=== PATIENT | female | born 1955 | race Caucasian/White ===

== ENCOUNTER → 2018-01-28 16:19 | Outpatient (CLI) | payer BC, SELFPAY | PROVIDERS: Family Provider Family Medicine; PCP Family Medicine; Visit Provider Nurse Practitioner Women's Health | DX: R30.0 Dysuria (principal) | CPT/HCPCS: 87086; 87088; 87186 ==

== ENCOUNTER → 2018-07-03 08:07 | Outpatient (CLI) | payer MEDICARE, OTHER, SELFPAY ==
[2018-07-03 09:49] LABS: ALB/GLOB Ratio 0.9 RATIO (0.9-2.4); AST(SGOT) 22 U/L (15-37); Alanine Aminotransfer ALT/SGPT 41 U/L (13-56); Albumin, Serum 3.5 g/dL (3.2-5.0); Alkaline Phosphatase 93 U/L (45-117); Anion Gap 11 (5-15); BUN 13 mg/dL (7-18); BUN/Creat Ratio 14.5 RATIO (10-20); Calcium,Total 8.4 mg/dL (8.5-10.1); Chloride 106 mmol/L (98-107); Creatinine, Serum 0.89 mg/dL (0.55-1.02); EST Glomerular Filtration Rate 67 mL/min (>60); Est Glom Filt Rate - Afr Amer 81 mL/min (>60); Globulin 3.7 g/dL (2.2-4.2); Glucose 98 mg/dL (74-106); Potassium 4.1 mmol/L (3.5-5.1); Protein, Total 7.2 g/dL (6.4-8.2); Sodium Level 142 mmol/L (136-145)
[2018-07-04 11:57] LABS: PTHIN 83.9 pg/mL (18.4-80.1)
[2018-07-04 12:09] LABS: Vitamin D,25 Hydroxy 54.1 ng/mL (29.95-100.01)
== END ==
PROVIDERS: Family Provider Family Medicine; PCP Family Medicine; Visit Provider Nurse Practitioner
DX: E55.9 Vitamin D deficiency, unspecified (principal); M81.0 Age-related osteoporosis without current pathological fracture
CPT/HCPCS: 36415; 80053; 82306; 83970

== ENCOUNTER → 2018-07-15 10:29 | Outpatient (CLI) | payer MEDICARE, OTHER, SELFPAY ==
--- NOTE | 2018-07-15 10:30 | US_ITS ---
STUDY: THYROID ULTRASOUND REASON FOR EXAM: Female, 63 years old. Goiter TECHNIQUE: Ultrasound evaluation of the thyroid was performed with real-time and static hansen-scale imaging. COMPARISON: None. FINDINGS: RIGHT LOBE: The right lobe of the thyroid gland measures 5.1 x 2.2 x 2.3 cm. There is a homogeneous echotexture. Multiple small solid nodules are noted. Largest is in the mid pole measuring 8 x 5 x 6 mm with a small calcification. LEFT LOBE: The left lobe of the thyroid gland measures 4.7 x 1.8 x 1.6 cm. There is a homogeneous echotexture. At least 3 solid nodules are noted, largest is in the midpole region measuring 6 x 6 x 4 mm. ISTHMUS: The isthmus measures 4 mm. The regional lymph nodes are normal. US/Thyroid IMPRESSION: Multiple small subcentimeter nodules noted bilaterally. Otherwise, homogeneous echotexture throughout Electronically Signed: Luis Avila DO at 8:33 EDT Tel , Service support ,
== END ==
PROVIDERS: Family Provider Family Medicine; PCP Family Medicine; Visit Provider Nurse Practitioner
DX: E04.9 Nontoxic goiter, unspecified (principal)
CPT/HCPCS: 76536

== ENCOUNTER → 2018-09-09 10:17 | Outpatient (CLI) | payer MEDICARE, OTHER, SELFPAY ==
--- NOTE | 2018-09-09 10:20 | BI_ITS ---
MAMMOGRAPHY - BILATERAL SCREENING REASON FOR EXAM: Female, 63 years old. Routine annual screening examination. PERTINENT HISTORY: Non-contributory. TECHNIQUE: Digital bilateral breast micky (3D mammographic acquisition) in the CC and MLO projections. 2-D mediolateral oblique (MLO) and craniocaudad (CC) views of both breasts were obtained. CAD: Full Field Digital Mammography with Computer Added Detection was performed. COMPARISON: Comparison is made with prior study dated September 03, 2017 and June 20, 2010. FINDINGS: Breast Composition: The breasts are heterogeneously dense, which may obscure small masses. There are no dominant masses or suspicious calcifications. 2 tissue markers are seen in the right breast and compared with the history of prior right stereotactic biopsies. Stable small benign-appearing bilateral axillary lymph nodes. No other significant abnormalities are identified. BI/SCREENING MAMM (CAD), BILAT IMPRESSION: Stable bilateral screening mammogram. Yearly follow-up mammogram recommended. (A) ASSESSMENT CATEGORY: Approximately 10% of breast cancers are not detected by mammography. A normal mammogram should not delay biopsy of a clinically suspicious abnormality. [id number] Electronically Signed: Adarsh Mao MD at 12:41 EST Tel [phone], Service support ,
== END ==
PROVIDERS: Family Provider Family Medicine; PCP Family Medicine; Referring Provider Nurse Practitioner Women's Health; Visit Provider Nurse Practitioner Women's Health
DX: Z12.31 Encounter for screening mammogram for malignant neoplasm of breast (principal)
CPT/HCPCS: 77063; 77067

== ENCOUNTER → 2018-10-08 09:01 | Outpatient (CLI) | payer MEDICARE, OTHER, SELFPAY ==
[2018-09-22 14:07] VITALS: BMI 31.9
[2018-10-08 10:05] LABS: ALB/GLOB Ratio 0.9 RATIO (0.9-2.4); AST(SGOT) 17 U/L (15-37); Alanine Aminotransfer ALT/SGPT 33 U/L (13-56); Albumin, Serum 3.6 g/dL (3.2-5.0); Alkaline Phosphatase 100 U/L (45-117); Anion Gap 11 (5-15); BUN 15 mg/dL (7-18); BUN/Creat Ratio 15.8 RATIO (10-20); Calcium,Total 8.8 mg/dL (8.5-10.1); Chloride 105 mmol/L (98-107); Creatinine, Serum 0.95 mg/dL (0.55-1.02); EST Glomerular Filtration Rate 63 mL/min (>60); Est Glom Filt Rate - Afr Amer 76 mL/min (>60); Globulin 3.9 g/dL (2.2-4.2); Glucose 100 mg/dL (74-106); Protein, Total 7.5 g/dL (6.4-8.2); Sodium Level 142 mmol/L (136-145)
[2018-10-08 10:08] LABS: PTHIN 50.8 pg/mL (18.4-80.1)
[2018-10-10 14:55] LABS: Vitamin D 1,25-Dihydroxy 28.6 pg/mL (19.9-79.3)
--- OUTSIDE RECORDS SUMMARY | 2018-11-24 04:56 | XMS RPT_ITS ---
:1955 Author Organization OHIP Care Team Providers Name Role Phone ARELI BANUELOS Attending Unavailable ARELI BANUELOS Referring Unavailable TRAVON COWAN Attending Unavailable TRAVON COWAN Referring Unavailable STEPHANIE OVIEDO Attending Unavailable Mark SINCLAIR Referring Unavailable TRAVON COWAN Referring Unavailable Caitlyn Sinclair ELECTRIC MOTORS SALESPERSON-Sheldon Attending Unavailable Caitlyn Sinclair ELECTRIC MOTORS SALESPERSON-Sheldon Referring Unavailable Stephanie Oviedo Primary Care Unavailable Ely Hudson Attending Unavailable Elderbrock, Stephanie Referring Unavailable Elderbrock, Stephanie Primary Care Unavailable ShookCaitlyn ELECTRIC MOTORS SALESPERSON-C Attending Unavailable Elderbrock, Stephanie Referring Unavailable Elderbrock, Stephanie Primary Care Unavailable Tristan, Ely Attending Unavailable Elderbrock, Stephanie Primary Care Unavailable Mannford, Ely Referring Unavailable Shook, Caitlyn Bustamante ELECTRIC MOTORS SALESPERSON-C Attending Unavailable Shook, Caitlyn Bustamante ELECTRIC MOTORS SALESPERSON-C Referring Unavailable Elderbrock, Stephanie Primary Care Unavailable Shook, Caitlyn Bustamante ELECTRIC MOTORS SALESPERSON-C Attending Unavailable Elderbrock, Stephanie Referring Unavailable Elderbrock, Stephanie Primary Care Unavailable Shook, Caitlyn Bustamante ELECTRIC MOTORS SALESPERSON-C Attending Unavailable Shook, Caitlyn Bustamante ELECTRIC MOTORS SALESPERSON-C Referring Unavailable Elderbrock, Stephanie Primary Care Unavailable Mannford, Ely Attending Unavailable Tristan, Ely Referring Unavailable Elderbrock, Stephanie Primary Care Unavailable Tristan, Ely Attending Unavailable Elderbrock, Stephanie Referring Unavailable PROBLEMS PROBLEMS DATE TYPE CONDITION / CODE ATTENDING STATUS SOURCE 07/15/2018 Unknown 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, ELECTRIC MOTORS SALESPERSON-C Community unspecified / Hospital E04.9(ICD-10) Repository 04/25/2018 Active Other specified NA Active [facility] disorders of bone [facility] density and Repository structure, unspecified site / M85.80(ICD-10) 02/28/2018 Active Unknown / CHAPO, Active [facility] UNK(Unknown) TRAVON Dillard [facility] Repository 02/13/2018 Unknown M81.0 - Caitlyn Sinclair Active [facility] Age-related ELECTRIC MOTORS SALESPERSON-C Community osteoporosis Hospital without current Repository pathological fracture / M81.0(ICD-10) 01/29/2018 Unknown R30.0 - Dysuria / Tristan, Ely Active [facility] R30.0(ICD-10) Community Hospital Repository 01/28/2018 Unknown N30.01 - Acute Mannford, Ely Active [facility] cystitis with Community hematuria / Hospital N30.01(ICD-10) Repository PROCEDURES PROCEDURES No Procedure Records FoundRESULTS RESULTS CNOV Observed: 10/27/2018 Status: COMPLETED Source: ARP 10:30 AM [facility] REPOSITORY Office Visit (ENDMED) THERESA PALMER ([id number]) 1955 F NFR Date Time Provider Department 10/27/18 10:30 AM NURSE YOLANDA BUNDY CHANCE During your visit today, we recorded the following information about you: Temi Little RN 10/27/2018 10:38 AM Signed The patient is here for an injection of Prolia Dose: 60 mg Route: Subcutaneous Lot# [id number] Expiration date 10/2020 [facility]: 50380-838-92 Given without incident. Site: left arm Dr. Cowan present in clinic at time of injection. The date due for the next injection is 6 months. On or after 04/27/19. Patient education was given by nurse. Patient tolerated well in NAD and no reactions noted. Medication supplied by [facility] stock pharmacy. Temi Little RN Referring Provider: TRAVON COWAN [[id number]] Allergies As of Date: 10/27/2018 Noted Allergy Reaction ISRRAEL INHIBITORS 02/08/2016 3 - Cough ACTONEL (RISEDRONATE SODIUM) 11/30/2005 14 - Other: See Comments Comments: esophageal erosion AUGMENTIN (AMOXICILLIN-POT CLAVUL*06/21/2005 8 - GI Upset BONIVA (IBANDRONATE) 04/04/2007 14 - Other: See Comments Comments: Pain in esophagus ENALAPRIL 07/18/2006 14 - Other: See Comments Comments: cough LEVAQUIN (LEVOFLOXACIN) 06/21/2005 8 - GI Upset SULFA (SULFONAMIDE ANTIBIOTICS) 06/21/2005 7 - Swelling 14 - Other: See Comments Comments: angioedema VIOXX (ROFECOXIB) 06/21/2005 2 - Rash Date Reviewed: 10/27/2018 Reviewed by: Temi Little RN - Fully Assessed Reason for Visit: Prolia Injection [Other] Primary Visit Diagnosis:Age related osteoporosis, unspecified pathological fracture presence [M81.0] Prescriptions as of 10/27/2018 Sig: ASPIRIN 81 MG TABLET,DELAYED * Take 1 tablet by mouth once d* CALCITRIOL 0.25 MCG CAPSULE Take 0.25 mcg by mouth once d* CALCIUM PHOSPHATE 600 MG-VIT * Take 1 tablet by mouth once d* * CHOLECALCIFEROL (VITAMIN D3) * Take 1 Each by mouth once spencer* EZETIMIBE 10 MG TABLET Take 1 tablet by mouth once d* FLUOCINONIDE 0.05 % TOPICAL G* apply to area affected 3 time* FLUTICASONE 110 MCG/ACTUATION* Inhale 2 Puffs as instructed * LOSARTAN 50 MG TABLET Take 1 tablet by mouth once d* MONTELUKAST 10 MG TABLET Take 1 tablet by mouth daily * MONTELUKAST 10 MG TABLET Take 1 tablet by mouth daily * NYSTATIN 100,000 UNIT/GRAM TO* Apply 1 application to affect* * OTC PRODUCT Citracal 400mg +D ii daily PANTOPRAZOLE 40 MG TABLET,DEL* Take 1 tablet by mouth once d* POLYETHYLENE GLYCOL 3350 17 G* Take 17 g by mouth once daily* ROSUVASTATIN 10 MG TABLET Take one tablet by mouth ever* VENLAFAXINE ER 150 MG CAPSULE* Take 1 capsule by mouth once * Problem List As Of Date 10/27/2018 Noted Resolved ESOPHAGEAL REFLUX [K21.9] SICCA SYNDROME [M35.00] Osteoporosis [M81.0] More... 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 Hyperparathyroidism, secondary (HCC) [N25.81] INVALID FOR* More... Hypertension [I10] INVALID FOR* Sjogren's disease (HCC) [M35.00] INVALID FOR* Special screening for malignant neoplasm of col*INVALID FOR*09/07/2015 Painful swallowing [R13.10] INVALID FOR*09/07/2015 Cough [R05] INVALID FOR*02/20/2016 Multiple thyroid nodules [E04.2] INVALID FOR* More... Esophageal spasm [K22.4] INVALID FOR* Obesity [E66.9] INVALID FOR* Hyperlipidemia [E78.00] INVALID FOR* Visit Notes: >> Temi Little RN SatOct 27, 2018 10:35 AM Status: Signed The patient is here for an injection of Prolia Dose: 60 mg Route: Subcutaneous Lot# [id number] Expiration date 10/2020 [facility]: 45626-160-37 Given without incident. Site: left arm Dr. Cowan present in clinic at time of injection. The date due for the next injection is 6 months. On or after 04/27/19. Patient education was given by nurse. Patient tolerated well in NAD and no reactions noted. Medication supplied by [facility] stock pharmacy. Temi Little RN Encounter Status:Closed by TEMI LITTLE RN on 10/27/18 COMPREHENSIVE METABOLIC Collected: 10/08/2018 Status: F Source: KELVIN GILMORE 9:04 AM [facility] REPOSITORY TYPE CODE TESTS RESULT OUT OF RANGE REFERENCE UNITS LAB L501.0100 74-106 mg/dL Normal GLU 100 Result Comment: Fasting Glucose result from 100 to 125 mg/dL suggests IMPAIRED HOMEOSTASIS per A.D.A. criteria. Please note revised GLUCOSE reference range effective 2017. LAB L501.1000 7-18 mg/dL Normal BUN 15 LAB L501.1100 0.55-1.02 mg/dL Normal CREAT,SERUM 0.95 Result Comment: The validity of the calculated GFR AND GFRAA in patients over 70 years has not been determined. Clinical correlation is essential. LAB L501.1110 >60 mL/min Normal EST GFR 63 Result Comment: Non- GFR Calc LAB L501.1115 >60 mL/min Normal EST GFR - AA 76 Result Comment: GFR Calc LAB L501.1300 10-20 RATIO Normal BUN/CRE 15.8 LAB L501.1500 6.4-8.2 g/dL T Normal PROT 7.5 LAB L501.1800 3.2-5.0 g/dL Normal ALB 3.6 LAB L501.1950 2.2-4.2 g/dL Normal GLOB 3.9 LAB L501.2000 0.9-2.4 RATIO Normal A/G 0.9 LAB L501.2200 8.5-10.1 mg/dL CA Normal 8.8 LAB L501.4100 15-37 U/L Normal AST 17 LAB L501.4305 45-117 U/L Normal ALK P 100 LAB L501.4405 13-56 U/L Normal ALT 33 LAB L501.4600 0.20-1.00 mg/dL T Normal BILI 0.30 LAB L501.5300 136-145 mmol/L NA Normal 142 LAB L501.5600 3.5-5.1 mmol/L K Normal 4.0 LAB L501.5900 98-107 mmol/L CL Normal 105 LAB L501.6100 21.0-32.0 mmol/L Normal CO2 26.0 LAB L501.6200 5-15 Normal GAP 11 Performed By: #### L500.4050 #### [facility] [address] [place], [address] PTHIN Collected: 10/08/2018 Status: F Source: MEEKER 9:04 AM [facility] REPOSITORY TYPE CODE TESTS RESULT OUT OF RANGE REFERENCE UNITS LAB L509.1000 18.4-80.1 pg/mL Normal PTHIN 50.8 Performed By: #### L509.1000 #### [facility] [address] [place], [address] CALCIUM IONIZED Collected: 10/08/2018 Status: F Source: MEEKER 9:04 AM [facility] REPOSITORY TYPE CODE TESTS RESULT OUT OF RANGE REFERENCE UNITS LAB L3100.9600 4.5-5.6 mg/dL Normal IONIZED CA 5.5 Result Comment: Performed at: [facility] [id number] Honey Extractor: Grady Liriano PhD, Phone: [phone] Performed By: #### L3100.9600 #### [facility] (refer to report for specific site) refer to report for address and phone number VITAMIN D 1,25-DIHYDROXY Collected: 10/08/2018 Status: F Source: MEEKER 9:04 AM [facility] REPOSITORY TYPE CODE TESTS RESULT OUT OF RANGE REFERENCE UNITS LAB L3300.0960 19.9-79.3 pg/mL Normal VITD 1,25 28.6 [id number] Result Comment: Performed at: - [facility] [id number] Honey Extractor: Rl Kennedy MD, Phone: [phone] Performed By: #### L3300.0960 #### [facility] (refer to report for specific site) refer to report for address and phone number BD DXA - AXIAL Observed: 09/29/2018 Status: C Source: GALDAMEZ SKELETON 10:50 AM [facility] REPOSITORY * * *Final Report* * * * * * SEE BOTTOM OF REPORT FOR ADDENDED TEXT * * * DATE OF EXAM: Sep 29 2018 10:50AM [facility] [id number] - BD DXA - AXIAL SKELETON B / PROCEDURE REASON: Osteoporosis * * * * Physician Interpretation * * * * * * * * * * * * ORIGINAL REPORT * * * * * * * * BONE DENSITY SCREENING - 09/29/2018 10:50 AM HISTORY: INDICATIONS / RISK FACTORS / DEMOGRAPHICS: Osteoporosis TECHNIQUE: Lumbar spine and both hips evaluated COMPARISON: 11/26/2016 STUDY LIMITATIONS: None RESULTS: LUMBAR SPINE: BMD = 0.989 g/cm2, which is -0.5 SDs (T-Score) for mean peak bone mass of young normals 1.2 SDs (Z-Score) for mean peak bone mass matched for age, sex, weight, ethnicity Comment: There is been a 6.3% increase in bone density in the lumbar spine. This is clinically significant LEFT TOTAL HIP: BMD = 0.872 g/cm2, which is -0.6 SDs (T-Score) for mean peak bone mass of young normals 0.7 SDs (Z-Score) for mean peak bone mass matched for age, sex, weight, ethnicity LEFT FEMORAL NECK: BMD = 0.634 g/cm2, which is -1.9 SDs (T-Score) for mean peak bone mass of young normals -0.4 SDs (Z-Score) for mean peak bone mass matched for age, sex, weight, ethnicity Comment: There has been a 2.0% decrease in bone density in the left total femur. RIGHT TOTAL HIP: BMD = 0.923 g/cm2, which is -0.2 SDs (T-Score) for mean peak bone mass of young normals 1.1 SDs (Z-Score) for mean peak bone mass matched for age, sex, weight, ethnicity RIGHT FEMORAL NECK: BMD = 0.756 g/cm2, which is -0.8 SDs (T-Score) for mean peak bone mass of young normals 0.7 SDs (Z-Score) for mean peak bone mass matched for age, sex, weight, ethnicity .. 10-year Fracture Risk (FRAX): Major osteoporotic fracture risk 19% Hip fracture risk 1.5% IMPRESSION: The patient's T- scores meet the World Health Organization classification for osteopenia in the LEFT femoral neck. This patient may have an increased risk of insufficiency fracture. Recommendation: Follow up study in 2 to 4 years WORLD [facility]ALTH ORG. CLASSIFICATION OF BONE MASS CLASSIFICATION T-SCORE Normal Greater than or equal to -1 Low Bone Mass Between -1 and -2.5 (Osteopenia) Osteoporosis Less than or equal to -2.5 * * * * * * * * ADDENDUM #1 * * * * * * * * LEFT forearm should also be included in the exam. The LEFT forearm: BMD = 0.650 g/cm2, which is -0.7 SDs (T-Score) for mean peak bone mass of young normals 0.9 SDs (Z-Score) for mean peak bone mass matched for age, sex, weight, ethnicity Comment: This is compatible with 1.8% increase. Impression remains the same for the entire study. Lining Ironer: DIEGO Transcribe Date/Time: Sep 30 2018 5:09P Dictated by : KARLEE COYLE DO This examination was interpreted and the report reviewed and electronically signed by: KARLEE COYLE DO on Sep 30 2018 4:57PM EST This document has been addended by: KARLEE COYLE DO on Sep 30 2018 5:13PM EST [id number] BD DXA - FOREARM Observed: 09/29/2018 Status: F Source: GALDAMEZ SKELETON 10:50 AM [facility] REPOSITORY * * *Final Report* * * DATE OF EXAM: Sep 29 2018 10:50AM [facility] [id number] - BD DXA - FOREARM SKELETON / PROCEDURE REASON: Osteoporosis * * * * Physician Interpretation * * * * LEFT forearm should also be included in the bone density exam The LEFT forearm: BMD = 0.650 g/cm2, which is -0.7 SDs (T-Score) for mean peak bone mass of young normals 0.9 SDs (Z-Score) for mean peak bone mass matched for age, sex, weight, ethnicity Comment: This is compatible with 1.8% increase. Impression remains the same for the entire study as given for lumbar spine and both hips. Lining Ironer: DIEGO Transcribe Date/Time: Sep 30 2018 5:13P Dictated by : KARLEE COYLE DO This examination was interpreted and the report reviewed and electronically signed by: KARLEE COYLE DO on Sep 30 2018 5:14PM EST [id number] PROGRESS Observed: 09/29/2018 Status: COMPLETED Source: ARP 10:23 AM [facility] REPOSITORY HNO ID: [id number] Author: Juan CarrilloRtCaro Francois Service: (none) Author Type: Senior Medical Technologist Type: Progress Notes Filed: 09/29/2018 10:51 AM Note Text: Radiology Service Progress Note PATIENT NAME: Theresa Palmer DATE OF SERVICE: September 29, 2018 TIME: 10:23 AM PATIENT IDENTITY VERIFICATION COMPLETED USING TWO (2) METHODS: Patient confirmed name verbally and Date of . PATIENT GENDER DATA: Female. status: : No status: NO. PATIENT RELEVANT IMPLANT DATA REVIEWED: Not Applicable RADIOLOGY DEPARTMENT: [facility] bone density PERIPHERAL IV DATA: Not applicable SIGNED BY: RT Tremayne September 29, 2018 10:23 AM PROGRESS Observed: 09/23/2018 Status: COMPLETED Source: ARP 9:28 AM [facility] REPOSITORY HNO ID: [id number] Author: Stephanie Oviedo Service: (none) Author Type: Physician Type: Progress Notes Filed: 09/23/2018 10:12 AM Note Text: Welcome to Medicare Physical/Screening Theresa Palmer is a 63 year old female who present today for an initial Medicare Screening evaluation. PAST MEDICAL HISTORY Diagnosis Date - Abnormal mammogram, unspecified 06/15/2010 - Allergic rhinitis, cause unspecified - Asthma - Breast cyst 06/14/2011 - Breast microcalcifications 06/20/2010 RIGHT X2 - Esophageal reflux - Fibromyalgia - Impaired glucose tolerance - Irritable bowel syndrome - Myalgia and myositis, unspecified - Osteoporosis, unspecified - Other and unspecified hyperlipidemia - Salzmann's nodular dystrophy of both eyes - Sjogren syndrome - Surgical menopause 04/17/2007 Hot flashes and insomnia. PAST SURGICAL HISTORY Procedure Laterality Date - BX BREAST PERC VACUUM/ROTN 06/20/2010 RIGHT X2 - CATARACT SURGERY, COMPLEX right eye - COLONOSCOP W/ OR W/O BRSH SPEC 2002 Colonoscopy - COLONOSCOP W/ OR W/O BRSH SPEC 09/07/15 Colonoscopy - EYE SURGERY PROCEDURE 2014 X 4 - FNA WITH IMAGING 06/14/11 U/S FNA UOQ right breast cyst - ORAL SURGERY PROCEDURE WISDOM TEETH EXTRACTION - REMOVAL OF TONSILS,<12 Y/O - TOTAL ABDOM HYSTERECTOMY 04/17/2007 Hysterectomy, MAIK/BSO - Adenomyosis FAMILY HISTORY Problem Relation Age of Onset - Osteoporosis Mother - Heart Mother - Heart Father DC Current Outpatient Prescriptions: calcitriol (ROCALTROL) 0.25 mcg capsule Take 0.25 mcg by mouth once daily. montelukast (SINGULAIR) 10 mg tablet Take 1 tablet by mouth daily at bedtime. fluticasone (FLOVENT HFA) 110 mcg/actuation inhaler Inhale 2 Puffs as instructed twice daily. pantoprazole DR (PROTONIX) 40 mg tablet Take 1 tablet by mouth once daily. venlafaxine XR (EFFEXOR XR) 150 mg 24 hr capsule Take 1 capsule by mouth once daily. polyethylene glycol 3350 (MIRALAX, GLYCOLAX) 17 gram/dose powder Take 17 g by mouth once daily. Take one (1) capful in 8oz of liquid each day. nystatin (MYCOSTATIN) cream Apply 1 application to affected area as needed. losartan (COZAAR) 50 mg tablet Take 1 tablet by mouth once daily. rosuvastatin (CRESTOR) 10 mg tablet Take one tablet by mouth every 3 days. ezetimibe (ZETIA) 10 mg tablet Take 1 tablet by mouth once daily. fluocinonide (LIDEX) 0.05 % gel apply to area affected 3 times daily as needed aspirin, enteric coated (ECOTRIN LOW STRENGTH) 81 mg EC tablet Take 1 tablet by mouth once daily. Cholecalciferol, Vitamin D3, 5,000 unit ORAL Tab Take 1 Each by mouth once daily. OTC PRODUCT Citracal 400mg +D ii daily No current facility-administered medications for this visit. Allergy: Isrrael Inhibitors; Actonel [Risedronate Sodium]; Augmentin [Amoxicillin-Pot Clavulanate]; Boniva [Ibandronate]; Enalapril; Levaquin [Levofloxacin]; Sulfa (Sulfonamide Antibiotics); Vioxx [Rofecoxib] SOCIAL HISTORY: Patient is . She has never smoked. Theresa reports her alcohol use as never. Theresa likes to exercise by walking. She watches her diet for sodium, low fat and low cholesterol most of the time. Depression screen She in the past two weeks denies having felt down, depressed, hopeless or with little interest or pleasure in doing things. Functional Ability/Safety Screen 1. Was the patient's timed Up and Go test unsteady or longer than 30 seconds? No 2. Does the patient need help with the phone, transportation, shopping,preparing meals, housework, laundry, medications or managing money? No 3. Does your home have rungs in the hallway, lack of grab bars in the bathroom, lack of handrails on the stairs or have poor lighting? Yes Hearing Evaluation: normal PHYSICAL EXAM BP 132/82 Pulse 68 Resp 16 Ht 162.6 cm (5' 4) Wt 83.5 kg (184 lb) LMP 03/23/2007 BMI 31.58 kg/m? BMI 31.58 kg/(m2) Visual acuity: OD: 20/20 OS: 20/ 15 OU: 20/15 General Appearance: Well appearing, alert, in no acute distress, well-hydrated, well nourished. and Obese. Lungs: lungs clear to auscultation. No wheezing, rhonchi, rales. Heart: RRR without murmur, gallop, or rubs. No ectopy. ASSESMENT/PLAN: 63 year old female - Weight Loss - Fall avoidance - Vaccines recommended Pneumococcal - Glaucoma screening - Lipid panel ASSESSMENT/PLAN: 1. Encounter for Medicare annual wellness exam - ICD9: V70.0, ICD10: Z00.00 (primary diagnosis) - Encouraged monthly Breast Self Exam - Recommended calcium intake with supplements or by diet (goal of 3874-2576 mg/day - Recommended regular aerobic exercise. - Discussed need and benefit for weight loss. BMI 31.58 kg/(m2) - Vaccination(s) recommended today of Prevnar - Follow up for annual exam in one year. 2. Need for vaccination - ICD9: V05.9, ICD10: Z23 - PNEUMOCOCCAL-13 VACCINE PCV-13 Follow up in 1 year or sooner if needed. I agree with the Chief Complaint, ROS, and Past Histories independently gathered by the clinical director of academic support and the remaining scribed note accurately describes my personal service to the patient. Stephanie Oviedo MD The documentation for this note was completed by Gloria Cantu Ma acting as scribe for Stephanie Oviedo MD. September 23, 2018 9:30 AM. CNOV Observed: 09/23/2018 Status: COMPLETED Source: ARP 9:20 AM [facility] REPOSITORY Office Visit (FAMPWS) THERESA PALMER ([id number]) 1955 F NFR Date Time Provider Department 09/23/18 9:20 AM [facility] your visit today, we recorded the following information about you: Pulse Respiration Blood pressure Weight 68/minute 16/minute 132/82 83.5 kg Height 1.626 m Stephanie Oviedo MD 09/23/2018 10:12 AM Signed Welcome to Medicare Physical/Screening Theresa Palmer is a 63 year old female who present today for an initial Medicare Screening evaluation. PAST MEDICAL HISTORY Diagnosis Date - Abnormal mammogram, unspecified 06/15/2010 - Allergic rhinitis, cause unspecified - Asthma - Breast cyst 06/14/2011 - Breast microcalcifications 06/20/2010 RIGHT X2 - Esophageal reflux - Fibromyalgia - Impaired glucose tolerance - Irritable bowel syndrome - Myalgia and myositis, unspecified - Osteoporosis, unspecified - Other and unspecified hyperlipidemia - Salzmann's nodular dystrophy of both eyes - Sjogren syndrome - Surgical menopause 04/17/2007 Hot flashes and insomnia. PAST SURGICAL HISTORY Procedure Laterality Date - BX BREAST PERC VACUUM/ROTN 06/20/2010 RIGHT X2 - CATARACT SURGERY, COMPLEX right eye - COLONOSCOP W/ OR W/O BRSH SPEC 2002 Colonoscopy - COLONOSCOP W/ OR W/O BRSH SPEC 09/07/15 Colonoscopy - EYE SURGERY PROCEDURE 2014 X 4 - FNA WITH IMAGING 06/14/11 U/S FNA UOQ right breast cyst - ORAL SURGERY PROCEDURE WISDOM TEETH EXTRACTION - REMOVAL OF TONSILS,<12 Y/O - TOTAL ABDOM HYSTERECTOMY 04/17/2007 Hysterectomy, MAIK/BSO - Adenomyosis FAMILY HISTORY Problem Relation Age of Onset - Osteoporosis Mother - Heart Mother - Heart Father DC Current Outpatient Prescriptions: calcitriol (ROCALTROL) 0.25 mcg capsule Take 0.25 mcg by mouth once daily. montelukast (SINGULAIR) 10 mg tablet Take 1 tablet by mouth daily at bedtime. fluticasone (FLOVENT HFA) 110 mcg/actuation inhaler Inhale 2 Puffs as instructed twice daily. pantoprazole DR (PROTONIX) 40 mg tablet Take 1 tablet by mouth once daily. venlafaxine XR (EFFEXOR XR) 150 mg 24 hr capsule Take 1 capsule by mouth once daily. polyethylene glycol 3350 (MIRALAX, GLYCOLAX) 17 gram/dose powder Take 17 g by mouth once daily. Take one (1) capful in 8oz of liquid each day. nystatin (MYCOSTATIN) cream Apply 1 application to affected area as needed. losartan (COZAAR) 50 mg tablet Take 1 tablet by mouth once daily. rosuvastatin (CRESTOR) 10 mg tablet Take one tablet by mouth every 3 days. ezetimibe (ZETIA) 10 mg tablet Take 1 tablet by mouth once daily. fluocinonide (LIDEX) 0.05 % gel apply to area affected 3 times daily as needed aspirin, enteric coated (ECOTRIN LOW STRENGTH) 81 mg EC tablet Take 1 tablet by mouth once daily. Cholecalciferol, Vitamin D3, 5,000 unit ORAL Tab Take 1 Each by mouth once daily. OTC PRODUCT Citracal 400mg +D ii daily No current facility-administered medications for this visit. Allergy: Isrrael Inhibitors; Actonel [Risedronate Sodium]; Augmentin [Amoxicillin-Pot Clavulanate]; Boniva [Ibandronate]; Enalapril; Levaquin [Levofloxacin]; Sulfa (Sulfonamide Antibiotics); Vioxx [Rofecoxib] SOCIAL HISTORY: Patient is . She has never smoked. Theresa reports her alcohol use as never. Theresa likes to exercise by walking. She watches her diet for sodium, low fat and low cholesterol most of the time. Depression screen She in the past two weeks denies having felt down, depressed, hopeless or with little interest or pleasure in doing things. Functional Ability/Safety Screen 1. Was the patient's timed Up and Go test unsteady or longer than 30 seconds? No 2. Does the patient need help with the phone, transportation, shopping,preparing meals, housework, laundry, medications or managing money? No 3. Does your home have rungs in the hallway, lack of grab bars in the bathroom, lack of handrails on the stairs or have poor lighting? Yes Hearing Evaluation: normal PHYSICAL EXAM BP 132/82 Pulse 68 Resp 16 Ht 162.6 cm (5' 4) Wt 83.5 kg (184 lb) LMP 03/23/2007 BMI 31.58 kg/m? BMI 31.58 kg/(m2) Visual acuity: OD: 20/20 OS: 20/ 15 OU: 20/15 General Appearance: Well appearing, alert, in no acute distress, well-hydrated, well nourished. and Obese. Lungs: lungs clear to auscultation. No wheezing, rhonchi, rales. Heart: RRR without murmur, gallop, or rubs. No ectopy. ASSESMENT/PLAN: 63 year old female - Weight Loss - Fall avoidance - Vaccines recommended Pneumococcal - Glaucoma screening - Lipid panel ASSESSMENT/PLAN: 1. Encounter for Medicare annual wellness exam - ICD9: V70.0, ICD10: Z00.00 (primary diagnosis) - Encouraged monthly Breast Self Exam - Recommended calcium intake with supplements or by diet (goal of 7657-5723 mg/day - Recommended regular aerobic exercise. - Discussed need and benefit for weight loss. BMI 31.58 kg/(m2) - Vaccination(s) recommended today of Prevnar - Follow up for annual exam in one year. 2. Need for vaccination - ICD9: V05.9, ICD10: Z23 - PNEUMOCOCCAL-13 VACCINE PCV-13 Follow up in 1 year or sooner if needed. I agree with the Chief Complaint, ROS, and Past Histories independently gathered by the clinical director of academic support and the remaining scribed note accurately describes my personal service to the patient. Stephanie Oviedo MD The documentation for this note was completed by Gloria Cantu Ma acting as scribe for Stephanie Oviedo MD. September 23, 2018 9:30 AM. Referring Provider: SELF [[id number]] Allergies As of Date: 09/23/2018 Noted Allergy Reaction ISRRAEL INHIBITORS 02/08/2016 3 - Cough ACTONEL (RISEDRONATE SODIUM) 11/30/2005 14 - Other: See Comments Comments: esophageal erosion AUGMENTIN (AMOXICILLIN-POT CLAVUL*06/21/2005 8 - GI Upset BONIVA (IBANDRONATE) 04/04/2007 14 - Other: See Comments Comments: Pain in esophagus ENALAPRIL 07/18/2006 14 - Other: See Comments Comments: cough LEVAQUIN (LEVOFLOXACIN) 06/21/2005 8 - GI Upset SULFA (SULFONAMIDE ANTIBIOTICS) 06/21/2005 7 - Swelling 14 - Other: See Comments Comments: angioedema VIOXX (ROFECOXIB) 06/21/2005 2 - Rash Date Reviewed: 09/23/2018 Reviewed by: Gloria Cantu Ma - Fully Assessed Reason for Visit: Medicare Wellness Exam [4060] Primary Visit Diagnosis:Encounter for Medicare annual wellness exam [Z00.00] Other Visit Diagnoses:Need for vaccination [Z23] Gastroesophageal reflux disease without esophagitis [K21.9] Order(s):PNEUMOCOCCAL-13 VACCINE PCV-13 [[id number]] Order #: [id number] calcium phos-vit D3-mag oxide 600 mg calcium- 500 unit-50 mg tabTake 1 tablet by mouth once daily.Disp: Rfl: denosumab (PROLIA) 60 mg/mL syrgInject 1 mL subcutaneously one time only for 1 dose.Disp: 1 mLRfl: [address] (PROTONIX) 40 mg tabletTake 1 tablet by mouth once daily.Disp: 90 tabletRfl: 3 Prescriptions as of 09/23/2018 Sig: PANTOPRAZOLE 40 MG TABLET,DEL* Take 1 tablet by mouth once d* CALCITRIOL 0.25 MCG CAPSULE Take 0.25 mcg by mouth once d* MONTELUKAST 10 MG TABLET Take 1 tablet by mouth daily * FLUTICASONE 110 MCG/ACTUATION* Inhale 2 Puffs as instructed * VENLAFAXINE ER 150 MG CAPSULE* Take 1 capsule by mouth once * POLYETHYLENE GLYCOL 3350 17 G* Take 17 g by mouth once daily* NYSTATIN 100,000 UNIT/GRAM TO* Apply 1 application to affect* LOSARTAN 50 MG TABLET Take 1 tablet by mouth once d* ROSUVASTATIN 10 MG TABLET Take one tablet by mouth ever* EZETIMIBE 10 MG TABLET Take 1 tablet by mouth once d* FLUOCINONIDE 0.05 % TOPICAL G* apply to area affected 3 time* ASPIRIN 81 MG TABLET,DELAYED * Take 1 tablet by mouth once d* * CHOLECALCIFEROL (VITAMIN D3) * Take 1 Each by mouth once spencer* * OTC PRODUCT Citracal 400mg +D ii daily CALCIUM PHOSPHATE 600 MG-VIT * Take 1 tablet by mouth once d* DENOSUMAB 60 MG/ML SUBCUTANEO* Inject 1 mL subcutaneously on* Problem List As Of Date 09/23/2018 Noted Resolved ESOPHAGEAL REFLUX [K21.9] SICCA SYNDROME [M35.00] Osteoporosis [M81.0] More... 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 Hyperparathyroidism, secondary (HCC) [N25.81] INVALID FOR* More... Hypertension [I10] INVALID FOR* Sjogren's disease (HCC) [M35.00] INVALID FOR* Special screening for malignant neoplasm of col*INVALID FOR*09/07/2015 Painful swallowing [R13.10] INVALID FOR*09/07/2015 Cough [R05] INVALID FOR*02/20/2016 Multiple thyroid nodules [E04.2] INVALID FOR* More... Esophageal spasm [K22.4] INVALID FOR* Obesity [E66.9] INVALID FOR* Hyperlipidemia [E78.00] INVALID FOR* Prescriptions ordered this encounter Disp Refills Start End CALCIUM PHOSPHATE 600 MG-VIT D3 500 * 09/23/2018 Class: OTC Route: ORAL Sig: Take 1 tablet by mouth once daily. DENOSUMAB 60 MG/ML SUBCUTANEOUS SYRI* 1 mL 0 09/23/2018 09/23/2018 Class: Med Update Route: SUBCUTANEOUS Sig: Inject 1 mL subcutaneously one time only for 1 dose. PANTOPRAZOLE 40 MG TABLET,DELAYED RE* 90 t* 3 09/23/2018 Route: ORAL Sig: Take 1 tablet by mouth once daily. Medications Discontinued During This Encounter pantoprazole DR (PROTONIX) 40 mg tab* 90 t* 3 09/17/2017 09/23/2018 Route: ORAL Sig: Take 1 tablet by mouth once daily. Disc: Reason for discontinue is not on file. Disposition: Return in about 1 year (around 09/23/2019). 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 [place] [address] OFFICE VISIT Date of Service: 09/22/18 MR#: [id number] Acct: [id number] Name: THERESA PALMER Rep #: [id number] : 1955 Provider: GRISEL Hudson Age/Sex: 63/F Location: [facility] [place] Status: Signed Intake Vital Signs09/22/18 Height 5 ft 4 in 09/22/18 Weight: 186 lb 09/22/18 Body Mass Index (BMI) 31.9 09/22/18 Blood Pressure 120/78 Intake Visit Reasons: ANNUAL Lacemaker Required: No Is patient in pain?: No Allergies ISRRAEL Inhibitors Allergy (Severe, Verified 09/22/18 14:08) Unknown benzocaine [From TriOxin] Allergy (Severe, Verified 09/22/18 14:08) Unknown chloroxylenol [From TriOxin] Allergy (Severe, Verified 09/22/18 14:08) Unknown enalapril Allergy (Severe, Verified 09/22/18 14:08) Unknown hydrocortisone [From TriOxin] Allergy (Severe, Verified 09/22/18 14:08) Unknown ibandronate sodium Allergy (Severe, Verified 09/22/18 14:08) Unknown risedronate sodium Allergy (Severe, Verified 09/22/18 14:08) Unknown amoxicillin [From Augmentin] Allergy (Mild, Verified 09/22/18 14:08) nauseated clavulanic acid [From Augmentin] Allergy (Mild, Verified 09/22/18 14:08) nauseated levofloxacin [From Levaquin] Allergy (Mild, Verified 09/22/18 14:08) nauseated rofecoxib [From Vioxx] Allergy (Mild, Verified 09/22/18 14:08) rash Sulfa (Sulfonamide Antibiotics) Allergy (Mild, Verified 09/22/18 14:08) throat swelling Medications rosuvastatin 10 mg tablet 10 mg PO QDAY #90 tab 11/20/17 [Rx Confirmed 09/22/18] aspirin 81 mg chewable tablet PO 01/28/18 [History Confirmed 09/22/18] cholecalciferol (vitamin D3) 5,000 unit capsule 5,000 unit PO ONCE 01/28/18 [History Confirmed 09/22/18] denosumab 60 mg/mL subcutaneous syringe 60 mg SC [id number] 01/28/18 [History Confirmed 09/22/18] fluticasone 110 mcg/actuation HFA aerosol inhaler 2 puff INHALATION BID 01/28/18 [History Confirmed 09/22/18] montelukast 10 mg tablet 10 mg PO QHS 01/28/18 [History Confirmed 09/22/18] pantoprazole 40 mg tablet,delayed release 40 mg PO QDAY 01/28/18 [History Confirmed 09/22/18] fluocinonide 0.05 % topical gel 1 applic TOPICAL TID PRN g 02/13/18 [History Confirmed 09/22/18] nystatin 100,000 unit/gram topical cream 1 applic TOPICAL BID 02/13/18 [History Confirmed 09/22/18] polyethylene glycol 3350 17 gram/dose oral powder PO 02/13/18 [History Confirmed 09/22/18] ezetimibe 10 mg tablet 10 mg PO QDAY #90 tab 04/28/18 [Rx Confirmed 09/22/18] calcitriol 0.25 mcg capsule 0.25 mcg PO DAILY #90 cap 06/29/18 [Rx Confirmed 09/22/18] losartan 50 mg tablet 50 mg PO QDAY #90 tab 07/15/18 [Rx Confirmed 09/22/18] calcium phosphate-vitamin D3 250 mg calcium-500 unit chewable tablet tab PO TID tab 09/22/18 [History Confirmed 09/22/18] venlafaxine ER 75 mg capsule,extended release 24 hr 150 mg PO QDAY #180 cap 09/22/18 [Rx Confirmed 09/22/18] Is last menstrual period known: No Post menopausal: No Patient : No : No PFSH Medical History GERD (gastroesophageal reflux disease) (Chronic) Osteoporosis (Chronic) Sjogrens syndrome (Chronic) Gastroparesis (Chronic) Fibromyalgia (Chronic) Asthma (Chronic) Hot flashes (Chronic) Vitamin D deficiency (Chronic) Hyperlipidemia (Chronic) Hypertension (Chronic) Esophageal spasm (Acute) Hyperparathyroidism , secondary, non-renal (Acute) Multiple thyroid nodules (Acute) Obesity (Acute) Salzmann's nodular dystrophy (Acute) Sicca syndrome (Acute) H/O endoscopy (Resolved) Surgical History H/O colonoscopy (Resolved) History of LAVH (Resolved) S/P left knee surgery (Resolved) S/P tonsillectomy (Resolved) Family History Mother Heart disease Hypertension Father Heart disease Myocardial infarction Hypertension Social History Smoking Status: Never smoker alcohol intake: never substance use type: does not use caffeine: Yes what type of physical activity do you participate in: walking frequency: 5-6 times per week seatbelt use: always do you feel safe at home: Yes additional social history: - Ronni Patient and both retired. Pregancy History 3 Elective abortions Hx Para 3 Spontaneous abortions Past Pregnancies Del. DateName GA/Weeks Outcome Route Bth WeighInfant GeLabor LgtAnesthesiDel LocatProvider FOB t n h a n HPI ANNUAL: Details: THERESA PALMER is a 63 year old who presents for annual exam. Denies concerns History of abnormal PAP: no Last mammogram: 09/09/18 History of abnormal mammogram: benign biopsy Colon cancer screenin BMD with hospice chaplain Female Reproductive History Questions: Metorrhagia: No, Sexually active: No, Dyspareunia: No, PCB: No ROS Const Constitutional: Denies fatigue, weight gain or weight loss Cardio Card: Denies chest pain Resp Resp: Denies cough or shortness of breath with activity GI GI: Denies abdominal pain, constipation, change in stools, vomiting or bloating : Reports as per HPI; denies urinary frequency, pelvic pain, urinary urgency, vaginal discharge, vaginal itching, urinary incontinence or difficulty urinating Exam Const General: cooperative, healthy appearing, no acute distress, well developed Orientation: alert, oriented to person, oriented to place [facility] Head: normal to inspection Neck Neck: normal visual inspection Thyroid: thyroid normal Lymphatic: no lymphadenopathy noted Chest Breast inspection: normal inspection of the breasts, normal inspection of the axillae Breast palpation: normal palpation of the breasts, normal palpation of the axillae, no axillary lymphadenopathy Resp Effort AND Inspection: normal respiratory effort GI Palpation: soft, nontender, no masses Rectal Exam: deferred External Female Exam: normal external appearance, normal appearance of the urethra Urethra: normal appearance of the urethra, normal palpation Speculum Exam - Vagina: normal appearance of the vagina, normal vaginal discharge Speculum Exam - Cervix: cervix absent Bimanual Exam- Vagina AND Uterus: normal bimanual exam, uterus absent Bimanual Exam- Adnexa, other: normal adnexae, no adnexal masses, adnexae non-tender, pelvic support normal Pelvic Support: normal Neuro General: alert, oriented x3 Psych Affect: normal affect Assessment AND Plan Problems 1. Encounter for gynecological examination without abnormal finding Z01.419 2. Osteoporosis without current pathological fracture, unspecified osteoporosis type M81.0 Feels good and is exercising daily. Continues with Dr. Cowan for prolia. 3. Hot flashes R23.2 Plan Completed breast and pelvic exam Reviewed diet and exercise Pap na Mammogram recent Colonoscopy 2014 Bone density -recent and follows with endocrinology, on prolia RTO 1 year, prn with problems Ely Hudson SR. PAYROLL PROCESSOR Medications New: Changed: From: calcium phosphate-vitamin D3 250 mg calcium- 500 unit (Citracal + D3 PO BID 0RF (calcium phosphate)) Refilled: Coding Level of Care Code Pelvic/Breast Diagnoses Encounter for gynecological examination without abnormal finding Z01.419 Gynecological examination findings: abnormal findings ABSENT Osteoporosis without current pathological fracture, unspecified osteoporosis type M81.0 Osteoporosis type: unspecified Presence of current pathological fracture: without current pathological fracture Hot flashes R23.2 09/22/18 1442 <Electronically signed by Ely JUSTICE> Date Ely BURROUGHSC Cosigner Signature: Date (if applicable) CC: SCREENING MAMM (CAD), Observed: 09/09/2018 Status: F Source: KELVIN PÉREZ 10:20 AM [facility] REPOSITORY [facility] Services [address] [place] [address] SCREENING MAMM (CAD), BILAT MR#: [id number] Acct: [id number] Name: THERESA PALMER Rep #: [id number] : 1955 F 63 From: Adarsh Mao MD PCP: Stephanie Oviedo MD Status: REG CLI Study: SCREENING MAMM (CAD), BILAT Date of Exam: 09/09/18 Exam# [id number] Ordering Dr: Ely Hudson [employer] SALESPERSON-C ADDENDUM by Adarsh Mao MD on 09/10/18 at 0844 ADDENDUM This is an addendum for BIRADS category. BIRADS Category 2. Electronically Signed: Adarsh Mao MD at 8:44 EST Tel [phone], Service support , 09/10/18 0844 Date cc: GRISEL Hudson; Stephanie Oviedo MD * Signed ADDENDUM by Adarsh Mao MD on 09/10/18 at 0844 BI/SCREENING MAMM (CAD), BILAT 09/10/18 0851 Date cc: GRISEL Hudson; Stephanie Oviedo MD * Signed MAMMOGRAPHY - BILATERAL SCREENING REASON FOR EXAM: Female, 63 years old. Routine annual screening examination. PERTINENT HISTORY: Non-contributory. TECHNIQUE: Digital bilateral breast micky (3D mammographic acquisition) in the CC and MLO projections. 2-D mediolateral oblique (MLO) and craniocaudad (CC) views of both breasts were obtained. CAD: Full Field Digital Mammography with Computer Added Detection was performed. COMPARISON: Comparison is made with prior study dated September 03, 2017 and June 20, 2010. FINDINGS: Breast Composition: The breasts are heterogeneously dense, which may obscure small masses. There are no dominant masses or suspicious calcifications. 2 tissue markers are seen in the right breast and compared with the history of prior right stereotactic biopsies. Stable small benign-appearing bilateral axillary lymph nodes. No other significant abnormalities are identified. BI/SCREENING MAMM (CAD), BILAT IMPRESSION: Stable bilateral screening mammogram. Yearly follow-up mammogram recommended. (A) ASSESSMENT CATEGORY: Approximately 10% of breast cancers are not detected by mammography. A normal mammogram should not delay biopsy of a clinically suspicious abnormality. [id number] Electronically Signed: Adarsh Mao MD at 12:41 EST Tel [phone], Service support , CC: GRISEL Hudson; Stephanie Oviedo MD Lining Ironer: Signed [id number] Observed: 09/09/2018 Status: COMPLETED Source: ARP 12:00 AM [facility] REPOSITORY Patient Outreach (FAMPST) THERESA PALMER ([id number]) 1955 F NFR Date Time Provider Department 09/09/18 STEPHANIE OVIEDO FAMPST During your visit today, we recorded the following information about you: Allergies As of Date: 09/09/2018 Noted Allergy Reaction ISRRAEL INHIBITORS 02/08/2016 3 - Cough ACTONEL (RISEDRONATE SODIUM) 11/30/2005 14 - Other: See Comments Comments: esophageal erosion AUGMENTIN (AMOXICILLIN-POT CLAVUL*06/21/2005 8 - GI Upset BONIVA (IBANDRONATE) 04/04/2007 14 - Other: See Comments Comments: Pain in esophagus ENALAPRIL 07/18/2006 14 - Other: See Comments Comments: cough LEVAQUIN (LEVOFLOXACIN) 06/21/2005 8 - GI Upset SULFA (SULFONAMIDE ANTIBIOTICS) 06/21/2005 7 - Swelling 14 - Other: See Comments Comments: angioedema VIOXX (ROFECOXIB) 06/21/2005 2 - Rash Date Reviewed: 04/25/2018 Reviewed by: Temi Little RN - Fully Assessed Visit Diagnosis:Medication management [Z79.899] Order(s):BASIC METABOLIC PNL [SQBMP] Order #: [id number] FUTURE HGB A1C [PFZTH5F] Order #: [id number] FUTURE LIPID PANEL BASIC [SQLIPB] Order #: [id number] FUTURE Prescriptions as of 09/09/2018 Sig: ASPIRIN 81 MG TABLET,DELAYED * Take 1 tablet by mouth once d* CALCITRIOL 0.25 MCG CAPSULE Take 0.25 mcg by mouth once d* * CHOLECALCIFEROL (VITAMIN D3) * Take 1 Each by mouth once spencer* EZETIMIBE 10 MG TABLET Take 1 tablet by mouth once d* FLUOCINONIDE 0.05 % TOPICAL G* apply to area affected 3 time* FLUTICASONE 110 MCG/ACTUATION* Inhale 2 Puffs as instructed * LOSARTAN 50 MG TABLET Take 1 tablet by mouth once d* MONTELUKAST 10 MG TABLET Take 1 tablet by mouth daily * NYSTATIN 100,000 UNIT/GRAM TO* Apply 1 application to affect* * OTC PRODUCT Citracal 400mg +D ii daily POLYETHYLENE GLYCOL 3350 17 G* Take 17 g by mouth once daily* ROSUVASTATIN 10 MG TABLET Take one tablet by mouth ever* VENLAFAXINE ER 150 MG CAPSULE* Take 1 capsule by mouth once * X PANTOPRAZOLE 40 MG TABLET,DEL* Take 1 tablet by mouth once d* Problem List As Of Date 09/09/2018 Noted Resolved ESOPHAGEAL REFLUX [K21.9] SICCA SYNDROME [M35.00] Osteoporosis [M81.0] More... 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 Hyperparathyroidism, secondary (HCC) [N25.81] INVALID FOR* More... Hypertension [I10] INVALID FOR* Sjogren's disease (HCC) [M35.00] INVALID FOR* Special screening for malignant neoplasm of col*INVALID FOR*09/07/2015 Painful swallowing [R13.10] INVALID FOR*09/07/2015 Cough [R05] INVALID FOR*02/20/2016 Multiple thyroid nodules [E04.2] INVALID FOR* More... Esophageal spasm [K22.4] INVALID FOR* Obesity [E66.9] INVALID FOR* Hyperlipidemia [E78.00] INVALID FOR* Encounter Status:Closed by BRIGITTE AVILAUSER on 10/10/18 THYROID Observed: 07/15/2018 Status: F Source: KELVIN 10:30 AM [facility] REPOSITORY [facility] Imaging Services [address] [place] [id number] Thyroid MR#: [id number] Acct: [id number] Name: THERESA PALMER Rep #: [id number] : 1955 F 63 From: Luis Avila DO PCP: Akash MAY,Stephanie Status: REG CLI Study: Thyroid Date of Exam: 07/15/18 Exam# [id number] Ordering Dr: Caitlyn Sinclair [employer] SALESPERSON-C STUDY: THYROID ULTRASOUND REASON FOR EXAM: Female, 63 years old. Goiter TECHNIQUE: Ultrasound evaluation of the thyroid was performed with real-time and static hansen-scale imaging. COMPARISON: None. FINDINGS: RIGHT LOBE: The right lobe of the thyroid gland measures 5.1 x 2.2 x 2.3 cm. There is a homogeneous echotexture. Multiple small solid nodules are noted. Largest is in the mid pole measuring 8 x 5 x 6 mm with a small calcification. LEFT LOBE: The left lobe of the thyroid gland measures 4.7 x 1.8 x 1.6 cm. There is a homogeneous echotexture. At least 3 solid nodules are noted, largest is in the midpole region measuring 6 x 6 x 4 mm. ISTHMUS: The isthmus measures 4 mm. The regional lymph nodes are normal. US/Thyroid IMPRESSION: Multiple small subcentimeter nodules noted bilaterally. Otherwise, homogeneous echotexture throughout Electronically Signed: Luis Avila DO at 8:33 EDT Tel , Service support , CC: Caitlyn Sinclair NP; Stephanie Oviedo MD Lining Ironer: Signed OFFICE VISIT REPORT Observed: 07/14/2018 Status: F Source: KELVIN 6:36 PM [address] [place] [address] OFFICE VISIT Date of Service: 07/10/18 MR#: [id number] Acct: [id number] Patient: THERESA PALMER Rep #: [id number] : 1955 Provider: Caitlyn Sinclair NP Age/Sex: 63/F Location: [facility] [place] Status: Signed Intake Vital Signs07/10/18 Height 5 ft 4 in 07/10/18 Weight: 182 lb 07/10/18 Body Mass Index (BMI) 31.2 07/10/18 Blood Pressure 153/88 07/10/18 Blood Pressure Location Lt popliteal Intake Visit Reasons: Osteoporosis Allergies ISRRAEL Inhibitors Allergy (Severe, Verified 02/13/18 09:06) Unknown benzocaine [From TriOxin] Allergy (Severe, Verified 02/13/18 09:06) Unknown chloroxylenol [From TriOxin] Allergy (Severe, Verified 02/13/18 09:06) Unknown enalapril Allergy (Severe, Verified 02/13/18 09:06) Unknown hydrocortisone [From TriOxin] Allergy (Severe, Verified 02/13/18 09:06) Unknown ibandronate sodium Allergy (Severe, Verified 02/13/18 09:06) Unknown risedronate sodium Allergy (Severe, Verified 02/13/18 09:06) Unknown amoxicillin [From Augmentin] Allergy (Mild, Verified 02/13/18 09:06) nauseated clavulanic acid [From Augmentin] Allergy (Mild, Verified 02/13/18 09:06) nauseated levofloxacin [From Levaquin] Allergy (Mild, Verified 02/13/18 09:06) nauseated rofecoxib [From Vioxx] Allergy (Mild, Verified 02/13/18 09:06) rash Sulfa (Sulfonamide Antibiotics) Allergy (Mild, Verified 02/13/18 09:06) throat swelling Medications rosuvastatin 10 mg tablet 10 mg PO QDAY #90 tab 11/20/17 [Rx Confirmed 02/13/18] aspirin 81 mg chewable tablet PO 01/28/18 [History Confirmed 02/13/18] calcium phosphate-vitamin D3 250 mg calcium-500 unit chewable tablet tab PO 01/28/18 [History Confirmed 02/13/18] cholecalciferol (vitamin D3) 5,000 unit capsule 5,000 unit PO ONCE 01/28/18 [History Confirmed 02/13/18] denosumab 60 mg/mL subcutaneous syringe 60 mg SC [id number] 01/28/18 [History Confirmed 02/13/18] fluticasone 110 mcg/actuation HFA aerosol inhaler 2 puff INHALATION BID 01/28/18 [History Confirmed 02/13/18] montelukast 10 mg tablet 10 mg PO QHS 01/28/18 [History Confirmed 02/13/18] pantoprazole 40 mg tablet,delayed release 40 mg PO QDAY 01/28/18 [History Confirmed 02/13/18] venlafaxine ER 75 mg capsule,extended release 24 hr 150 mg PO QDAY cap 01/28/18 [History Confirmed 02/13/18] fluocinonide 0.05 % topical gel 1 applic TOPICAL TID PRN g 02/13/18 [History Confirmed 02/13/18] nystatin 100,000 unit/gram topical cream 1 applic TOPICAL BID 02/13/18 [History Confirmed 02/13/18] polyethylene glycol 3350 17 gram/dose oral powder PO 02/13/18 [History Confirmed 02/13/18] losartan 50 mg tablet 50 mg PO QDAY #90 tab 04/21/18 [Rx] ezetimibe 10 mg tablet 10 mg PO QDAY #90 tab 04/28/18 [Rx] calcitriol 0.25 mcg capsule 0.25 mcg PO DAILY #90 cap 06/29/18 [Rx] PFSH Medical History GERD (gastroesophageal reflux disease) (Chronic) Osteoporosis (Chronic) Sjogrens syndrome (Chronic) Gastroparesis (Chronic) Fibromyalgia (Chronic) Asthma (Chronic) Hot flashes (Chronic) Vitamin D deficiency (Chronic) Hyperlipidemia (Chronic) Hypertension (Chronic) Esophageal spasm (Acute) Hyperparathyroidism , secondary, non-renal (Acute) Multiple thyroid nodules (Acute) Obesity (Acute) Salzmann's nodular dystrophy (Acute) Sicca syndrome (Acute) H/O endoscopy (Resolved) Surgical History H/O colonoscopy (Resolved) History of LAVH (Resolved) S/P left knee surgery (Resolved) S/P tonsillectomy (Resolved) Family History Mother Heart disease Hypertension Father Heart disease Myocardial infarction Hypertension Social History Smoking Status: Never smoker alcohol intake: never substance use type: does not use caffeine: Yes what type of physical activity do you participate in: walking frequency: 5-6 times per week seatbelt use: always do you feel safe at home: Yes additional social history: - Ronni Patient and both retired. HPI HPI Details: HPI Details: THERESA PALMER, is a 63 F who presents to the office today for follow up of osteoporosis, lipid disorder, dysmetabolic syndrome. Also has hx of HTN, thyroid nodule, Sjogren's, asthma,Gerd, and fibromyalgia. Seeing yolanda Cook every 6 months for prolia injection which she is tolerating fine. Taking medication as directed. No side effects noted. Completed labs for this visit. BMD 2017, next scheduled 2018. At time of visit: -Pt denies symptoms of hypertensive emergency (CP,SOB,AGUILAR, or blurred vision) and hypotension(dizziness or lightheadedness) -Pt denies symptoms of hypoglycemia ( sweaty, confusion, anxiety, tremor, hunger, palpitations) and hyperglycemia ( polydipsia, polyuria) -Pt denies potential medication adverse effect. Exercise Daily No falls No issues with balance Exam Const General: healthy appearing, comfortable, well developed Nutritional Appearance: well nourished Orientation: oriented x3 HENMT Head: normal to inspection, normocephalic Ears: hearing grossly normal bilaterally Mouth: oral mucosae normal, moist mucous membranes Teeth and gingiva: dentition normal Eyes General: appearance normal, both eyes and all related structures Eyelids: eyelids normal Conjunctivae: conjunctivae normal Sclera: sclerae normal Pupils: PERRL Resp Effort AND Inspection: normal respiratory effort, able to speak in complete sentences, symmetric chest movement Auscultation: Bilateral: Clear to Auscultation Cardio Rate: regular rate Rhythm: regular rhythm Heart Sounds: S1 normal, S2 normal, no murmurs, no rubs, no gallops GI Inspection: normal to inspection Auscultation: normal bowel sounds Palpation: soft Musc Musculoskeletal: No muscle weakness Skin General: no rashes or lesions noted Wounds: no wounds Neuro General: oriented x3, moves all extremities Cognition: normal cognition Speech: speech normal Gait: normal gait Motor: strength 5/5 throughout, muscle tone normal throughout Extrem General: normal capillary refill, normal to inspection, no edema Psych Appearance: well kempt Mental Status: mental status grossly normal Mood: congruent mood Affect: normal affect Speech and Movement: speech and movement normal Attitude: cooperative Thought Process: normal Thought Content: normal Judgment: judgment good ROS Const Constitutional: No chills, fever(s) or night sweats Eyes Eyes: No change in vision ENT ENT: No ear pain, ear discharge, ear pressure or nosebleed/epistaxis Resp Respiratory: No cough or shortness of breath Cardio Cardiology: No chest pain at rest or generalized swelling Gastro GI: No abdominal pain, diarrhea, constipation, nausea/dyspepsia or vomiting Genitourinary-Female: No difficulty urinating, burning urination or urinary urgency Musc Musculoskeletal: No joint pain or muscle cramps Skin Skin: No rash or lesions Neuro Neurology: No dizziness or fainting Psych Psychiatric: No anxiety, No depression Endo Endocrine: No heat intolerance, increased thirst/drinking or increased hunger Km/Lymp Hematologic/Lymphatic: No easy bleeding or easy bruising Assessment AND Plan 1. Osteoporosis without current pathological fracture, unspecified osteoporosis type M81.0 Plan This lab notes PTH elevated with calcium 8.3. Will add additonal calcium to total 600mg each meal. Repeat lab 3 months BMD next 6 months. Otherwise continue same treatment plan. Plan Detail Other Orders Orders: Coding Level of Care Code Off vis,est,level 4 Diagnoses Osteoporosis without current pathological fracture, unspecified osteoporosis type M81.0 Osteoporosis type: unspecified Presence of current pathological fracture: without current pathological fracture 07/14/18 1836 <Electronically signed by Caitlyn JUSTICE> Date Caitlyn JUSTICE Cosigner Signature: Date (if applicable) CC: COMPREHENSIVE METABOLIC Collected: 07/03/2018 Status: F Source: [place] 8:22 AM [facility] REPOSITORY TYPE CODE TESTS RESULT OUT OF RANGE REFERENCE UNITS LAB L501.0100 74-106 mg/dL Normal GLU 98 Result Comment: Please note revised GLUCOSE reference range effective 2017. LAB L501.1000 7-18 mg/dL Normal BUN 13 LAB L501.1100 0.55-1.02 mg/dL Normal CREAT,SERUM 0.89 Result Comment: The validity of the calculated GFR AND GFRAA in patients over 70 years has not been determined. Clinical correlation is essential. LAB L501.1110 >60 mL/min Normal EST GFR 67 Result Comment: Non- GFR Calc LAB L501.1115 >60 mL/min Normal EST GFR - AA 81 Result Comment: GFR Calc LAB L501.1300 10-20 RATIO Normal BUN/CRE 14.5 LAB L501.1500 6.4-8.2 g/dL T Normal PROT 7.2 LAB L501.1800 3.2-5.0 g/dL Normal ALB 3.5 LAB L501.1950 2.2-4.2 g/dL Normal GLOB 3.7 LAB L501.2000 0.9-2.4 RATIO Normal A/G 0.9 LAB L501.2200 8.5-10.1 mg/dL Low CA 8.4 LAB L501.4100 15-37 U/L Normal AST 22 LAB L501.4305 45-117 U/L Normal ALK P 93 LAB L501.4405 13-56 U/L Normal ALT 41 LAB L501.4600 0.20-1.00 mg/dL T Normal BILI 0.30 LAB L501.5300 136-145 mmol/L NA Normal 142 LAB L501.5600 3.5-5.1 mmol/L K Normal 4.1 LAB L501.5900 98-107 mmol/L CL Normal 106 LAB L501.6100 21.0-32.0 mmol/L Normal CO2 25.0 LAB L501.6200 5-15 Normal GAP 11 Performed By: #### L500.4050, L506.1000 #### [facility] [address] [place], [address] VITAMIN D,25 HYDROXY Collected: 07/03/2018 Status: F Source: [place] 8:22 AM [facility] REPOSITORY TYPE CODE TESTS RESULT OUT OF RANGE REFERENCE UNITS LAB L506.1000 29.95-100.01 ng/mL Normal Vitamin D 54.1 25-OH Result Comment: Vitamin D 25(OH) Status Range Deficiency <20 ng/mL (50nmol/L) Insuffciency 20 - 30 ng/mL (50 - 75 nmol/L) Sufficiency 30 - 100 ng/mL (75 - 250 nmol/L) Toxicity >100 ng/mL (>250 nmol/L) Performed By: #### L500.4050, L506.1000 #### [facility] [address] [place], [address] PTHIN Collected: 07/03/2018 Status: F Source: [place] 8:22 AM [facility] REPOSITORY TYPE CODE TESTS RESULT OUT OF RANGE REFERENCE UNITS LAB L509.1000 18.4-80.1 pg/mL High PTHIN 83.9 Performed By: #### L509.1000 #### [facility] [address] [place], [address] CNOV Observed: 04/25/2018 Status: COMPLETED Source: [place] 1:30 PM [facility] REPOSITORY Office Visit (ENDMED) THERESA PALMER ([id number]) 1955 F NFR Date Time Provider Department 04/25/18 1:30 PM NURSE YOLANDA BUNDY CHANCE During your visit today, we recorded the following information about you: Temi Little RN 04/25/2018 1:57 PM Signed The patient is here for an injection of Prolia Dose: 60 mg Route: Subcutaneous Lot# [id number] Expiration date 05/2020 [facility]: 06411-272-29 Given without incident. Site: left arm Dr. Cowan present in clinic at time of injection. The date due for the next injection is 6 months. On or after 10/25/18. Patient education was given by nurse. Patient tolerated well in NAD and no reactions noted. Medication supplied by [facility]. Temi Little RN Referring Provider: TRAVON COWAN [[id number]] Allergies As of Date: 04/25/2018 Noted Allergy Reaction ISRRAEL INHIBITORS 02/08/2016 3 - Cough ACTONEL (RISEDRONATE SODIUM) 11/30/2005 14 - Other: See Comments Comments: esophageal erosion AUGMENTIN (AMOXICILLIN-POT CLAVUL*06/21/2005 8 - GI Upset BONIVA (IBANDRONATE) 04/04/2007 14 - Other: See Comments Comments: Pain in esophagus ENALAPRIL 07/18/2006 14 - Other: See Comments Comments: cough LEVAQUIN (LEVOFLOXACIN) 06/21/2005 8 - GI Upset SULFA (SULFONAMIDE ANTIBIOTICS) 06/21/2005 7 - Swelling 14 - Other: See Comments Comments: angioedema VIOXX (ROFECOXIB) 06/21/2005 2 - Rash Date Reviewed: 04/25/2018 Reviewed by: Temi Little RN - Fully Assessed Reason for Visit: Prolia Injection [Other] Primary Visit Diagnosis:Age related osteoporosis, unspecified pathological fracture presence [M81.0] Other Visit Diagnosis:Osteopenia, unspecified location [M85.80] Prescriptions as of 04/25/2018 Sig: CALCITRIOL 0.25 MCG CAPSULE Take 0.25 mcg by mouth once d* MONTELUKAST 10 MG TABLET Take 1 tablet by mouth daily * FLUTICASONE 110 MCG/ACTUATION* Inhale 2 Puffs as instructed * PANTOPRAZOLE 40 MG TABLET,DEL* Take 1 tablet by mouth once d* VENLAFAXINE ER 150 MG CAPSULE* Take 1 capsule by mouth once * POLYETHYLENE GLYCOL 3350 17 G* Take 17 g by mouth once daily* NYSTATIN 100,000 UNIT/GRAM TO* Apply 1 application to affect* LOSARTAN 50 MG TABLET Take 1 tablet by mouth once d* ROSUVASTATIN 10 MG TABLET Take one tablet by mouth ever* EZETIMIBE 10 MG TABLET Take 1 tablet by mouth once d* FLUOCINONIDE 0.05 % TOPICAL G* apply to area affected 3 time* X DENOSUMAB 60 MG/ML SUBCUTANEO* 60 mg sc x1, every six months. ASPIRIN 81 MG TABLET,DELAYED * Take 1 tablet by mouth once d* * CHOLECALCIFEROL (VITAMIN D3) * Take 1 Each by mouth once spencer* * OTC PRODUCT Citracal 400mg +D ii daily Problem List As Of Date 04/25/2018 Noted Resolved ESOPHAGEAL REFLUX [K21.9] SICCA SYNDROME [M35.00] Osteoporosis [M81.0] More... 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 Hyperparathyroidism, secondary (HCC) [N25.81] INVALID FOR* More... Hypertension [I10] INVALID FOR* Sjogren's disease (HCC) [M35.00] INVALID FOR* Special screening for malignant neoplasm of col*INVALID FOR*09/07/2015 Painful swallowing [R13.10] INVALID FOR*09/07/2015 Cough [R05] INVALID FOR*02/20/2016 Multiple thyroid nodules [E04.2] INVALID FOR* More... Esophageal spasm [K22.4] INVALID FOR* Obesity [E66.9] INVALID FOR* Hyperlipidemia [E78.00] INVALID FOR* Visit Notes: >> Temi Little RN SatApr 25, 2018 1:53 PM Status: Signed The patient is here for an injection of Prolia Dose: 60 mg Route: Subcutaneous Lot# [id number] Expiration date 05/2020 [facility]: 32888-666-87 Given without incident. Site: left arm Dr. Cowan present in clinic at time of injection. The date due for the next injection is 6 months. On or after 10/25/18. Patient education was given by nurse. Patient tolerated well in NAD and no reactions noted. Medication supplied by [facility]. Temi Little RN Encounter Status:Closed by TEMI LITTLE RN on 04/25/18 PROGRESS Observed: 02/28/2018 Status: COMPLETED Source: [place] 2:22 PM [facility] [place] REPOSITORY HNO ID: [id number] Author: Travon Cowan MD Service: (none) Author Type: Physician Type: Progress Notes Filed: 03/02/2018 11:10 AM Note Text: Follow-up 62 year-old female, patient of Dr. Stephanie Oviedo, with osteopenia, hyperlipidemia, and metabolic syndrome. Reports feeling good overall. no isses with medications. Reports taking medications as directed. no side effects. Maximal adult height was 5'5.5 No interval fractures or height loss. Will get Prolia done next week. Has regained weight. Has started calcitriol and PTH level has subsequently improved. Current Outpatient Prescriptions on File Prior to Visit: calcitriol (ROCALTROL) 0.25 mcg capsule Take 0.25 mcg by mouth once daily. montelukast (SINGULAIR) 10 mg tablet Take 1 tablet by mouth daily at bedtime. fluticasone (FLOVENT HFA) 110 mcg/actuation inhaler Inhale 2 Puffs as instructed twice daily. pantoprazole DR (PROTONIX) 40 mg tablet Take 1 tablet by mouth once daily. venlafaxine XR (EFFEXOR XR) 150 mg 24 hr capsule Take 1 capsule by mouth once daily. polyethylene glycol 3350 (MIRALAX, GLYCOLAX) 17 gram/dose powder Take 17 g by mouth once daily. Take one (1) capful in 8oz of liquid each day. losartan (COZAAR) 50 mg tablet Take 1 tablet by mouth once daily. rosuvastatin (CRESTOR) 10 mg tablet Take one tablet by mouth every 3 days. ezetimibe (ZETIA) 10 mg tablet Take 1 tablet by mouth once daily. fluocinonide (LIDEX) 0.05 % gel apply to area affected 3 times daily as needed denosumab (PROLIA) 60 mg/mL syrg 60 mg sc x1, every six months. aspirin, enteric coated (ECOTRIN LOW STRENGTH) 81 mg EC tablet Take 1 tablet by mouth once daily. Cholecalciferol, Vitamin D3, 5,000 unit ORAL Tab Take 1 Each by mouth once daily. OTC PRODUCT Citracal 400mg +D ii daily ALLERGIES Allergen Reactions - Isrrael Inhibitors Cough - Actonel [Risedronat* Other: See Comments esophageal erosion - Augmentin [Amoxicil* GI Upset - Boniva [Ibandronate] Other: See Comments Pain in esophagus - Enalapril Other: See Comments cough - Levaquin [Levofloxa* GI Upset - Sulfa (Sulfonamide * Swelling, Other: See Comments angioedema - Vioxx [Rofecoxib] Rash Review of systems: Patient notes no weight loss, fever, fatigue, weakness, change in balance or sensation, visual problems, hearing changes, dizziness, trouble swallowing, nasal difficulties, shortness of breath, chest pain, change in exertional tolerance, foot or leg problems, skin lesions, abdominal pain, diarrhea, constipation, urinary problems, incontinence, back pain, joint pains, anxiety, depression, insomnia, menstrual difficulties, breast lesions/pain/mass. Remainder of review of systems was unremarkable. BP 134/82 (BP Site: Left Arm, BP Position: Sitting, BP Cuff Size: Regular Adult) Pulse 98 Ht 162.6 cm (5' 4) Wt 83.6 kg (184 lb 3.2 oz) LMP 03/23/2007 SpO2 97% BMI 31.62 kg/m? General appearance: Well-appearing, obese (BMI > 30) female, alert, in no acute distress, well-hydrated, well nourished. Weight up 4 pounds in the past 2 years, height stable. Skin: Skin color, texture, turgor normal, no suspicious rashes or lesions Head: normocephalic, no masses, lesions, tenderness or abnormalities Eyes: Anicteric sclera. Pupils are equally round. Extraocular movements are intact. Ears: not examined Nose/Sinuses: Nares normal. No drainage or sinus tenderness. Oropharynx: Lips, mucosa, and tongue normal, teeth and gums not examined. Neck: Supple, no adenopathy; no visible thyroid enlargement. Lungs: Breathing unlabored. Heart: RRR. No ectopy Abdomen: deferred Extremities: No deformities, edema, skin discoloration, clubbing or cyanosis. Good capillary refill. Musculoskeletal: Spine range of motion not tested. Muscular strength intact, No joint swelling, deformity, or tenderness Neuro: Gait normal. Sensation grossly intact. Results for THERESA PALMER ( ) as of 02/28/2018 14:24 Ref. Range 07/04/2017 08:37 10/05/2017 08:47 Sodium Latest Ref Range: 136 - 144 mmol/L 139 Potassium Latest Ref Range: 3.7 - 5.1 mmol/L 4.1 Chloride Latest Ref Range: 97 - 105 mmol/L 101 CO2 Latest Ref Range: 22 - 30 mmol/L 21 (L) BUN Latest Ref Range: 7 - 21 mg/dL 12 Creatinine Latest Ref Range: 0.58 - 0.96 mg/dL 0.84 Glucose Latest Ref Range: 74 - 99 mg/dL 106 (H) Protein, Total Latest Ref Range: 6.3 - 8.0 g/dL 6.8 Calcium Latest Ref Range: 8.5 - 10.2 mg/dL 8.3 (L) 9.2 Albumin Latest Ref Range: 3.9 - 4.9 g/dL 4.2 Bilirubin, Total Latest Ref Range: 0.2 - 1.3 mg/dL 0.3 Alk Phosphatase Latest Ref Range: 32 - 117 U/L 82 ALT Latest Ref Range: 7 - 38 U/L 22 AST Latest Ref Range: 13 - 35 U/L 20 Cholesterol, Total Latest Ref Range: 100 - 199 mg/dL 178 Triglyceride Latest Ref Range: 30 - 149 mg/dL 148 HDL Cholesterol Latest Ref Range: >55 mg/dL 51 (L) LDL Cholesterol Latest Ref Range: 60 - 129 mg/dL 97 Vit D1,25 Dihydroxy Latest Ref Range: 15.0 - 60.0 pg/mL 35.8 Vitamin D 25_OH Latest Ref Range: 31.0 - 80.0 ng/mL 65.6 69.0 Hemoglobin A1C Latest Ref Range: 4.3 - 5.6 % 6.0 (H) PTH, Intact Latest Ref Range: 15 - 65 pg/mL 73 (H) 35 DEXA bone densitometry in 10/2014 showed T-scores as follows: lumbar -1.2 (down 6%), hip -2.1, femoral neck -2.1. Assessment: 1) Osteoporosis: s/p Forteo x 2yr ([id number]), now on Prolia. Cannot tolerate oral bisphosphonates. 2) Hyperlipidemia - continue Zetia + Crestor 10mg every 3rd day. 3) Hypertension, well-controlled 4) Secondary hyperparathyroidism - controlled on calcitriol 5) Fibromyalgia. 6) Sjogrens syndrome 7) Vitamin D deficiency - PTH improved with addition of calcitriol 8) Obesity - urged weight loss efforts Plan: ? Continue current medications. ? See us again in one year. ? Continue Prolia injections. ? Work on losing weight. Travon Cowan MD CNOV Observed: 02/28/2018 Status: COMPLETED Source: [place] 2:05 PM [facility] REPOSITORY Office Visit (ENDMED) THERESA PALMER ([id number]) 1955 F NFR Date Time Provider Department 02/28/18 2:05 PM TRAVON COWAN During your visit today, we recorded the following information about you: Pulse Blood pressure Weight Height 98/minute 134/82 83.6 kg 1.626 m Travon Cowan MD 03/02/2018 11:10 AM Signed Follow-up 62 year-old female, patient of Dr. Stephanie Oviedo, with osteopenia, hyperlipidemia, and metabolic syndrome. Reports feeling good overall. no isses with medications. Reports taking medications as directed. no side effects. Maximal adult height was 5'5.5 No interval fractures or height loss. Will get Prolia done next week. Has regained weight. Has started calcitriol and PTH level has subsequently improved. Current Outpatient Prescriptions on File Prior to Visit: calcitriol (ROCALTROL) 0.25 mcg capsule Take 0.25 mcg by mouth once daily. montelukast (SINGULAIR) 10 mg tablet Take 1 tablet by mouth daily at bedtime. fluticasone (FLOVENT HFA) 110 mcg/actuation inhaler Inhale 2 Puffs as instructed twice daily. pantoprazole DR (PROTONIX) 40 mg tablet Take 1 tablet by mouth once daily. venlafaxine XR (EFFEXOR XR) 150 mg 24 hr capsule Take 1 capsule by mouth once daily. polyethylene glycol 3350 (MIRALAX, GLYCOLAX) 17 gram/dose powder Take 17 g by mouth once daily. Take one (1) capful in 8oz of liquid each day. losartan (COZAAR) 50 mg tablet Take 1 tablet by mouth once daily. rosuvastatin (CRESTOR) 10 mg tablet Take one tablet by mouth every 3 days. ezetimibe (ZETIA) 10 mg tablet Take 1 tablet by mouth once daily. fluocinonide (LIDEX) 0.05 % gel apply to area affected 3 times daily as needed denosumab (PROLIA) 60 mg/mL syrg 60 mg sc x1, every six months. aspirin, enteric coated (ECOTRIN LOW STRENGTH) 81 mg EC tablet Take 1 tablet by mouth once daily. Cholecalciferol, Vitamin D3, 5,000 unit ORAL Tab Take 1 Each by mouth once daily. OTC PRODUCT Citracal 400mg +D ii daily ALLERGIES Allergen Reactions - Isrrael Inhibitors Cough - Actonel [Risedronat* Other: See Comments esophageal erosion - Augmentin [Amoxicil* GI Upset - Boniva [Ibandronate] Other: See Comments Pain in esophagus - Enalapril Other: See Comments cough - Levaquin [Levofloxa* GI Upset - Sulfa (Sulfonamide * Swelling, Other: See Comments angioedema - Vioxx [Rofecoxib] Rash Review of systems: Patient notes no weight loss, fever, fatigue, weakness, change in balance or sensation, visual problems, hearing changes, dizziness, trouble swallowing, nasal difficulties, shortness of breath, chest pain, change in exertional tolerance, foot or leg problems, skin lesions, abdominal pain, diarrhea, constipation, urinary problems, incontinence, back pain, joint pains, anxiety, depression, insomnia, menstrual difficulties, breast lesions/pain/mass. Remainder of review of systems was unremarkable. BP 134/82 (BP Site: Left Arm, BP Position: Sitting, BP Cuff Size: Regular Adult) Pulse 98 Ht 162.6 cm (5' 4) Wt 83.6 kg (184 lb 3.2 oz) LMP 03/23/2007 SpO2 97% BMI 31.62 kg/m? General appearance: Well-appearing, obese (BMI > 30) female, alert, in no acute distress, well-hydrated, well nourished. Weight up 4 pounds in the past 2 years, height stable. Skin: Skin color, texture, turgor normal, no suspicious rashes or lesions Head: normocephalic, no masses, lesions, tenderness or abnormalities Eyes: Anicteric sclera. Pupils are equally round. Extraocular movements are intact. Ears: not examined Nose/Sinuses: Nares normal. No drainage or sinus tenderness. Oropharynx: Lips, mucosa, and tongue normal, teeth and gums not examined. Neck: Supple, no adenopathy; no visible thyroid enlargement. Lungs: Breathing unlabored. Heart: RRR. No ectopy Abdomen: deferred Extremities: No deformities, edema, skin discoloration, clubbing or cyanosis. Good capillary refill. Musculoskeletal: Spine range of motion not tested. Muscular strength intact, No joint swelling, deformity, or tenderness Neuro: Gait normal. Sensation grossly intact. Results for THERESA PALMER ( ) as of 02/28/2018 14:24 Ref. Range 07/04/2017 08:37 10/05/2017 08:47 Sodium Latest Ref Range: 136 - 144 mmol/L 139 Potassium Latest Ref Range: 3.7 - 5.1 mmol/L 4.1 Chloride Latest Ref Range: 97 - 105 mmol/L 101 CO2 Latest Ref Range: 22 - 30 mmol/L 21 (L) BUN Latest Ref Range: 7 - 21 mg/dL 12 Creatinine Latest Ref Range: 0.58 - 0.96 mg/dL 0.84 Glucose Latest Ref Range: 74 - 99 mg/dL 106 (H) Protein, Total Latest Ref Range: 6.3 - 8.0 g/dL 6.8 Calcium Latest Ref Range: 8.5 - 10.2 mg/dL 8.3 (L) 9.2 Albumin Latest Ref Range: 3.9 - 4.9 g/dL 4.2 Bilirubin, Total Latest Ref Range: 0.2 - 1.3 mg/dL 0.3 Alk Phosphatase Latest Ref Range: 32 - 117 U/L 82 ALT Latest Ref Range: 7 - 38 U/L 22 AST Latest Ref Range: 13 - 35 U/L 20 Cholesterol, Total Latest Ref Range: 100 - 199 mg/dL 178 Triglyceride Latest Ref Range: 30 - 149 mg/dL 148 HDL Cholesterol Latest Ref Range: >55 mg/dL 51 (L) LDL Cholesterol Latest Ref Range: 60 - 129 mg/dL 97 Vit D1,25 Dihydroxy Latest Ref Range: 15.0 - 60.0 pg/mL 35.8 Vitamin D 25_OH Latest Ref Range: 31.0 - 80.0 ng/mL 65.6 69.0 Hemoglobin A1C Latest Ref Range: 4.3 - 5.6 % 6.0 (H) PTH, Intact Latest Ref Range: 15 - 65 pg/mL 73 (H) 35 DEXA bone densitometry in 10/2014 showed T-scores as follows: lumbar -1.2 (down 6%), hip -2.1, femoral neck -2.1. Assessment: 1) Osteoporosis: s/p Forteo x 2yr ([id number]), now on Prolia. Cannot tolerate oral bisphosphonates. 2) Hyperlipidemia - continue Zetia + Crestor 10mg every 3rd day. 3) Hypertension, well-controlled 4) Secondary hyperparathyroidism - controlled on calcitriol 5) Fibromyalgia. 6) Sjogrens syndrome 7) Vitamin D deficiency - PTH improved with addition of calcitriol 8) Obesity - urged weight loss efforts Plan: ? Continue current medications. ? See us again in one year. ? Continue Prolia injections. ? Work on losing weight. MD Chpao Alford Richard K, MD 02/28/2018 2:38 PM Addendum Continue current medications. See us again in one year. Continue Prolia injections. Work on losing weight. Referring Provider: SELF [[id number]] Allergies As of Date: 02/28/2018 Noted Allergy Reaction ISRRAEL INHIBITORS 02/08/2016 3 - Cough ACTONEL (RISEDRONATE SODIUM) 11/30/2005 14 - Other: See Comments Comments: esophageal erosion AUGMENTIN (AMOXICILLIN-POT CLAVUL*06/21/2005 8 - GI Upset BONIVA (IBANDRONATE) 04/04/2007 14 - Other: See Comments Comments: Pain in esophagus ENALAPRIL 07/18/2006 14 - Other: See Comments Comments: cough LEVAQUIN (LEVOFLOXACIN) 06/21/2005 8 - GI Upset SULFA (SULFONAMIDE ANTIBIOTICS) 06/21/2005 7 - Swelling 14 - Other: See Comments Comments: angioedema VIOXX (ROFECOXIB) 06/21/2005 2 - Rash Date Reviewed: 02/28/2018 Reviewed by: Natalia Valenzuela Ma - Fully Assessed Reason for Visit: Osteoporosis [773] Primary Visit Diagnosis:Age related osteoporosis, unspecified pathological fracture presence [M81.0] Other Visit Diagnoses:Obesity, Class I, BMI 30-34.9 [E66.9] Hyperlipidemia [E78.00] Essential hypertension [I10] Hyperparathyroidism, secondary (HCC) [N25.81] Prescriptions as of 02/28/2018 Sig: CALCITRIOL 0.25 MCG CAPSULE Take 0.25 mcg by mouth once d* MONTELUKAST 10 MG TABLET Take 1 tablet by mouth daily * FLUTICASONE 110 MCG/ACTUATION* Inhale 2 Puffs as instructed * PANTOPRAZOLE 40 MG TABLET,DEL* Take 1 tablet by mouth once d* VENLAFAXINE ER 150 MG CAPSULE* Take 1 capsule by mouth once * POLYETHYLENE GLYCOL 3350 17 G* Take 17 g by mouth once daily* LOSARTAN 50 MG TABLET Take 1 tablet by mouth once d* ROSUVASTATIN 10 MG TABLET Take one tablet by mouth ever* EZETIMIBE 10 MG TABLET Take 1 tablet by mouth once d* FLUOCINONIDE 0.05 % TOPICAL G* apply to area affected 3 time* DENOSUMAB 60 MG/ML SUBCUTANEO* 60 mg sc x1, every six months. ASPIRIN 81 MG TABLET,DELAYED * Take 1 tablet by mouth once d* * CHOLECALCIFEROL (VITAMIN D3) * Take 1 Each by mouth once spencer* * OTC PRODUCT Citracal 400mg +D ii daily NYSTATIN 100,000 UNIT/GRAM TO* Apply 1 application to affect* Problem List As Of Date 02/28/2018 Noted Resolved ESOPHAGEAL REFLUX [K21.9] SICCA SYNDROME [M35.00] Hyperlipidemia [E78.5] Osteoporosis [M81.0] More... 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 Hyperparathyroidism, secondary (HCC) [N25.81] INVALID FOR* More... Hypertension [I10] INVALID FOR* Sjogren's disease (HCC) [M35.00] INVALID FOR* Special screening for malignant neoplasm of col*INVALID FOR*09/07/2015 Painful swallowing [R13.10] INVALID FOR*09/07/2015 Cough [R05] INVALID FOR*02/20/2016 Multiple thyroid nodules [E04.2] INVALID FOR* More... Esophageal spasm [K22.4] INVALID FOR* Obesity [E66.9] INVALID FOR* Other instructions from your clinician: Continue current medications. See us again in one year. Continue Prolia injections. Work on losing weight. Medications Discontinued During This Encounter nitrofurantoin monohydrate and macro* 01/28/2018 02/28/2018 Class: Historical Med Sig: Disc: Course of therapy completed methylPREDNISolone (MEDROL DOSE-PACK* 10/14/2017 02/28/2018 Class: Historical Med Sig: Disc: Course of therapy completed HYDROcodone-Acetaminophen 5-300 mg t* 10/14/2017 02/28/2018 Class: Historical Med Sig: Disc: Course of therapy completed amoxicillin (POLYMOX, AMOXIL) 500 mg* 10/14/2017 02/28/2018 Class: Historical Med Sig: Disc: Course of therapy completed albuterol 2.5 mg /3 mL (0.083 %) neb* 1 Vi* 0 11/13/2013 02/28/2018 Class: In Office Route: NEBULIZATION -UNSPEC Sig: Use 3 mL via nebulizer every 4 hours as needed for Wheezing/Shortness of Breath. Use over 5-15minutes. Patient not taking: Reported on 02/28/2018 Disc: Course of therapy completed Inhalational Spacing Device (AEROCHA* 1 Ea* 1 03/31/2011 02/28/2018 Route: Miscell. (Med.Supl.;Non-Drugs) Si Device. Use with Inhaler Patient not taking: Reported on 02/28/2018 Disc: Course of therapy completed LACTOBACILLUS ACIDOPHILUS (PROBIOTIC* 02/28/2018 Class: Historical Med Route: ORAL Sig: Take by mouth. Disc: Course of therapy completed gabapentin (NEURONTIN) 300 mg capsule 90 c* 2 10/30/2016 02/28/2018 Sig: Take 1 capsule by mouth daily at bedtime Patient not taking: Reported on 02/28/2018 Disc: Course of therapy completed Follow-up and Disposition History Recorded Encounter Status:Closed by TRAVON COWAN MD on 03/02/18 OFFICE VISIT REPORT Observed: 02/17/2018 Status: F Source: KELVIN 8:56 AM [facility] Services [place] [id number] OFFICE VISIT Date of Service: 02/13/18 MR#: [id number] Acct: [id number] Patient: THERESA PALMER Rep #: [id number] : 1955 Provider: Caitlyn Sinclair NP Age/Sex: 62/F Location: [facility] Status: Signed Intake Vital Signs02/13/18 Height 5 ft 4 in 02/13/18 Weight: 183 lb 6 oz 02/13/18 Body Mass Index (BMI) 31.4 02/13/18 Blood Pressure 139/82 02/13/18 Blood Pressure Location Lt popliteal 02/13/18 Blood Pressure Position Sitting Intake Visit Reasons: Osteoporosis Lacemaker Required: No Accompanied by: Self Is patient in pain?: No Allergies ISRRAEL Inhibitors Allergy (Severe, Verified 02/13/18 09:06) Unknown benzocaine [From TriOxin] Allergy (Severe, Verified 02/13/18 09:06) Unknown chloroxylenol [From TriOxin] Allergy (Severe, Verified 02/13/18 09:06) Unknown enalapril Allergy (Severe, Verified 02/13/18 09:06) Unknown hydrocortisone [From TriOxin] Allergy (Severe, Verified 02/13/18 09:06) Unknown ibandronate sodium Allergy (Severe, Verified 02/13/18 09:06) Unknown risedronate sodium Allergy (Severe, Verified 02/13/18 09:06) Unknown amoxicillin [From Augmentin] Allergy (Mild, Verified 02/13/18 09:06) nauseated clavulanic acid [From Augmentin] Allergy (Mild, Verified 02/13/18 09:06) nauseated levofloxacin [From Levaquin] Allergy (Mild, Verified 02/13/18 09:06) nauseated rofecoxib [From Vioxx] Allergy (Mild, Verified 02/13/18 09:06) rash Sulfa (Sulfonamide Antibiotics) Allergy (Mild, Verified 02/13/18 09:06) throat swelling Medications rosuvastatin 10 mg tablet 10 mg PO QDAY #90 tab 11/20/17 [Rx Confirmed 02/13/18] aspirin 81 mg chewable tablet PO 01/28/18 [History Confirmed 02/13/18] calcitriol 0.5 mcg capsule 0.5 mcg PO QDAY 01/28/18 [History Confirmed 02/13/18] calcium phosphate-vitamin D3 250 mg calcium-500 unit chewable tablet tab PO 01/28/18 [History Confirmed 02/13/18] cholecalciferol (vitamin D3) 5,000 unit capsule 5,000 unit PO ONCE 01/28/18 [History Confirmed 02/13/18] denosumab 60 mg/mL subcutaneous syringe 60 mg SC [id number] 01/28/18 [History Confirmed 02/13/18] ezetimibe 10 mg tablet 10 mg PO QDAY 01/28/18 [History Confirmed 02/13/18] fluticasone 110 mcg/actuation HFA aerosol inhaler 2 puff INHALATION BID 01/28/18 [History Confirmed 02/13/18] losartan 50 mg tablet 50 mg PO QDAY 01/28/18 [History Confirmed 02/13/18] montelukast 10 mg tablet 10 mg PO QHS 01/28/18 [History Confirmed 02/13/18] pantoprazole 40 mg tablet,delayed release 40 mg PO QDAY 01/28/18 [History Confirmed 02/13/18] venlafaxine ER 75 mg capsule,extended release 24 hr 150 mg PO QDAY cap 01/28/18 [History Confirmed 02/13/18] fluocinonide 0.05 % topical gel 1 applic TOPICAL TID PRN g 02/13/18 [History Confirmed 02/13/18] nystatin 100,000 unit/gram topical cream 1 applic TOPICAL BID 02/13/18 [History Confirmed 02/13/18] polyethylene glycol 3350 17 gram/dose oral powder PO 02/13/18 [History Confirmed 02/13/18] Is last menstrual period known: No Post menopausal: Yes Patient : No PFSH Medical History GERD (gastroesophageal reflux disease) (Chronic) Osteoporosis (Chronic) Sjogrens syndrome (Chronic) Gastroparesis (Chronic) Fibromyalgia (Chronic) Asthma (Chronic) Hot flashes (Chronic) Vitamin D deficiency (Chronic) Hyperlipidemia (Chronic) Hypertension (Chronic) Esophageal spasm (Acute) Hyperparathyroidism , secondary, non-renal (Acute) Multiple thyroid nodules (Acute) Obesity (Acute) Salzmann's nodular dystrophy (Acute) Sicca syndrome (Acute) H/O endoscopy (Resolved) Surgical History H/O colonoscopy (Resolved) History of LAVH (Resolved) S/P left knee surgery (Resolved) S/P tonsillectomy (Resolved) Family History Mother Heart disease Hypertension Father Heart disease Myocardial infarction Hypertension Social History Smoking Status: Never smoker alcohol intake: never substance use type: does not use caffeine: Yes what type of physical activity do you participate in: walking frequency: 5-6 times per week seatbelt use: always do you feel safe at home: Yes additional social history: - Ronni Patient and both retired. HPI HPI Details: THERESA APLMER, is a 62 F who presents to the office today for follow up of osteoporosis, lipid disorder, dysmetabolic syndrome. Also has hx of HTN, thyroid nodule, Sjogren's, asthma,Gerd, and fibromyalgia. Seeing yolanda Cook every 6 months for prolia injection which she is tolerating fine. Taking medication as directed. No side effects noted. Completed labs for this visit. BMD 2017, next scheduled 2019. At time of visit: -Pt denies symptoms of hypertensive emergency (CP,SOB,AGUILAR, or blurred vision) and hypotension(dizziness or lightheadedness) -Pt denies symptoms of hypoglycemia ( sweaty, confusion, anxiety, tremor, hunger, palpitations) and hyperglycemia ( polydipsia, polyuria) -Pt denies potential medication adverse effect. Exercise Daily No falls No issues with balance ROS Const Constitutional: No anorexia, body ache, chills, fatigue, fever(s), frequent falls, decreased energy, malaise, night sweats, weakness, weight change, sleep problems, abnormal sleep pattern, change in appetite, other, headache(s), snoring or excessive sweating Eyes Eyes: No blurry vision, change in vision, double vision, discharge, dry eyes, bulging eyes, floaters, visual disturbances, eye pain, light sensitivity, spots in vision, tunnel vision or other ENT ENT: No abnormal hearing, ear pain, ear discharge, ear pressure, hearing loss, tinnitus, dizziness/vertigo, balance problems, nosebleed/epistaxis, nasal congestion, nasal obstruction, nose pain, sinus pressure, sinus pain, nasal discharge, post nasal drip, headache(s), facial pain, dental pain, dry mouth, bad breath, hoarseness, lip swelling, mouth lesions, mouth pain, sore throat, tongue swelling, throat swelling, other, difficulty swallowing or neck pain Resp Respiratory: No cough, change in phlegm color, chest congestion, excessive phlegm production, hemoptysis, pain on inspiration, shortness of breath, pain with cough, snoring, stridor, wheezing or other Cardio Cardiology: No chest pain at rest, chest pain with exertion, leg pain with exertion, excessive sweating, shortness of breath, dyspnea on exertion, generalized swelling, irregular heart rhythm, lightheadedness, orthopnea, radiating jaw, neck or arm pain, fast heart rate, slow heart rate, palpitations or other Gastro GI: No abdominal pain, belching, bloating, change in bowel habits, change in stool character, coffee ground emesis, constipation, cramping, diarrhea, heartburn, difficulty swallowing, feeling full early, excessive flatus, incontinent of stools, Vomiting blood/hematemesis, blood in stool, loose stools, Black,tarry stools, nausea/dyspepsia, pain with swallowing, vomiting or other Genitourinary-Female: No difficulty urinating, burning urination, painful urination, urinary incontinence, urinary frequency, urinary urgency, urinary hesitancy, urinary retention, blood in urine, Frequent nighttime urination/ nocturia, post void dribbling, suprapubic fullness, side pain, sexual problems, genital lesions, genital itching, hot flashes, abnormal periods, abnormal vaginal bleeding, absent period, painful periods, light periods, heavy periods, difficulty getting , painful intercourse, pelvic pain, vaginal dryness, vaginal odor, Vaginal Itching or other Musc Musculoskeletal: No abnormal walking, joint pain, back pain, deformity, joint swelling, limited range of motion, loss of height, muscle cramps, muscle weakness, decreased muscle mass, body aches, neck pain, numbness, radiating pain into limb, stiffness, tingling or other Skin Skin: No acne, hair loss, change in hair, nail changes, boil, change in skin color, dry skin, redness, excessive hair growth, yellowing of the skin, lesions, itching, rash, skin pain, skin ulcer, sores, skin swelling, wounds or other Breast Breast: No other Neuro Neurology: No frequent falls, weakness, visual disturbances, abnormal hearing, headache(s), abnormal walking, numbness or tingling Psych Psychiatric: No abnormal sleep pattern, No change in appetite Endo Endocrine: No fatigue, other or excessive sweating Aller/Imm Allergy/Immunologic: No lip swelling, tongue swelling, throat swelling, wheezing or itchy eyes Exam Const General: healthy appearing, comfortable, well developed Nutritional Appearance: well nourished Orientation: oriented x3 HENMT Head: normal to inspection, normocephalic Ears: hearing grossly normal bilaterally Mouth: oral mucosae normal, moist mucous membranes Teeth and gingiva: dentition normal Eyes General: appearance normal, both eyes and all related structures Eyelids: eyelids normal Conjunctivae: conjunctivae normal Sclera: sclerae normal Pupils: PERRL Resp Effort AND Inspection: normal respiratory effort, able to speak in complete sentences, symmetric chest movement Auscultation: Bilateral: Clear to Auscultation Cardio Rate: regular rate Rhythm: regular rhythm Heart Sounds: S1 normal, S2 normal, no murmurs, no rubs, no gallops GI Inspection: normal to inspection Auscultation: normal bowel sounds Palpation: soft Musc Musculoskeletal: No muscle weakness Skin General: no rashes or lesions noted Wounds: no wounds Neuro General: oriented x3, moves all extremities Cognition: normal cognition Speech: speech normal Gait: normal gait Motor: strength 5/5 throughout, muscle tone normal throughout Extrem General: normal capillary refill, normal to inspection, no edema Psych Appearance: well kempt Mental Status: mental status grossly normal Mood: congruent mood Affect: normal affect Speech and Movement: speech and movement normal Attitude: cooperative Thought Process: normal Thought Content: normal Judgment: judgment good Assessment AND Plan 1. Osteoporosis without current pathological fracture, unspecified osteoporosis type M81.0 Plan BMD 2018 2. Hyperlipidemia, unspecified hyperlipidemia type E78.5 Plan Continue current regimen 3. Essential hypertension I10 Plan Detail Additional Comments 1. Please schedule follow up in 6 months. 2. Lab work one week before appointment. 3. Discussed importance of regular exercise and recommend starting or continuing a regular exercise program for good health. 4. The patient was encouraged to lose weight for good health 5. The importance of monitoring blood sugar regularly was reviewed. 6. The importance of monitoring the HBA1c level regularly was reviewed. 7. The importance of prper foot care and regularly checking feet to prevent sores and loss of limbs was reviewed. 8. The importance of keeping BP at or below 130/80 to prevent stroke, heart attacks, kidney failure, blindness was reviewed. Spent approximately 30 minutes with patient with over 50% of time spent in discussion and counseling regarding medication adjustment, symptoms and treatment of hypoglycemia, diet adherence, and checking BG before driving. Coding Level of Care Code Off vis,est,level 4 Diagnoses Osteoporosis without current pathological fracture, unspecified osteoporosis type M81.0 Osteoporosis type: unspecified Presence of current pathological fracture: without current pathological fracture Hyperlipidemia, unspecified hyperlipidemia type E78.5 Hyperlipidemia type: unspecified Essential hypertension I10 Hypertension type: essential hypertension 02/17/18 0856 <Electronically signed by Caitlyn JUSTICE> Date Caitlyn JUSTICE Cosigner Signature: Date (if applicable) CC: PROGRESS Observed: 02/05/2018 Status: COMPLETED Source: ARP 3:45 PM [facility] REPOSITORY O ID: [id number] Author: Areli Banuelos Service: (none) Author Type: Physician Type: Progress Notes Filed: 02/05/2018 5:14 PM Note Text: Subjective HPI HISTORY OF PRESENT ILLNESS: Theresa Palmer is a 62 year old female, Ht 162.6 cm (5' 4) BMI 31.58 kg/m2, with a history of asthma. She just got from [place] last week. Asthma was fine while she was in [place] for the winter. She has not had any faster exacerbations of asthma. She has been on Flovent 110mcg 2 puffs daily and Montelukast daily. ASTHMA CONTROL TEST Date: 02/05/2018 1. In the last 4 weeks, how much of the time did your asthma keep you from getting as much done at work or home that you wanted to do? None of the time (5) 2. In the last 4 weeks, how often have you had shortness of breath? Not at all (5) 3. In the last 4 weeks, how often did your asthma symptoms (wheezing, coughing, shortness of breath, chest tightness or pain) wake you up at night or earlier than usual? Not at all (5) 4. In the last 4 weeks, how often have you used your rescue inhaler or nebulizer medication (such as Albuterol, Proventil, Ventolin, Maxair, Xoponex, or Primatene Mist)? Not at all (5) 5. In the last 4 weeks, how would you rate your asthma control? Well controlled (4) Total: 24 Review of Systems Constitutional: Negative. HENT: Negative. Eyes: Negative. Respiratory: Negative. Cardiovascular: Negative. Gastrointestinal: Negative. Genitourinary: Negative. Musculoskeletal: Negative. Skin: Negative. Neurological: Negative. Endo/Heme/Allergies: Negative. Psychiatric/Behavioral: Negative. PAST MEDICAL HISTORY Diagnosis Date - Abnormal mammogram, unspecified 06/15/2010 - Allergic rhinitis, cause unspecified - Asthma - Breast cyst 06/14/2011 - Breast microcalcifications 06/20/2010 RIGHT X2 - Esophageal reflux - Fibromyalgia - Impaired glucose tolerance - Irritable bowel syndrome - Myalgia and myositis, unspecified - Osteoporosis, unspecified - Other and unspecified hyperlipidemia - Salzmann's nodular dystrophy of both eyes - Sjogren syndrome PAST SURGICAL HISTORY Procedure Laterality Date - BX BREAST PERC VACUUM/ROTN 06/20/2010 RIGHT X2 - CATARACT SURGERY, COMPLEX right eye - COLONOSCOP W/ OR W/O [facility] SPEC 2002 Colonoscopy - COLONOSCOP W/ OR W/O BRS SPEC 09/07/15 Colonoscopy - EYE SURGERY PROCEDURE 2014 X 4 - FNA WITH IMAGING 06/14/11 U/S FNA UOQ right breast cyst - ORAL SURGERY PROCEDURE WISDOM TEETH EXTRACTION - REMOVAL OF TONSILS,<12 Y/O - TOTAL ABDOM HYSTERECTOMY 04/17/2007 Hysterectomy, MAIK/BSO - Adenomyosis FAMILY HISTORY Problem Relation Age of Onset - Osteoporosis Mother - Heart Mother - Heart Father DC Social History Marital status: Spouse name: Ronni Years of education: 12 Number of children: 3 Occupational History Occupation Employer [employer] Social History Main Topics Smoking status: Never Smoker Smokeless status: Never Used Alcohol use: No Drug use: No Sexual activity: Yes Partners with: Male control/protection: Surgical Comment: [facility] complete 03/2007 Current Meds calcitriol (ROCALTROL) 0.25 mcg capsule Take 0.25 mcg by mouth once daily. pantoprazole DR (PROTONIX) 40 mg tablet Take 1 tablet by mouth once daily. venlafaxine XR (EFFEXOR XR) 150 mg 24 hr capsule Take 1 capsule by mouth once daily. montelukast (SINGULAIR) 10 mg tablet Take 1 tablet by mouth daily at bedtime. polyethylene glycol 3350 (MIRALAX, GLYCOLAX) 17 gram/dose powder Take 17 g by mouth once daily. Take one (1) capful in 8oz of liquid each day. nystatin (MYCOSTATIN) cream Apply 1 application to affected area as needed. losartan (COZAAR) 50 mg tablet Take 1 tablet by mouth once daily. rosuvastatin (CRESTOR) 10 mg tablet Take one tablet by mouth every 3 days. ezetimibe (ZETIA) 10 mg tablet Take 1 tablet by mouth once daily. fluticasone (FLOVENT HFA) 110 mcg/actuation inhaler Inhale 2 Puffs as instructed twice daily. fluocinonide (LIDEX) 0.05 % gel apply to area affected 3 times daily as needed denosumab (PROLIA) 60 mg/mL syrg 60 mg sc x1, every six months. albuterol 2.5 mg /3 mL (0.083 %) nebulizer solution Use 3 mL via nebulizer every 4 hours as needed for Wheezing/Shortness of Breath. Use over 5-15minutes. aspirin, enteric coated (ECOTRIN LOW STRENGTH) 81 mg EC tablet Take 1 tablet by mouth once daily. Cholecalciferol, Vitamin D3, 5,000 unit ORAL Tab Take 1 Each by mouth once daily. Inhalational Spacing Device (AEROCHAMBER) [facility] Spcr 1 Device. Use with Inhaler OTC PRODUCT Citracal 400mg +D ii daily amoxicillin (POLYMOX, AMOXIL) 500 mg capsule HYDROcodone-Acetaminophen 5-300 mg tab methylPREDNISolone (MEDROL DOSE-PACK) 4 mg Dose-Pack nitrofurantoin monohydrate and macrocrystal (MACROBID) 100 mg capsule gabapentin (NEURONTIN) 300 mg capsule Take 1 capsule by mouth daily at bedtime LACTOBACILLUS ACIDOPHILUS (PROBIOTIC ORAL) Take by mouth. Objective BP 128/74 Pulse 92 Resp 12 Ht 5' 4 (1.63m) Wt 184 lb (83.5kg) SpO2 97[ra]% LMP 03/23/2007 BMI 31.57 kg/(m2). Physical Exam Constitutional: She is oriented to person, place, and time and well-developed, well-nourished, and in no distress. No distress. HENT: Head: Normocephalic. Mouth/Throat: Oropharynx is clear and moist. No oropharyngeal exudate. Eyes: Right eye exhibits no discharge. Left eye exhibits no discharge. No scleral icterus. Neck: No JVD present. No tracheal deviation present. No thyromegaly present. Cardiovascular: Normal rate, regular rhythm and normal heart sounds. Exam reveals no gallop and no friction rub. No murmur heard. Pulmonary/Chest: Effort normal and breath sounds normal. No stridor. No respiratory distress. She has no wheezes. She has no rales. Abdominal: Soft. Bowel sounds are normal. She exhibits no distension. There is no tenderness. Musculoskeletal: She exhibits no edema, tenderness or deformity. Neurological: She is alert and oriented to person, place, and time. Gait normal. Skin: Skin is warm and dry. No rash noted. She is not diaphoretic. No erythema. No pallor. Psychiatric: Mood, memory, affect and judgment normal. ECHO July 2012 LV normal size Stage II diastolic dysfunction RVSP 34 mmHg CXR 10/26/2015 No acute process Spirometry July 12, 2015 FVC 2.9 L 87% FEV1 2.4 L 96% Ratio 85 ASSESSMENT/PLAN: 1. Mild persistent asthma without complication - ICD9: 493.90, ICD10: J45.30 Mild persistent Asthma stable and improved - Continue current meds - Avoidance of triggers recommended Areli Banuelos MD CNOV Observed: 02/05/2018 Status: COMPLETED Source: ARP 3:30 PM [facility] REPOSITORY Office Visit ([facility]) THERESA PALMER ([id number]) 1955 F NFR Date Time Provider Department 02/05/18 3:30 PM ARELI BANUELOS During your visit today, we recorded the following information about you: Pulse Respiration Blood pressure Weight 92/minute 12/minute 128/74 83.5 kg Height 1.626 m Nick Garcia 02/05/2018 3:41 PM Signed ASTHMA CONTROL TEST (2007 - ) 02/05/2018 ASTHMA WORK (2007) 5 NONE OF THE TIME ASTHMA SOB (2007) 5 NOT AT ALL ASTHMA SLEEP (2007) 5 NOT AT ALL ASTHMA MED (2007) 5 NOT AT ALL ASTHMA CONTROL (2007) 4 WELL CONTROLLED ACT TOTAL SCORE 24 Nick Garcia [facility] Aerli Banuelos MD 02/05/2018 5:14 PM Signed Subjective HPI HISTORY OF PRESENT ILLNESS: Theresa Palmer is a 62 year old female, Ht 162.6 cm (5' 4ANDquot;) BMI 31.58 kg/m2, with a history of asthma. She just got from [place] last week. Asthma was fine while she was in [place] for the winter. She has not had any faster exacerbations of asthma. She has been on Flovent 110mcg 2 puffs daily and Montelukast daily. ASTHMA CONTROL TEST Date: 02/05/2018 1. In the last 4 weeks, how much of the time did your asthma keep you from getting as much done at work or home that you wanted to do? None of the time (5) 2. In the last 4 weeks, how often have you had shortness of breath? Not at all (5) 3. In the last 4 weeks, how often did your asthma symptoms (wheezing, coughing, shortness of breath, chest tightness or pain) wake you up at night or earlier than usual? Not at all (5) 4. In the last 4 weeks, how often have you used your rescue inhaler or nebulizer medication (such as Albuterol, Proventil, Ventolin, Maxair, Xoponex, or Primatene Mist)? Not at all (5) 5. In the last 4 weeks, how would you rate your asthma control? Well controlled (4) Total: 24 Review of Systems Constitutional: Negative. HENT: Negative. Eyes: Negative. Respiratory: Negative. Cardiovascular: Negative. Gastrointestinal: Negative. Genitourinary: Negative. Musculoskeletal: Negative. Skin: Negative. Neurological: Negative. Endo/Heme/Allergies: Negative. Psychiatric/Behavioral: Negative. PAST MEDICAL HISTORY Diagnosis Date - Abnormal mammogram, unspecified 06/15/2010 - Allergic rhinitis, cause unspecified - Asthma - Breast cyst 06/14/2011 - Breast microcalcifications 06/20/2010 RIGHT X2 - Esophageal reflux - Fibromyalgia - Impaired glucose tolerance - Irritable bowel syndrome - Myalgia and myositis, unspecified - Osteoporosis, unspecified - Other and unspecified hyperlipidemia - Salzmann's nodular dystrophy of both eyes - Sjogren syndrome PAST SURGICAL HISTORY Procedure Laterality Date - BX BREAST PERC VACUUM/ROTN 06/20/2010 RIGHT X2 - CATARACT SURGERY, COMPLEX right eye - COLONOSCOP W/ OR W/O [facility] SPEC 2002 Colonoscopy - COLONOSCOP W/ OR W/O BRS SPEC 09/07/15 Colonoscopy - EYE SURGERY PROCEDURE 2014 X 4 - FNA WITH IMAGING 06/14/11 U/S FNA UOQ right breast cyst - ORAL SURGERY PROCEDURE WISDOM TEETH EXTRACTION - REMOVAL OF TONSILS,ANDlt;10 Y/O - TOTAL ABDOM HYSTERECTOMY 04/17/2007 Hysterectomy, MAIK/BSO - Adenomyosis FAMILY HISTORY Problem Relation Age of Onset - Osteoporosis Mother - Heart Mother - Heart Father DC Social History Marital status: Spouse name: Ronni Years of education: 12 Number of children: 3 Occupational History Occupation Employer Comment [employer]* [employer] Social History Main Topics Smoking status: Never Smoker Smokeless status: Never Used Alcohol use: No Drug use: No Sexual activity: Yes Partners with: Male control/protection: Surgical Comment: [facility] complete 03/2007 Current Meds calcitriol (ROCALTROL) 0.25 mcg capsule Take 0.25 mcg by mouth once daily. pantoprazole DR (PROTONIX) 40 mg tablet Take 1 tablet by mouth once daily. venlafaxine XR (EFFEXOR XR) 150 mg 24 hr capsule Take 1 capsule by mouth once daily. montelukast (SINGULAIR) 10 mg tablet Take 1 tablet by mouth daily at bedtime. polyethylene glycol 3350 (MIRALAX, GLYCOLAX) 17 gram/dose powder Take 17 g by mouth once daily. Take one (1) capful in 8oz of liquid each day. nystatin (MYCOSTATIN) cream Apply 1 application to affected area as needed. losartan (COZAAR) 50 mg tablet Take 1 tablet by mouth once daily. rosuvastatin (CRESTOR) 10 mg tablet Take one tablet by mouth every 3 days. ezetimibe (ZETIA) 10 mg tablet Take 1 tablet by mouth once daily. fluticasone (FLOVENT HFA) 110 mcg/actuation inhaler Inhale 2 Puffs as instructed twice daily. fluocinonide (LIDEX) 0.05 % gel apply to area affected 3 times daily as needed denosumab (PROLIA) 60 mg/mL syrg 60 mg sc x1, every six months. albuterol 2.5 mg /3 mL (0.083 %) nebulizer solution Use 3 mL via nebulizer every 4 hours as needed for Wheezing/Shortness of Breath. Use over 5-15minutes. aspirin, enteric coated (ECOTRIN LOW STRENGTH) 81 mg EC tablet Take 1 tablet by mouth once daily. Cholecalciferol, Vitamin D3, 5,000 unit ORAL Tab Take 1 Each by mouth once daily. Inhalational Spacing Device (AEROCHAMBER) [facility] Spcr 1 Device. Use with Inhaler OTC PRODUCT Citracal 400mg +D ii daily amoxicillin (POLYMOX, AMOXIL) 500 mg capsule HYDROcodone-Acetaminophen 5-300 mg tab methylPREDNISolone (MEDROL DOSE-PACK) 4 mg Dose-Pack nitrofurantoin monohydrate and macrocrystal (MACROBID) 100 mg capsule gabapentin (NEURONTIN) 300 mg capsule Take 1 capsule by mouth daily at bedtime LACTOBACILLUS ACIDOPHILUS (PROBIOTIC ORAL) Take by mouth. Objective BP 128/74 Pulse 92 Resp 12 Ht 5' 4ANDquot; (1.63m) Wt 184 lb (83.5kg) SpO2 97[ra]% LMP 03/23/2007 BMI 31.57 kg/(m2). Physical Exam Constitutional: She is oriented to person, place, and time and well-developed, well-nourished, and in no distress. No distress. HENT: Head: Normocephalic. Mouth/Throat: Oropharynx is clear and moist. No oropharyngeal exudate. Eyes: Right eye exhibits no discharge. Left eye exhibits no discharge. No scleral icterus. Neck: No JVD present. No tracheal deviation present. No thyromegaly present. Cardiovascular: Normal rate, regular rhythm and normal heart sounds. Exam reveals no gallop and no friction rub. No murmur heard. Pulmonary/Chest: Effort normal and breath sounds normal. No stridor. No respiratory distress. She has no wheezes. She has no rales. Abdominal: Soft. Bowel sounds are normal. She exhibits no distension. There is no tenderness. Musculoskeletal: She exhibits no edema, tenderness or deformity. Neurological: She is alert and oriented to person, place, and time. Gait normal. Skin: Skin is warm and dry. No rash noted. She is not diaphoretic. No erythema. No pallor. Psychiatric: Mood, memory, affect and judgment normal. ECHO July 2012 LV normal size Stage II diastolic dysfunction RVSP 34 mmHg CXR 10/26/2015 No acute process Spirometry July 12, 2015 FVC 2.9 L 87% FEV1 2.4 L 96% Ratio 85 ASSESSMENT/PLAN: 1. Mild persistent asthma without complication - ICD9: 493.90, ICD10: J45.30 Mild persistent Asthma stable and improved - Continue current meds - Avoidance of triggers recommended Areli Banuelos MD Referring Provider: ARELI BANUELOS [[id number]] Allergies As of Date: 02/05/2018 Noted Allergy Reaction ISRRAEL INHIBITORS 02/08/2016 3 - Cough ACTONEL (RISEDRONATE SODIUM) 11/30/2005 14 - Other: See Comments Comments: esophageal erosion AUGMENTIN (AMOXICILLIN-POT CLAVUL*06/21/2005 8 - GI Upset BONIVA (IBANDRONATE) 04/04/2007 14 - Other: See Comments Comments: Pain in esophagus ENALAPRIL 07/18/2006 14 - Other: See Comments Comments: cough LEVAQUIN (LEVOFLOXACIN) 06/21/2005 8 - GI Upset SULFA (SULFONAMIDE ANTIBIOTICS) 06/21/2005 7 - Swelling 14 - Other: See Comments Comments: angioedema VIOXX (ROFECOXIB) 06/21/2005 2 - Rash Date Reviewed: 02/05/2018 Reviewed by: Areli Banuelos - Fully Assessed Reason for Visit: Asthma [11] Primary Visit Diagnosis:Mild persistent asthma without complication [J45.30] Order(s):montelukast (SINGULAIR) 10 mg tabletTake 1 tablet by mouth daily at bedtime.Disp: 90 tabletRfl: 3 fluticasone (FLOVENT HFA) 110 mcg/actuation inhalerInhale 2 Puffs as instructed twice daily.Disp: 3 InhalerRfl: 3 Prescriptions as of 02/05/2018 Sig: CALCITRIOL 0.25 MCG CAPSULE Take 0.25 mcg by mouth once d* MONTELUKAST 10 MG TABLET Take 1 tablet by mouth daily * FLUTICASONE 110 MCG/ACTUATION* Inhale 2 Puffs as instructed * PANTOPRAZOLE 40 MG TABLET,DEL* Take 1 tablet by mouth once d* VENLAFAXINE ER 150 MG CAPSULE* Take 1 capsule by mouth once * POLYETHYLENE GLYCOL 3350 17 G* Take 17 g by mouth once daily* NYSTATIN 100,000 UNIT/GRAM TO* Apply 1 application to affect* LOSARTAN 50 MG TABLET Take 1 tablet by mouth once d* ROSUVASTATIN 10 MG TABLET Take one tablet by mouth ever* EZETIMIBE 10 MG TABLET Take 1 tablet by mouth once d* FLUOCINONIDE 0.05 % TOPICAL G* apply to area affected 3 time* DENOSUMAB 60 MG/ML SUBCUTANEO* 60 mg sc x1, every six months. ALBUTEROL SULFATE 2.5 MG/3 ML* Use 3 mL via nebulizer every * ASPIRIN 81 MG TABLET,DELAYED * Take 1 tablet by mouth once d* * CHOLECALCIFEROL (VITAMIN D3) * Take 1 Each by mouth once spencer* * INHALATIONAL SPACING DEVICE 1 Device. Use with Inhaler * OTC PRODUCT Citracal 400mg +D ii daily AMOXICILLIN 500 MG CAPSULE HYDROCODONE 5 MG-ACETAMINOPHE* METHYLPREDNISOLONE 4 MG TABLE* NITROFURANTOIN MONOHYDRATE AND * GABAPENTIN 300 MG CAPSULE Take 1 capsule by mouth jonathan* PROBIOTIC ORAL Take by mouth. Medication notes this encounter AMOXICILLIN 500 MG CAPSULE >> Nick Garcia 02/05/2018 3:34 PM >> NICK GARCIA SatFeb 05, 2018 3:34 PM Course completed HYDROCODONE 5 MG-ACETAMINOPHEN 300 MG TABLET >> Nick Garcia 02/05/2018 3:36 PM >> NICK GARCIA SatFeb 05, 2018 3:36 PM Not taking METHYLPREDNISOLONE 4 MG TABLETS IN A DOSE PACK >> Nick Garcia 02/05/2018 3:36 PM >> NICK GARCIA SatFeb 05, 2018 3:36 PM Course completed NITROFURANTOIN MONOHYDRATE AND MACROCRYSTAL 100 MG ORAL CAP >> Nick Garcia 02/05/2018 3:35 PM >> NICK GARCIA SatFeb 05, 2018 3:35 PM Course completed PROBIOTIC ORAL >> Nick Garcia 02/05/2018 3:36 PM >> NICK GARCIA SatFeb 05, 2018 3:36 PM Not taking Problem List As Of Date 02/05/2018 Noted Resolved ESOPHAGEAL REFLUX [K21.9] SICCA SYNDROME [M35.00] Hyperlipidemia [E78.5] Osteoporosis [M81.0] More... 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 Hyperparathyroidism, secondary (HCC) [N25.81] INVALID FOR* More... Hypertension [I10] INVALID FOR* Sjogren's disease (HCC) [M35.00] INVALID FOR* Special screening for malignant neoplasm of col*INVALID FOR*09/07/2015 Painful swallowing [R13.10] INVALID FOR*09/07/2015 Cough [R05] INVALID FOR*02/20/2016 Multiple thyroid nodules [E04.2] INVALID FOR* More... Esophageal spasm [K22.4] INVALID FOR* Obesity [E66.9] INVALID FOR* Visit Notes: >> Nick Radha SatFeb 05, 2018 3:40 PM Status: Signed ASTHMA CONTROL TEST (2007 - ) 02/05/2018 ASTHMA WORK (2007) 5 NONE OF THE TIME ASTHMA SOB (2007) 5 NOT AT ALL ASTHMA SLEEP (2007) 5 NOT AT ALL ASTHMA MED (2007) 5 NOT AT ALL ASTHMA CONTROL (2007) 4 WELL CONTROLLED ACT TOTAL SCORE 24 Nick Radha PRODUCT TECHNOLOGY SCIENTIST Prescriptions ordered this encounter Disp Refills Start End MONTELUKAST 10 MG TABLET 90 t* 3 02/05/2018 Class: [facility] Route: ORAL Sig: Take 1 tablet by mouth daily at bedtime. FLUTICASONE 110 MCG/ACTUATION HFA AE* 3 In* 3 02/05/2018 Class: [facility] Route: INHALATION Sig: Inhale 2 Puffs as instructed twice daily. Medications Discontinued During This Encounter montelukast (SINGULAIR) 10 mg tablet 90 t* 3 02/18/2017 02/05/2018 Class: [facility] Route: ORAL Sig: Take 1 tablet by mouth daily at bedtime. Disc: Reason for discontinue is not on file. fluticasone (FLOVENT HFA) 110 mcg/ac* 3 In* 3 02/08/2016 02/05/2018 Class: [facility] Route: INHALATION Sig: Inhale 2 Puffs as instructed twice daily. Disc: Reason for discontinue is not on file. Disposition: Return in about 1 year (around 02/05/2019) for Asthma. Follow-up and Disposition History Recorded Questionnaire: ASTHMA CONTROL TEST Last 4 weeks, your asthma limited your activity at work or home: -> 5 NONE OF THE TIME Past 4 weeks, how often have you had shortness of breath? -> 5 NOT AT ALL Past 4 weeks: Asthma symptoms woke you at night or earlier than usual? -> 5 NOT AT ALL Past 4 weeks: How often did you use rescue inhaler or nebulizer med? -> 5 NOT AT ALL Rate your Asthma Control during the past 4 weeks: -> 4 WELL CONTROLLED ACT TOTAL SCORE: -> 24 Letter Text Encounter Status:Closed by ARELI BANUELOS MD on 02/05/18 Observed: 01/28/2018 Status: F Source: KELVIN CULTURE, URINE 4:20 PM [facility] REPOSITORY Urine Culture ORGANISM 1: Presumptive E. coli Leslie Count >100,000 Presumptive E. coli: REACTION Amoxacillin/Clavulanic Acid $ 4 S Ampicillin $ >=32 R Ampicillin/Sulbactam $ 16 I Cefazolin $ <=4 S Cefepime $ <=1 S Ceftriaxone $ <=1 S Ciprofloxacin $ <=0.25 S ESBL - Ertapenim $$$ <=0.5 S Gentamicin $ <=1 S Imipenem *NF <=0.25 S Levofloxacin $ <=0.12 S Nitrofurantoin $ <=16 S Piperacillin/Tazobactam $$ <=4 S Tobramycin $ <=1 S Trimethoprim/Sulfametho $ <=20 S (NF) indicates non-formulary drug at [facility]. Approval by Infectious Disease Specialist required before non-formulary drugs may be ordered and/or dispensed. Performed By: #### M100.0650 #### [facility] [address] [place], [address] DYEING MACHINE TENDER OFFICE VISIT Observed: 01/28/2018 Status: F Source: MEEKER REPORT 11:58 AM [facility] REPOSITORY [facility] [address] [place] [address] OFFICE VISIT Date of Service: 01/28/18 MR#: [id number] Acct: [id number] Name: THERESA PALMER Ibeth Rep #: [id number] : 1955 Provider: GRISEL Hudson Age/Sex: 62/F Location: [facility] Status: Signed Intake Vital Signs01/28/18 Height 5 ft 4 in 01/28/18 Weight: 185 lb 8 oz 01/28/18 Body Mass Index (BMI) 31.8 01/28/18 Blood Pressure 156/91 Intake Visit Reasons: Urinary tract infection Lacemaker Required: No Is patient in pain?: Yes Pain scale (1-10): 10 Allergies amoxicillin [From Augmentin] Allergy (Mild, Verified 01/28/18 11:18) nauseated clavulanic acid [From Augmentin] Allergy (Mild, Verified 01/28/18 11:18) nauseated levofloxacin [From Levaquin] Allergy (Mild, Verified 01/28/18 11:18) nauseated rofecoxib [From Vioxx] Allergy (Mild, Verified 01/28/18 11:18) rash Sulfa (Sulfonamide Antibiotics) Allergy (Mild, Verified 01/28/18 11:18) throat swelling Medications rosuvastatin 10 mg tablet 10 mg PO QDAY #90 tab 11/20/17 [Rx Confirmed 01/28/18] aspirin 81 mg chewable tablet PO 01/28/18 [History Confirmed 01/28/18] calcitriol 0.5 mcg capsule 0.5 mcg PO QDAY 01/28/18 [History Confirmed 01/28/18] calcium phosphate-vitamin D3 250 mg calcium-500 unit chewable tablet tab PO 01/28/18 [History Confirmed 01/28/18] cholecalciferol (vitamin D3) 5,000 unit capsule 5,000 unit PO ONCE 01/28/18 [History Confirmed 01/28/18] denosumab 60 mg/mL subcutaneous syringe 60 mg SC [id number] 01/28/18 [History Confirmed 01/28/18] ezetimibe 10 mg tablet 10 mg PO QDAY 01/28/18 [History Confirmed 01/28/18] fluticasone 110 mcg/actuation HFA aerosol inhaler 2 puff INHALATION BID 01/28/18 [History Confirmed 01/28/18] losartan 50 mg tablet 50 mg PO QDAY 01/28/18 [History Confirmed 01/28/18] montelukast 10 mg tablet 10 mg PO QHS 01/28/18 [History Confirmed 01/28/18] nitrofurantoin monohydrate/macrocrystals 100 mg capsule 1 cap PO Q12H 7 Days #14 cap 01/28/18 [Rx Confirmed 01/28/18] pantoprazole 40 mg tablet,delayed release 40 mg PO QDAY 01/28/18 [History Confirmed 01/28/18] venlafaxine ER 75 mg capsule,extended release 24 hr 150 mg PO QDAY cap 01/28/18 [History Confirmed 01/28/18] Post menopausal: Yes Patient : No : No PFSH Medical History GERD (gastroesophageal reflux disease) (Chronic) Osteoporosis (Chronic) Sjogrens syndrome (Chronic) Gastroparesis (Chronic) Fibromyalgia (Chronic) Asthma (Chronic) Hot flashes (Chronic) Vitamin D deficiency (Chronic) Hyperlipidemia (Chronic) Hypertension (Chronic) H/O endoscopy (Resolved) Surgical History H/O colonoscopy (Resolved) History of LAVH (Resolved) S/P left knee surgery (Resolved) S/P tonsillectomy (Resolved) Family History Mother Heart disease Hypertension Father Heart disease Myocardial infarction Hypertension Social History Smoking Status: Never smoker alcohol intake: never substance use type: does not use caffeine: Yes what type of physical activity do you participate in: walking frequency: 5-6 times per week seatbelt use: always do you feel safe at home: Yes additional social history: - Ronin Patient and both retired. HPI Urinary tract infection: Details: THERESA PALMER is a 62 year old who presents for dysuria and this AM noting blood in urine. Pregancy History 3 Elective abortions Hx Para 3 Spontaneous abortions Past Pregnancies Del. DateName GA/Weeks Outcome Route Bth WeighInfant GeLabor LgtAnesthesiDel LocatProvider FOB t n h a n Results BMSUA Office Urine Color Red Last Edit by Tsering Melgar on 01/28/18 11:20 Office Urine Clarity Cloudy Last Edit by Tsering Melgar on 01/28/18 11:20 Assessment AND Plan 1. Acute cystitis with hematuria N30.01 Plan Send urine culture Azo for comfort Rx macrobid Plan Detail Other Orders Orders: Other Medications New: nitrofurantoin monohyd/m-cryst 100 mg (Macrobid) administer with 1 cap PO Q12H 7 days a meal/food; swallow whole; do not open, crush, dissolve , or chew Coding Level of Care Code Off vis,est,level 3 Diagnoses Acute cystitis with hematuria N30.01 Hematuria presence: with hematuria Urinary tract infection type: acute cystitis 01/28/18 1158 <Electronically signed by Ely JUSTICE> Date Ely JUSTICE Cosigner Signature: Date (if applicable) CC: JUAREZO Observed: 12/09/2017 Status: COMPLETED Source: ARP 12:00 AM [facility] REPOSITORY Letter Text Travon Cowan MD Department of Endocrinology [facility] [address] [place] [address], [address] [place] [address] Theresa Palmer December 09, 2017 Theresa Palmer [address] [facility] [address] [facility] [address] Dear Ms. Palmer, Due to a change in your provider's schedule, it has become necessary to cancel the following appointment: Travon Cowan MD Date: 02/28/18 We apologize for any inconvenience to you however your provider would still like to see you. Please call us at [phone] to reschedule your appointment. Thank you. Sincerely, Appointment Staff ALLERGIES ALLERGIES DATE TYPE / CODE NAME / CODE REACTION SEVERITY SOURCE 09/22/2018 Drug ISRRAEL Unknown [place] Allergy/416 Inhibitors/[id number] [facility] 748929([place] [address] 09/22/2018 Drug Sulfa (Sulfonamide throat swelling [facility] Allergy/416 Antibiotics)/F0010 [facility] 899686([facility] [address] Repository 09/22/2018 Drug benzocaine/P043983 Unknown [place] Allergy/416 366(RXNORM) [facility] 572880([facility] ED CT) Repository 09/22/2018 Drug hydrocortisone/F00 Unknown [place] Allergy/795 5942892(RXNORM) [facility] 160231([facility] ED CT) Repository 09/22/2018 Drug clavulanic nauseated [facility] Allergy/416 acid/[id number](RX [facility] [address]) Repository 09/22/2018 Drug chloroxylenol/F006 Unknown [place] Allergy/416 761835(RXNORM) [facility] 079249([facility] ED CT) Repository 09/22/2018 Drug amoxicillin/A50244 nauseated [facility] Allergy/416 3675(RXNORM) [facility] 376231([facility] ED CT) Repository 09/22/2018 Drug enalapril/U6585009 Unknown [place] Allergy/416 00(RXNORM) [facility] 647567([facility] ED CT) Repository 09/22/2018 Drug levofloxacin/F0060 nauseated [place] Allergy/416 42067(RXNORM) Community 654563([facility] ED CT) Repository 09/22/2018 Drug ibandronate Unknown [facility] Allergy/416 sodium/H272783685( [facility] 482937([facility] ED CT) Repository 09/22/2018 Drug risedronate Unknown [place] Allergy/416 sodium/B615227231( [facility] 954408([facility] ED CT) Repository 09/22/2018 Drug rofecoxib/E7125121 Rash [facility] Allergy/416 87(RXNORM) Community 386395([facility] ED CT) Repository 02/08/2016 Drug ISRRAEL INHIBITORS COUGH [facility] Class/88158 [place] 1003(SNOMED Repository CT) 04/04/2007 DRUG/854893 IBANDRONATE OTHER: SEE [facility] 003(SNOMED [place]) Repository 07/18/2006 [facility] [place] 971539(SNOM Repository ED CT) 11/30/2005 DRUG RISEDRONATE SODIUM [facility] [place] 544691(SNOM Repository ED CT) 11/30/[address] [facility] [place] 422527(SNOM Repository ED CT) 06/21/2005 DRUG/051578 AMOXICILLIN-POT GI UPSET [facility] 003(SNOMED CLAVULANATE [place]) Repository 06/21/2005 DRUG LEVOFLOXACIN GI UPSET [facility] INGREDI/419 [place] 974307(SNOM Repository ED CT) 06/21/2005 Drug SULFA (SULFONAMIDE SWELLING [facility] Class/16185 ANTIBIOTICS) [place] 1003(SNOMED Repository CT) 06/21/[address] [facility] [place] 695105(SNOM Repository ED CT) ENCOUNTERS ENCOUNTERS ADMIT/DISCHARGE ACCOUNT ADMITTING ENCOUNTER LOCATION SOURCE NUMBER CLASS 10/27/2018/10/27/20 [id number] Ambulatory [address] [place] Repository 10/08/2018 [id number] Ambulatory [facility] ing:LAB Repository 09/29/2018/09/29/20 [id number] Ambulatory [address] [place] Repository 09/23/2018/09/25/20 [id number] Ambulatory [address] Repository 09/22/2018/09/22/20 [id number] Ambulatory BMSBuilding:[facility] [address] [facility] Repository 09/09/2018 [id number] Ambulatory [facility] Hospital ing:OPBI Repository 07/15/2018 [id number] Ambulatory [facility] Hospital ing:US Repository 07/10/2018/07/10/20 [id number] Ambulatory BMSBuilding:B [place] 18 [facility] Repository 07/03/2018 [id number] Ambulatory [facility] ing:LAB Repository 04/25/2018/04/25/20 [id number] Ambulatory [address] Repository 02/28/2018/02/29/20 [id number] Ambulatory [address] Repository 02/13/2018/02/14/20 [id number] Ambulatory BMSBuilding:[facility] [place] 18 [facility] Repository 02/05/2018/02/07/20 [id number] Ambulatory [address] Repository 01/28/2018 [id number] Ambulatory [facility] ing:LABSPEC Repository 01/28/2018/01/29/20 [id number] Ambulatory BMSBuilding:B [facility] [address] Repository PAYERS PAYERS ENCOUNTER GUARANTOR PAYER SUBSCRIBER SOURCE 10/08/2018 THERESA A [id number] Primary THERESA A [facility] [address] Insurance:MEDICARE DYKEDOB: [address] PART A BPolicy [id number] Hospital [address]Qsd: (330) Number: Repository [phone] ) [id number] Date:2018-10-08 10/08/2018 Secondary THERESA A [place] Insurance:AARPPolicy DYKEDOB: [facility] Number: [id number] Hospital [id number] Repository Date:2999-25-56[address], [place] [address]AI: 10/08/2018 Tertiary NOT GIVENUNK [facility] Insurance:SELF PAY [facility] Number: Effective Repository Date:2018-10-08 09/22/2018 THERESA A [id number] Primary THERESA A [place] [address] Insurance:MEDICARE D[place]KEDOB: [place] PART A [facility] [id number] Hospital [address]Aja: (330) Number: Repository [phone] () [id number] Date:2018-08-05 09/22/2018 Secondary THERESA A [facility] Insurance:AARPPolicy DYKEDOB: Community Number: [id number] Hospital [id number] Repository Date:6541-14-65[address], [place] [address]LJ: 09/22/2018 Tertiary NOT GIVENUNK [place] Insurance:SELF PAY [facility] Number: Effective Repository Date:2018-09-22 09/09/2018 RONNI PALMER2618 Primary THERESA A [facility] [place] Insurance:MEDICARE DYKEDOB: [place] [address] PART A [facility] [id number] [address]Vss: (330) Number: Repository [phone] () [id number] Date:2018-08-05 09/09/2018 Secondary THERESA A [place] Insurance:AARPPolicy DYKEDOB: Community Number: [id number] Hospital [id number] Repository Date:5761-10-12[address], [place] [address]MT: 09/09/2018 Tertiary NOT GIVENUNK [facility] Insurance:SELF PAY [facility] Number: Effective Repository Date:2018-08-05 07/15/2018 RONNI PALMER2618 Primary THERESA A [place] Insurance:MEDICARE DYKEDOB: [place] [address] A [facility] [id number] [address]Ewe: (330) Number: Repository [phone] () [id number] Date:2018-07-10 07/15/2018 Secondary THERESA A [facility] Insurance:AARPPolicy DYKEDOB: Community Number: [id number] Hospital [id number] Repository Date:6985-08-37[address], [place] [address]VK: 07/15/2018 Tertiary NOT GIVENUNK [place] Insurance:SELF PAY [facility] Hospital Number: Effective Repository Date:2018-07-10 07/10/2018 RONNI PALMER2618 Primary THERESA A [place] Insurance:MEDICARE DYKEDOB: [place] [address] A [facility] [id number] [facility] [address]Dym: (330) Number: Repository [phone] ) [id number] Date:2018-06-02 07/10/2018 Secondary THERESA A [facility] Insurance:AARPPolicy DYKEDOB: Community Number: [id number] Hospital [id number] Repository Date:4282-94-35[address], [place] [address]ZK: 07/10/2018 Tertiary NOT GIVENUNK [place] Insurance:SELF PAY [facility] Number: Effective Repository Date:2018-07-07 07/03/2018 RONNI PALMER2618 Primary THERESA A [facility] [place] Insurance:MEDICARE DYKEDOB: [place] [address] [facility] [id number] House Health [facility] [address]Vtd: (330) Number: Repository [phone] () [id number] Date:2018-07-03 07/03/2018 Secondary THERESA A [facility] Insurance:AARPPolicy DYKEDOB: Community Number: [id number] Hospital [id number] Repository Date:9475-48-41[address], [place] [address]NZ: 07/03/2018 Tertiary NOT GIVENUNK [place] Insurance:SELF PAY [facility] Number: Effective Repository Date:2018-07-03 02/13/2018 RONNI PALMER2618 Primary THERESA A [place] Insurance:ANTHEMPolic DYKEDOB: [place] [address] Number: [id number] [facility] [place] [address]Lws: (330 [id number] Repository [phone] (HP) Date:9469-37-29[address], [place] [address]VV: 02/13/2018 Secondary NOT GIVENUNK [place] Insurance:SELF PAY [facility] Number: Effective Repository Date:2018-02-13 01/28/2018 Ronni Shana [id number] Primary THERESA A [place] [address] Insurance:ANTHEMPolic DYKEDOB: [place] [address]Kfx: y Number: [id number] [phone] [id number] Repository (HP) Date:5168-70-97[address], [place] [address]ZW: 01/28/2018 Secondary NOT GIVENUNK [facility] Insurance:SELF PAY [facility] Number: Effective Repository Date:2018-01-28 01/28/2018 Ronni Shana [id number] Primary THERESA A [place] [address], Insurance:ANTHEMPolic DYKEDOB: [facility] [place] [address]Gqz: y Number: [id number] [phone] [id number] Repository (HP) Date:6444-40-96[address]YFF[place], [place] [address]QJ: 01/28/2018 Secondary NOT GIVENUNK [place] Insurance:SELF PAY [facility] Number: Effective Repository Date:2018-01-28
== END ==
PROVIDERS: Family Provider Family Medicine; PCP Family Medicine; Referring Provider Nurse Practitioner; Visit Provider Nurse Practitioner
DX: M81.0 Age-related osteoporosis without current pathological fracture (principal)
CPT/HCPCS: 36415; 80053; 82330; 82652; 83970

== ENCOUNTER → 2019-10-06 08:23 | Outpatient (CLI) | payer MEDICARE, OTHER, SELFPAY ==
[2018-09-22 14:07] VITALS: BMI 31.9
--- NOTE | 2019-10-06 08:25 | BI_ITS ---
MAMMOGRAPHY - BILATERAL SCREENING REASON FOR EXAM: Female, 64 years old. Routine annual screening examination. PERTINENT HISTORY: Non-contributory. Remote right stereotactic breast biopsies. TECHNIQUE: Digital bilateral breast prem (3D mammographic acquisition) in the CC and MLO projections. 2-D mediolateral oblique (MLO) and craniocaudad (CC) views of both breasts were obtained. CAD: Full Field Digital Mammography with Computer Added Detection was performed. COMPARISON: Comparison is made with prior study dated September 09, 2018 and September 03, 2017. FINDINGS: Breast Composition: The breasts are heterogeneously dense, which may obscure small masses. There are no dominant masses or suspicious calcifications. Once again, 2 tissue markers are seen in the right breast in keeping with prior biopsies. There has been no change. Stable small benign appearing bilateral axillary lymph nodes. No other significant abnormalities are identified. There has been no significant change since the prior study. BI/SCREEN MAMM (CAD) W/PREM BILAT IMPRESSION: Stable bilateral screening mammogram. Yearly follow-up mammogram recommended. (A) ASSESSMENT CATEGORY: BIRADS Category 2: Benign. A letter regarding these results will be sent to the patient by the facility within 30 days. Approximately 10% of breast cancers are not detected by mammography. A normal mammogram should not delay biopsy of a clinically suspicious abnormality. [id number] Electronically Signed: Adarsh Mao, at 9:56 EST , Service support ,
== END ==
PROVIDERS: Family Provider Family Medicine; PCP Family Medicine; Referring Provider Nurse Practitioner Women's Health; Visit Provider Nurse Practitioner Women's Health
DX: Z12.31 Encounter for screening mammogram for malignant neoplasm of breast (principal)
CPT/HCPCS: 77063; 77067

== ENCOUNTER 2020-05-29 18:49 | Inpatient (IN) | payer MEDICARE, OTHER, SELFPAY ==
[2019-10-14 09:23] VITALS: BMI 31.9
[2020-05-29] VITALS (14 sets, daily range): BP systolic 126–180; BP diastolic 69–96; PULSE 88–130; RESP 20–28; TEMP 37.2–37.6; O2SAT 85–100; BMI 30.9; BMI 29.7
--- NOTE | 2020-05-29 19:16 | EKG12_ITS ---
Test Reason : SOB Blood Pressure : / mmHG Vent. Rate : 086 BPM Atrial Rate : 086 BPM P-R Int : 130 ms QRS Dur : 082 ms QT Int : 374 ms P-R-T Axes : 003 012 047 degrees QTc Int : 447 ms Normal sinus rhythm Normal ECG Confirmed by RAKESH MAY, ALLISON ([id number]), makeup editor KAILEE MCKEE ([id number]) on 06/01/2020 10:42:29 AM Referred By: FLEX Confirmed By:ALILSON CAMERON MD
--- NOTE | 2020-05-29 19:17 | ED.DCSUM_ITS ---
History of Present Illness Chief Complaint: Shortness of Breath Informant: Patient Onset: Days - 7 Activity at onset: - - gradual onset Quality: Dyspnea on exertion - initially, now sob at rest Current Severity: Moderate Maximum Severity: Moderate Worsened by: Coughing, Exertion Relieved by: Albuterol, Oxygen, Rest Associated Symptoms: Cough - [employer]. Negative for: Chills, Ear pain, Fever, Sore throat Chest Pain: None Narrative: Patient has been ill for about 10 days, she had an outpatient COVID test 1 week ago that returned +2 days later. Her also tested positive for COVID and became ill at the exact same day that she did. She has become more short of br eath, has been checking her pulse ox at home, states that she has not been out of the 80s all day today, and at the lowest with light exertion just walking from one room to the next in the house, she was at 71%. She does not wear oxygen at home. Has a history of asthma, so she was initially given some steroids, those have been extended now and she started tapering recently, currently taking 40 mg daily, she initially was taking 60 daily. She denies any swelling in her feet. She has had myalgias and headaches initially but the headaches are resolved now. She feels very weak. She is tired of coughing, that part has been fairly severe but nonproductive. - Past Medical History (1) Asthma Status: Chronic (2) Fibromyalgia Status: Chronic (3) GERD (gastroesophageal reflux disease) Status: Chronic (4) Hyperlipidemia Status: Chronic Comment: On statin Chol 156 ldl 74 (5) Hypertension Status: Chronic Comment: BP sl elevated 139/82. Monitor diet, calcium, and exercise (6) Osteoporosis Status: Chronic Comment: Feels good and is exercising daily. Continues with Dr. Martinez for prolia. (7) Sjogrens syndrome Status: Chronic (8) Vitamin D deficiency Status: Chronic Past Medical History - Allergies and Home Meds Allergies/Adverse Reactions: Allergies JEANNE Inhibitors Allergy (Severe, Verified 05/29/20 18:54) Unknown benzocaine [From TriOxin] Allergy (Severe, Verified 05/29/20 18:54) Unknown chloroxylenol [From TriOxin] Allergy (Severe, Verified 05/29/20 18:54) Unknown enalapril Allergy (Severe, Verified 05/29/20 18:54) Unknown hydrocortisone [From TriOxin] Allergy (Severe, Verified 05/29/20 18:54) Unknown ibandronate sodium Allergy (Severe, Verified 05/29/20 18:54) Unknown risedronate sodium Allergy (Severe, Verified 05/29/20 18:54) Unknown amoxicillin [From Augmentin] Allergy (Mild, Verified 05/29/20 18:54) nauseated clavulanic acid [From Augmentin] Allergy (Mild, Verified 05/29/20 18:54) nauseated levofloxacin [From Levaquin] Allergy (Mild, Verified 05/29/20 18:54) nauseated rofecoxib [From Vioxx] Allergy (Mild, Verified 05/29/20 18:54) rash Sulfa (Sulfonamide Antibiotics) Allergy (Mild, Verified 05/29/20 18:54) throat swelling Primary Care Physician: Randy Bustos MD [Primary Care Provider] - Lives: Spouse/ Significant Other Smoking Status: Never smoker Review of Systems General: Reports: Malaise. Denies: Chills, Fever, Sweats Eyes: Denies: Visual changes - bilaterally, Diplopia ENT: Denies: Rhinorrhea, Sore throat Cardiovascular: Denies: Chest pain, Palpitations Respiratory: Reports: Dyspnea, Cough, Dyspnea on exertion. Denies: Sputum, Orthopnea Gastrointestinal: Denies: Abdominal pain, Nausea, Vomiting, Diarrhea, Melena, Hematochezia Genitourinary: Denies: Dysuria, Hematuria, Frequency Musculoskeletal: Reports: Myalgias. Denies: Arthralgias, Neck pain, Swelling Skin: Denies: Rash, Wounds Neurological: Denies: Headache, Weakness, Numbness Physical Exam Vital Signs/Narrative: Vital Signs Temp Pulse Resp BP Pulse Ox 05/29/20 18:56 99.3 F H 89 22 H 180/87 H 92 05/29/20 18:51 99.3 F H 89 22 H 180/87 H 92 Inital Vital Signs reviewed: Yes General: Well nourished, Well developed, No Acute Distress Head: Normocephalic, Atraumatic Eyes: Perrl, EOMI ENT: Moist mucous membranes, No rhinorrhea Neck: Supple, Nontender, No lymphadenopathy, No JVD Cardiovascular: Regular rate, Regular rhythm, No murmurs Respiratory: CTA bilaterally, Chest nontender, - - Conversational respiratory distress, speaking in 3-5 word sentences while talking Abdomen: Soft, Nontender, Nondistended, Normal bowel sounds Back: Nontender, Normal Inspection Extremities: Nontender, No edema. Negative for: Calf Tenderness Skin: Normal color, No rash, No Trauma Neurological: Alert, Oriented x3, Cranial nerves II-XII grossly intact, Normal Strength, Normal Sensation, Normal Gait Psychological: Normal affect, Normal Mood Diagnostic/Tx/Re-eval Impressions Chest X-Ray 05/29/20 19:20 IMPRESSION: 1. Bilateral hazy opacities consistent with pneumonia. Consider typical and atypical etiologies, including viral pneumonia. Electronically Signed: Teena Pereyra MD at 19:38 EDT Tel , Service support , 05/29/20 19:20 Chest 1 View (Portable) [RAD] Stat Laboratory Results 05/29/20 05/29/20 05/29/20 19:00 19:00 19:00 WBC 16.0 H RBC 4.75 Hgb 12.0 Hct 40.3 MCV 84.8 MCH 25.3 L MCHC 29.8 L RDW Std Deviation 45.2 H RDW Coeff of Edwar 14.8 H Plt Count 315 MPV 10.1 Immature Gran % (Auto) 2.000 H Neut % (Auto) 91.5 H Lymph % (Auto) 4.4 L [place] % (Auto) 2.0 Eos % (Auto) 0.0 Baso % (Auto) 0.1 Absolute Neuts (auto) 14.7 H Absolute Lymphs (auto) 0.70 L Nucleated RBC % 0 Fibrinogen 723 H D-Dimer Quant (PE/DVT) 0.43 Sodium 139 Potassium 3.4 L Chloride 107 Carbon Dioxide 24.0 Anion Gap 8 BUN 11 Creatinine 0.91 Estim Creat Clear Calc 52.51 Est GFR (MDRD) Af Amer 79 Est GFR (MDRD) Non-Af 66 BUN/Creatinine Ratio 12.1 Glucose 160 H Lactic Acid Calcium 8.4 L Total Bilirubin 0.30 AST 54 H ALT 83 H Alkaline Phosphatase 139 H Lactate Dehydrogenase 392 H Total Creatine Kinase 206 H Troponin I < 0.015 C-React Prot Ext Range 85.00 H Total Protein 7.8 Albumin 3.1 L Globulin 4.7 H Albumin/Globulin Ratio 0.7 L 05/29/20 19:00 WBC RBC Hgb Hct MCV MCH MCHC RDW Std Deviation RDW Coeff of Edwar Plt Count MPV Immature Gran % (Auto) Neut % (Auto) Lymph % (Auto) [place] % (Auto) Eos % (Auto) Baso % (Auto) Absolute Neuts (auto) Absolute Lymphs (auto) Nucleated RBC % Fibrinogen D-Dimer Quant (PE/DVT) Sodium Potassium Chloride Carbon Dioxide Anion Gap BUN Creatinine Estim Creat Clear Calc Est GFR (MDRD) Af Amer Est GFR (MDRD) Non-Af BUN/Creatinine Ratio Glucose Lactic Acid 3.2 H* Calcium Total Bilirubin AST ALT Alkaline Phosphatase Lactate Dehydrogenase Total Creatine Kinase Troponin I C-React Prot Ext Range Total Protein Albumin Globulin Albumin/Globulin Ratio - Rhythm Strip Rhythm Strip: Sinus Rhythm Rate: 86 Ectopy: None - EKG Initial EKG Interpretation: Sinus Rhythm, No Acute Injury Pattern Treatment - Dyspnea: Oxygen, Albuterol, Antibiotics Repeat Evaluation: Improved - Medical Decision Making X-ray shows patchy bilateral infiltrates, consistent with COVID-19 pneumonia, but she has a significant leukocytosis at 16 with a leftward shift, no bandemia, and other abnormal labs as above. Patient is doing well clinically while sitting at rest and not conversing. Discussed with hospitalist, plan is to admit her to the ICU for the night to watch further. I do not think she needs to be intubated at this time since she is able to carry on a conversation and is doing well on a 2 L cannula. Her d-dimer returned within normal limits, so I do not think CT is needed right now. We will cover her for the possibility of bacterial superinfection with Rocephin and azithromycin. Critical care time (excluding procedures): 30-74 minutes - 32 minutes, including time spent at the bedside, from documentation, discussion with patient, discussion with consultants, and arranging admission ED Disposition - Plan for ED Patient: Disposition: Acute Care Hospital [facility] Diagnosis: Hypoxemia, Pneumonia due to COVID-19 virus, Severe sepsis Referrals: Radny Bustos MD [Primary Care Provider] -
--- NOTE | 2020-05-29 19:20 | RAD_ITS ---
STUDY: X-RAY CHEST REASON FOR EXAM: Female, 64 years old. shortness of breath, patient is COVID positive TECHNIQUE: Single AP portable view of the chest. COMPARISON: None. FINDINGS: No pleural effusion. Bilateral hazy opacities in the mid to lower lungs. Normal size heart. Normal mediastinum and moira. Normal visualized pulmonary arteries. Normal visualized aortic arch and descending thoracic aorta. Normal visualized thoracic spine. Normal visualized ribs, clavicles, and shoulders. There is no demonstrated abnormality of the visualized soft tissue structures of the upper abdomen. RAD/Chest 1 View (Portable) IMPRESSION: 1. Bilateral hazy opacities consistent with pneumonia. Consider typical and atypical etiologies, including viral pneumonia. Electronically Signed: Teena Pereyra MD at 19:38 EDT Tel , Service support ,
[2020-05-29 19:28] LABS: Absolute Neutrophil Count 14.7 X10^3/uL (2.0-7.7); Basophil# 0.02 X10^3/uL; Basophil% 0.1 % (0-1); Hematocrit 40.3 % (37-47); Lymphocyte % 4.4 % (19-41); Mean Corp Hgb Conc 29.8 g/dL (32-36); Mean Corpuscular Hgb 25.3 pg (27.0-32.0); Mean Corpuscular Volume 84.8 fL (81-99); Mean Platelet Vol. 10.1 fl (6.2-12.0); Monocyte# 0.32 X10^3/uL; NRBC Flagged by Analyzer 0 % (0-5); Neutrophil # 14.67 X10^3/uL (2.7-7.7); Neutrophil % 91.5 % (47-70); Platelet Count 315 K/mm3 (150-450); RBC Distribution Width CV 14.8 % (11.6-14.6); RBC Distribution Width SD 45.2 fl (35.1-43.9); Red Blood Count 4.75 M/mm3 (4.2-5.4)
[2020-05-29 19:42] LABS: Fibrinogen 723 mg/dl (203-444)
[2020-05-29 19:45] LABS: ALB/GLOB Ratio 0.7 RATIO (0.9-2.4); AST(SGOT) 54 U/L (15-37); Alanine Aminotransfer ALT/SGPT 83 U/L (13-56); Albumin, Serum 3.1 g/dL (3.2-5.0); Alkaline Phosphatase 139 U/L (45-117); Anion Gap 8 (5-15); BUN 11 mg/dL (7-18); BUN/Creat Ratio 12.1 RATIO (10-20); CPK Total, Creatine Kinase 206 U/L (26-192); Calcium,Total 8.4 mg/dL (8.5-10.1); Chloride 107 mmol/L (98-107); Creatinine, Serum 0.91 mg/dL (0.55-1.02); D-Dimer Quantitative (DVT/PE) 0.43 FEU/ug/m (0.27-0.49); EST Glomerular Filtration Rate 66 mL/min (>60); Est Glom Filt Rate - Afr Amer 79 mL/min (>60); Estimated Creatinine Clearance 52.51 ml/min; Globulin 4.7 g/dL (2.2-4.2); Glucose 160 mg/dL (74-106); LDH 392 U/L (84-246); Potassium 3.4 mmol/L (3.5-5.1); Protein, Total 7.8 g/dL (6.4-8.2); Sodium Level 139 mmol/L (136-145)
[2020-05-29 19:47] LABS: Lactic Acid 3.2 mmol/L (0.4-1.9)
[2020-05-29 19:48] LABS: Reflex Lactate? Y
--- NOTE | 2020-05-29 20:08 | HP.PCM_ITS ---
History of Present Illness Date of Admission: 05/29/20 Chief Complaint: shortness of breath The patient is a 64 year old F with a past medical history as outlined which include Sjogren's syndrome and asthma as well as hypertension and hyperlipidemia. She was admitted through the ED on 05/29/2020 with a complaint of shortness of breath. Patient was diagnosed with COVID on 05/23/2020 after she had the test done on outpatient basis. She was self isolated at home but realized she was getting more short of breath and coughing more. Her saturation levels dropped to the 80s as she has a pulse ox at home and was able to check. She denied any fever but admitted to chills. Cough was nonproductive but was getting worse and her shortness of breath was gradually worsening to the point where she could not lay flat to sleep and had to sit up while sleeping. Her PCP gave her a course of tapering steroids because it was thought to be bronchitis. She denies any palpitations, dizziness, nausea vomiting, abdominal pain or diarrhea. Review of systems is otherwise negative. In the ED, temperature was 99.3 Fahrenheit with blood pressure of 180/87, pulse rate of 89 and respiratory rate of 22. She was saturating at 92% on 2 L of oxygen. Chemistry showed sodium of 139 with potassium of 3.4, lactic acid of 3.2, AST of 54 and ALT of 83 as well as CPK of 206 and LDH of 392. Initial troponin was negative. CBC showed WBC of 16 with hemoglobin of 12 and platelets of 315, with a relative lymphopenia of 4.4. EKG showed normal sinus rhythm with no acute ST changes. Chest x-ray showed bilateral hazy opacities consistent with pneumonia. She has been admitted to be managed for severe sepsis due to COVID pneumonia and acute hypoxic respiratory insufficiency due to COVID 19 pneumonia. [] Past Medical History Past Medical History (Chronic Problems): Chronic Problems (Last Reviewed 10/14/19 @ 09:10 by Carly Kay) GERD (gastroesophageal reflux disease) (Chronic) Osteoporosis (Chronic) Feels good and is exercising daily. Continues with Dr. Martinez for prolia. Sjogrens syndrome (Chronic) Gastroparesis (Chronic) Fibromyalgia (Chronic) Asthma (Chronic) Hot flashes (Chronic) Vitamin D deficiency (Chronic) Hyperlipidemia (Chronic) On statin Chol 156 ldl 74 Hypertension (Chronic) BP sl elevated 139/82. Monitor diet, calcium, and exercise Medical History: Medical History (Last Reviewed 10/14/19 @ 09:10 by Carly Kay) GERD (gastroesophageal reflux disease) (Chronic) K21.9 Osteoporosis (Chronic) M81.0 Feels good and is exercising daily. Continues with Dr. Martinez for prolia. Sjogrens syndrome (Chronic) M35.00 Gastroparesis (Chronic) K31.84 Fibromyalgia (Chronic) M79.7 Asthma (Chronic) J45.909 Hot flashes (Chronic) R23.2 Vitamin D deficiency (Chronic) E55.9 Hyperlipidemia (Chronic) E78.5 On statin Chol 156 ldl 74 Hypertension (Chronic) I10 BP sl elevated 139/82. 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 Sicca syndrome M35.00 Allergies JEANNE Inhibitors Allergy (Severe, Verified 05/29/20 18:54) Unknown benzocaine [From TriOxin] Allergy (Severe, Verified 05/29/20 18:54) Unknown chloroxylenol [From TriOxin] Allergy (Severe, Verified 05/29/20 18:54) Unknown enalapril Allergy (Severe, Verified 05/29/20 18:54) Unknown hydrocortisone [From TriOxin] Allergy (Severe, Verified 05/29/20 18:54) Unknown ibandronate sodium Allergy (Severe, Verified 05/29/20 18:54) Unknown risedronate sodium Allergy (Severe, Verified 05/29/20 18:54) Unknown amoxicillin [From Augmentin] Allergy (Mild, Verified 05/29/20 18:54) nauseated clavulanic acid [From Augmentin] Allergy (Mild, Verified 05/29/20 18:54) nauseated levofloxacin [From Levaquin] Allergy (Mild, Verified 05/29/20 18:54) nauseated rofecoxib [From Vioxx] Allergy (Mild, Verified 05/29/20 18:54) rash Sulfa (Sulfonamide Antibiotics) Allergy (Mild, Verified 05/29/20 18:54) throat swelling Home Medications: Ambulatory Orders Medication Instructions Recorded aspirin 81 mg chewable tablet 81 mg PO DAILY 01/28/18 cholecalciferol (vitamin D3) 125 5,000 unit PO ONCE 01/28/18 mcg (5,000 unit) capsule denosumab 60 mg/mL subcutaneous 60 mg SC [id number] 01/28/18 syringe fluticasone propionate 110 2 puff INHALATION BID 01/28/18 mcg/actuation HFA aerosol inhaler montelukast 10 mg tablet 10 mg PO QHS 01/28/18 pantoprazole 40 mg tablet,delayed 40 mg PO QDAY 01/28/18 release fluocinonide 0.05 % topical gel 1 applic TOPICAL TID g 02/13/18 polyethylene glycol 3350 17 1 dose PO DAILY PRN 02/13/18 gram/dose oral powder ezetimibe 10 mg tablet 10 mg PO QDAY #90 tab 04/28/18 calcitriol 0.25 mcg capsule 0.25 mcg PO DAILY #90 cap 06/29/18 losartan 50 mg tablet 50 mg PO QDAY #90 tab 07/15/18 calcium phosphate-vitamin D3 250 1 tab PO TID tab 09/22/18 mg calcium-500 unit chewable tablet rosuvastatin 10 mg tablet 10 mg PO .COMPLEX #30 tab 11/03/18 calcium carbonate 600 mg calcium 600 mg PO DAILY 10/14/19 (1,500 mg) tablet venlafaxine 75 mg capsule,extended 150 mg PO QDAY #180 cap 10/14/19 release 24 hr Surgical History: Surgical History (Last Reviewed 10/14/19 @ 09:10 by Carly Kay) H/O colonoscopy Z98.890 H/O endoscopy Z98.890 History of LAVH Z90.710 S/P left knee surgery Z98.890 S/P tonsillectomy Z90.89 Lives: Spouse/ Significant Other Smoking Status: Never smoker Review of Systems Constitutional: Reports: Anorexia, Chills, Malaise, Weakness, Fatigue. Denies: Fever Eyes: Denies: Blurred vision HEENT: Denies: Head Aches, Sinus Congestion, Sinus Drainage Cardiovascular: Reports: Orthopnea. Denies: Chest Pain, Palpitations Respiratory: Reports: Cough, Shortness of Breath, Shortness of breath at rest, Shortness of breath upon exertion. Denies: Sputum production Gastrointestinal: Denies: Abdominal Pain, Nausea, Vomiting Genitourinary: Denies: Dysuria Musculoskeletal: Denies: Joint Pain, Joint Tenderness Skin: Denies: Rash, Wounds Neurological: Denies: Numbness, Tingling, Focal weakness Psychiatric: Denies: Anxiety, Depression, Homicidal Ideations, Suicidal Ideations Hematologic/ Lymphatic: Denies: Easy Bruising, Easy Bleeding VTE Information - Inpt Only VTE Present on Admission: No VTE Pharm Prophylaxis ordered?: Yes Patient Problems: Active and Suspected Problems (Last Reviewed 10/14/19 @ 09:10 by Carly Kay) Hypoxemia (Acute) Pneumonia due to COVID-19 virus (Acute) Severe sepsis (Acute) - Physical Exam Vitals/I&O's: Vital Signs Temp Pulse Resp BP Pulse Ox 99.3 F H 89 22 H 180/87 H 92 05/29/20 18:56 05/29/20 18:56 05/29/20 18:56 05/29/20 18:56 05/29/20 18:56 Oxygen Flow Rate (L/min) 2 Oxygen Delivery Method Nasal Cannula Weight: 179 lb 14.355 oz Body Mass Index (BMI) 30.9 General: Alert, Oriented x3, Cooperative, No apparent distress, Lethargic HEENT: Atraumatic, PERRLA, EOMI, Normocephalic Oral: Dry Mucosa Neck: Supple, No JVD, Negative Carotid Bruits Lungs: - - decreased breath sounds bibasally, on 2L fo oxygen, tachypneic Cardiovascular: Regular rate, Regular Rhythm, Normal S1, Normal S2, No murmurs Abdomen: Bowel Sounds Present, Soft, Non Tender, Non-Distended, No Hepato- splenomegaly Extremities: No edema, Capillary Refill Less than 3 Seconds Skin: No rashes, No breakdown Musculoskeletal: No Tenderness to Palpation of Joints or Extremities Lymphatic: No Cervical, Supraclavicular, or Inguinal Adenopathy Neurological: Cranial nerves II-XII grossly intact Psych/Mental Status: Normal Affect, Appropriate, Alert and oriented to time, place, person, mood and affect Laboratory Results 05/29/20 19:00: WBC 16.0 H, RBC 4.75, Hgb 12.0, Hct 40.3, MCV 84.8, MCH 25.3 L, MCHC 29.8 L, RDW Std Deviation 45.2 H, RDW Coeff of Edwar 14.8 H, Plt Count 315, MPV 10.1, Immature Gran % (Auto) 2.000 H, Neut % (Auto) 91.5 H, Lymph % (Auto) 4.4 L, [place] % (Auto) 2.0, Eos % (Auto) 0.0, Baso % (Auto) 0.1, Absolute Neuts (auto) 14.7 H, Absolute Lymphs (auto) 0.70 L, Nucleated RBC % 0 05/29/20 19:00: Fibrinogen 723 H, D-Dimer Quant (PE/DVT) 0.43 05/29/20 19:00: Sodium 139, Potassium 3.4 L, Chloride 107, Carbon Dioxide 24.0, Anion Gap 8, BUN 11, Creatinine 0.91, Estim Creat Clear Calc 52.51, Est GFR (MDRD) Af Amer 79, Est GFR (MDRD) Non-Af 66, BUN/Creatinine Ratio 12.1, Glucose 160 H, Calcium 8.4 L, Total Bilirubin 0.30, AST 54 H, ALT 83 H, Alkaline Phosphatase 139 H, Lactate Dehydrogenase 392 H, Total Creatine Kinase 206 H, Troponin I < 0.015, C-React Prot Ext Range 85.00 H, Total Protein 7.8, Albumin 3.1 L, Globulin 4.7 H, Albumin/Globulin Ratio 0.7 L 05/29/20 19:00: Lactic Acid 3.2 H* 05/29/20 19:00: Procalcitonin Pending Diagnostic Data Chest X-Ray 05/29/20 19:20 IMPRESSION: 1. Bilateral hazy opacities consistent with pneumonia. Consider typical and atypical etiologies, including viral pneumonia. Electronically Signed: Teena Pereyra MD at 19:38 EDT Tel , Service support , Current Medications Sodium Chloride () 1,000 mls @ 125 mls/hr IV .Q8H TAYLOR Azithromycin 500 mg/ Dextrose 255 mls @ 250 mls/hr IV X1 ONE Stop: 05/29/20 21:08 Ceftriaxone Sodium (Rocephin) 1 gm in 50 mls @ 100 mls/hr IV X1 ONE Stop: 05/29/20 20:36 Assessment/Plan All Active Problems (Last Reviewed 10/14/19 @ 09:10 by Carly Kay) Hypoxemia (Acute) Pneumonia due to COVID-19 virus (Acute) Severe sepsis (Acute) 64-year-old admitted with a complaint of shortness of breath. 1. Severe sepsis due to COVID 19 pneumonia * Admit to ICU. SIRS criteria is 2 out of 4 with tachypnea and elevated white cell count. Temperature is also 99.3 Fahrenheit. * Chest x-ray showed bilateral pneumonia. * Will get blood cultures. Will start patient on IV ceftriaxone and azithromycin. * Hydrate per sepsis protocol with IV fluids. * Start remdesivir and dexamethasone. * Consult critical care and ID. * Titrate oxygen to maintain saturation above 92%. If she gets more short of breath and tachypneic, will start on BiPAP. * Lactic acid is 3.2. Will trend. * 2. COVID 19 pneumonia: As under 1. 3. Acute hypoxic respiratory failure due to covid 19 pneumonia * as under 1. patient was initially requiring 2L, but subsequently required increasing amounts of oxygen, up to 8L by high flow nasal canula * to put on BIPAP if shortness of breath worsens * breathing treatment with bronchodilators * 3. Hypokalemia: Potassium is 3.4. Will replace and monitor. 4. History of Sjogren's syndrome: 5. Hypertension: On losartan 6. Hyperlipidemia: On statin. 7. History of GERD: On statin. 8. Fibromyalgia: DVT prophylaxis: Lovenox CODE STATUS: Full code * Patient counseled extensively about different types of CODE STATUS including full code, DNR CCA and DNR CCA. Patient elects to be full code. * Total uoew-lw-eraf time 16 minutes. Total critical care time: 47 mins 0243: * remdesivir ordered by hospitalist at 21:07. * Hospitalist informed by pharmacy at ~ 0200 that remdesivir restricted to ID service, so would need ID approval to give medication. Will therefore wait for ID evaluation in the morning, in order to get ID approval to give remdesivir. Inpatient E&M: 87670 Init Hosp L3 Procedures: 09578 Critial Care 1st Hr - advanced care plan first 30 mins [id number]
[2020-05-29] MEDS: 0.9% Normal Saline 1,000 ML 125 ML IV (20:18)
[2020-05-29] MEDS: Ceftriaxone 1 GM/50 ML BAG IV (20:18)
[2020-05-29 21:04] LABS: Procalcitonin 0.08 ng/mL (0.00-0.09)
[2020-05-29] MEDS: Enoxaparin 30 MG/0.3 ML Syringe SC (22:19)
[2020-05-29] MEDS: Ibuprofen 600 MG Tablet PO (22:19)
[2020-05-29] MEDS: Montelukast 10 MG Tablet PO (22:19)
[2020-05-29] MEDS: dexAMETHasone 4 MG/ML Vial 6 MG IV (22:20)
[2020-05-29] MEDS: 0.9% Normal Saline 1,000 ML 999 ML IV ×2 (22:31→23:50)
[2020-05-30] VITALS (32 sets, daily range): BP systolic 114–160; BP diastolic 57–97; PULSE 71–101; RESP 16–32; TEMP 36.4–37.2; O2SAT 88–100
[2020-05-30 00:14] LABS: Lactic Acid 1.2 mmol/L (0.4-1.9)
[2020-05-30] MEDS: 0.9% Normal Saline 1,000 ML 999 ML IV (01:15)
[2020-05-30] MEDS: 0.9% Normal Saline 1,000 ML 150 ML IV (03:40)
[2020-05-30 03:47] LABS: Absolute Lymphocyte Count 0.47 X10^3/uL (0.83-4.51); Absolute Neutrophil Count 12.3 X10^3/uL (2.0-7.7); Basophil# 0.02 X10^3/uL; Basophil% 0.1 % (0-1); Eosinophil# 0.14 X10^3/uL; Hematocrit 34.4 % (37-47); Hemoglobin 10.4 g/dL (12.0-15.0); Lymphocyte # 0.47 X10^3/ul (4.0); Lymphocyte % 3.5 % (19-41); Mean Corp Hgb Conc 30.2 g/dL (32-36); Mean Corpuscular Hgb 25.6 pg (27.0-32.0); Mean Corpuscular Volume 84.5 fL (81-99); Mean Platelet Vol. 9.4 fl (6.2-12.0); Monocyte# 0.24 X10^3/uL; Monocyte% 1.8 % (0-10); NRBC Flagged by Analyzer 0 % (0-5); Neutrophil % 92.2 % (47-70); POSITIVE DIFFERENTIAL YES; Platelet Count 225 K/mm3 (150-450); RBC Distribution Width CV 14.7 % (11.6-14.6); RBC Distribution Width SD 45.3 fl (35.1-43.9); Red Blood Count 4.07 M/mm3 (4.2-5.4); White Blood Count 13.4 K/mm3 (4.4-11.0)
[2020-05-30 03:48] LABS: Differential Indicated SCAN CRITERIA MET
[2020-05-30 04:05] LABS: ALB/GLOB Ratio 0.6 RATIO (0.9-2.4); AST(SGOT) 60 U/L (15-37); Alanine Aminotransfer ALT/SGPT 80 U/L (13-56); Albumin, Serum 2.5 g/dL (3.2-5.0); Alkaline Phosphatase 121 U/L (45-117); Anion Gap 8 (5-15); BUN 8 mg/dL (7-18); BUN/Creat Ratio 8.6 RATIO (10-20); Calcium,Total 7.5 mg/dL (8.5-10.1); Chloride 112 mmol/L (98-107); Creatinine, Serum 0.93 mg/dL (0.55-1.02); EST Glomerular Filtration Rate 64 mL/min (>60); Est Glom Filt Rate - Afr Amer 77 mL/min (>60); Estimated Creatinine Clearance 51.38 ml/min; Globulin 3.9 g/dL (2.2-4.2); Glucose 190 mg/dL (74-106); Potassium 3.7 mmol/L (3.5-5.1); Protein, Total 6.4 g/dL (6.4-8.2); Sodium Level 142 mmol/L (136-145)
[2020-05-30 04:13] LABS: Differential Comment SCANNED
[2020-05-30] MEDS: Budesonide Respules 0.5 MG/2 ML AMPUL.NEB. INHALATION (07:12)
[2020-05-30] MEDS: Ibuprofen 600 MG Tablet PO ×2 (08:20→22:10)
[2020-05-30] MEDS: Losartan Potassium 50 MG Tablet PO (09:14)
[2020-05-30] MEDS: Aspirin 81 MG TAB.CHEW PO (09:14)
[2020-05-30] MEDS: Pantoprazole Sodium 40 MG Tablet PO (09:15)
[2020-05-30] MEDS: Ezetimibe 10 MG Tablet PO (09:15)
[2020-05-30] MEDS: Venlafaxine XR 150 MG Capsule PO (09:15)
[2020-05-30] MEDS: Calcitriol 0.25 MCG Capsule PO (09:15)
[2020-05-30] MEDS: dexAMETHasone 4 MG/ML Vial 6 MG IV (09:15)
[2020-05-30] MEDS: Calcium (Elemental) 500 MG Tablet PO (09:15)
[2020-05-30] MEDS: guaiFENesin 1,200 MG Tablet 1200 MG PO ×2 (09:15→22:04)
[2020-05-30] MEDS: 0.9% Saline Lock 10 ML Syringe IV ×2 (09:16→20:09)
[2020-05-30] MEDS: Enoxaparin 80 MG/0.8 ML Syringe SC ×2 (09:19→22:03)
[2020-05-30] MEDS: Ipratropium/Albuterol Sulfate 3 ML AMPUL.NEB INHALATION (10:26)
--- NOTE | 2020-05-30 10:27 | PCM.CON.CC ---
Problem List (1) Acute respiratory failure with hypoxia Status: Acute (2) Pneumonia due to COVID-19 virus Status: Acute (3) Severe sepsis Status: Acute (4) GERD (gastroesophageal reflux disease) Status: Chronic Qualifiers: Esophagitis presence: esophagitis presence not specified Qualified Code(s): K21.9 - Gastro-esophageal reflux disease without esophagitis (5) Osteoporosis Status: Chronic Qualifiers: Osteoporosis type: unspecified Presence of current pathological fracture: without current pathological fracture Qualified Code(s): M81.0 - Age-related osteoporosis without current pathological fracture Comment: Feels good and is exercising daily. Continues with Dr. Martinez for prolia. (6) Sjogrens syndrome Status: Chronic (7) Gastroparesis Status: Chronic (8) Fibromyalgia Status: Chronic (9) Asthma Status: Chronic Qualifiers: Asthma severity: moderate Asthma persistence: persistent Asthma complication type: with acute exacerbation Qualified Code(s): J45.41 - Moderate persistent asthma with (acute) exacerbation (10) Vitamin D deficiency Status: Chronic (11) Hyperlipidemia Status: Chronic Qualifiers: Hyperlipidemia type: unspecified Qualified Code(s): E78.5 - Hyperlipidemia, unspecified Comment: On statin Chol 156 ldl 74 (12) Hypertension Status: Chronic Qualifiers: Hypertension type: essential hypertension Qualified Code(s): I10 - Essential (primary) hypertension Comment: BP sl elevated 139/82. Monitor diet, calcium, and exercise Reason for Consult Date of Consultation: 05/30/20 Reason for Consultation: Respiratory failure History of Present Illness: The patient is a 64 year old F, with past medical history listed below that presented to [facility] on 05/29/2020 secondary to progressive shortness of breath. Patient reports that she developed an illness thought to be bronchitis on Saturday, May 23 and was placed on prednisone therapy. Patient continue to progress over the weekend and was diagnosed with COVID-19 on May 25. Patient had become more short of breath and her pulse ox at home had been in the 80s all day with any exertion. Patient does not wear oxygen at baseline, but does have a history of asthma and Sjogren's syndrome. Patient had taken some prednisone for an asthma exacerbation, but is not on this chronically. Patient has not had any swelling in her feet, but has had myalgias and headaches. Patient reports paroxysmal type coughing that is described as severe, but not productive. In the ER, patient was noted to be hypoxic into the 70s on room air. Chest x-ray had shown bilateral patchy infiltrates with a significant leukocytosis, leftward shift and elevated lactate. Patient was also noted to be hypokalemic, but renal function was okay. Liver enzymes were slightly elevated, along with a CRP of 85. Patient was given 30 cc/kg IV bolus, Rocephin, azithromycin and placed on supplemental oxygen. Patient was then placed in the intensive care unit. Overnight in the intensive care unit, patient is required up to 8 L nasal cannula to maintain saturations. Patient has remained hemodynamically stable. No bleeding has been reported. Patient feels that she is somewhat improved compared to previous from a breathing standpoint, but still gets very short of breath with any movement. Patient does report a history of Sjogren's syndrome, but is unaware if this has any lung involvement at baseline. Patient does state that she is on Singulair and Flovent at home at baseline. Patient does not report needing supplemental oxygen or intubation in the past. Patient is unaware if she has had any pulmonary function testing. Review of systems otherwise negative from a constitutional, HEENT, respiratory, cardiovascular, GI, genitourinary, musculoskeletal, skin, neurologic, psychiatric and hematologic system unless stated above. Past Medical History Past Medical History (Chronic Problems): Chronic Problems (Last Reviewed 10/14/19 @ 09:10 by Carly Kay) GERD (gastroesophageal reflux disease) (Chronic) Osteoporosis (Chronic) Feels good and is exercising daily. Continues with Dr. Martinez for prolia. Sjogrens syndrome (Chronic) Gastroparesis (Chronic) Fibromyalgia (Chronic) Asthma (Chronic) Hot flashes (Chronic) Vitamin D deficiency (Chronic) Hyperlipidemia (Chronic) On statin Chol 156 ldl 74 Hypertension (Chronic) BP sl elevated 139/82. Monitor diet, calcium, and exercise Medical History: Medical History (Last Reviewed 10/14/19 @ 09:10 by Carly Kay) GERD (gastroesophageal reflux disease) (Chronic) K21.9 Osteoporosis (Chronic) M81.0 Feels good and is exercising daily. Continues with Dr. Martinez for prolia. Sjogrens syndrome (Chronic) M35.00 Gastroparesis (Chronic) K31.84 Fibromyalgia (Chronic) M79.7 Asthma (Chronic) J45.909 Hot flashes (Chronic) R23.2 Vitamin D deficiency (Chronic) E55.9 Hyperlipidemia (Chronic) E78.5 On statin Chol 156 ldl 74 Hypertension (Chronic) I10 BP sl elevated 139/82. 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 Sicca syndrome M35.00 Allergies JEANNE Inhibitors Allergy (Severe, Verified 05/29/20 18:54) Unknown benzocaine [From TriOxin] Allergy (Severe, Verified 05/29/20 18:54) Unknown chloroxylenol [From TriOxin] Allergy (Severe, Verified 05/29/20 18:54) Unknown enalapril Allergy (Severe, Verified 05/29/20 18:54) Unknown hydrocortisone [From TriOxin] Allergy (Severe, Verified 05/29/20 18:54) Unknown ibandronate sodium Allergy (Severe, Verified 05/29/20 18:54) Unknown risedronate sodium Allergy (Severe, Verified 05/29/20 18:54) Unknown amoxicillin [From Augmentin] Allergy (Mild, Verified 05/29/20 18:54) nauseated clavulanic acid [From Augmentin] Allergy (Mild, Verified 05/29/20 18:54) nauseated levofloxacin [From Levaquin] Allergy (Mild, Verified 05/29/20 18:54) nauseated rofecoxib [From Vioxx] Allergy (Mild, Verified 05/29/20 18:54) rash Sulfa (Sulfonamide Antibiotics) Allergy (Mild, Verified 05/29/20 18:54) throat swelling Home Medications: Ambulatory Orders Medication Instructions Recorded aspirin 81 mg chewable tablet 81 mg PO DAILY 01/28/18 cholecalciferol (vitamin D3) 125 5,000 unit PO ONCE 01/28/18 mcg (5,000 unit) capsule denosumab 60 mg/mL subcutaneous 60 mg SC [id number] 01/28/18 syringe fluticasone propionate 110 2 puff INHALATION BID 01/28/18 mcg/actuation HFA aerosol inhaler montelukast 10 mg tablet 10 mg PO QHS 01/28/18 pantoprazole 40 mg tablet,delayed 40 mg PO QDAY 01/28/18 release fluocinonide 0.05 % topical gel 1 applic TOPICAL TID g 02/13/18 polyethylene glycol 3350 17 1 dose PO DAILY PRN 02/13/18 gram/dose oral powder ezetimibe 10 mg tablet 10 mg PO QDAY #90 tab 04/28/18 calcitriol 0.25 mcg capsule 0.25 mcg PO DAILY #90 cap 06/29/18 losartan 50 mg tablet 50 mg PO QDAY #90 tab 07/15/18 calcium phosphate-vitamin D3 250 1 tab PO TID tab 09/22/18 mg calcium-500 unit chewable tablet rosuvastatin 10 mg tablet 10 mg PO .COMPLEX #30 tab 11/03/18 calcium carbonate 600 mg calcium 600 mg PO DAILY 10/14/19 (1,500 mg) tablet venlafaxine 75 mg capsule,extended 150 mg PO QDAY #180 cap 10/14/19 release 24 hr Surgical History: Surgical History (Last Reviewed 10/14/19 @ 09:10 by Carly Kay) H/O colonoscopy Z98.890 H/O endoscopy Z98.890 History of LAVH Z90.710 S/P left knee surgery Z98.890 S/P tonsillectomy Z90.89 Lives: Spouse/ Significant Other Smoking Status: Never smoker Review of Systems Comment: See HPI Patient Problems: Active and Suspected Problems (Last Reviewed 10/14/19 @ 09:10 by Carly Kay) Hypoxemia (Acute) Pneumonia due to COVID-19 virus (Acute) Severe sepsis (Acute) Acute respiratory failure with hypoxia (Acute) Objective: Chest x-ray was personally reviewed and I agree with the formalin interpretation. Patient has never had an echocardiogram or pulmonary function test at [facility] that can be viewed in the computer. - Physical Exam Vitals/I&O's: Vital Signs Temp Pulse Resp BP Pulse Ox 36.6 C 92 25 H 160/79 H 91 05/30/20 04:00 05/30/20 07:46 05/30/20 07:13 05/30/20 07:00 05/30/20 07:13 Oxygen Flow Rate (L/min) 8 Oxygen Delivery Method Nasal Cannula Weight: 78.6 kg Body Mass Index (BMI) 29.7 Intake and Output for Last 24 Hours 05/28/20 05/29/20 05/30/20 23:59 23:59 23:59 Intake Total 1118.75 / 1418.75 4200 / 4200 Output Total 1650 / 1650 Balance 1118.75 / 1218.75 2550 / 2550 General: Alert, Oriented x3, Cooperative, - - Moderate conversational dyspnea. Obese. HEENT: Atraumatic, PERRLA, EOMI, Normocephalic, - - No scleral icterus or injection noted Oral: Moist Mucosa, No Gingival or Mucosal Lesions/ Ulcerations Neck: Supple, No JVD, No Nodes, Trachea Midline Lungs: No wheeze, No rales, Diminished, Rhonchi - Right greater than left Cardiovascular: Regular rate, Regular Rhythm, Normal S1, Normal S2, No murmurs, No rub noted, No Gallop Abdomen: Bowel Sounds Present, Soft, Non Tender, Non-Distended Extremities: No clubbing, No cyanosis, No edema Skin: No rashes, No breakdown Musculoskeletal: No Tenderness to Palpation of Joints or Extremities Lymphatic: No Cervical, Supraclavicular, or Inguinal Adenopathy Neurological: Cranial nerves II-XII grossly intact, Neuro grossly intact, Motor Exam 5/5 strength throughout Psych/Mental Status: Alert and oriented to time, place, person, mood and affect Laboratory Results 05/29/20 19:00: WBC 16.0 H, RBC 4.75, Hgb 12.0, Hct 40.3, MCV 84.8, MCH 25.3 L, MCHC 29.8 L, RDW Std Deviation 45.2 H, RDW Coeff of Edwar 14.8 H, Plt Count 315, MPV 10.1, Immature Gran % (Auto) 2.000 H, Neut % (Auto) 91.5 H, Lymph % (Auto) 4.4 L, Sharp % (Auto) 2.0, Eos % (Auto) 0.0, Baso % (Auto) 0.1, Absolute Neuts (auto) 14.7 H, Absolute Lymphs (auto) 0.70 L, Nucleated RBC % 0 05/29/20 19:00: Fibrinogen 723 H, D-Dimer Quant (PE/DVT) 0.43 05/29/20 19:00: Sodium 139, Potassium 3.4 L, Chloride 107, Carbon Dioxide 24.0, Anion Gap 8, BUN 11, Creatinine 0.91, Estim Creat Clear Calc 52.51, Est GFR (MDRD) Af Amer 79, Est GFR (MDRD) Non-Af 66, BUN/Creatinine Ratio 12.1, Glucose 160 H, Calcium 8.4 L, Total Bilirubin 0.30, AST 54 H, ALT 83 H, Alkaline Phosphatase 139 H, Lactate Dehydrogenase 392 H, Total Creatine Kinase 206 H, Troponin I < 0.015, C-React Prot Ext Range 85.00 H, Total Protein 7.8, Albumin 3.1 L, Globulin 4.7 H, Albumin/Globulin Ratio 0.7 L 05/29/20 19:00: Lactic Acid 3.2 H* 05/29/20 19:00: Procalcitonin 0.08 05/29/20 23:35: Lactic Acid Cancelled 05/29/20 23:35: Lactic Acid 1.2 05/30/20 03:40: Sodium 142, Potassium 3.7, Chloride 112 H, Carbon Dioxide 22.0, Anion Gap 8, BUN 8, Creatinine 0.93, Estim Creat Clear Calc 51.38, Est GFR (MDRD) Af Amer 77, Est GFR (MDRD) Non-Af 64, BUN/Creatinine Ratio 8.6 L, Glucose 190 H, Calcium 7.5 L, Total Bilirubin 0.20, AST 60 H, ALT 80 H, Alkaline Phosphatase 121 H, Total Protein 6.4, Albumin 2.5 L, Globulin 3.9, Albumin/Globulin Ratio 0.6 L 05/30/20 03:40: WBC 13.4 H, RBC 4.07 L, Hgb 10.4 L, Hct 34.4 L, MCV 84.5, MCH 25.6 L, MCHC 30.2 L, RDW Std Deviation 45.3 H, RDW Coeff of Edwar 14.7 H, Plt Count 225, MPV 9.4, Immature Gran % (Auto) 1.400 H, Neut % (Auto) 92.2 H, Lymph % (Auto) 3.5 L, Sharp % (Auto) 1.8, Eos % (Auto) 1.0, Baso % (Auto) 0.1, Absolute Neuts (auto) 12.3 H, Absolute Lymphs (auto) 0.47 L, Nucleated RBC % 0, Differential Comment SCANNED 05/30/20 09:25: Blood Type Pending, Antibody Screen Pending Current Medications Acetaminophen (Tylenol) 650 mg PO Q6H PRN PRN PRN Reason: Pain Score 1-10/Temp > 100.7 F Albuterol/Ipratropium (Duoneb) 3 ml INHALATION Q4H.RT PRN PRN Reason: Asthma Last Admin: 05/30/20 10:26 Dose: 3 ml Documented by: Aspirin (Aspirin, Baby) 81 mg PO DAILYCM [facility] Last Admin: 05/30/20 09:14 Dose: 81 mg Documented by: Atorvastatin Calcium (Lipitor) 20 mg PO Q3D@2200 [facility] Calcitriol (Rocaltrol) 0.25 mcg PO DAILY [facility] Last Admin: 05/30/20 09:15 Dose: 0.25 mcg Documented by: Calcium Carbonate (Os-Moe 500) 500 mg PO DAILY [facility] Last Admin: 05/30/20 09:15 Dose: 500 mg Documented by: Dexamethasone Sodium Phosphate (Decadron) 6 mg IV DAILY [facility] Last Admin: 05/30/20 09:15 Dose: 6 mg Documented by: Ezetimibe (Zetia) 10 mg PO DAILY [facility] Last Admin: 05/30/20 09:15 Dose: 10 mg Documented by: Enoxaparin Sodium (Lovenox) 80 mg SC Q12 [facility] Last Admin: 05/30/20 09:19 Dose: 80 mg Documented by: Guaifenesin (Mucinex) 1,200 mg PO BID [facility] Last Admin: 05/30/20 09:15 Dose: 1,200 mg Documented by: Remdesivir (Investigational) (200 mg/ Sodium Chloride) 250 mls @ 125 mls/hr IV X1 ONE Stop: 05/29/20 23:06 Sodium Chloride () 250 mls @ 15 mls/hr IV .[id number] PRN PRN Reason: Saline Flush Sodium Chloride () 250 mls @ 15 mls/hr IV .[id number] PRN PRN Reason: Additional IVPB Infusion Ibuprofen (Motrin) 600 mg PO Q8H PRN PRN PRN Reason: Pain 1-10/10 or Fever Last Admin: 05/30/20 08:20 Dose: 600 mg Documented by: Losartan Potassium (Cozaar) 50 mg PO DAILY [facility] Last Admin: 05/30/20 09:14 Dose: 50 mg Documented by: Melatonin (Melatonin) 3 mg PO QHS PRN PRN Reason: SLEEP Montelukast Sodium (Singulair) 10 mg PO QHS [facility] Last Admin: 05/29/20 22:19 Dose: 10 mg Documented by: Nitroglycerin (Nitrostat) 0.4 mg SUBLINGUAL Q5M PRN PRN Reason: CARDIAC/CHEST PAIN Ondansetron HCl (Zofran) 4 mg IV Q8H PRN PRN PRN Reason: NAUSEA/VOMITING Pantoprazole Sodium (Protonix) 40 mg PO DAILY [facility] Last Admin: 05/30/20 09:15 Dose: 40 mg Documented by: Polyethylene Glycol (Miralax) 17 gm PO DAILY [facility] Last Admin: 05/30/20 09:25 Dose: Not Given Documented by: Sodium Chloride () 10 - 40 ml IV UD PRN PRN Reason: SALINE FLUSH Last Admin: 05/30/20 09:16 Dose: 20 ml Documented by: Throat Lozenges (Cepacol Sore Throat Lozenge) 1 lozenge MUCOUS MEM Q2H PRN PRN PRN Reason: SORE THROAT Venlafaxine HCl (Effexor Xr) 150 mg PO DAILY [facility] Last Admin: 05/30/20 09:15 Dose: 150 mg Documented by: Clinical Impression(s) from Imaging Studies Chest X-Ray 05/29/20 19:20 IMPRESSION: 1. Bilateral hazy opacities consistent with pneumonia. Consider typical and atypical etiologies, including viral pneumonia. Electronically Signed: Teena Pereyra MD at 19:38 EDT Tel , Service support , Assessment/Plan Active and Suspected Problems (Last Reviewed 10/14/19 @ 09:10 by Carly Kay) Hypoxemia (Acute) Pneumonia due to COVID-19 virus (Acute) Severe sepsis (Acute) Acute respiratory failure with hypoxia (Acute) RECOMMENDATIONS: 1. Arrange for convalescent serum 2. Increase Lovenox to therapeutic dosing 3. Defer Remdesivir to infectious disease 4. Possibly initiate on high flow nasal cannula later today 5. Wean oxygen as tolerated 6. Attempt fluid restriction 7. Confirmed full CODE STATUS IMPRESSIONS: 1. Acute hypoxic respiratory failure secondary to COVID-19 Unclear if patient has a superinfection at this time his procalcitonin is normal. Patient does have elevated inflammatory markers and bilateral infiltrates. Defer to infectious disease on discontinuation of antibiotics and initiation of antiviral. Patient will be continued on dexamethasone. Lovenox will be increased to therapeutic dosing. Patient may need to go on high flow nasal cannula later today. Given typical course, anticipate worsening over the next 2 to 3 days. 2. Asthma/history of Sjogren's syndrome Increases risk for complications associated to problem #1. Patient is getting Decadron, so Pulmicort is likely not necessary. Continue with bronchodilator therapy. It is unclear if patient has pulmonary involvement at baseline. Can attempt to obtain old information. Keep saturations greater than 90% to avoid exacerbations of pulmonary hypertension. Hold on Lasix for now, but this may be necessary moving forward. 3. Hypertension/hyperlipidemia/history of GERD/fibromyalgia/delayed presentation Complicates care, management, recovery and prognosis. Patient will be continued on PPI. Okay to continue with antihypertensive and anti-hyperlipidemia medications at this time. May need to hold losartan if renal dysfunction ensues. Elevated lactate on presentation likely secondary to hypoxia. Would limit fluid intake given respiratory status. Did confirm with the patient that she is a full CODE STATUS. TIME: 33 minutes of critical care time spent addressing patient's acute hypoxic respiratory failure, asthma, fluid status, review of all data in collaboration with care team (9:30 AM to 10:30 AM) 9xxxx: [id number] Critical care first hour
--- NOTE | 2020-05-30 10:44 | CON.PCM_ITS ---
Problem List (1) Pneumonia due to COVID-19 virus Status: Acute Reason for Consult: covid Consulted by: Dr. Altman History of Present Illness: The patient is a 64 year old F with sjogren's, presented yesterday to ED with hypoxia at home to the 70s. Started with dry cough and dyspnea on 05/20. also sick at same time. She was tested (+) for covid 05/23. Ongoing fever, chills, diffuse chest tightness. Mild headache and aches, some upset stomach. No change in taste or smell. No known sick contacts, has been strict about masking and distancing. No n/v/d. Came to ED, started on azithro/ceftriaxone/dexamethasone. Feeling about the same today. Full ROS performed and neg except as noted above. - Medical History Past Medical History (Chronic Problems): Chronic Problems (Last Reviewed 10/14/19 @ 09:10 by Carly Kay) GERD (gastroesophageal reflux disease) (Chronic) Osteoporosis (Chronic) Feels good and is exercising daily. Continues with Dr. Martinez for prolia. Sjogrens syndrome (Chronic) Gastroparesis (Chronic) Fibromyalgia (Chronic) Asthma (Chronic) Hot flashes (Chronic) Vitamin D deficiency (Chronic) Hyperlipidemia (Chronic) On statin Chol 156 ldl 74 Hypertension (Chronic) BP sl elevated 139/82. Monitor diet, calcium, and exercise Allergies/Adverse Reactions: Allergies JEANNE Inhibitors Allergy (Severe, Verified 05/29/20 18:54) Unknown benzocaine [From TriOxin] Allergy (Severe, Verified 05/29/20 18:54) Unknown chloroxylenol [From TriOxin] Allergy (Severe, Verified 05/29/20 18:54) Unknown enalapril Allergy (Severe, Verified 05/29/20 18:54) Unknown hydrocortisone [From TriOxin] Allergy (Severe, Verified 05/29/20 18:54) Unknown ibandronate sodium Allergy (Severe, Verified 05/29/20 18:54) Unknown risedronate sodium Allergy (Severe, Verified 05/29/20 18:54) Unknown amoxicillin [From Augmentin] Allergy (Mild, Verified 05/29/20 18:54) nauseated clavulanic acid [From Augmentin] Allergy (Mild, Verified 05/29/20 18:54) nauseated levofloxacin [From Levaquin] Allergy (Mild, Verified 05/29/20 18:54) nauseated rofecoxib [From Vioxx] Allergy (Mild, Verified 05/29/20 18:54) rash Sulfa (Sulfonamide Antibiotics) Allergy (Mild, Verified 05/29/20 18:54) throat swelling Home Medications: Ambulatory Orders Medication Instructions Recorded aspirin 81 mg chewable tablet 81 mg PO DAILY 01/28/18 cholecalciferol (vitamin D3) 125 5,000 unit PO ONCE 01/28/18 mcg (5,000 unit) capsule denosumab 60 mg/mL subcutaneous 60 mg SC [id number] 01/28/18 syringe fluticasone propionate 110 2 puff INHALATION BID 01/28/18 mcg/actuation HFA aerosol inhaler montelukast 10 mg tablet 10 mg PO QHS 01/28/18 pantoprazole 40 mg tablet,delayed 40 mg PO QDAY 01/28/18 release fluocinonide 0.05 % topical gel 1 applic TOPICAL TID g 02/13/18 polyethylene glycol 3350 17 1 dose PO DAILY PRN 02/13/18 gram/dose oral powder ezetimibe 10 mg tablet 10 mg PO QDAY #90 tab 04/28/18 calcitriol 0.25 mcg capsule 0.25 mcg PO DAILY #90 cap 06/29/18 losartan 50 mg tablet 50 mg PO QDAY #90 tab 07/15/18 calcium phosphate-vitamin D3 250 1 tab PO TID tab 09/22/18 mg calcium-500 unit chewable tablet rosuvastatin 10 mg tablet 10 mg PO .COMPLEX #30 tab 11/03/18 calcium carbonate 600 mg calcium 600 mg PO DAILY 10/14/19 (1,500 mg) tablet venlafaxine 75 mg capsule,extended 150 mg PO QDAY #180 cap 10/14/19 release 24 hr - Social History Tobacco Use: non-smoker Vital Signs Temp Pulse Resp BP Pulse Ox 97.7 F L 87 26 H 156/74 H 97 05/30/20 08:00 05/30/20 10:26 05/30/20 10:26 05/30/20 10:00 05/30/20 10:00 Oxygen Flow Rate (L/min) 7 Oxygen Delivery Method Nasal Cannula Weight: 78.6 kg Body Mass Index (BMI) 29.7 Laboratory Tests Past 24 Hrs 05/29/20 05/29/2005/29/20 19:00 19:00 19:00 WBC 16.0 H RBC 4.75 Hgb 12.0 Hct 40.3 MCV 84.8 MCH 25.3 L MCHC 29.8 L RDW Std Deviation 45.2 H RDW Coeff of Edwar 14.8 H Plt Count 315 MPV 10.1 Immature Gran % (Auto) 2.000 H Neut % (Auto) 91.5 H Lymph % (Auto) 4.4 L [place] % (Auto) 2.0 Eos % (Auto) 0.0 Baso % (Auto) 0.1 Absolute Neuts (auto) 14.7 H Absolute Lymphs (auto) 0.70 L Nucleated RBC % 0 Differential Comment Fibrinogen 723 H D-Dimer Quant (PE/DVT) 0.43 Sodium 139 Potassium 3.4 L Chloride 107 Carbon Dioxide 24.0 Anion Gap 8 BUN 11 Creatinine 0.91 Estim Creat Clear Calc 52.51 Est GFR (MDRD) Af Amer 79 Est GFR (MDRD) Non-Af 66 BUN/Creatinine Ratio 12.1 Glucose 160 H Lactic Acid Calcium 8.4 L Total Bilirubin 0.30 AST 54 H ALT 83 H Alkaline Phosphatase 139 H Lactate Dehydrogenase 392 H Total Creatine Kinase 206 H Troponin I < 0.015 C-React Prot Ext Range 85.00 H Total Protein 7.8 Albumin 3.1 L Globulin 4.7 H Albumin/Globulin Ratio 0.7 L Procalcitonin Blood Type Antibody Screen 05/29/20 05/29/20 05/29/20 19:00 19:00 23:35 WBC RBC Hgb Hct MCV MCH MCHC RDW Std Deviation RDW Coeff of Edwar Plt Count MPV Immature Gran % (Auto) Neut % (Auto) Lymph % (Auto) [place] % (Auto) Eos % (Auto) Baso % (Auto) Absolute Neuts (auto) Absolute Lymphs (auto) Nucleated RBC % Differential Comment Fibrinogen D-Dimer Quant (PE/DVT) Sodium Potassium Chloride Carbon Dioxide Anion Gap BUN Creatinine Estim Creat Clear Calc Est GFR (MDRD) Af Amer Est GFR (MDRD) Non-Af BUN/Creatinine Ratio Glucose Lactic Acid 3.2 H* Cancelled Calcium Total Bilirubin AST ALT Alkaline Phosphatase Lactate Dehydrogenase Total Creatine Kinase Troponin I C-React Prot Ext Range Total Protein Albumin Globulin Albumin/Globulin Ratio Procalcitonin 0.08 Blood Type Antibody Screen 05/29/20 05/30/20 05/30/20 23:35 03:40 03:40 WBC 13.4 H RBC 4.07 L Hgb 10.4 L Hct 34.4 L MCV 84.5 MCH 25.6 L MCHC 30.2 L RDW Std Deviation 45.3 H RDW Coeff of Edwar 14.7 H Plt Count 225 MPV 9.4 Immature Gran % (Auto) 1.400 H Neut % (Auto) 92.2 H Lymph % (Auto) 3.5 L [place] % (Auto) 1.8 Eos % (Auto) 1.0 Baso % (Auto) 0.1 Absolute Neuts (auto) 12.3 H Absolute Lymphs (auto) 0.47 L Nucleated RBC % 0 Differential Comment SCANNED Fibrinogen D-Dimer Quant (PE/DVT) Sodium 142 Potassium 3.7 Chloride 112 H Carbon Dioxide 22.0 Anion Gap 8 BUN 8 Creatinine 0.93 Estim Creat Clear Calc 51.38 Est GFR (MDRD) Af Amer 77 Est GFR (MDRD) Non-Af 64 BUN/Creatinine Ratio 8.6 L Glucose 190 H Lactic Acid 1.2 Calcium 7.5 L Total Bilirubin 0.20 AST 60 H ALT 80 H Alkaline Phosphatase 121 H Lactate Dehydrogenase Total Creatine Kinase Troponin I C-React Prot Ext Range Total Protein 6.4 Albumin 2.5 L Globulin 3.9 Albumin/Globulin Ratio 0.6 L Procalcitonin Blood Type Antibody Screen 05/30/20 09:25 WBC RBC Hgb Hct MCV MCH MCHC RDW Std Deviation RDW Coeff of Edwar Plt Count MPV Immature Gran % (Auto) Neut % (Auto) Lymph % (Auto) [place] % (Auto) Eos % (Auto) Baso % (Auto) Absolute Neuts (auto) Absolute Lymphs (auto) Nucleated RBC % Differential Comment Fibrinogen D-Dimer Quant (PE/DVT) Sodium Potassium Chloride Carbon Dioxide Anion Gap BUN Creatinine Estim Creat Clear Calc Est GFR (MDRD) Af Amer Est GFR (MDRD) Non-Af BUN/Creatinine Ratio Glucose Lactic Acid Calcium Total Bilirubin AST ALT Alkaline Phosphatase Lactate Dehydrogenase Total Creatine Kinase Troponin I C-React Prot Ext Range Total Protein Albumin Globulin Albumin/Globulin Ratio Procalcitonin Blood Type Pending Antibody Screen Pending - Other Studies Radiology: [] reviewed Other Studies: [] Route of nutrition/ use of supplements: [] Nutritional Intake: [] IV Site: [] Barron Catheter: [] - Physical Exam General: Alert, Oriented x3, Cooperative HEENT: Atraumatic, PERRLA, EOMI Neck: Supple, No Nodes Lungs: Diminished Cardiovascular: Regular rate, Regular Rhythm Abdomen: Soft, Non Tender, Non-Distended Extremities: No edema Skin: No rashes IV Site: Peripheral, without redness Musculoskeletal: No Tenderness to Palpation of Joints or Extremities Neurological: Cranial nerves II-XII grossly intact - Assessment/Plan Antibiotics: [] Assessment/Plan: [] Active and Suspected Problems (Last Reviewed 10/14/19 @ 09:10 by Carly Kay) Hypoxemia (Acute) Pneumonia due to COVID-19 virus (Acute) Severe sepsis (Acute) Acute respiratory failure with hypoxia (Acute) Covid with lactic acidosis, hypoxic resp failure - sx started 05/20. On dexamethasone. Normal d-dimer. She is to start convalescent plasma. Consented for remdesivir, will start. Will stop iv abx. Will follow, thank you, d/w hospitalist. Patient or caregiver was given a copy of the Remdesivir Fact Sheet for Patients and Parents/Caregivers. The following information was communicated to the patient or caregiver: Remdesivir is not an FDA approved drug. The FDA has authorized the emergency use of Remdesivir. The patient had the option to refuse or accept treatment with Remdesivir. The patient was informed that the number of people treated with Remdesivir is small at this time. The potential benefits and potential risks of Remdesivir are not fully known. Potential benefits of Remdesivir include a shorter time to recovery of COVID-19 infection. Potential risks or side effects of Remdesivir include sweating, shivering, nausea and vomiting or low blood pressure related to a reaction to the medication infusion and increases in liver enzymes. No drugs are approved by the FDA to treat COVID-19 at this time. The patient stated understanding of information communicated and wished to proceed with Remdesivir treatment.
--- NOTE | 2020-05-30 11:30 | PCM.PN.HOSP ---
Patient Problems: Active and Suspected Problems (Last Reviewed 10/14/19 @ 09:10 by Carly Kay) Hypoxemia (Acute) Pneumonia due to COVID-19 virus (Acute) Severe sepsis (Acute) Acute respiratory failure with hypoxia (Acute) Reason for Visit: COVID Subjective: Feeling better at the moment. Has been feeling ill since last week. Vitals/I&O's: Vital Signs Temp Pulse Resp BP Pulse Ox 36.5 C L 85 28 H 135/64 H 97 05/30/20 08:00 05/30/20 11:00 05/30/20 11:00 05/30/20 11:00 05/30/20 11:00 Oxygen Flow Rate (L/min) 6 Oxygen Delivery Method Nasal Cannula Weight: 78.6 kg Body Mass Index (BMI) 29.7 Intake and Output for Last 24 Hours 05/28/20 05/29/20 05/30/20 23:59 23:59 23:59 Intake Total 1118.75 / 1418.75 4200 / 4200 Output Total 1650 / 1650 Balance 1118.75 / 1218.75 2550 / 2550 General: Alert, No apparent distress HEENT: Atraumatic, Normocephalic Oral: Moist Mucosa, No Gingival or Mucosal Lesions/ Ulcerations Neck: No Nodes, Thyroid Normal Size and Texture Lungs: Clear to auscultation, Diminished Cardiovascular: Regular rate, Regular Rhythm, Normal S1, Normal S2 Abdomen: Bowel Sounds Present, Soft, Non Tender, Non-Distended, No Hepato-splenomegaly Extremities: No edema, No Calf Tenderness Psych/Mental Status: Normal Affect, Appropriate Laboratory Results 05/29/20 19:00: WBC 16.0 H, RBC 4.75, Hgb 12.0, Hct 40.3, MCV 84.8, MCH 25.3 L, MCHC 29.8 L, RDW Std Deviation 45.2 H, RDW Coeff of Edwar 14.8 H, Plt Count 315, MPV 10.1, Immature Gran % (Auto) 2.000 H, Neut % (Auto) 91.5 H, Lymph % (Auto) 4.4 L, [place] % (Auto) 2.0, Eos % (Auto) 0.0, Baso % (Auto) 0.1, Absolute Neuts (auto) 14.7 H, Absolute Lymphs (auto) 0.70 L, Nucleated RBC % 0 05/29/20 19:00: Fibrinogen 723 H, D-Dimer Quant (PE/DVT) 0.43 05/29/20 19:00: Sodium 139, Potassium 3.4 L, Chloride 107, Carbon Dioxide 24.0, Anion Gap 8, BUN 11, Creatinine 0.91, Estim Creat Clear Calc 52.51, Est GFR (MDRD) Af Amer 79, Est GFR (MDRD) Non-Af 66, BUN/Creatinine Ratio 12.1, Glucose 160 H, Calcium 8.4 L, Total Bilirubin 0.30, AST 54 H, ALT 83 H, Alkaline Phosphatase 139 H, Lactate Dehydrogenase 392 H, Total Creatine Kinase 206 H, Troponin I < 0.015, C-React Prot Ext Range 85.00 H, Total Protein 7.8, Albumin 3.1 L, Globulin 4.7 H, Albumin/Globulin Ratio 0.7 L 05/29/20 19:00: Lactic Acid 3.2 H* 05/29/20 19:00: Procalcitonin 0.08 05/29/20 23:35: Lactic Acid Cancelled 05/29/20 23:35: Lactic Acid 1.2 05/30/20 03:40: Sodium 142, Potassium 3.7, Chloride 112 H, Carbon Dioxide 22.0, Anion Gap 8, BUN 8, Creatinine 0.93, Estim Creat Clear Calc 51.38, Est GFR (MDRD) Af Amer 77, Est GFR (MDRD) Non-Af 64, BUN/Creatinine Ratio 8.6 L, Glucose 190 H, Calcium 7.5 L, Total Bilirubin 0.20, AST 60 H, ALT 80 H, Alkaline Phosphatase 121 H, Total Protein 6.4, Albumin 2.5 L, Globulin 3.9, Albumin/Globulin Ratio 0.6 L 05/30/20 03:40: WBC 13.4 H, RBC 4.07 L, Hgb 10.4 L, Hct 34.4 L, MCV 84.5, MCH 25.6 L, MCHC 30.2 L, RDW Std Deviation 45.3 H, RDW Coeff of Edwar 14.7 H, Plt Count 225, MPV 9.4, Immature Gran % (Auto) 1.400 H, Neut % (Auto) 92.2 H, Lymph % (Auto) 3.5 L, [place] % (Auto) 1.8, Eos % (Auto) 1.0, Baso % (Auto) 0.1, Absolute Neuts (auto) 12.3 H, Absolute Lymphs (auto) 0.47 L, Nucleated RBC % 0, Differential Comment SCANNED 05/30/20 09:25: Blood Type Pending, Antibody Screen Pending Current Medications Acetaminophen (Tylenol) 650 mg PO Q6H PRN PRN PRN Reason: Pain Score 1-10/Temp > 100.7 F Albuterol/Ipratropium (Duoneb) 3 ml INHALATION Q4H.RT PRN PRN Reason: Asthma Last Admin: 05/30/20 10:26 Dose: 3 ml Documented by: [facility] ([facility], [facility]) [facility] Last Admin: 05/30/20 09:14 Dose: 81 mg Documented by: Atorvastatin Calcium (Lipitor) 20 mg PO Q3D@2200 [facility] Calcitriol (Rocaltrol) 0.25 mcg PO DAILY [facility] Last Admin: 05/30/20 09:15 Dose: 0.25 mcg Documented by: Calcium Carbonate (Os-Moe 500) 500 mg PO DAILY [facility] Last Admin: 05/30/20 09:15 Dose: 500 mg Documented by: Dexamethasone Sodium Phosphate (Decadron) 6 mg IV DAILY [facility] Last Admin: 05/30/20 09:15 Dose: 6 mg Documented by: Ezetimibe (Zetia) 10 mg PO DAILY [facility] Last Admin: 05/30/20 09:15 Dose: 10 mg Documented by: Enoxaparin Sodium (Lovenox) 80 mg SC Q12 [facility] Last Admin: 05/30/20 09:19 Dose: 80 mg Documented by: Guaifenesin (Mucinex) 1,200 mg PO BID [facility] Last Admin: 05/30/20 09:15 Dose: 1,200 mg Documented by: Sodium Chloride () 250 mls @ 15 mls/hr IV .[id number] PRN PRN Reason: Saline Flush Sodium Chloride () 250 mls @ 15 mls/hr IV .[id number] PRN PRN Reason: Additional IVPB Infusion Remdesivir (Investigational) (200 mg/ Sodium Chloride) 250 mls @ 125 mls/hr IV X1 ONE Stop: 05/30/20 12:28 Remdesivir (Investigational) (100 mg/ Sodium Chloride) 250 mls @ 125 mls/hr IV DAILY [facility] Stop: 06/03/20 11:59 Ibuprofen (Motrin) 600 mg PO Q8H PRN PRN PRN Reason: Pain 1-10/10 or Fever Last Admin: 05/30/20 08:20 Dose: 600 mg Documented by: Losartan Potassium (Cozaar) 50 mg PO DAILY [facility] Last Admin: 05/30/20 09:14 Dose: 50 mg Documented by: Melatonin (Melatonin) 3 mg PO QHS PRN PRN Reason: SLEEP Montelukast Sodium (Singulair) 10 mg PO QHS [facility] Last Admin: 05/29/20 22:19 Dose: 10 mg Documented by: Nitroglycerin (Nitrostat) 0.4 mg SUBLINGUAL Q5M PRN PRN Reason: CARDIAC/CHEST PAIN Ondansetron HCl (Zofran) 4 mg IV Q8H PRN PRN PRN Reason: NAUSEA/VOMITING Pantoprazole Sodium (Protonix) 40 mg PO DAILY [facility] Last Admin: 05/30/20 09:15 Dose: 40 mg Documented by: Polyethylene Glycol (Miralax) 17 gm PO DAILY [facility] Last Admin: 05/30/20 09:25 Dose: Not Given Documented by: Sodium Chloride () 10 - 40 ml IV UD PRN PRN Reason: SALINE FLUSH Last Admin: 05/30/20 09:16 Dose: 20 ml Documented by: Throat Lozenges (Cepacol Sore Throat Lozenge) 1 lozenge MUCOUS MEM Q2H PRN PRN PRN Reason: SORE THROAT Venlafaxine HCl (Effexor Xr) 150 mg PO DAILY [facility] Last Admin: 05/30/20 09:15 Dose: 150 mg Documented by: STROKE Vital Signs/Narrative: Vital Signs Temp Pulse Resp BP Pulse Ox 05/30/20 11:00 85 28 H 135/64 H 97 05/30/20 10:26 87 26 H 05/30/20 10:00 100 24 H 156/74 H 97 05/30/20 09:00 101 H 24 H 141/76 H 92 05/30/20 08:00 36.5 C L 93 24 H 142/82 H 99 05/30/20 07:46 92 Medical Necessity - Tobacco Use Smoking Status: Never smoker Assessment/Plan All Active Problems (Last Reviewed 10/14/19 @ 09:10 by Carly Kay) Hypoxemia (Acute) Pneumonia due to COVID-19 virus (Acute) Severe sepsis (Acute) Acute respiratory failure with hypoxia (Acute) 1. COVID-19, acute dexamethasone 6mg, started on 05/29 remdesivir started on 05/30 wean oxygen as tolerated d-dimer normal ID following 2. Acute hypoxic respiratory failure 2/2 above plus underlying asthma wean oxygen as tolerated 3. Severe sepsis 2/2 COVID ID following, abx discontinued 4. chronic diseases: overall stable, but complicate overall care Sjogren's GERD gastroparesis fibromyalgia vitamin D deficiency hyperlipidemia: continue statin, azetimibe HTN: losartan 5. VTE prophylaxis: enoxaparin. change to 40 as does not need therapeutic anticoagulation at this time. Inpatient E&M: 21544 Subs Hosp L2
--- NOTE | 2020-05-30 11:39 | CASEMGMT ---
Social Work Note Per pbx inspector questions, pt has completed HCPOA and LW, hasn't provided copies to [facility] and pt unable to bring in copies. Eileen Vela PRINCIPAL RESEARCH ECONOMIST, SENIOR FORMULATION SCIENTIST
--- NOTE | 2020-05-30 14:27 | CASEMGMT ---
RUSS AGUIRRE ASSESSMENT DX: Severe Sepsis, COVID-19 pneumonia. RUSS AGUIRRE placed call to pt's room and assessment completed via phone conversation. RUSS AGUIRRE introduced self and role at [facility]. Pt voices understanding and consents to assessment at this time. Pt resting in bed in no distress at this time. Pt is A/O at this time and answers all questions appropriately. Care providers, pharmacy, and demographics verified at this time. Pt states her is COVID-19 positive. They have been self-quarantining @ home. 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 They have 3 bathrooms in the home and are able to sleep in separate bedrooms if needed, although they have not been d/t they both are COVID-19 positive. Their friends and roman catholic family are bringing groceries and supplies to their home when needed and leaving them @ the door. PCP: Dr Bustos Specialists: Dr Albert--Pulmonology, [facility]. Dr Eubanks--Endocrinology in [place]. Dr Hudson--HAT AND CAP OPENER Preferred Pharmacy: [facility] Insurance: [facility]. [facility] Prescription Benefit: Yes. [employer] Living Will/HPOA: Has both LW and Healthcare POA, who is her , Abdi LNOK: , Abdi Living Arrangements: Lives w/her in one-story home w/finished basement. No steps to enter home. Independent prior to hospitalization Transportation: Pt states drives self and states no transportation concerns at this time. drives also. DME: States has the following DME: Has cane, crutches, walker, and knee scooter but does not use any of these. Has pulse oximeter, BP machine, nebulizer, grab bars. Pt states no need for further DME at this time. HHC/SNF: No history of either. Pt wishes to return home and states has no concerns with going home at time of discharge. CM to follow for home oxygen needs and any further discharge planning/needs. Pt voices no further concerns/needs at this time. Advised pt to ask for CM if any further questions/concerns/needs arise. Voices understanding. PLAN: Home Follow for any Home O2 needs @ discharge. Follow PT/OT. Evals pending. Jossie BAE RN, CM
[2020-05-30 16:01] LABS: Bedside Glucose 137 mg/dL (70-110)
[2020-05-30] MEDS: Ondansetron 4 MG/2 ML Vial IV (20:09)
[2020-05-30] MEDS: Atorvastatin Calcium 20 MG Tablet PO (22:04)
[2020-05-30] MEDS: Montelukast 10 MG Tablet PO (22:04)
[2020-05-30] MEDS: MELATONIN 3 MG TABLET PO (22:17)
[2020-05-30 22:26] LABS: Bedside Glucose 82 mg/dL (70-110)
[2020-05-31] VITALS (32 sets, daily range): BP systolic 90–148; BP diastolic 51–85; PULSE 69–98; RESP 20–38; TEMP 36.2–37; O2SAT 84–100
[2020-05-31 04:38] LABS: Hematocrit 36.4 % (37-47); Hemoglobin 10.9 g/dL (12.0-15.0); Mean Corp Hgb Conc 29.9 g/dL (32-36); Mean Corpuscular Hgb 25.3 pg (27.0-32.0); Mean Corpuscular Volume 84.7 fL (81-99); Mean Platelet Vol. 9.8 fl (6.2-12.0); Platelet Count 250 K/mm3 (150-450); RBC Distribution Width CV 14.8 % (11.6-14.6); RBC Distribution Width SD 45.4 fl (35.1-43.9); White Blood Count 14.4 K/mm3 (4.4-11.0)
[2020-05-31 04:41] LABS: ALB/GLOB Ratio 0.6 RATIO (0.9-2.4); AST(SGOT) 34 U/L (15-37); Alanine Aminotransfer ALT/SGPT 58 U/L (13-56); Albumin, Serum 2.5 g/dL (3.2-5.0); Alkaline Phosphatase 110 U/L (45-117); Anion Gap 7 (5-15); BUN 14 mg/dL (7-18); BUN/Creat Ratio 17.3 RATIO (10-20); Calcium,Total 7.5 mg/dL (8.5-10.1); Chloride 108 mmol/L (98-107); Creatinine, Serum 0.81 mg/dL (0.55-1.02); EST Glomerular Filtration Rate 75 mL/min (>60); Est Glom Filt Rate - Afr Amer 91 mL/min (>60); Globulin 4.1 g/dL (2.2-4.2); Glucose 84 mg/dL (74-106); Potassium 3.8 mmol/L (3.5-5.1); Protein, Total 6.6 g/dL (6.4-8.2); Sodium Level 141 mmol/L (136-145)
[2020-05-31] MEDS: Ibuprofen 600 MG Tablet PO ×2 (06:10→22:42)
[2020-05-31 06:40] LABS: Bedside Glucose 82 mg/dL (70-110)
--- NOTE | 2020-05-31 06:45 | CPS ---
Started Airvo per Dr Rouse.
--- NOTE | 2020-05-31 07:27 | PN_ITS ---
Subjective: Patient did okay overnight. Oxygen saturations have been marginal and fluctuating significantly. Patient was on as high as 10 L nasal cannula to m aintain saturations. Patient reports that she feels somewhat improved compared to previous. Patient did receive her convalescent serum overnight. Objective: Patient is positive over 4 L since admission to the hospital. General: Alert, Oriented x3, Cooperative, - - Mild to moderate conversational dyspnea. Obese. Appears somewhat uncomfortable. HEENT: Atraumatic, PERRLA, EOMI, Normocephalic, - - No scleral icterus or injection noted Oral: Moist Mucosa, No Gingival or Mucosal Lesions/ Ulcerations Neck: Supple, No JVD, No Nodes, Trachea Midline Lungs: No rhonchi, No wheeze, Diminished, Rales, - - Symmetric expansion Cardiovascular: Regular rate, Regular Rhythm, Normal S1, Normal S2, No murmurs, No rub noted, No Gallop Abdomen: Bowel Sounds Present, Soft, Non Tender, Non-Distended, Obese Extremities: No clubbing, No cyanosis, Edema - 1+ Skin: - - No change compared to previous Musculoskeletal: No Tenderness to Palpation of Joints or Extremities Lymphatic: No Cervical, Supraclavicular, or Inguinal Adenopathy Neurological: Cranial nerves II-XII grossly intact, Neuro grossly intact, Motor Exam 5/5 strength throughout Psych/Mental Status: Appropriate, Anxious, Restless Vital Signs Temp Pulse Resp BP Pulse Ox 36.8 C 84 26 H 141/72 H 90 05/31/20 06:00 05/31/20 06:00 05/31/20 06:00 05/31/20 06:00 05/31/20 06:00 Oxygen Flow Rate (L/min) 8 Oxygen Delivery Method Nasal Cannula Weight: 80.8 kg Body Mass Index (BMI) 29.7 Intake and Output for Last 24 Hours 05/29/20 05/30/20 05/31/20 23:59 23:59 23:59 Intake Total 1118.75 / 1418.75 6087.25 / 6287.25 400 / 400 Output Total 3250 / 3350 300 / 300 Balance 1118.75 / 1218.75 2837.25 / 2937.25 100 / 100 Labs (Last 48 Hours) 05/29/20 05/29/20 05/29/20 19:00 19:00 19:00 WBC 16.0 H RBC 4.75 Hgb 12.0 Hct 40.3 MCV 84.8 MCH 25.3 L MCHC 29.8 L RDW Std Deviation 45.2 H RDW Coeff of Edwar 14.8 H Plt Count 315 MPV 10.1 Immature Gran % (Auto) 2.000 H Neut % (Auto) 91.5 H Lymph % (Auto) 4.4 L [place] % (Auto) 2.0 Eos % (Auto) 0.0 Baso % (Auto) 0.1 Absolute Neuts (auto) 14.7 H Absolute Lymphs (auto) 0.70 L Nucleated RBC % 0 Differential Comment Fibrinogen 723 H D-Dimer Quant (PE/DVT) 0.43 Sodium 139 Potassium 3.4 L Chloride 107 Carbon Dioxide 24.0 Anion Gap 8 BUN 11 Creatinine 0.91 Estim Creat Clear Calc 52.51 Est GFR (MDRD) Af Amer 79 Est GFR (MDRD) Non-Af 66 BUN/Creatinine Ratio 12.1 Glucose 160 H Lactic Acid Calcium 8.4 L Total Bilirubin 0.30 AST 54 H ALT 83 H Alkaline Phosphatase 139 H Lactate Dehydrogenase 392 H Total Creatine Kinase 206 H Troponin I < 0.015 C-React Prot Ext Range 85.00 H Total Protein 7.8 Albumin 3.1 L Globulin 4.7 H Albumin/Globulin Ratio 0.7 L Procalcitonin POC Glucose Blood Type Antibody Screen 05/29/20 05/29/20 05/29/20 19:00 19:00 23:35 WBC RBC Hgb Hct MCV MCH MCHC RDW Std Deviation RDW Coeff of Edwar Plt Count MPV Immature Gran % (Auto) Neut % (Auto) Lymph % (Auto) [place] % (Auto) Eos % (Auto) Baso % (Auto) Absolute Neuts (auto) Absolute Lymphs (auto) Nucleated RBC % Differential Comment Fibrinogen D-Dimer Quant (PE/DVT) Sodium Potassium Chloride Carbon Dioxide Anion Gap BUN Creatinine Estim Creat Clear Calc Est GFR (MDRD) Af Amer Est GFR (MDRD) Non-Af BUN/Creatinine Ratio Glucose Lactic Acid 3.2 H* Cancelled Calcium Total Bilirubin AST ALT Alkaline Phosphatase Lactate Dehydrogenase Total Creatine Kinase Troponin I C-React Prot Ext Range Total Protein Albumin Globulin Albumin/Globulin Ratio Procalcitonin 0.08 POC Glucose Blood Type Antibody Screen 05/29/20 05/30/20 05/30/20 23:35 03:40 03:40 WBC 13.4 H RBC 4.07 L Hgb 10.4 L Hct 34.4 L MCV 84.5 MCH 25.6 L MCHC 30.2 L RDW Std Deviation 45.3 H RDW Coeff of Edwar 14.7 H Plt Count 225 MPV 9.4 Immature Gran % (Auto) 1.400 H Neut % (Auto) 92.2 H Lymph % (Auto) 3.5 L [place] % (Auto) 1.8 Eos % (Auto) 1.0 Baso % (Auto) 0.1 Absolute Neuts (auto) 12.3 H Absolute Lymphs (auto) 0.47 L Nucleated RBC % 0 Differential Comment SCANNED Fibrinogen D-Dimer Quant (PE/DVT) Sodium 142 Potassium 3.7 Chloride 112 H Carbon Dioxide 22.0 Anion Gap 8 BUN 8 Creatinine 0.93 Estim Creat Clear Calc 51.38 Est GFR (MDRD) Af Amer 77 Est GFR (MDRD) Non-Af 64 BUN/Creatinine Ratio 8.6 L Glucose 190 H Lactic Acid 1.2 Calcium 7.5 L Total Bilirubin 0.20 AST 60 H ALT 80 H Alkaline Phosphatase 121 H Lactate Dehydrogenase Total Creatine Kinase Troponin I C-React Prot Ext Range Total Protein 6.4 Albumin 2.5 L Globulin 3.9 Albumin/Globulin Ratio 0.6 L Procalcitonin POC Glucose Blood Type Antibody Screen 05/30/20 05/30/20 05/30/20 09:25 15:55 21:49 WBC RBC Hgb Hct MCV MCH MCHC RDW Std Deviation RDW Coeff of Edwar Plt Count MPV Immature Gran % (Auto) Neut % (Auto) Lymph % (Auto) [place] % (Auto) Eos % (Auto) Baso % (Auto) Absolute Neuts (auto) Absolute Lymphs (auto) Nucleated RBC % Differential Comment Fibrinogen D-Dimer Quant (PE/DVT) Sodium Potassium Chloride Carbon Dioxide Anion Gap BUN Creatinine Estim Creat Clear Calc Est GFR (MDRD) Af Amer Est GFR (MDRD) Non-Af BUN/Creatinine Ratio Glucose Lactic Acid Calcium Total Bilirubin AST ALT Alkaline Phosphatase Lactate Dehydrogenase Total Creatine Kinase Troponin I C-React Prot Ext Range Total Protein Albumin Globulin Albumin/Globulin Ratio Procalcitonin POC Glucose 137 H 82 Blood Type A NEGATIVE Antibody Screen NEGATIVE 05/31/20 05/31/20 05/31/20 04:00 04:00 06:32 WBC 14.4 H RBC 4.30 Hgb 10.9 L Hct 36.4 L MCV 84.7 MCH 25.3 L MCHC 29.9 L RDW Std Deviation 45.4 H RDW Coeff of Edwar 14.8 H Plt Count 250 MPV 9.8 Immature Gran % (Auto) Neut % (Auto) Lymph % (Auto) [place] % (Auto) Eos % (Auto) Baso % (Auto) Absolute Neuts (auto) Absolute Lymphs (auto) Nucleated RBC % Differential Comment Fibrinogen D-Dimer Quant (PE/DVT) Sodium 141 Potassium 3.8 Chloride 108 H Carbon Dioxide 26.0 Anion Gap 7 BUN 14 Creatinine 0.81 Estim Creat Clear Calc 59.00 Est GFR (MDRD) Af Amer 91 Est GFR (MDRD) Non-Af 75 BUN/Creatinine Ratio 17.3 Glucose 84 Lactic Acid Calcium 7.5 L Total Bilirubin 0.40 AST 34 ALT 58 H Alkaline Phosphatase 110 Lactate Dehydrogenase Total Creatine Kinase Troponin I C-React Prot Ext Range Total Protein 6.6 Albumin 2.5 L Globulin 4.1 Albumin/Globulin Ratio 0.6 L Procalcitonin POC Glucose 82 Blood Type Antibody Screen Medical Necessity - Tobacco Use Smoking Status: Never smoker Assessment/Plan All Active Problems (Last Reviewed 10/14/19 @ 09:10 by Carly Kay) Hypoxemia (Acute) Pneumonia due to COVID-19 virus (Acute) Severe sepsis (Acute) Acute respiratory failure with hypoxia (Acute) RECOMMENDATIONS: 1. Dose Lasix to help with fluid status 2. Continue Lovenox, Remdesivir and Decadron 3. Transition to high flow nasal cannula 4. Increase activity and wean oxygen as tolerated 5. Attempt fluid restriction 6. Confirmed full CODE STATUS IMPRESSIONS: 1. Acute hypoxic respiratory failure secondary to COVID-19 Unclear if patient has a superinfection at this time his procalcitonin is normal. Patient does have elevated inflammatory markers and bilateral infiltrates. Antibiotics discontinued yesterday. Patient will be continued on dexamethasone. Lovenox will be continued at therapeutic dosing. Patient will be transferred to high flow nasal cannula. Given typical course, anticipate worsening over the next 2 to 3 days. Will give a dose of Lasix given significant fluid intake yesterday 2. Asthma/history of Sjogren's syndrome Increases risk for complications associated to problem #1. Patient is getting Decadron, so Pulmicort is not necessary. Continue with bronchodilator therapy. It is unclear if patient has pulmonary involvement at baseline. Can attempt to obtain old information. Keep saturations greater than 90% to avoid exacerbations of pulmonary hypertension. Patient will be dosed with Lasix 3. Hypertension/hyperlipidemia/history of GERD/fibromyalgia/delayed presentation Complicates care, management, recovery and prognosis. Patient will be continued on PPI. Okay to continue with antihypertensive and anti- hyperlipidemia medications at this time. May need to hold losartan if renal dysfunction ensues. Elevated lactate on presentation likely secondary to hypoxia. Would limit fluid intake given respiratory status. Did confirm with the patient that she is a full CODE STATUS. TIME: 35 minutes of critical care time spent addressing patient's acute hypoxic respiratory failure, asthma, fluid status, review of all data in collaboration with care team (6:30 AM to 7:30 AM) [id number]: [id number] Critical care first hour
--- NOTE | 2020-05-31 10:07 | PCM.PN.ID ---
Patient Problems: Active and Suspected Problems (Last Reviewed 10/14/19 @ 09:10 by Carly Kay) Hypoxemia (Acute) Pneumonia due to COVID-19 virus (Acute) Severe sepsis (Acute) Acute respiratory failure with hypoxia (Acute) Subjective: Feeling a little better today, no fever, some cough. No n/v/d. - Physical Exam Vitals/I&O's: Vital Signs Temp Pulse Resp BP Pulse Ox 97.1 F L 89 38 H 128/61 H 95 05/31/20 08:00 05/31/20 08:00 05/31/20 08:00 05/31/20 08:00 05/31/20 08:00 Oxygen Flow Rate (L/min) 50 Oxygen Delivery Method Nasal Cannula Weight: 80.8 kg Body Mass Index (BMI) 29.7 Intake and Output for Last 24 Hours 05/29/20 05/30/20 05/31/20 23:59 23:59 23:59 Intake Total 1118.75 / 1418.75 6087.25 / 6287.25 520 / 520 Output Total 3250 / 3350 300 / 300 Balance 1118.75 / 1218.75 2837.25 / 2937.25 220 / 220 General: Alert, Cooperative, No apparent distress Lungs: Diminished Cardiovascular: Regular rate, Regular Rhythm Abdomen: Soft, Non Tender, Non-Distended Skin: No rashes Laboratory Results 05/30/20 09:25: Blood Type A NEGATIVE, Antibody Screen NEGATIVE 05/30/20 15:55: POC Glucose 137 H 05/30/20 21:49: POC Glucose 82 05/31/20 04:00: WBC 14.4 H, RBC 4.30, Hgb 10.9 L, Hct 36.4 L, MCV 84.7, MCH 25.3 L, MCHC 29.9 L, RDW Std Deviation 45.4 H, RDW Coeff of Edwar 14.8 H, Plt Count 250, MPV 9.8 05/31/20 04:00: Sodium 141, Potassium 3.8, Chloride 108 H, Carbon Dioxide 26.0, Anion Gap 7, BUN 14, Creatinine 0.81, Estim Creat Clear Calc 59.00, Est GFR (MDRD) Af Amer 91, Est GFR (MDRD) Non-Af 75, BUN/Creatinine Ratio 17.3, Glucose 84, Calcium 7.5 L, Total Bilirubin 0.40, AST 34, ALT 58 H, Alkaline Phosphatase 110, Total Protein 6.6, Albumin 2.5 L, Globulin 4.1, Albumin/Globulin Ratio 0.6 L 05/31/20 06:32: POC Glucose 82 Current Medications Acetaminophen (Tylenol) 650 mg PO Q6H PRN PRN PRN Reason: Pain Score 1-10/Temp > 100.7 F Albuterol/Ipratropium (Duoneb) 3 ml INHALATION Q4H.RT PRN PRN Reason: Asthma Last Admin: 05/30/20 10:26 Dose: 3 ml Documented by: [facility] Last Admin: 05/30/20 09:14 Dose: 81 mg Documented by: Atorvastatin Calcium (Lipitor) 20 mg PO Q3D@2200 [facility] Last Admin: 05/30/20 22:04 Dose: 20 mg Documented by: Calcitriol (Rocaltrol) 0.[address] [facility] Last Admin: 05/30/20 09:15 Dose: 0.25 mcg Documented by: Calcium Carbonate (Os-Moe 500) [address] [facility] Last Admin: 05/30/20 09:15 Dose: 500 mg Documented by: Dexamethasone Sodium Phosphate (Decadron) [address] [facility] Last Admin: 05/30/20 09:15 Dose: 6 mg Documented by: Ezetimibe (Zetia) [address] [facility] Last Admin: 05/30/20 09:15 Dose: 10 mg Documented by: Enoxaparin Sodium (Lovenox) [address] [facility] Last Admin: 05/30/20 22:03 Dose: 80 mg Documented by: Guaifenesin (Mucinex) 1,[address] [facility] Last Admin: 05/30/20 22:04 Dose: 1,200 mg Documented by: Sodium Chloride () 250 mls @ 15 mls/hr IV .[id number] PRN PRN Reason: Saline Flush Sodium Chloride () 250 mls @ 15 mls/hr IV .[id number] PRN PRN Reason: Additional IVPB Infusion Remdesivir (Investigational) (100 mg/ Sodium Chloride) 250 mls @ 125 mls/hr IV DAILY [facility] Stop: 06/03/20 11:59 Ibuprofen (Motrin) 600 mg PO Q8H PRN PRN PRN Reason: Pain 1-10/10 or Fever Last Admin: 05/31/20 06:10 Dose: 600 mg Documented by: Insulin Human Lispro (Humalog Kwikpen (Bkc)) 0 unit SC [facility]; Protocol Last Admin: 05/31/20 06:38 Dose: Not Given Documented by: Losartan Potassium (Cozaar) [address] [facility] Last Admin: 05/30/20 09:14 Dose: 50 mg Documented by: Melatonin (Melatonin) 3 mg PO QHS PRN PRN Reason: SLEEP Last Admin: 05/30/20 22:17 Dose: 3 mg Documented by: Montelukast Sodium (Singulair) [address] [facility] Last Admin: 05/30/20 22:04 Dose: 10 mg Documented by: Nitroglycerin (Nitrostat) 0.4 mg SUBLINGUAL Q5M PRN PRN Reason: CARDIAC/CHEST PAIN Ondansetron HCl (Zofran) 4 mg IV Q8H PRN PRN PRN Reason: NAUSEA/VOMITING Last Admin: 05/30/20 20:09 Dose: 4 mg Documented by: Pantoprazole Sodium (Protonix) [address] [facility] Last Admin: 05/30/20 09:15 Dose: 40 mg Documented by: Polyethylene Glycol (Miralax) [address] [facility] Last Admin: 05/30/20 09:25 Dose: Not Given Documented by: Sodium Chloride () 10 - 40 ml IV UD PRN PRN Reason: SALINE FLUSH Last Admin: 05/30/20 20:09 Dose: 10 ml Documented by: Throat Lozenges (Cepacol Sore Throat Lozenge) 1 lozenge MUCOUS MEM Q2H PRN PRN PRN Reason: SORE THROAT Venlafaxine HCl (Effexor Xr) [address] [facility] Last Admin: 05/30/20 09:15 Dose: 150 mg Documented by: Medical Necessity - Tobacco Use Smoking Status: Never smoker Route of nutrition/ use of supplements: [] Nutritional Intake: [] IV Site: [] Barron Catheter: [] - Assessment/Plan Antibiotics: [] Assessment/Plan: [] Active and Suspected Problems (Last Reviewed 10/14/19 @ 09:10 by Carly Kay) Hypoxemia (Acute) Pneumonia due to COVID-19 virus (Acute) Severe sepsis (Acute) Acute respiratory failure with hypoxia (Acute) Covid with lactic acidosis, hypoxic resp failure - sx started 05/20. On dexamethasone. Normal d-dimer. Evening of 05/30 received convalescent plasma. 05/30 started 5 day course of remdesivir. Feeling a little better today. Will follow
[2020-05-31] MEDS: Ezetimibe 10 MG Tablet PO (10:14)
[2020-05-31] MEDS: guaiFENesin 1,200 MG Tablet 1200 MG PO ×2 (10:14→22:42)
[2020-05-31] MEDS: Aspirin 81 MG TAB.CHEW PO (10:14)
[2020-05-31] MEDS: Pantoprazole Sodium 40 MG Tablet PO (10:14)
[2020-05-31] MEDS: Venlafaxine XR 150 MG Capsule PO (10:14)
[2020-05-31] MEDS: Calcium (Elemental) 500 MG Tablet PO (10:15)
[2020-05-31] MEDS: dexAMETHasone 4 MG/ML Vial 6 MG IV (10:15)
[2020-05-31] MEDS: Enoxaparin 80 MG/0.8 ML Syringe SC ×2 (10:15→22:42)
[2020-05-31] MEDS: Calcitriol 0.25 MCG Capsule PO (10:15)
[2020-05-31] MEDS: Furosemide 20 MG/2 ML VIAL IV (10:20)
[2020-05-31] MEDS: Losartan Potassium 50 MG Tablet PO (10:30)
[2020-05-31 12:46] LABS: Bedside Glucose 112 mg/dL (70-110)
--- NOTE | 2020-05-31 13:24 | PCM.PN.HOSP ---
Patient Problems: Active and Suspected Problems (Last Reviewed 10/14/19 @ 09:10 by Carly Kay) Hypoxemia (Acute) Pneumonia due to COVID-19 virus (Acute) Severe sepsis (Acute) Acute respiratory failure with hypoxia (Acute) Reason for Visit: COVID Subjective: Increased O2 requirements, now on high-flow O2. Feels better overall. Vitals/I&O's: Vital Signs Temp Pulse Resp BP Pulse Ox 36.2 C L 83 26 H 113/58 L 93 05/31/20 12:00 05/31/20 13:00 05/31/20 13:00 05/31/20 13:00 05/31/20 13:00 Oxygen Flow Rate (L/min) 50 Oxygen Delivery Method Nasal Cannula Weight: 80.8 kg Body Mass Index (BMI) 29.7 Intake and Output for Last 24 Hours 05/29/20 05/30/20 05/31/20 23:59 23:59 23:59 Intake Total 1118.75 / 1418.75 6087.25 / 6287.25 1570 / 1570 Output Total 3250 / 3350 700 / 700 Balance 1118.75 / 1218.75 2837.25 / 2937.25 870 / 870 General: Alert, No apparent distress HEENT: Atraumatic, Normocephalic Oral: Moist Mucosa, No Gingival or Mucosal Lesions/ Ulcerations Neck: No Nodes, Thyroid Normal Size and Texture Lungs: Normal air movement, - - crackles bilaterally Cardiovascular: Regular rate, Regular Rhythm, Normal S1, Normal S2, No murmurs Abdomen: Bowel Sounds Present, Soft, Non Tender, Non-Distended, No Hepato-splenomegaly Extremities: No edema, No Calf Tenderness Musculoskeletal: No Tenderness to Palpation of Joints or Extremities, No Muscle Wasting Neurological: - - no clonus. DTRs 3/4 in LE. Psych/Mental Status: Normal Affect, Appropriate Laboratory Results 05/30/20 09:25: Blood Type A NEGATIVE, Antibody Screen NEGATIVE 05/30/20 15:55: POC Glucose 137 H 05/30/20 21:49: POC Glucose 82 05/31/20 04:00: WBC 14.4 H, RBC 4.30, Hgb 10.9 L, Hct 36.4 L, MCV 84.7, MCH 25.3 L, MCHC 29.9 L, RDW Std Deviation 45.4 H, RDW Coeff of Edwar 14.8 H, Plt Count 250, MPV 9.8 05/31/20 04:00: Sodium 141, Potassium 3.8, Chloride 108 H, Carbon Dioxide 26.0, Anion Gap 7, BUN 14, Creatinine 0.81, Estim Creat Clear Calc 59.00, Est GFR (MDRD) Af Amer 91, Est GFR (MDRD) Non-Af 75, BUN/Creatinine Ratio 17.3, Glucose 84, Calcium 7.5 L, Total Bilirubin 0.40, AST 34, ALT 58 H, Alkaline Phosphatase 110, Total Protein 6.6, Albumin 2.5 L, Globulin 4.1, Albumin/Globulin Ratio 0.6 L 05/31/20 06:32: POC Glucose 82 05/31/20 12:15: POC Glucose 112 H Current Medications Acetaminophen (Tylenol) 650 mg PO Q6H PRN PRN PRN Reason: Pain Score 1-10/Temp > 100.7 F Albuterol/Ipratropium (Duoneb) 3 ml INHALATION Q4H.RT PRN PRN Reason: Asthma Last Admin: 05/30/20 10:26 Dose: 3 ml Documented by: Aspirin (Aspirin, Baby) 81 mg PO DAILYCM [facility] Last Admin: 05/31/20 10:14 Dose: 81 mg Documented by: Atorvastatin Calcium (Lipitor) 20 mg PO Q3D@2200 [facility] Last Admin: 05/30/20 22:04 Dose: 20 mg Documented by: Calcitriol (Rocaltrol) 0.25 mcg PO DAILY [facility] Last Admin: 05/31/20 10:15 Dose: 0.25 mcg Documented by: Calcium Carbonate (Os-Moe 500) 500 mg PO DAILY [facility] Last Admin: 05/31/20 10:15 Dose: 500 mg Documented by: Dexamethasone Sodium Phosphate (Decadron) 6 mg IV DAILY [facility] Last Admin: 05/31/20 10:15 Dose: 6 mg Documented by: Ezetimibe (Zetia) 10 mg PO DAILY [facility] Last Admin: 05/31/20 10:14 Dose: 10 mg Documented by: Enoxaparin Sodium (Lovenox) 80 mg SC Q12 [facility] Last Admin: 05/31/20 10:15 Dose: 80 mg Documented by: Guaifenesin (Mucinex) 1,200 mg PO BID [facility] Last Admin: 05/31/20 10:14 Dose: 1,200 mg Documented by: Sodium Chloride () 250 mls @ 15 mls/hr IV .[id number] PRN PRN Reason: Saline Flush Sodium Chloride () 250 mls @ 15 mls/hr IV .[id number] PRN PRN Reason: Additional IVPB Infusion Remdesivir (Investigational) (100 mg/ Sodium Chloride) 250 mls @ 125 mls/hr IV DAILY [facility] Stop: 06/03/20 11:59 Last Infusion: 05/31/20 12:51 Dose: Infused Documented by: Ibuprofen (Motrin) 600 mg PO Q8H PRN PRN PRN Reason: Pain 1-08/06 or Fever Last Admin: 05/31/20 06:10 Dose: 600 mg Documented by: Insulin Human Lispro (Humalog Kwikpen (Bkc)) 0 unit SC ACHS [facility]; Protocol Last Admin: 05/31/20 12:56 Dose: Not Given Documented by: Losartan Potassium (Cozaar) 50 mg PO DAILY [facility] Last Admin: 05/31/20 10:30 Dose: 50 mg Documented by: Melatonin (Melatonin) 3 mg PO QHS PRN PRN Reason: SLEEP Last Admin: 05/30/20 22:17 Dose: 3 mg Documented by: Montelukast Sodium (Singulair) 10 mg PO QHS [facility] Last Admin: 05/30/20 22:04 Dose: 10 mg Documented by: Nitroglycerin (Nitrostat) 0.4 mg SUBLINGUAL Q5M PRN PRN Reason: CARDIAC/CHEST PAIN Ondansetron HCl (Zofran) 4 mg IV Q8H PRN PRN PRN Reason: NAUSEA/VOMITING Last Admin: 05/30/20 20:09 Dose: 4 mg Documented by: Pantoprazole Sodium (Protonix) 40 mg PO DAILY [facility] Last Admin: 05/31/20 10:14 Dose: 40 mg Documented by: Polyethylene Glycol (Miralax) 17 gm PO DAILY [facility] Last Admin: 05/31/20 10:16 Dose: Not Given Documented by: Sodium Chloride () 10 - 40 ml IV UD PRN PRN Reason: SALINE FLUSH Last Admin: 05/30/20 20:09 Dose: 10 ml Documented by: Throat Lozenges (Cepacol Sore Throat Lozenge) 1 lozenge MUCOUS MEM Q2H PRN PRN PRN Reason: SORE THROAT Venlafaxine HCl (Effexor Xr) 150 mg PO DAILY [facility] Last Admin: 05/31/20 10:14 Dose: 150 mg Documented by: STROKE Vital Signs/Narrative: Vital Signs Temp Pulse Resp BP BP Pulse Ox 05/31/20 13:00 83 26 H 113/58 L 93 05/31/20 12:00 36.2 C L 79 26 H 112/64 93 05/31/20 11:25 81 28 H 94 05/31/20 11:00 81 28 H 113/69 95 05/31/20 10:00 77 32 H 116/58 L 96 Medical Necessity - Tobacco Use Smoking Status: Never smoker Assessment/Plan All Active Problems (Last Reviewed 10/14/19 @ 09:10 by Carly Kay) Hypoxemia (Acute) Pneumonia due to COVID-19 virus (Acute) Severe sepsis (Acute) Acute respiratory failure with hypoxia (Acute) 1. COVID-19, acute dexamethasone 6mg, started on 05/29 remdesivir started on 05/30 convalescent plasma on 05/30 wean oxygen as tolerated d-dimer normal ID following 2. Acute hypoxic respiratory failure 2/2 above plus underlying asthma wean oxygen as tolerated increased oxygen demands 3. Severe sepsis 2/2 COVID ID following, abx discontinued 4. chronic diseases: overall stable, but complicate overall care Sjogren's GERD gastroparesis fibromyalgia vitamin D deficiency hyperlipidemia: continue statin, azetimibe HTN: losartan 5. VTE prophylaxis: enoxaparin. [facility] [place] ordered therapuetic enoxaparin. D-dimer 0.43
[2020-05-31 18:35] LABS: Bedside Glucose 135 mg/dL (70-110)
[2020-05-31] MEDS: MELATONIN 3 MG TABLET PO (22:42)
[2020-05-31] MEDS: Montelukast 10 MG Tablet PO (22:42)
[2020-06-01] VITALS (34 sets, daily range): BP systolic 98–117; BP diastolic 51–74; PULSE 63–93; RESP 21–40; TEMP 36.2–37.1; O2SAT 90–98
[2020-06-01 01:56] LABS: Bedside Glucose 111 mg/dL (70-110)
[2020-06-01 06:04] LABS: Hematocrit 31.1 % (37-47); Hemoglobin 9.8 g/dL (12.0-15.0); Mean Corp Hgb Conc 31.5 g/dL (32-36); Mean Corpuscular Hgb 26.7 pg (27.0-32.0); Mean Corpuscular Volume 84.7 fL (81-99); Mean Platelet Vol. 9.3 fl (6.2-12.0); Platelet Count 224 K/mm3 (150-450); RBC Distribution Width CV 15.3 % (11.6-14.6); RBC Distribution Width SD 46.2 fl (35.1-43.9); Red Blood Count 3.67 M/mm3 (4.2-5.4); White Blood Count 15.4 K/mm3 (4.4-11.0)
[2020-06-01 06:05] LABS: Bedside Glucose 87 mg/dL (70-110)
[2020-06-01 06:20] LABS: ALB/GLOB Ratio 0.6 RATIO (0.9-2.4); AST(SGOT) 21 U/L (15-37); Alanine Aminotransfer ALT/SGPT 39 U/L (13-56); Albumin, Serum 2.2 g/dL (3.2-5.0); Alkaline Phosphatase 94 U/L (45-117); Anion Gap 7 (5-15); BUN 18 mg/dL (7-18); BUN/Creat Ratio 23.2 RATIO (10-20); Calcium,Total 7.1 mg/dL (8.5-10.1); Chloride 100 mmol/L (98-107); Creatinine, Serum 0.78 mg/dL (0.55-1.02); EST Glomerular Filtration Rate 79 mL/min (>60); Est Glom Filt Rate - Afr Amer 95 mL/min (>60); Estimated Creatinine Clearance 47.79 ml/min; Glucose 86 mg/dL (74-106); Potassium 3.4 mmol/L (3.5-5.1); Protein, Total 6.2 g/dL (6.4-8.2); Sodium Level 136 mmol/L (136-145)
--- NOTE | 2020-06-01 07:34 | PN_ITS ---
Subjective: Patient did okay overnight. Patient's respiratory status has somewhat stabilized on high flow nasal cannula. Patient had a drop in hemoglobin, but nursing is not reporting any clinical bleeding. Patient states she feels somewhat improved compared to yesterday. General: Alert, Oriented x3, Cooperative, - - Mild conversational dyspnea. HEENT: Atraumatic, PERRLA, EOMI, - - Slight scleral injection Oral: Moist Mucosa, No Gingival or Mucosal Lesions/ Ulcerations Neck: Supple, No JVD, No Nodes, Trachea Midline Lungs: No rhonchi, No wheeze, Diminished, Rales - Left base, - - Symmetric expansion Cardiovascular: Regular rate, Regular Rhythm, Normal S1, Normal S2, No murmurs, No rub noted, No Gallop Abdomen: Bowel Sounds Present, Soft, Non Tender, Non-Distended Extremities: No clubbing, No cyanosis, Edema - Trace lower extremity Skin: - - No change compared to previous Musculoskeletal: No Tenderness to Palpation of Joints or Extremities Lymphatic: No Cervical, Supraclavicular, or Inguinal Adenopathy Neurological: Cranial nerves II-XII grossly intact, Neuro grossly intact, Motor Exam 5/5 strength throughout Psych/Mental Status: Anxious, Flat Affect Vital Signs Temp Pulse Resp BP Pulse Ox 36.7 C 75 40 H 100/55 L 95 06/01/20 04:00 06/01/20 07:00 06/01/20 07:00 06/01/20 07:00 06/01/20 07:00 Oxygen Flow Rate (L/min) 50 Oxygen Delivery Method Nasal Cannula Weight: 81.5 kg Body Mass Index (BMI) 29.7 Intake and Output for Last 24 Hours 05/30/20 05/31/20 06/01/20 23:59 23:59 23:59 Intake Total 6087.25 / 6287.25 1930 / 1930 300 / 300 Output Total 3250 / 3350 2700 / 2900 800 / 800 Balance 2837.25 / 2937.25 -770 / -970 -500 / -500 Labs (Last 48 Hours) 05/30/20 05/30/20 05/30/20 09:25 15:55 21:49 WBC RBC Hgb Hct MCV MCH MCHC RDW Std Deviation RDW Coeff of Edwar Plt Count MPV Sodium Potassium Chloride Carbon Dioxide Anion Gap BUN Creatinine Estim Creat Clear Calc Est GFR (MDRD) Af Amer Est GFR (MDRD) Non-Af BUN/Creatinine Ratio Glucose Calcium Total Bilirubin AST ALT Alkaline Phosphatase Total Protein Albumin Globulin Albumin/Globulin Ratio POC Glucose 137 H 82 Blood Type A NEGATIVE Antibody Screen NEGATIVE 05/31/20 05/31/20 05/31/20 04:00 04:00 06:32 WBC 14.4 H RBC 4.30 Hgb 10.9 L Hct 36.4 L MCV 84.7 MCH 25.3 L MCHC 29.9 L RDW Std Deviation 45.4 H RDW Coeff of Edwar 14.8 H Plt Count 250 MPV 9.8 Sodium 141 Potassium 3.8 Chloride 108 H Carbon Dioxide 26.0 Anion Gap 7 BUN 14 Creatinine 0.81 Estim Creat Clear Calc 59.00 Est GFR (MDRD) Af Amer 91 Est GFR (MDRD) Non-Af 75 BUN/Creatinine Ratio 17.3 Glucose 84 Calcium 7.5 L Total Bilirubin 0.40 AST 34 ALT 58 H Alkaline Phosphatase 110 Total Protein 6.6 Albumin 2.5 L Globulin 4.1 Albumin/Globulin Ratio 0.6 L POC Glucose 82 Blood Type Antibody Screen 05/31/20 05/31/20 05/31/20 12:15 16:48 22:41 WBC RBC Hgb Hct MCV MCH MCHC RDW Std Deviation RDW Coeff of Edwar Plt Count MPV Sodium Potassium Chloride Carbon Dioxide Anion Gap BUN Creatinine Estim Creat Clear Calc Est GFR (MDRD) Af Amer Est GFR (MDRD) Non-Af BUN/Creatinine Ratio Glucose Calcium Total Bilirubin AST ALT Alkaline Phosphatase Total Protein Albumin Globulin Albumin/Globulin Ratio POC Glucose 112 H 135 H 111 H Blood Type Antibody Screen 06/01/20 06/01/20 06/01/20 05:47 05:53 05:53 WBC 15.4 H RBC 3.67 L Hgb 9.8 L Hct 31.1 L MCV 84.7 MCH 26.7 L MCHC 31.5 L D RDW Std Deviation 46.2 H RDW Coeff of Edwar 15.3 H Plt Count 224 MPV 9.3 Sodium 136 Potassium 3.4 L Chloride 100 Carbon Dioxide 29.0 Anion Gap 7 BUN 18 Creatinine 0.78 Estim Creat Clear Calc 47.79 Est GFR (MDRD) Af Amer 95 Est GFR (MDRD) Non-Af 79 BUN/Creatinine Ratio 23.2 H Glucose 86 Calcium 7.1 L Total Bilirubin 0.40 AST 21 ALT 39 Alkaline Phosphatase 94 Total Protein 6.2 L Albumin 2.2 L Globulin 4.0 Albumin/Globulin Ratio 0.6 L POC Glucose 87 Blood Type Antibody Screen Medical Necessity - Tobacco Use Smoking Status: Never smoker Assessment/Plan All Active Problems (Last Reviewed 10/14/19 @ 09:10 by Carly Kay) Hypoxemia (Acute) Pneumonia due to COVID-19 virus (Acute) Severe sepsis (Acute) Acute respiratory failure with hypoxia (Acute) RECOMMENDATIONS: 1. Dose Lasix to help with fluid status. Replete potassium 2. Continue Lovenox, Remdesivir and Decadron 3. Continue high flow nasal cannula and wean oxygen as tolerated 4. Increase activity and wean oxygen as tolerated 5. Attempt fluid restriction 6. Confirmed full CODE STATUS IMPRESSIONS: 1. Acute hypoxic respiratory failure secondary to COVID-19 Unclear if patient has a superinfection at this time his procalcitonin is normal. Patient does have elevated inflammatory markers and bilateral infiltrates. Antibiotics discontinued shortly after admission. Patient will be continued on dexamethasone. Lovenox will be continued at therapeutic dosing. Patient tolerating high flow nasal cannula. Given typical course, anticipate worsening over the next 1-2 days. Will give a dose of Lasix to keep fluid status under control. 2. Asthma/history of Sjogren's syndrome Increases risk for complications associated to problem #1. Patient is getting Decadron, so Pulmicort is not necessary. Continue with bronchodilator therapy. It is unclear if patient has pulmonary involvement at baseline. Can attempt to obtain old information. Keep saturations greater than 90% to avoid exacerbations of pulmonary hypertension. Patient will be dosed with Lasix 3. Hypertension/hyperlipidemia/history of GERD/fibromyalgia/delayed presentation Complicates care, management, recovery and prognosis. Patient will be continued on PPI. Okay to continue with antihypertensive and anti- hyperlipidemia medications at this time. May need to hold losartan if renal dysfunction ensues. Elevated lactate on presentation likely secondary to hypoxia. Would limit fluid intake given respiratory status. Did confirm with the patient that she is a full CODE STATUS. Inpatient E&M: [id number] [facility] Hosp L3
--- NOTE | 2020-06-01 07:50 | CPS ---
PT DESATS TO LOW 80% INCREASED TO 50% ON AIRVO
[2020-06-01] MEDS: Furosemide 20 MG/2 ML VIAL IV (09:19)
[2020-06-01] MEDS: Aspirin 81 MG TAB.CHEW PO (09:20)
[2020-06-01] MEDS: Calcium (Elemental) 500 MG Tablet PO (09:21)
[2020-06-01] MEDS: Pantoprazole Sodium 40 MG Tablet PO (09:21)
[2020-06-01] MEDS: Losartan Potassium 50 MG Tablet PO (09:21)
[2020-06-01] MEDS: Calcitriol 0.25 MCG Capsule PO (09:21)
[2020-06-01] MEDS: Venlafaxine XR 150 MG Capsule PO (09:21)
[2020-06-01] MEDS: guaiFENesin 1,200 MG Tablet 1200 MG PO ×2 (09:22→21:53)
[2020-06-01] MEDS: Ezetimibe 10 MG Tablet PO (09:22)
[2020-06-01] MEDS: dexAMETHasone 4 MG/ML Vial 6 MG IV (09:23)
[2020-06-01] MEDS: Enoxaparin 80 MG/0.8 ML Syringe SC ×2 (09:26→21:53)
[2020-06-01] MEDS: 0.9% Saline Lock 10 ML Syringe IV ×3 (09:27→21:54)
--- NOTE | 2020-06-01 11:59 | PCM.PN.HOSP ---
Patient Problems: Active and Suspected Problems (Last Reviewed 10/14/19 @ 09:10 by Carly Kay) Hypoxemia (Acute) Pneumonia due to COVID-19 virus (Acute) Severe sepsis (Acute) Acute respiratory failure with hypoxia (Acute) Reason for Visit: COVID Subjective: Feeling better. Breathing better. Still on high-flow oxygen. Vitals/I&O's: Vital Signs Temp Pulse Resp BP Pulse Ox 37.0 C 81 36 H 106/65 93 06/01/20 08:00 06/01/20 11:00 06/01/20 11:00 06/01/20 11:00 06/01/20 11:00 Oxygen Flow Rate (L/min) 50 Oxygen Delivery Method Nasal Cannula Weight: 81.5 kg Body Mass Index (BMI) 29.7 Intake and Output for Last 24 Hours 05/30/20 05/31/20 06/01/20 23:59 23:59 23:59 Intake Total 6087.25 / 6287.25 1930 / 1930 540 / 540 Output Total 3250 / 3350 2700 / 2900 800 / 800 Balance 2837.25 / 2937.25 -770 / -970 -260 / -260 General: Alert, No apparent distress HEENT: Atraumatic, Normocephalic Oral: Moist Mucosa, No Gingival or Mucosal Lesions/ Ulcerations Neck: No Nodes, Thyroid Normal Size and Texture Lungs: Normal air movement, - - bibasilar crackles Cardiovascular: Regular rate, Regular Rhythm, Normal S1, Normal S2 Abdomen: Bowel Sounds Present, Soft, Non Tender, Non-Distended, No Hepato-splenomegaly Extremities: No edema, No Calf Tenderness Psych/Mental Status: Normal Affect, Appropriate Microbiology Past 72 Hours 05/29/20 20:05 Blood Culture (Wb) - Right Hand Blood Culture - Preliminary No growth in 48 hours. 05/29/20 19:00 Blood Culture (Wb) - Anticubital Right Blood Culture - Preliminary No growth in 48 hours. Laboratory Results 05/31/20 12:15: POC Glucose 112 H 05/31/20 16:48: POC Glucose 135 H 05/31/20 22:41: POC Glucose 111 H 06/01/20 05:47: POC Glucose 87 06/01/20 05:53: WBC 15.4 H, RBC 3.67 L, Hgb 9.8 L, Hct 31.1 L, MCV 84.7, MCH 26.7 L, MCHC 31.5 L D, RDW Std Deviation 46.2 H, RDW Coeff of Edwar 15.3 H, Plt Count 224, MPV 9.3 06/01/20 05:53: Sodium 136, Potassium 3.4 L, Chloride 100, Carbon Dioxide 29.0, Anion Gap 7, BUN 18, Creatinine 0.78, Estim Creat Clear Calc 47.79, Est GFR (MDRD) Af Amer 95, Est GFR (MDRD) Non-Af 79, BUN/Creatinine Ratio 23.2 H, Glucose 86, Calcium 7.1 L, Total Bilirubin 0.40, AST 21, ALT 39, Alkaline Phosphatase 94, Total Protein 6.2 L, Albumin 2.2 L, Globulin 4.0, Albumin/Globulin Ratio 0.6 L 06/01/20 05:53: Magnesium 2.0 Current Medications Acetaminophen (Tylenol) 650 mg PO Q6H PRN PRN PRN Reason: Pain Score 1-10/Temp > 100.7 F Albuterol/Ipratropium (Duoneb) 3 ml INHALATION Q4H.RT PRN PRN Reason: Asthma Last Admin: 05/30/20 10:26 Dose: 3 ml Documented by: [facility] Admin: 06/01/20 09:20 Dose: 81 mg Documented by: Atorvastatin Calcium (Lipitor) 20 mg PO Q3D@2200 [facility] Last Admin: 05/30/20 22:04 Dose: 20 mg Documented by: Calcitriol (Rocaltrol) 0.25 mcg PO DAILY [facility] Last Admin: 06/01/20 09:21 Dose: 0.25 mcg Documented by: Calcium Carbonate (Os-Moe 500) 500 mg PO DAILY [facility] Last Admin: 06/01/20 09:21 Dose: 500 mg Documented by: Dexamethasone Sodium Phosphate (Decadron) 6 mg IV DAILY [facility] Last Admin: 06/01/20 09:23 Dose: 6 mg Documented by: Ezetimibe (Zetia) 10 mg PO DAILY [facility] Last Admin: 06/01/20 09:22 Dose: 10 mg Documented by: Enoxaparin Sodium (Lovenox) 80 mg SC Q12 [facility] Last Admin: 06/01/20 09:26 Dose: 80 mg Documented by: Guaifenesin (Mucinex) 1,200 mg PO BID [facility] Last Admin: 06/01/20 09:22 Dose: 1,200 mg Documented by: Sodium Chloride () 250 mls @ 15 mls/hr IV .[id number] PRN PRN Reason: Saline Flush Sodium Chloride () 250 mls @ 15 mls/hr IV .[id number] PRN PRN Reason: Additional IVPB Infusion Remdesivir (Investigational) (100 mg/ Sodium Chloride) 250 mls @ 125 mls/hr IV DAILY [facility] Stop: 06/03/20 11:59 Last Infusion: 05/31/20 12:51 Dose: Infused Documented by: Ibuprofen (Motrin) 600 mg PO Q8H PRN PRN PRN Reason: Pain 1-08/06 or Fever Last Admin: 05/31/20 22:42 Dose: 600 mg Documented by: Losartan Potassium (Cozaar) 50 mg PO DAILY [facility] Last Admin: 06/01/20 09:21 Dose: 50 mg Documented by: Melatonin (Melatonin) 3 mg PO QHS PRN PRN Reason: SLEEP Last Admin: 05/31/20 22:42 Dose: 3 mg Documented by: Montelukast Sodium (Singulair) 10 mg PO QHS [facility] Last Admin: 05/31/20 22:42 Dose: 10 mg Documented by: Nitroglycerin (Nitrostat) 0.4 mg SUBLINGUAL Q5M PRN PRN Reason: CARDIAC/CHEST PAIN Ondansetron HCl (Zofran) 4 mg IV Q8H PRN PRN PRN Reason: NAUSEA/VOMITING Last Admin: 05/30/20 20:09 Dose: 4 mg Documented by: Pantoprazole Sodium (Protonix) 40 mg PO DAILY [facility] Last Admin: 06/01/20 09:21 Dose: 40 mg Documented by: Polyethylene Glycol (Miralax) 17 gm PO DAILY [facility] Last Admin: 05/31/20 10:16 Dose: Not Given Documented by: Potassium [facility] Stop: 06/01/20 17:01 Last Admin: 06/01/20 09:23 Dose: 20 meq Documented by: Sodium Chloride () 10 - 40 ml IV UD PRN PRN Reason: SALINE FLUSH Last Admin: 06/01/20 09:27 Dose: 20 ml Documented by: Throat Lozenges (Cepacol Sore Throat Lozenge) 1 lozenge MUCOUS MEM Q2H PRN PRN PRN Reason: SORE THROAT Venlafaxine HCl (Effexor Xr) 150 mg PO DAILY [facility] Last Admin: 06/01/20 09:21 Dose: 150 mg Documented by: STROKE Vital Signs/Narrative: Vital Signs Temp Pulse Resp BP Pulse Ox 06/01/20 11:00 81 36 H 106/65 93 06/01/20 10:00 82 37 H 114/56 L 98 06/01/20 09:00 84 21 H 109/53 L 93 06/01/20 08:10 86 06/01/20 08:00 37.0 C 76 34 H 102/60 95 Medical Necessity - Tobacco Use Smoking Status: Never smoker Assessment/Plan All Active Problems (Last Reviewed 10/14/19 @ 09:10 by Carly Kay) Hypoxemia (Acute) Pneumonia due to COVID-19 virus (Acute) Severe sepsis (Acute) Acute respiratory failure with hypoxia (Acute) 1. COVID-19, acute dexamethasone 6mg through the remdesivir started on 05/30 convalescent plasma on 05/30 wean oxygen as tolerated d-dimer normal ID following 2. Acute hypoxic respiratory failure 2/2 above plus underlying asthma wean oxygen as tolerated increased oxygen demands 3. Severe sepsis 2/2 COVID ID following, abx discontinued 4. chronic diseases: overall stable, but complicate overall care Sjogren's GERD gastroparesis fibromyalgia vitamin D deficiency hyperlipidemia: continue statin, azetimibe HTN: losartan 5. VTE prophylaxis: enoxaparin. [facility] ordered therapuetic enoxaparin. D-dimer 0.43 Inpatient E&M: [id number] Subs Hosp L2
[2020-06-01] MEDS: Polyethylene Glycol 3350 17 GM PACKET PO (12:30)
--- NOTE | 2020-06-01 16:16 | PN.ID_ITS ---
Patient Problems: Active and Suspected Problems (Last Reviewed 10/14/19 @ 09:10 by Carly Kay) Hypoxemia (Acute) Pneumonia due to COVID-19 virus (Acute) Severe sepsis (Acute) Acute respiratory failure with hypoxia (Acute) Subjective: Feeling better, no fever, still increased O2 reqs. No n/v/d. - Physical Exam Vitals/I&O's: Vital Signs Temp Pulse Resp BP Pulse Ox 97.2 F L 80 39 H 111/51 L 96 06/01/20 12:00 06/01/20 13:00 06/01/20 13:00 06/01/20 13:00 06/01/20 13:00 Oxygen Flow Rate (L/min) 50 Oxygen Delivery Method Nasal Cannula Weight: 81.5 kg Body Mass Index (BMI) 29.7 Intake and Output for Last 24 Hours 05/30/20 05/31/20 06/01/20 23:59 23:59 23:59 Intake Total 6087.25 / 6287.25 1930 / 1930 890 / 890 Output Total 3250 / 3350 2700 / 2900 1000 / 1000 Balance 2837.25 / 2937.25 -770 / -970 -110 / -110 General: Alert, Cooperative, No apparent distress Lungs: Clear to auscultation - improved air movement Cardiovascular: Regular rate, Regular Rhythm Abdomen: Soft, Non Tender, Non-Distended Skin: No rashes Microbiology Past 72 Hours 05/29/20 20:05 Blood Culture (Wb) - Right Hand Blood Culture - Preliminary No growth in 48 hours. 05/29/20 19:00 Blood Culture (Wb) - Anticubital Right Blood Culture - Preliminary No growth in 48 hours. Laboratory Results 05/31/20 16:48: POC Glucose 135 H 05/31/20 22:41: POC Glucose 111 H 06/01/20 05:47: POC Glucose 87 06/01/20 05:53: WBC 15.4 H, RBC 3.67 L, Hgb 9.8 L, Hct 31.1 L, MCV 84.7, MCH 26.7 L, MCHC 31.5 L D, RDW Std Deviation 46.2 H, RDW Coeff of Edwar 15.3 H, Plt Count 224, MPV 9.3 06/01/20 05:53: Sodium 136, Potassium 3.4 L, Chloride 100, Carbon Dioxide 29.0, Anion Gap 7, BUN 18, Creatinine 0.78, Estim Creat Clear Calc 47.79, Est GFR (MDRD) Af Amer 95, Est GFR (MDRD) Non-Af 79, BUN/Creatinine Ratio 23.2 H, Glucose 86, Calcium 7.1 L, Total Bilirubin 0.40, AST 21, ALT 39, Alkaline Phosphatase 94, Total Protein 6.2 L, Albumin 2.2 L, Globulin 4.0, Albumin/Globulin Ratio 0.6 L 06/01/20 05:53: Magnesium 2.0 Current Medications Acetaminophen (Tylenol) 650 mg PO Q6H PRN PRN PRN Reason: Pain Score 1-10/Temp > 100.7 F Albuterol/Ipratropium (Duoneb) 3 ml INHALATION Q4H.RT PRN PRN Reason: Asthma Last Admin: 05/30/20 10:26 Dose: 3 ml Documented by: [facility] Last Admin: 06/01/20 09:20 Dose: 81 mg Documented by: Atorvastatin Calcium (Lipitor) 20 mg PO Q3D@2200 [facility] Last Admin: 05/30/20 22:04 Dose: 20 mg Documented by: Calcitriol (Rocaltrol) 0.25 mcg PO DAILY [facility] Last Admin: 06/01/20 09:21 Dose: 0.25 mcg Documented by: Calcium Carbonate (Os-Moe 500) 500 mg PO DAILY [facility] Last Admin: 06/01/20 09:21 Dose: 500 mg Documented by: Dexamethasone Sodium Phosphate (Decadron) 6 mg IV DAILY [facility] Stop: 06/08/20 21:08 Last Admin: 06/01/20 09:23 Dose: 6 mg Documented by: Ezetimibe (Zetia) 10 mg PO DAILY [facility] Last Admin: 06/01/20 09:22 Dose: 10 mg Documented by: Enoxaparin Sodium (Lovenox) 80 mg SC Q12 [facility] Last Admin: 06/01/20 09:26 Dose: 80 mg Documented by: Guaifenesin (Mucinex) 1,200 mg PO BID [facility] Last Admin: 06/01/20 09:22 Dose: 1,200 mg Documented by: Sodium Chloride () 250 mls @ 15 mls/hr IV .[id number] PRN PRN Reason: Saline Flush Sodium Chloride () 250 mls @ 15 mls/hr IV .[id number] PRN PRN Reason: Additional IVPB Infusion Remdesivir (Investigational) (100 mg/ Sodium Chloride) 250 mls @ 125 mls/hr IV DAILY [facility] Stop: 06/03/20 11:59 Last Admin: 06/01/20 12:25 Dose: 125 mls/hr Documented by: Ibuprofen (Motrin) 600 mg PO Q8H PRN PRN PRN Reason: Pain 1-1010 or Fever Last Admin: 05/31/20 22:42 Dose: 600 mg Documented by: Losartan Potassium (Cozaar) 50 mg PO DAILY [facility] Last Admin: 06/01/20 09:21 Dose: 50 mg Documented by: Melatonin (Melatonin) 3 mg PO QHS PRN PRN Reason: SLEEP Last Admin: 05/31/20 22:42 Dose: 3 mg Documented by: Montelukast Sodium (Singulair) 10 mg PO QHS [facility] Last Admin: 05/31/20 22:42 Dose: 10 mg Documented by: Nitroglycerin (Nitrostat) 0.4 mg SUBLINGUAL Q5M PRN PRN Reason: CARDIAC/CHEST PAIN Ondansetron HCl (Zofran) 4 mg IV Q8H PRN PRN PRN Reason: NAUSEA/VOMITING Last Admin: 05/30/20 20:09 Dose: 4 mg Documented by: Pantoprazole Sodium (Protonix) 40 mg PO DAILY [facility] Last Admin: 06/01/20 09:21 Dose: 40 mg Documented by: Polyethylene Glycol (Miralax) 17 gm PO DAILY [facility] Last Admin: 06/01/20 12:30 Dose: 17 gm Documented by: Potassium Chloride (K-Dur) 20 meq PO BIDCM [facility] Stop: 06/01/20 17:01 Last Admin: 06/01/20 09:23 Dose: 20 meq Documented by: Sodium Chloride () 10 - 40 ml IV UD PRN PRN Reason: SALINE FLUSH Last Admin: 06/01/20 09:27 Dose: 20 ml Documented by: Throat Lozenges (Cepacol Sore Throat Lozenge) 1 lozenge MUCOUS MEM Q2H PRN PRN PRN Reason: SORE THROAT Venlafaxine HCl (Effexor Xr) 150 mg PO DAILY [facility] Last Admin: 06/01/20 09:21 Dose: 150 mg Documented by: Medical Necessity - Tobacco Use Smoking Status: Never smoker Route of nutrition/ use of supplements: [] Nutritional Intake: [] IV Site: [] Barron Catheter: [] - Assessment/Plan Antibiotics: [] Assessment/Plan: [] Active and Suspected Problems (Last Reviewed 10/14/19 @ 09:10 by Carly Kay) Hypoxemia (Acute) Pneumonia due to COVID-19 virus (Acute) Severe sepsis (Acute) Acute respiratory failure with hypoxia (Acute) Covid with lactic acidosis, hypoxic resp failure - sx started 05/20. On dexamethasone. Normal d-dimer. Evening of 05/30 received convalescent plasma. 05/30 started 5 day course of remdesivir. Feeling better today. Will follow
[2020-06-01] MEDS: MELATONIN 3 MG TABLET PO (21:53)
[2020-06-01] MEDS: Montelukast 10 MG Tablet PO (21:53)
[2020-06-01] MEDS: Ibuprofen 600 MG Tablet PO (21:55)
[2020-06-02] VITALS (34 sets, daily range): BP systolic 89–125; BP diastolic 49–89; PULSE 60–94; RESP 17–34; TEMP 36.8–37.4; O2SAT 90–100
[2020-06-02] MEDS: 0.9% Saline Lock 10 ML Syringe IV ×2 (04:06→08:04)
[2020-06-02 04:15] LABS: Hematocrit 33.2 % (37-47); Hemoglobin 10.2 g/dL (12.0-15.0); Mean Corp Hgb Conc 30.7 g/dL (32-36); Mean Corpuscular Hgb 25.7 pg (27.0-32.0); Mean Corpuscular Volume 83.6 fL (81-99); Mean Platelet Vol. 9.6 fl (6.2-12.0); Platelet Count 295 K/mm3 (150-450); RBC Distribution Width CV 14.9 % (11.6-14.6); RBC Distribution Width SD 45.1 fl (35.1-43.9); Red Blood Count 3.97 M/mm3 (4.2-5.4); White Blood Count 17.8 K/mm3 (4.4-11.0)
[2020-06-02 04:32] LABS: ALB/GLOB Ratio 0.5 RATIO (0.9-2.4); AST(SGOT) 20 U/L (15-37); Alanine Aminotransfer ALT/SGPT 33 U/L (13-56); Albumin, Serum 2.2 g/dL (3.2-5.0); Alkaline Phosphatase 89 U/L (45-117); Anion Gap 8 (5-15); BUN 18 mg/dL (7-18); BUN/Creat Ratio 24.7 RATIO (10-20); Calcium,Total 7.4 mg/dL (8.5-10.1); Chloride 102 mmol/L (98-107); Creatinine, Serum 0.73 mg/dL (0.55-1.02); EST Glomerular Filtration Rate 85 mL/min (>60); Est Glom Filt Rate - Afr Amer 103 mL/min (>60); Estimated Creatinine Clearance 47.79 ml/min; Globulin 4.1 g/dL (2.2-4.2); Glucose 92 mg/dL (74-106); Potassium 3.6 mmol/L (3.5-5.1); Protein, Total 6.3 g/dL (6.4-8.2); Sodium Level 136 mmol/L (136-145)
[2020-06-02] MEDS: Calcium (Elemental) 500 MG Tablet PO (08:01)
[2020-06-02] MEDS: Losartan Potassium 50 MG Tablet PO (08:01)
[2020-06-02] MEDS: Venlafaxine XR 150 MG Capsule PO (08:01)
[2020-06-02] MEDS: Enoxaparin 80 MG/0.8 ML Syringe SC ×2 (08:01→21:12)
[2020-06-02] MEDS: Calcitriol 0.25 MCG Capsule PO (08:01)
[2020-06-02] MEDS: Aspirin 81 MG TAB.CHEW PO (08:02)
[2020-06-02] MEDS: Ezetimibe 10 MG Tablet PO (08:02)
[2020-06-02] MEDS: dexAMETHasone 4 MG/ML Vial 6 MG IV (08:03)
[2020-06-02] MEDS: Pantoprazole Sodium 40 MG Tablet PO (08:04)
[2020-06-02] MEDS: guaiFENesin 1,200 MG Tablet 1200 MG PO ×2 (08:04→21:12)
[2020-06-02] MEDS: Polyethylene Glycol 3350 17 GM PACKET PO (08:04)
--- NOTE | 2020-06-02 10:14 | PN_ITS ---
Patient Problems: Active and Suspected Problems (Last Reviewed 10/14/19 @ 09:10 by Carly Kay) Hypoxemia (Acute) Pneumonia due to COVID-19 virus (Acute) Severe sepsis (Acute) Acute respiratory failure with hypoxia (Acute) Reason for Visit: COVID Subjective: Breathing better. Tolerating high-flow oxygen was able to be titrated down to 40%, but increased back to 50%. No edema. Vitals/I&O's: Vital Signs Temp Pulse Resp BP Pulse Ox 36.8 C 69 32 H 104/59 L 92 06/02/20 04:00 06/02/20 07:18 06/02/20 07:00 06/02/20 07:00 06/02/20 07:00 Oxygen Flow Rate (L/min) 50 Oxygen Delivery Method CPAP Weight: 80.1 kg Body Mass Index (BMI) 29.7 Intake and Output for Last 24 Hours 05/31/20 06/01/20 06/02/20 23:59 23:59 23:59 Intake Total 1930 / 1930 2280 / 2520 600 / 600 Output Total 2700 / 2900 2500 / 2550 925 / 925 Balance -770 / -970 -220 / -30 -325 / -325 General: Alert, No apparent distress HEENT: Atraumatic, Normocephalic Oral: Moist Mucosa, No Gingival or Mucosal Lesions/ Ulcerations Neck: No Nodes, Thyroid Normal Size and Texture Lungs: Normal air movement, - - crackles RUL Cardiovascular: Regular rate, Regular Rhythm, Normal S1, Normal S2, No murmurs Abdomen: Bowel Sounds Present, Soft, Non Tender, Non-Distended Extremities: No edema, No Calf Tenderness Skin: No rashes, No breakdown Psych/Mental Status: Normal Affect, Appropriate Microbiology Past 72 Hours 05/29/20 20:05 Blood Culture (Wb) - Right Hand Blood Culture - Preliminary No growth in 48 hours. 05/29/20 19:00 Blood Culture (Wb) - Anticubital Right Blood Culture - Preliminary No growth in 48 hours. Laboratory Results 06/02/20 04:00: WBC 17.8 H, RBC 3.97 L, Hgb 10.2 L, Hct 33.2 L, MCV 83.6, MCH 25.7 L, MCHC 30.7 L, RDW Std Deviation 45.1 H, RDW Coeff of Edwar 14.9 H, Plt Count 295, MPV 9.6 06/02/20 04:00: Sodium 136, Potassium 3.6, Chloride 102, Carbon Dioxide 26.0, Anion Gap 8, BUN 18, Creatinine 0.73, Estim Creat Clear Calc 47.79, Est GFR (MDRD) Af Amer 103, Est GFR (MDRD) Non-Af 85, BUN/Creatinine Ratio 24.7 H, Glucose 92, Calcium 7.4 L, Total Bilirubin 0.40, AST 20, ALT 33, Alkaline Phosphatase 89, Total Protein 6.3 L, Albumin 2.2 L, Globulin 4.1, Alb umin/Globulin Ratio 0.5 L Current Medications Acetaminophen (Tylenol) 650 mg PO Q6H PRN PRN PRN Reason: Pain Score 1-10/Temp > 100.7 F Albuterol/Ipratropium (Duoneb) 3 ml INHALATION Q4H.RT PRN PRN Reason: Asthma Last Admin: 05/30/20 10:26 Dose: 3 ml Documented by: [facility] Admin: 06/02/20 08:02 Dose: 81 mg Documented by: Atorvastatin Calcium (Lipitor) 20 mg PO Q3D@2200 [facility] Last Admin: 05/30/20 22:04 Dose: 20 mg Documented by: Calcitriol (Rocaltrol) 0.25 mcg PO DAILY [facility] Last Admin: 06/02/20 08:01 Dose: 0.25 mcg Documented by: Calcium Carbonate (Os-Moe 500) 500 mg PO DAILY [facility] Last Admin: 06/02/20 08:01 Dose: 500 mg Documented by: Dexamethasone Sodium Phosphate (Decadron) 6 mg IV DAILY [facility] Stop: 06/08/20 21:08 Last Admin: 06/02/20 08:03 Dose: 6 mg Documented by: Ezetimibe (Zetia) 10 mg PO DAILY [facility] Last Admin: 06/02/20 08:02 Dose: 10 mg Documented by: Enoxaparin Sodium (Lovenox) 80 mg SC Q12 [facility] Last Admin: 06/02/20 08:01 Dose: 80 mg Documented by: Guaifenesin (Mucinex) 1,200 mg PO BID [facility] Last Admin: 06/02/20 08:04 Dose: 1,200 mg Documented by: Sodium Chloride () 250 mls @ 15 mls/hr IV .[id number] PRN PRN Reason: Saline Flush Sodium Chloride () 250 mls @ 15 mls/hr IV .[id number] PRN PRN Reason: Additional IVPB Infusion Remdesivir (Investigational) (100 mg/ Sodium Chloride) 250 mls @ 125 mls/hr IV DAILY [facility] Stop: 06/03/20 11:59 Last Infusion: 06/01/20 14:25 Dose: Infused Documented by: Ibuprofen (Motrin) 600 mg PO Q8H PRN PRN PRN Reason: Pain 1-08/06 or Fever Last Admin: 06/01/20 21:55 Dose: 600 mg Documented by: Losartan Potassium (Cozaar) 50 mg PO DAILY [facility] Last Admin: 06/02/20 08:01 Dose: 50 mg Documented by: Melatonin (Melatonin) 3 mg PO QHS PRN PRN Reason: SLEEP Last Admin: 06/01/20 21:53 Dose: 3 mg Documented by: Montelukast Sodium (Singulair) 10 mg PO QHS [facility] Last Admin: 06/01/20 21:53 Dose: 10 mg Documented by: Nitroglycerin (Nitrostat) 0.4 mg SUBLINGUAL Q5M PRN PRN Reason: CARDIAC/CHEST PAIN Ondansetron HCl (Zofran) 4 mg IV Q8H PRN PRN PRN Reason: NAUSEA/VOMITING Last Admin: 05/30/20 20:09 Dose: 4 mg Documented by: Pantoprazole Sodium (Protonix) 40 mg PO DAILY [facility] Last Admin: 06/02/20 08:04 Dose: 40 mg Documented by: Polyethylene Glycol (Miralax) 17 gm PO DAILY [facility] Last Admin: 06/02/20 08:04 Dose: 17 gm Documented by: Sodium Chloride () 10 - 40 ml IV UD PRN PRN Reason: SALINE FLUSH Last Admin: 06/02/20 08:04 Dose: 10 ml Documented by: Throat Lozenges (Cepacol Sore Throat Lozenge) 1 lozenge MUCOUS MEM Q2H PRN PRN PRN Reason: SORE THROAT Venlafaxine HCl (Effexor Xr) 150 mg PO DAILY [facility] Last Admin: 06/02/20 08:01 Dose: 150 mg Documented by: STROKE Vital Signs/Narrative: Vital Signs Pulse Resp BP Pulse Ox 06/02/20 07:18 69 06/02/20 07:00 66 32 H 104/59 L 92 06/02/20 06:45 76 22 H 93 Medical Necessity - Tobacco Use Smoking Status: Never smoker Assessment/Plan All Active Problems (Last Reviewed 10/14/19 @ 09:10 by Carly Kay) Hypoxemia (Acute) Pneumonia due to COVID-19 virus (Acute) Severe sepsis (Acute) Acute respiratory failure with hypoxia (Acute) 1. COVID-19, acute * dexamethasone 6mg through the * remdesivir started on 05/30 * convalescent plasma on 05/30 * therapeutic enoxaparin on 05/30 * wean oxygen as tolerated * d-dimer normal * ID following 2. Acute hypoxic respiratory failure * 2/2 above plus underlying asthma * stable on high-flow oxygen 3. Severe sepsis * 2/2 COVID * ID following, abx discontinued 4. chronic diseases: overall stable, but complicate overall care * Sjogren's * GERD * gastroparesis * fibromyalgia * vitamin D deficiency * hyperlipidemia: continue statin, azetimibe * HTN: losartan 5. VTE prophylaxis: Inpatient E&M: 13378 Subs Hosp L2
--- NOTE | 2020-06-02 10:16 | PCM.PN.INT ---
Subjective: Patient states that she feels subjectively improved compared to previous. Attempts to wean oxygen overnight have been unsuccessful. Patient has been desaturating quickly with activity. General: Alert, Oriented x3, Cooperative, - - Appears anxious but appropriate. Mild conversational dyspnea. HEENT: Atraumatic, PERRLA, EOMI, Normocephalic, - - No scleral icterus or injection noted Oral: Moist Mucosa, No Gingival or Mucosal Lesions/ Ulcerations Neck: Supple, No JVD, No Nodes, Trachea Midline Lungs: No rhonchi, No wheeze, No rales, Diminished, - - Symmetric expansion. No dullness to percussion. Cardiovascular: Regular rate, Regular Rhythm, Normal S1, Normal S2, No murmurs, No rub noted, No Gallop Abdomen: Bowel Sounds Present, Soft, Non Tender, Non-Distended Extremities: No clubbing, No cyanosis, No edema, Capillary Refill Less than 3 Seconds Skin: No rashes, No breakdown Musculoskeletal: No Tenderness to Palpation of Joints or Extremities Lymphatic: No Cervical, Supraclavicular, or Inguinal Adenopathy Neurological: Cranial nerves II-XII grossly intact, Neuro grossly intact, Motor Exam 5/5 strength throughout Psych/Mental Status: Appropriate, Anxious Vital Signs Temp Pulse Resp BP Pulse Ox 36.8 C 69 32 H 104/59 L 92 06/02/20 04:00 06/02/20 07:18 06/02/20 07:00 06/02/20 07:00 06/02/20 07:00 Oxygen Flow Rate (L/min) 50 Oxygen Delivery Method CPAP Weight: 80.1 kg Body Mass Index (BMI) 29.7 Intake and Output for Last 24 Hours 05/31/20 06/01/20 06/02/20 23:59 23:59 23:59 Intake Total 1930 / 1930 2280 / 2520 600 / 600 Output Total 2700 / 2900 2500 / 2550 925 / 925 Balance -770 / -970 -220 / -30 -325 / -325 Labs (Last 48 Hours) 05/31/20 05/31/20 05/31/20 12:15 16:48 22:41 WBC RBC Hgb Hct MCV MCH MCHC RDW Std Deviation RDW Coeff of Edwar Plt Count MPV Sodium Potassium Chloride Carbon Dioxide Anion Gap BUN Creatinine Estim Creat Clear Calc Est GFR (MDRD) Af Amer Est GFR (MDRD) Non-Af BUN/Creatinine Ratio Glucose Calcium Magnesium Total Bilirubin AST ALT Alkaline Phosphatase Total Protein Albumin Globulin Albumin/Globulin Ratio POC Glucose 112 H 135 H 111 H 06/01/20 06/01/20 06/01/20 05:47 05:53 05:53 WBC 15.4 H RBC 3.67 L Hgb 9.8 L Hct 31.1 L MCV 84.7 MCH 26.7 L MCHC 31.5 L D RDW Std Deviation 46.2 H RDW Coeff of Edwar 15.3 H Plt Count 224 MPV 9.3 Sodium 136 Potassium 3.4 L Chloride 100 Carbon Dioxide 29.0 Anion Gap 7 BUN 18 Creatinine 0.78 Estim Creat Clear Calc 47.79 Est GFR (MDRD) Af Amer 95 Est GFR (MDRD) Non-Af 79 BUN/Creatinine Ratio 23.2 H Glucose 86 Calcium 7.1 L Magnesium Total Bilirubin 0.40 AST 21 ALT 39 Alkaline Phosphatase 94 Total Protein 6.2 L Albumin 2.2 L Globulin 4.0 Albumin/Globulin Ratio 0.6 L POC Glucose 87 06/01/20 06/02/20 06/02/20 05:53 04:00 04:00 WBC 17.8 H RBC 3.97 L Hgb 10.2 L Hct 33.2 L MCV 83.6 MCH 25.7 L MCHC 30.7 L RDW Std Deviation 45.1 H RDW Coeff of Edwar 14.9 H Plt Count 295 MPV 9.6 Sodium 136 Potassium 3.6 Chloride 102 Carbon Dioxide 26.0 Anion Gap 8 BUN 18 Creatinine 0.73 Estim Creat Clear Calc 47.79 Est GFR (MDRD) Af Amer 103 Est GFR (MDRD) Non-Af 85 BUN/Creatinine Ratio 24.7 H Glucose 92 Calcium 7.4 L Magnesium 2.0 Total Bilirubin 0.40 AST 20 ALT 33 Alkaline Phosphatase 89 Total Protein 6.3 L Albumin 2.2 L Globulin 4.1 Albumin/Globulin Ratio 0.5 L POC Glucose Microbiology 05/29/20 20:05 Blood Culture (Wb) - Right Hand Blood Culture - Preliminary No growth in 48 hours. 05/29/20 19:00 Blood Culture (Wb) - Anticubital Right Blood Culture - Preliminary No growth in 48 hours. Medical Necessity - Tobacco Use Smoking Status: Never smoker Assessment/Plan All Active Problems (Last Reviewed 10/14/19 @ 09:10 by Carly Kay) Hypoxemia (Acute) Pneumonia due to COVID-19 virus (Acute) Severe sepsis (Acute) Acute respiratory failure with hypoxia (Acute) RECOMMENDATIONS: 1. Dose Lasix intermittently to help with fluid status. Replete potassium 2. Continue Lovenox, Remdesivir and Decadron 3. Continue high flow nasal cannula and wean oxygen as tolerated 4. Increase activity and wean oxygen as tolerated 5. Attempt fluid restriction 6. Confirmed full CODE STATUS IMPRESSIONS: 1. Acute hypoxic respiratory failure secondary to COVID-19 Unclear if patient has a superinfection at this time his procalcitonin is normal. Patient does have elevated inflammatory markers and bilateral infiltrates. Antibiotics discontinued shortly after admission. Patient will be continued on dexamethasone. Lovenox will be continued at therapeutic dosing. Patient tolerating high flow nasal cannula. Given typical course, anticipate peak symptoms at this point. Will give a dose of Lasix intermittently to keep fluid status under control. 2. Asthma/history of Sjogren's syndrome Increases risk for complications associated to problem #1. Patient is getting Decadron, so Pulmicort is not necessary. Continue with bronchodilator therapy. It is unclear if patient has pulmonary involvement at baseline. Can attempt to obtain old information. Keep saturations greater than 90% to avoid exacerbations of pulmonary hypertension. 3. Hypertension/hyperlipidemia/history of GERD/fibromyalgia/delayed presentation Complicates care, management, recovery and prognosis. Patient will be continued on PPI. Okay to continue with antihypertensive and anti-hyperlipidemia medications at this time. May need to hold losartan if renal dysfunction ensues. Elevated lactate on presentation likely secondary to hypoxia. Would limit fluid intake given respiratory status. Did confirm with the patient that she is a full CODE STATUS. Inpatient E&M: [id number] [facility] Hosp L3
--- NOTE | 2020-06-02 10:27 | PN.ID_ITS ---
Patient Problems: Active and Suspected Problems (Last Reviewed 10/14/19 @ 09:10 by Carly Kay) Hypoxemia (Acute) Pneumonia due to COVID-19 virus (Acute) Severe sepsis (Acute) Acute respiratory failure with hypoxia (Acute) Subjective: Feeling about the same. No fever. Still some cough and dyspnea. - Physical Exam Vitals/I&O's: Vital Signs Temp Pulse Resp BP Pulse Ox 98.3 F 69 32 H 104/59 L 92 06/02/20 04:00 06/02/20 07:18 06/02/20 07:00 06/02/20 07:00 06/02/20 07:00 Oxygen Flow Rate (L/min) 50 Oxygen Delivery Method CPAP Weight: 80.1 kg Body Mass Index (BMI) 29.7 Intake and Output for Last 24 Hours 05/31/20 06/01/20 06/02/20 23:59 23:59 23:59 Intake Total 1930 / 1930 2280 / 2520 600 / 600 Output Total 2700 / 2900 2500 / 2550 925 / 925 Balance -770 / -970 -220 / -30 -325 / -325 General: Alert, Cooperative, No apparent distress Lungs: Diminished Cardiovascular: Regular rate, Regular Rhythm Abdomen: Soft, Non Tender, Non-Distended Skin: No rashes Microbiology Past 72 Hours 05/29/20 20:05 Blood Culture (Wb) - Right Hand Blood Culture - Preliminary No growth in 48 hours. 05/29/20 19:00 Blood Culture (Wb) - Anticubital Right Blood Culture - Preliminary No growth in 48 hours. Laboratory Results 06/02/20 04:00: WBC 17.8 H, RBC 3.97 L, Hgb 10.2 L, Hct 33.2 L, MCV 83.6, MCH 25.7 L, MCHC 30.7 L, RDW Std Deviation 45.1 H, RDW Coeff of Edwar 14.9 H, Plt Count 295, MPV 9.6 06/02/20 04:00: Sodium 136, Potassium 3.6, Chloride 102, Carbon Dioxide 26.0, Anion Gap 8, BUN 18, Creatinine 0.73, Estim Creat Clear Calc 47.79, Est GFR (MDRD) Af Amer 103, Est GFR (MDRD) Non-Af 85, BUN/Creatinine Ratio 24.7 H, Glucose 92, Calcium 7.4 L, Total Bilirubin 0.40, AST 20, ALT 33, Alkaline Phosphatase 89, Total Protein 6.3 L, Albumin 2.2 L, Globulin 4.1, Albumin/Globulin Ratio 0.5 L Current Medications Acetaminophen (Tylenol) 650 mg PO Q6H PRN PRN PRN Reason: Pain Score 1-10/Temp > 100.7 F Albuterol/Ipratropium (Duoneb) 3 ml INHALATION Q4H.RT PRN PRN Reason: Asthma Last Admin: 05/30/20 10:26 Dose: 3 ml Documented by: Aspirin (Aspirin, Baby) 81 mg PO DAILYCM [facility] Last Admin: 06/02/20 08:02 Dose: 81 mg Documented by: Atorvastatin Calcium (Lipitor) 20 mg PO Q3D@2200 [facility] Last Admin: 05/30/20 22:04 Dose: 20 mg Documented by: Calcitriol (Rocaltrol) 0.25 mcg PO DAILY [facility] Last Admin: 06/02/20 08:01 Dose: 0.25 mcg Documented by: Calcium Carbonate (Os-Moe 500) 500 mg PO DAILY [facility] Last Admin: 06/02/20 08:01 Dose: 500 mg Documented by: Dexamethasone Sodium Phosphate (Decadron) 6 mg IV DAILY [facility] Stop: 06/08/20 21:08 Last Admin: 06/02/20 08:03 Dose: 6 mg Documented by: Ezetimibe (Zetia) 10 mg PO DAILY [facility] Last Admin: 06/02/20 08:02 Dose: 10 mg Documented by: Enoxaparin Sodium (Lovenox) 80 mg SC Q12 [facility] Last Admin: 06/02/20 08:01 Dose: 80 mg Documented by: Guaifenesin (Mucinex) 1,200 mg PO BID [facility] Last Admin: 06/02/20 08:04 Dose: 1,200 mg Documented by: Sodium Chloride () 250 mls @ 15 mls/hr IV .[id number] PRN PRN Reason: Saline Flush Sodium Chloride () 250 mls @ 15 mls/hr IV .[id number] PRN PRN Reason: Additional IVPB Infusion Remdesivir (Investigational) (100 mg/ Sodium Chloride) 250 mls @ 125 mls/hr IV DAILY [facility] Stop: 06/03/20 11:59 Last Infusion: 06/01/20 14:25 Dose: Infused Documented by: Ibuprofen (Motrin) 600 mg PO Q8H PRN PRN PRN Reason: Pain 1-10 or Fever Last Admin: 06/01/20 21:55 Dose: 600 mg Documented by: Losartan Potassium (Cozaar) 50 mg PO DAILY [facility] Last Admin: 06/02/20 08:01 Dose: 50 mg Documented by: Melatonin (Melatonin) 3 mg PO QHS PRN PRN Reason: SLEEP Last Admin: 06/01/20 21:53 Dose: 3 mg Documented by: Montelukast Sodium (Singulair) 10 mg PO QHS [facility] Last Admin: 06/01/20 21:53 Dose: 10 mg Documented by: Nitroglycerin (Nitrostat) 0.4 mg SUBLINGUAL Q5M PRN PRN Reason: CARDIAC/CHEST PAIN Ondansetron HCl (Zofran) 4 mg IV Q8H PRN PRN PRN Reason: NAUSEA/VOMITING Last Admin: 05/30/20 20:09 Dose: 4 mg Documented by: Pantoprazole Sodium (Protonix) 40 mg PO DAILY [facility] Last Admin: 06/02/20 08:04 Dose: 40 mg Documented by: Polyethylene Glycol (Miralax) 17 gm PO DAILY [facility] Last Admin: 06/02/20 08:04 Dose: 17 gm Documented by: Senna/Docusate Sodium (Senokot-S, Tena-Colace) 2 tablet PO BID PRN PRN Reason: Constipation Sodium Chloride () 10 - 40 ml IV UD PRN PRN Reason: SALINE FLUSH Last Admin: 06/02/20 08:04 Dose: 10 ml Documented by: Throat Lozenges (Cepacol Sore Throat Lozenge) 1 lozenge MUCOUS MEM Q2H PRN PRN PRN Reason: SORE THROAT Venlafaxine HCl (Effexor Xr) 150 mg PO DAILY [facility] Last Admin: 06/02/20 08:01 Dose: 150 mg Documented by: Medical Necessity - Tobacco Use Smoking Status: Never smoker Route of nutrition/ use of supplements: [] Nutritional Intake: [] IV Site: [] Barron Catheter: [] - Assessment/Plan Antibiotics: [] Assessment/Plan: [] Active and Suspected Problems (Last Reviewed 10/14/19 @ 09:10 by Carly Kay) Hypoxemia (Acute) Pneumonia due to COVID-19 virus (Acute) Severe sepsis (Acute) Acute respiratory failure with hypoxia (Acute) Covid with lactic acidosis, hypoxic resp failure - sx started 05/20. On dexamethasone. Normal d-dimer. Evening of 05/30 received convalescent plasma. 05/30 started 5 day course of remdesivir. Will follow
[2020-06-02] MEDS: Atorvastatin Calcium 20 MG Tablet PO (21:11)
[2020-06-02] MEDS: Montelukast 10 MG Tablet PO (21:12)
[2020-06-02] MEDS: MELATONIN 3 MG TABLET PO (22:00)
[2020-06-03] VITALS (34 sets, daily range): BP systolic 86–154; BP diastolic 43–74; PULSE 66–88; RESP 15–37; TEMP 36–36.8; O2SAT 84–100
[2020-06-03] MEDS: CHLORHEXIDINE GLUC 2% CLOTH 1 EACH TOWELETTE TOPICAL (00:14)
[2020-06-03 04:46] LABS: Hematocrit 31.1 % (37-47); Hemoglobin 9.4 g/dL (12.0-15.0); Mean Corp Hgb Conc 30.2 g/dL (32-36); Mean Corpuscular Hgb 25.4 pg (27.0-32.0); Mean Corpuscular Volume 84.1 fL (81-99); Mean Platelet Vol. 9.8 fl (6.2-12.0); Platelet Count 288 K/mm3 (150-450); RBC Distribution Width CV 14.7 % (11.6-14.6); RBC Distribution Width SD 44.8 fl (35.1-43.9)
[2020-06-03 05:01] LABS: ALB/GLOB Ratio 0.5 RATIO (0.9-2.4); AST(SGOT) 14 U/L (15-37); Alanine Aminotransfer ALT/SGPT 28 U/L (13-56); Alkaline Phosphatase 77 U/L (45-117); Anion Gap 7 (5-15); BUN 16 mg/dL (7-18); BUN/Creat Ratio 24.2 RATIO (10-20); Calcium,Total 7.3 mg/dL (8.5-10.1); Chloride 104 mmol/L (98-107); Creatinine, Serum 0.66 mg/dL (0.55-1.02); EST Glomerular Filtration Rate 95 mL/min (>60); Est Glom Filt Rate - Afr Amer 115 mL/min (>60); Estimated Creatinine Clearance 47.79 ml/min; Globulin 3.7 g/dL (2.2-4.2); Glucose 87 mg/dL (74-106); Potassium 3.5 mmol/L (3.5-5.1); Protein, Total 5.7 g/dL (6.4-8.2); Sodium Level 136 mmol/L (136-145)
--- NOTE | 2020-06-03 07:29 | PCM.PN.INT ---
Subjective: Patient did well overnight. No acute issues were reported. Patient has been improving slowly with oxygenation requirements. Patient subjectively feels that she is improving. General: Alert, Oriented x3, Cooperative, No apparent distress, - - Conversational dyspnea is improving. HEENT: Atraumatic, PERRLA, EOMI, Normocephalic, - - No scleral icterus or injection noted Oral: Moist Mucosa, No Gingival or Mucosal Lesions/ Ulcerations Neck: Supple, No JVD, No Nodes, Trachea Midline Lungs: No rhonchi, No rales, Diminished, Wheezes - Sporadic, - - Symmetric expansion. Cardiovascular: Regular rate, Regular Rhythm, Normal S1, Normal S2, No murmurs, No rub noted, No Gallop Abdomen: Bowel Sounds Present, Soft, Non Tender, Non-Distended, Obese Extremities: No clubbing, No cyanosis, Capillary Refill Less than 3 Seconds, Edema - Trace lower extremity Skin: - - No change compared to previous Musculoskeletal: No Tenderness to Palpation of Joints or Extremities Lymphatic: No Cervical, Supraclavicular, or Inguinal Adenopathy Neurological: Cranial nerves II-XII grossly intact, Neuro grossly intact, Motor Exam 5/5 strength throughout Psych/Mental Status: Alert and oriented to time, place, person, mood and affect Vital Signs Temp Pulse Resp BP Pulse Ox 36.6 C 71 28 H 107/51 L 91 06/03/20 04:00 06/03/20 07:00 06/03/20 07:00 06/03/20 07:00 06/03/20 07:00 Oxygen Flow Rate (L/min) 50 Oxygen Delivery Method Room Air Weight: 79.8 kg Body Mass Index (BMI) 29.7 Intake and Output for Last 24 Hours 06/01/20 06/02/20 06/03/20 23:59 23:59 23:59 Intake Total 2280 / 2520 2119.5 / 2119.5 50 / 50 Output Total 2500 / 2550 2150 / 2350 200 / 200 Balance -220 / -30 -30.5 / -230.5 -150 / -150 Labs (Last 48 Hours) 06/01/20 06/02/20 06/02/20 05:53 04:00 04:00 WBC 17.8 H RBC 3.97 L Hgb 10.2 L Hct 33.2 L MCV 83.6 MCH 25.7 L MCHC 30.7 L RDW Std Deviation 45.1 H RDW Coeff of Edwar 14.9 H Plt Count 295 MPV 9.6 Sodium 136 Potassium 3.6 Chloride 102 Carbon Dioxide 26.0 Anion Gap 8 BUN 18 Creatinine 0.73 Estim Creat Clear Calc 47.79 Est GFR (MDRD) Af Amer 103 Est GFR (MDRD) Non-Af 85 BUN/Creatinine Ratio 24.7 H Glucose 92 Calcium 7.4 L Magnesium 2.0 Total Bilirubin 0.40 AST 20 ALT 33 Alkaline Phosphatase 89 Total Protein 6.3 L Albumin 2.2 L Globulin 4.1 Albumin/Globulin Ratio 0.5 L 06/03/20 06/03/20 04:30 04:30 WBC 17.0 H RBC 3.70 L Hgb 9.4 L Hct 31.1 L MCV 84.1 MCH 25.4 L MCHC 30.2 L RDW Std Deviation 44.8 H RDW Coeff of Edwar 14.7 H Plt Count 288 MPV 9.8 Sodium 136 Potassium 3.5 Chloride 104 Carbon Dioxide 25.0 Anion Gap 7 BUN 16 Creatinine 0.66 Estim Creat Clear Calc 47.79 Est GFR (MDRD) Af Amer 115 Est GFR (MDRD) Non-Af 95 BUN/Creatinine Ratio 24.2 H Glucose 87 Calcium 7.3 L Magnesium Total Bilirubin 0.40 AST 14 L ALT 28 Alkaline Phosphatase 77 Total Protein 5.7 L Albumin 2.0 L Globulin 3.7 Albumin/Globulin Ratio 0.5 L Microbiology 05/29/20 20:05 Blood Culture (Wb) - Right Hand Blood Culture - Preliminary No growth in 48 hours. 05/29/20 19:00 Blood Culture (Wb) - Anticubital Right Blood Culture - Preliminary No growth in 48 hours. Medical Necessity - Tobacco Use Smoking Status: Never smoker Assessment/Plan All Active Problems (Last Reviewed 10/14/19 @ 09:10 by Carly Kay) Hypoxemia (Acute) Pneumonia due to COVID-19 virus (Acute) Severe sepsis (Acute) Acute respiratory failure with hypoxia (Acute) RECOMMENDATIONS: 1. Dose Lasix intermittently to help with fluid status. Replete potassium as indicated 2. Continue Lovenox, Remdesivir and Decadron 3. Continue high flow nasal cannula and wean oxygen as tolerated 4. Increase activity and wean oxygen as tolerated 5. Attempt fluid restriction 6. Confirmed full CODE STATUS IMPRESSIONS: 1. Acute hypoxic respiratory failure secondary to COVID-19 Patient has done well off of antibiotics. Patient does have elevated inflammatory markers and bilateral infiltrates. Antibiotics discontinued shortly after admission. Patient will be continued on dexamethasone. Lovenox will be continued at therapeutic dosing. Patient tolerating high flow nasal cannula. Continue to attempt to wean oxygen. Possibly try low flow nasal cannula later today. Will give a dose of Lasix intermittently to keep fluid status under control. 2. Asthma/history of Sjogren's syndrome Increases risk for complications associated to problem #1. Patient is getting Decadron, so Pulmicort is not necessary. Continue with bronchodilator therapy. It is unclear if patient has pulmonary involvement at baseline. Can attempt to obtain old information. Keep saturations greater than 90% to avoid exacerbations of pulmonary hypertension. 3. Hypertension/hyperlipidemia/history of GERD/fibromyalgia/delayed presentation Complicates care, management, recovery and prognosis. Patient will be continued on PPI. Okay to continue with antihypertensive and anti-hyperlipidemia medications at this time. May need to hold losartan if renal dysfunction ensues. Elevated lactate on presentation likely secondary to hypoxia. Would limit fluid intake given respiratory status. Did confirm with the patient that she is a full CODE STATUS. Inpatient E&M: [id number] [facility] Hosp L3
[2020-06-03] MEDS: Furosemide 20 MG/2 ML VIAL IV (10:27)
[2020-06-03] MEDS: guaiFENesin 1,200 MG Tablet 1200 MG PO ×2 (10:28→22:07)
[2020-06-03] MEDS: Losartan Potassium 50 MG Tablet PO (10:28)
[2020-06-03] MEDS: Enoxaparin 80 MG/0.8 ML Syringe SC ×2 (10:28→22:07)
[2020-06-03] MEDS: Venlafaxine XR 150 MG Capsule PO (10:29)
[2020-06-03] MEDS: Polyethylene Glycol 3350 17 GM PACKET PO (10:29)
[2020-06-03] MEDS: Calcitriol 0.25 MCG Capsule PO (10:29)
[2020-06-03] MEDS: Pantoprazole Sodium 40 MG Tablet PO (10:29)
[2020-06-03] MEDS: Aspirin 81 MG TAB.CHEW PO (10:29)
[2020-06-03] MEDS: Calcium (Elemental) 500 MG Tablet PO (10:29)
[2020-06-03] MEDS: dexAMETHasone 4 MG/ML Vial 6 MG IV (10:29)
[2020-06-03] MEDS: Ezetimibe 10 MG Tablet PO (10:29)
[2020-06-03] MEDS: Ibuprofen 600 MG Tablet PO (10:39)
--- NOTE | 2020-06-03 11:27 | PCM.PN.HOSP ---
Patient Problems: Active and Suspected Problems (Last Reviewed 10/14/19 @ 09:10 by Carly Kay) Hypoxemia (Acute) Pneumonia due to COVID-19 virus (Acute) Severe sepsis (Acute) Acute respiratory failure with hypoxia (Acute) Reason for Visit: COVID Subjective: Breathing well. Oxygen decreased to NC. Vitals/I&O's: Vital Signs Temp Pulse Resp BP Pulse Ox 36.0 C L 86 24 H 101/53 L 91 06/03/20 08:00 06/03/20 09:00 06/03/20 09:00 06/03/20 09:00 06/03/20 09:00 Oxygen Flow Rate (L/min) 50 Oxygen Delivery Method CPAP Weight: 79.8 kg Body Mass Index (BMI) 29.7 Intake and Output for Last 24 Hours 06/01/20 06/02/20 06/03/20 23:59 23:59 23:59 Intake Total 2280 / 2520 2119.5 / 2119.5 50 / 50 Output Total 2500 / 2550 2150 / 2350 300 / 300 Balance -220 / -30 -30.5 / -230.5 -250 / -250 General: Alert, No apparent distress HEENT: Atraumatic, Normocephalic Oral: Moist Mucosa, No Gingival or Mucosal Lesions/ Ulcerations Neck: No Nodes, Thyroid Normal Size and Texture Lungs: - - YAZMIN crackles. Bibasilar crackles. Cardiovascular: Regular rate, Regular Rhythm, Normal S1, Normal S2, No murmurs Abdomen: Bowel Sounds Present, Soft, Non Tender, Non-Distended, No Hepato-splenomegaly Extremities: No edema, No Calf Tenderness Skin: No rashes, No breakdown Psych/Mental Status: Normal Affect, Appropriate Microbiology Past 72 Hours 05/29/20 20:05 Blood Culture (Wb) - Right Hand Blood Culture - Preliminary No growth in 48 hours. 05/29/20 19:00 Blood Culture (Wb) - Anticubital Right Blood Culture - Preliminary No growth in 48 hours. Laboratory Results 06/03/20 04:30: WBC 17.0 H, RBC 3.70 L, Hgb 9.4 L, Hct 31.1 L, MCV 84.1, MCH 25.4 L, MCHC 30.2 L, RDW Std Deviation 44.8 H, RDW Coeff of Edwar 14.7 H, Plt Count 288, MPV 9.8 06/03/20 04:30: Sodium 136, Potassium 3.5, Chloride 104, Carbon Dioxide 25.0, Anion Gap 7, BUN 16, Creatinine 0.66, Estim Creat Clear Calc 47.79, Est GFR (MDRD) Af Amer 115, Est GFR (MDRD) Non-Af 95, BUN/Creatinine Ratio 24.2 H, Glucose 87, Calcium 7.3 L, Total Bilirubin 0.40, AST 14 L, ALT 28, Alkaline Phosphatase 77, Total Protein 5.7 L, Albumin 2.0 L, Globulin 3.7, Albumin/Globulin Ratio 0.5 L Current Medications Acetaminophen (Tylenol) 650 mg PO Q6H PRN PRN PRN Reason: Pain Score 1-10/Temp > 100.7 F Albuterol/Ipratropium (Duoneb) 3 ml INHALATION Q4H.RT PRN PRN Reason: Asthma Last Admin: 05/30/20 10:26 Dose: 3 ml Documented by: [facility], [facility]) [facility] Last Admin: 06/03/20 10:29 Dose: 81 mg Documented by: Atorvastatin Calcium (Lipitor) 20 mg PO Q3D@2200 [facility] Last Admin: 06/02/20 21:11 Dose: 20 mg Documented by: Calcitriol (Rocaltrol) 0.25 mcg PO DAILY [facility] Last Admin: 06/03/20 10:29 Dose: 0.25 mcg Documented by: Calcium Carbonate (Os-Moe 500) 500 mg PO DAILY [facility] Last Admin: 06/03/20 10:29 Dose: 500 mg Documented by: Chlorhexidine Gluconate () 1 each TOPICAL DAILY [facility] Last Admin: 06/03/20 00:14 Dose: 1 each Documented by: Dexamethasone Sodium Phosphate (Decadron) 6 mg IV DAILY [facility] Stop: 06/08/20 21:08 Last Admin: 06/03/20 10:29 Dose: 6 mg Documented by: Ezetimibe (Zetia) 10 mg PO DAILY [facility] Last Admin: 06/03/20 10:29 Dose: 10 mg Documented by: Enoxaparin Sodium (Lovenox) 80 mg SC Q12 [facility] Last Admin: 06/03/20 10:28 Dose: 80 mg Documented by: Guaifenesin (Mucinex) 1,200 mg PO BID [facility] Last Admin: 06/03/20 10:28 Dose: 1,200 mg Documented by: Sodium Chloride () 250 mls @ 15 mls/hr IV .[id number] PRN PRN Reason: Saline Flush Last Infusion: 06/02/20 14:00 Dose: 0 mls/hr Documented by: Sodium Chloride () 250 mls @ 15 mls/hr IV .[id number] PRN PRN Reason: Additional IVPB Infusion Remdesivir (Investigational) (100 mg/ Sodium Chloride) 250 mls @ 125 mls/hr IV DAILY [facility] Stop: 06/03/20 11:59 Last Admin: 06/03/20 10:30 Dose: 150 mls/hr Documented by: Ibuprofen (Motrin) 600 mg PO Q8H PRN PRN PRN Reason: Pain 1-10 or Fever Last Admin: 06/03/20 10:39 Dose: 600 mg Documented by: Losartan Potassium (Cozaar) 50 mg PO DAILY [facility] Last Admin: 06/03/20 10:28 Dose: 50 mg Documented by: Melatonin (Melatonin) 3 mg PO QHS PRN PRN Reason: SLEEP Last Admin: 06/02/20 22:00 Dose: 3 mg Documented by: Montelukast Sodium (Singulair) 10 mg PO QHS [facility] Last Admin: 06/02/20 21:12 Dose: 10 mg Documented by: Nitroglycerin (Nitrostat) 0.4 mg SUBLINGUAL Q5M PRN PRN Reason: CARDIAC/CHEST PAIN Ondansetron HCl (Zofran) 4 mg IV Q8H PRN PRN PRN Reason: NAUSEA/VOMITING Last Admin: 05/30/20 20:09 Dose: 4 mg Documented by: Pantoprazole Sodium (Protonix) 40 mg PO DAILY [facility] Last Admin: 06/03/20 10:29 Dose: 40 mg Documented by: Polyethylene Glycol (Miralax) 17 gm PO DAILY [facility] Last Admin: 06/03/20 10:29 Dose: 17 gm Documented by: Senna/Docusate Sodium (Senokot-S, Tena-Colace) 2 tablet PO BID PRN PRN Reason: Constipation Sodium Chloride () 10 - 40 ml IV UD PRN PRN Reason: SALINE FLUSH Last Admin: 06/02/20 08:04 Dose: 10 ml Documented by: Throat Lozenges (Cepacol Sore Throat Lozenge) 1 lozenge MUCOUS MEM Q2H PRN PRN PRN Reason: SORE THROAT Venlafaxine HCl (Effexor Xr) 150 mg PO DAILY [facility] Last Admin: 06/03/20 10:29 Dose: 150 mg Documented by: STROKE Vital Signs/Narrative: Vital Signs Temp Pulse Resp BP Pulse Ox 06/03/20 09:00 86 24 H 101/53 L 91 06/03/20 08:00 36.0 C L 88 23 H 116/55 L 91 Medical Necessity - Tobacco Use Smoking Status: Never smoker Assessment/Plan All Active Problems (Last Reviewed 10/14/19 @ 09:10 by Carly Kay) Hypoxemia (Acute) Pneumonia due to COVID-19 virus (Acute) Severe sepsis (Acute) Acute respiratory failure with hypoxia (Acute) 1. COVID-19, acute dexamethasone 6mg through the remdesivir started on 05/30 convalescent plasma on 05/30 therapeutic enoxaparin on 05/30 wean oxygen as tolerated d-dimer normal ID following 2. Acute hypoxic respiratory failure 2/2 above plus underlying asthma improved to nasal canula 3. Severe sepsis 2/2 COVID ID following, abx discontinued 4. chronic diseases: overall stable, but complicate overall care Sjogren's GERD gastroparesis fibromyalgia vitamin D deficiency hyperlipidemia: continue statin, azetimibe HTN: losartan 5. VTE prophylaxis: Inpatient E&M: [id number] [facility] Hosp L2
--- NOTE | 2020-06-03 15:04 | PN.ID_ITS ---
Patient Problems: Active and Suspected Problems (Last Reviewed 10/14/19 @ 09:10 by Carly Kay) Hypoxemia (Acute) Pneumonia due to COVID-19 virus (Acute) Severe sepsis (Acute) Acute respiratory failure with hypoxia (Acute) Subjective: Feeling better, less dyspnea, no fever - Physical Exam Vitals/I&O's: Vital Signs Temp Pulse Resp BP Pulse Ox 97.0 F L 78 24 H 121/52 H 94 06/03/20 13:49 06/03/20 14:00 06/03/20 14:00 06/03/20 14:00 06/03/20 14:00 Oxygen Flow Rate (L/min) 4 Oxygen Delivery Method Nasal Cannula Weight: 79.8 kg Body Mass Index (BMI) 29.7 Intake and Output for Last 24 Hours 06/01/20 06/02/20 06/03/20 23:59 23:59 23:59 Intake Total 2280 / 2520 2119.5 / 2119.5 300 / 300 Output Total 2500 / 2550 2150 / 2350 1300 / 1300 Balance -220 / -30 -30.5 / -230.5 -1000 / -1000 General: Alert, Cooperative, No apparent distress Lungs: Clear to auscultation, Normal air movement Cardiovascular: Regular rate, Regular Rhythm Abdomen: Soft, Non Tender, Non-Distended Skin: No rashes Microbiology Past 72 Hours 05/29/20 20:05 Blood Culture (Wb) - Right Hand Blood Culture - Preliminary No growth in 48 hours. 05/29/20 19:00 Blood Culture (Wb) - Anticubital Right Blood Culture - Preliminary No growth in 48 hours. Laboratory Results 06/03/20 04:30: WBC 17.0 H, RBC 3.70 L, Hgb 9.4 L, Hct 31.1 L, MCV 84.1, MCH 25.4 L, MCHC 30.2 L, RDW Std Deviation 44.8 H, RDW Coeff of Edwar 14.7 H, Plt Count 288, MPV 9.8 06/03/20 04:30: Sodium 136, Potassium 3.5, Chloride 104, Carbon Dioxide 25.0, Anion Gap 7, BUN 16, Creatinine 0.66, Estim Creat Clear Calc 47.79, Est GFR (MDRD) Af Amer 115, Est GFR (MDRD) Non-Af 95, BUN/Creatinine Ratio 24.2 H, Glucose 87, Calcium 7.3 L, Total Bilirubin 0.40, AST 14 L, ALT 28, Alkaline Phosphatase 77, Total Protein 5.7 L, Albumin 2.0 L, Globulin 3.7, Albumin/Globulin Ratio 0.5 L Current Medications Acetaminophen (Tylenol) 650 mg PO Q6H PRN PRN PRN Reason: Pain Score 1-10/Temp > 100.7 F Albuterol/Ipratropium (Duoneb) 3 ml INHALATION Q4H.RT PRN PRN Reason: Asthma Last Admin: 05/30/20 10:26 Dose: 3 ml Documented by: Aspirin (Aspirin, Baby) 81 mg PO DAILYCM [facility] Last Admin: 06/03/20 10:29 Dose: 81 mg Documented by: Atorvastatin Calcium (Lipitor) 20 mg PO Q3D@2200 [facility] Last Admin: 06/02/20 21:11 Dose: 20 mg Documented by: Calcitriol (Rocaltrol) 0.25 mcg PO DAILY [facility] Last Admin: 06/03/20 10:29 Dose: 0.25 mcg Documented by: Calcium Carbonate (Os-Moe 500) 500 mg PO DAILY [facility] Last Admin: 06/03/20 10:29 Dose: 500 mg Documented by: Chlorhexidine Gluconate () 1 each TOPICAL DAILY [facility] Last Admin: 06/03/20 00:14 Dose: 1 each Documented by: Dexamethasone Sodium Phosphate (Decadron) 6 mg IV DAILY [facility] Stop: 06/08/20 21:08 Last Admin: 06/03/20 10:29 Dose: 6 mg Documented by: Ezetimibe (Zetia) 10 mg PO DAILY [facility] Last Admin: 06/03/20 10:29 Dose: 10 mg Documented by: Enoxaparin Sodium (Lovenox) 80 mg SC Q12 [facility] Last Admin: 06/03/20 10:28 Dose: 80 mg Documented by: Guaifenesin (Mucinex) 1,200 mg PO BID [facility] Last Admin: 06/03/20 10:28 Dose: 1,200 mg Documented by: Sodium Chloride () 250 mls @ 15 mls/hr IV .[id number] PRN PRN Reason: Saline Flush Last Infusion: 06/02/20 14:00 Dose: 0 mls/hr Documented by: Sodium Chloride () 250 mls @ 15 mls/hr IV .[id number] PRN PRN Reason: Additional IVPB Infusion Ibuprofen (Motrin) 600 mg PO Q8H PRN PRN PRN Reason: Pain 1-10/10 or Fever Last Admin: 06/03/20 10:39 Dose: 600 mg Documented by: Losartan Potassium (Cozaar) 50 mg PO DAILY [facility] Last Admin: 06/03/20 10:28 Dose: 50 mg Documented by: Melatonin (Melatonin) 3 mg PO QHS PRN PRN Reason: SLEEP Last Admin: 06/02/20 22:00 Dose: 3 mg Documented by: Montelukast Sodium (Singulair) 10 mg PO QHS [facility] Last Admin: 06/02/20 21:12 Dose: 10 mg Documented by: Nitroglycerin (Nitrostat) 0.4 mg SUBLINGUAL Q5M PRN PRN Reason: CARDIAC/CHEST PAIN Ondansetron HCl (Zofran) 4 mg IV Q8H PRN PRN PRN Reason: NAUSEA/VOMITING Last Admin: 05/30/20 20:09 Dose: 4 mg Documented by: Pantoprazole Sodium (Protonix) 40 mg PO DAILY [facility] Last Admin: 06/03/20 10:29 Dose: 40 mg Documented by: Polyethylene Glycol (Miralax) 17 gm PO DAILY [facility] Last Admin: 06/03/20 10:29 Dose: 17 gm Documented by: Senna/Docusate Sodium (Senokot-S, Tena-Colace) 2 tablet PO BID PRN PRN Reason: Constipation Sodium Chloride () 10 - 40 ml IV UD PRN PRN Reason: SALINE FLUSH Last Admin: 06/02/20 08:04 Dose: 10 ml Documented by: Throat Lozenges (Cepacol Sore Throat Lozenge) 1 lozenge MUCOUS MEM Q2H PRN PRN PRN Reason: SORE THROAT Venlafaxine HCl (Effexor Xr) 150 mg PO DAILY [facility] Last Admin: 06/03/20 10:29 Dose: 150 mg Documented by: Medical Necessity - Tobacco Use Smoking Status: Never smoker Route of nutrition/ use of supplements: [] Nutritional Intake: [] IV Site: [] Barron Catheter: [] - Assessment/Plan Antibiotics: [] Assessment/Plan: [] Active and Suspected Problems (Last Reviewed 10/14/19 @ 09:10 by Carly Kay) Hypoxemia (Acute) Pneumonia due to COVID-19 virus (Acute) Severe sepsis (Acute) Acute respiratory failure with hypoxia (Acute) Covid with lactic acidosis, hypoxic resp failure - sx started 05/20. On dexamethasone. Normal d-dimer. Evening of 05/30 received convalescent plasma. 05/30 started 5 day course of remdesivir. Much improved today. Will follow
--- NOTE | 2020-06-03 15:41 | CASEMGMT ---
Call to pt to check on preferred DME, if home oxygen needed at discharge. Pt states she would like [employer] at this time. Pt states no other concerns/needs with going home at discharge. Per therapy note, no therapy is recommended. Pt is currently on 4liters via nc at this time. Green sheet left on chart for home oxygen qualification. Pt voices no further questions/concerns/needs at this time. Jairo SOLANO CM
[2020-06-03] MEDS: MELATONIN 3 MG TABLET PO (22:07)
[2020-06-03] MEDS: Montelukast 10 MG Tablet PO (22:07)
[2020-06-04] VITALS (13 sets, daily range): BP systolic 93–131; BP diastolic 50–79; PULSE 59–77; RESP 18–30; TEMP 36.3–36.7; O2SAT 93–99
--- NOTE | 2020-06-04 00:03 | NURSING ---
02 SATS ON 4L N/C NOTED AT 80-84%. INCREASED TO 6L N/C AT THIS TIME. PT RESTING IN BED WITH EYES CLOSED
[2020-06-04 04:03] LABS: Hematocrit 33.7 % (37-47); Hemoglobin 10.3 g/dL (12.0-15.0); Mean Corp Hgb Conc 30.6 g/dL (32-36); Mean Corpuscular Hgb 25.5 pg (27.0-32.0); Mean Corpuscular Volume 83.4 fL (81-99); Mean Platelet Vol. 9.6 fl (6.2-12.0); Platelet Count 336 K/mm3 (150-450); RBC Distribution Width CV 14.7 % (11.6-14.6); RBC Distribution Width SD 43.8 fl (35.1-43.9); Red Blood Count 4.04 M/mm3 (4.2-5.4)
[2020-06-04 04:19] LABS: ALB/GLOB Ratio 0.5 RATIO (0.9-2.4); AST(SGOT) 12 U/L (15-37); Alanine Aminotransfer ALT/SGPT 28 U/L (13-56); Albumin, Serum 2.2 g/dL (3.2-5.0); Alkaline Phosphatase 80 U/L (45-117); Anion Gap 5 (5-15); BUN 17 mg/dL (7-18); BUN/Creat Ratio 22.9 RATIO (10-20); Calcium,Total 7.7 mg/dL (8.5-10.1); Chloride 104 mmol/L (98-107); Creatinine, Serum 0.74 mg/dL (0.55-1.02); EST Glomerular Filtration Rate 83 mL/min (>60); Est Glom Filt Rate - Afr Amer 100 mL/min (>60); Estimated Creatinine Clearance 47.79 ml/min; Globulin 4.2 g/dL (2.2-4.2); Glucose 94 mg/dL (74-106); Potassium 3.9 mmol/L (3.5-5.1); Protein, Total 6.4 g/dL (6.4-8.2); Sodium Level 137 mmol/L (136-145)
--- NOTE | 2020-06-04 07:51 | PN_ITS ---
Subjective: Patient did well overnight. Patient did have to be increased on nasal cannula oxygen to maintain appropriate saturations with deep sleep. Patient continues to report subjective improvement in overall condition. General: Alert, Oriented x3, Cooperative, No apparent distress, Well developed, Well nourished, - - Speaking in full sentences. HEENT: Atraumatic, PERRLA, EOMI, Normocephalic, - - No scleral icterus or injection Oral: Moist Mucosa, No Gingival or Mucosal Lesions/ Ulcerations Neck: Supple, No JVD, No Nodes, Trachea Midline Lungs: No rhonchi, No wheeze, No rales, Diminished Cardiovascular: Regular rate, Regular Rhythm, Normal S1, Normal S2, No murmurs, No rub noted, No Gallop Abdomen: Bowel Sounds Present, Soft, Non Tender, Non-Distended, Obese Extremities: No clubbing, No cyanosis, No edema, Capillary Refill Less than 3 Seconds Skin: No rashes, No breakdown Musculoskeletal: No Tenderness to Palpation of Joints or Extremities Lymphatic: No Cervical, Supraclavicular, or Inguinal Adenopathy Neurological: Cranial nerves II-XII grossly intact, Neuro grossly intact, Motor Exam 5/5 strength throughout Psych/Mental Status: Alert and oriented to time, place, person, mood and affect Vital Signs Temp Pulse Resp BP Pulse Ox 36.6 C 62 30 H 108/57 L 96 06/04/20 06:00 06/04/20 07:00 06/04/20 07:00 06/04/20 07:00 06/04/20 07:00 Oxygen Flow Rate (L/min) 4 Oxygen Delivery Method Nasal Cannula Weight: 79.5 kg Body Mass Index (BMI) 29.7 Intake and Output for Last 24 Hours 06/02/20 06/03/20 06/04/20 23:59 23:59 23:59 Intake Total 2119.5 / 2119.5 400 / 500 150 / 150 Output Total 2150 / 2350 1900 / 2200 300 / 300 Balance -30.5 / -230.5 -1500 / -1700 -150 / -150 Labs (Last 48 Hours) 06/03/20 06/03/20 06/04/20 04:30 04:30 03:59 WBC 17.0 H 14.0 H RBC 3.70 L 4.04 L Hgb 9.4 L 10.3 L Hct 31.1 L 33.7 L MCV 84.1 83.4 MCH 25.4 L 25.5 L MCHC 30.2 L 30.6 L RDW Std Deviation 44.8 H 43.8 RDW Coeff of Edwar 14.7 H 14.7 H Plt Count 288 336 MPV 9.8 9.6 Sodium 136 Potassium 3.5 Chloride 104 Carbon Dioxide 25.0 Anion Gap 7 BUN 16 Creatinine 0.66 Estim Creat Clear Calc 47.79 Est GFR (MDRD) Af Amer 115 Est GFR (MDRD) Non-Af 95 BUN/Creatinine Ratio 24.2 H Glucose 87 Calcium 7.3 L Total Bilirubin 0.40 AST 14 L ALT 28 Alkaline Phosphatase 77 Total Protein 5.7 L Albumin 2.0 L Globulin 3.7 Albumin/Globulin Ratio 0.5 L 06/04/20 03:59 WBC RBC Hgb Hct MCV MCH MCHC RDW Std Deviation RDW Coeff of Edwar Plt Count MPV Sodium 137 Potassium 3.9 Chloride 104 Carbon Dioxide 28.0 Anion Gap 5 BUN 17 Creatinine 0.74 Estim Creat Clear Calc 47.79 Est GFR (MDRD) Af Amer 100 Est GFR (MDRD) Non-Af 83 BUN/Creatinine Ratio 22.9 H Glucose 94 Calcium 7.7 L Total Bilirubin 0.40 AST 12 L ALT 28 Alkaline Phosphatase 80 Total Protein 6.4 Albumin 2.2 L Globulin 4.2 Albumin/Globulin Ratio 0.5 L Medical Necessity - Tobacco Use Smoking Status: Never smoker Assessment/Plan All Active Problems (Last Reviewed 10/14/19 @ 09:10 by Carly Kay) Hypoxemia (Acute) Pneumonia due to COVID-19 virus (Acute) Severe sepsis (Acute) Acute respiratory failure with hypoxia (Acute) RECOMMENDATIONS: 1. Dose Lasix intermittently to help with fluid status. Replete potassium as indicated 2. Continue Lovenox, Remdesivir and Decadron 3. Wean oxygen as tolerated 4. Possible discharge if able to tolerate ambulation with 6 L or less 5. Attempt fluid restriction 6. Confirmed full CODE STATUS IMPRESSIONS: 1. Acute hypoxic respiratory failure secondary to COVID-19 Patient has done well off of antibiotics. Patient does have elevated inflammatory markers and bilateral infiltrates. Antibiotics discontinued shortly after admission. Patient will be continued on dexamethasone. Lovenox will be continued at therapeutic dosing. Patient tolerating normal flow nasal cannula. Continue to attempt to wean oxygen. Anticipate patient requiring 3 weeks of 10 A inhibitor therapy at discharge. Likely okay to discharge from a pulmonary perspective when patient is able to tolerate 6 L or less with ambulation. Do anticipate significant desaturation given possible concomitant early pulmonary hypertension. 2. Asthma/history of Sjogren's syndrome Increases risk for complications associated to problem #1. Patient is getting Decadron, so Pulmicort is not necessary. Continue with bronchodilator therapy. It is unclear if patient has pulmonary involvement at baseline. Can attempt to obtain old information. Keep saturations greater than 90% to avoid exacerbations of pulmonary hypertension. 3. Hypertension/hyperlipidemia/history of GERD/fibromyalgia/delayed presentation Complicates care, management, recovery and prognosis. Patient will be continued on PPI. Okay to continue with antihypertensive and anti- hyperlipidemia medications at this time. May need to hold losartan if renal dysfunction ensues. Elevated lactate on presentation likely secondary to hypoxia. Would limit fluid intake given respiratory status. Did confirm with the patient that she is a full CODE STATUS. Inpatient E&M: 45340 Subs Hosp L2
[2020-06-04] MEDS: Aspirin 81 MG TAB.CHEW PO (09:15)
[2020-06-04] MEDS: guaiFENesin 1,200 MG Tablet 1200 MG PO ×2 (09:15→22:15)
[2020-06-04] MEDS: Pantoprazole Sodium 40 MG Tablet PO (09:15)
[2020-06-04] MEDS: Calcium (Elemental) 500 MG Tablet PO (09:15)
[2020-06-04] MEDS: Ezetimibe 10 MG Tablet PO (09:15)
[2020-06-04] MEDS: Calcitriol 0.25 MCG Capsule PO (09:15)
[2020-06-04] MEDS: 0.9% Saline Lock 10 ML Syringe IV ×2 (09:16→22:15)
[2020-06-04] MEDS: Losartan Potassium 50 MG Tablet PO (09:16)
[2020-06-04] MEDS: dexAMETHasone 4 MG/ML Vial 6 MG IV (09:16)
[2020-06-04] MEDS: Enoxaparin 80 MG/0.8 ML Syringe SC ×2 (09:16→22:14)
[2020-06-04] MEDS: Venlafaxine XR 150 MG Capsule PO (09:16)
--- NOTE | 2020-06-04 10:42 | PN_ITS ---
Patient Problems: Active and Suspected Problems (Last Reviewed 10/14/19 @ 09:10 by Carly Kay) Hypoxemia (Acute) Pneumonia due to COVID-19 virus (Acute) Severe sepsis (Acute) Acute respiratory failure with hypoxia (Acute) Reason for Visit: COVID Subjective: Breathing well. Decreased oxygen down to 3l NC. Hypotension when standing. Hypoxic at night Vitals/I&O's: Vital Signs Temp Pulse Resp BP Pulse Ox 36.4 C L 77 21 H 124/62 H 96 06/04/20 09:25 06/04/20 09:25 06/04/20 09:25 06/04/20 09:25 06/04/20 09:25 Oxygen Flow Rate (L/min) 4 Oxygen Delivery Method Nasal Cannula Weight: 79.5 kg Body Mass Index (BMI) 29.7 Intake and Output for Last 24 Hours 06/02/20 06/03/20 06/04/20 23:59 23:59 23:59 Intake Total 2119.5 / 2119.5 400 / 500 150 / 150 Output Total 2150 / 2350 1900 / 2200 300 / 300 Balance -30.5 / -230.5 -1500 / -1700 -150 / -150 General: Alert, No apparent distress HEENT: Atraumatic, Normocephalic Oral: Moist Mucosa, No Gingival or Mucosal Lesions/ Ulcerations Neck: No Nodes, Thyroid Normal Size and Texture Lungs: Normal air movement, - - crackles RUL Cardiovascular: Regular rate, Regular Rhythm, Normal S1, Normal S2, No murmurs Abdomen: Bowel Sounds Present, Soft, Non Tender, Non-Distended, No Hepato- splenomegaly Extremities: No edema, No Calf Tenderness Skin: No rashes, No breakdown Musculoskeletal: No Tenderness to Palpation of Joints or Extremities, No Muscle Wasting Psych/Mental Status: Normal Affect, Appropriate Microbiology Past 72 Hours 05/29/20 20:05 Blood Culture (Wb) - Right Hand Blood Culture - Final No growth in 5 days. 05/29/20 19:00 Blood Culture (Wb) - Anticubital Right Blood Culture - Final No growth in 5 days. Laboratory Results 06/04/20 03:59: WBC 14.0 H, RBC 4.04 L, Hgb 10.3 L, Hct 33.7 L, MCV 83.4, MCH 25.5 L, MCHC 30.6 L, RDW Std Deviation 43.8, RDW Coeff of Edwar 14.7 H, Plt Count 336, MPV 9.6 06/04/20 03:59: Sodium 137, Potassium 3.9, Chloride 104, Carbon Dioxide 28.0, Anion Gap 5, BUN 17, Creatinine 0.74, Estim Creat Clear Calc 47.79, Est GFR (MDRD) Af Amer 100, Est GFR (MDRD) Non-Af 83, BUN/Creatinine Ratio 22.9 H, Glucose 94, Calcium 7.7 L, Total Bilirubin 0.40, AST 12 L, ALT 28, Alkaline Phosphatase 80, Total Protein 6.4, Albumin 2.2 L, Globulin 4.2, Albumin/Globulin Ratio 0.5 L Current Medications Acetaminophen (Tylenol) 650 mg PO Q6H PRN PRN PRN Reason: Pain Score 1-10/Temp > 100.7 F Albuterol/Ipratropium (Duoneb) 3 ml INHALATION Q4H.RT PRN PRN Reason: Asthma Last Admin: 05/30/20 10:26 Dose: 3 ml Documented by: Aspirin (A[facility]in, Baby) [facility] Last Admin: 06/04/20 09:15 Dose: 81 mg Documented by: Atorvastatin Calcium (Lipitor) 20 mg PO Q3D@2200 [facility] Last Admin: 06/02/20 21:11 Dose: 20 mg Documented by: Calcitriol (Rocaltrol) 0.25 mcg PO DAILY [facility] Last Admin: 06/04/20 09:15 Dose: 0.25 mcg Documented by: Calcium Carbonate (Os-Moe 500) 500 mg PO DAILY [facility]CLUD[facility] Last Admin: 06/04/20 09:15 Dose: 500 mg Documented by: Dexamethasone Sodium Phosphate (Decadron) 6 mg IV DAILY [facility] Stop: 06/08/20 21:08 Last Admin: 06/04/20 09:16 Dose: 6 mg Documented by: Ezetimibe (Zetia) 10 mg PO DAILY [facility] Last Admin: 06/04/20 09:15 Dose: 10 mg Documented by: Enoxaparin Sodium (Lovenox) 80 mg SC Q12 COUNT [facility]CLUDES [facility] Last Admin: 06/04/20 09:16 Dose: 80 mg Documented by: Guaifenesin (Mucinex) 1,200 mg PO BID COUNT [facility]CLUDES [facility] Last Admin: 06/04/20 09:15 Dose: 1,200 mg Documented by: Sodium Chloride () 250 mls @ 15 mls/hr IV .[id number] PRN PRN Reason: Saline Flush Last Infusion: 06/04/20 10:10 Dose: Infused Documented by: Sodium Chloride () 250 mls @ 15 mls/hr IV .[id number] PRN PRN Reason: Additional IVPB Infusion Ibuprofen (Motrin) 600 mg PO Q8H PRN PRN PRN Reason: Pain 1-10/10 or Fever Last Admin: 06/03/20 10:39 Dose: 600 mg Documented by: Losartan Potassium (Cozaar) 50 mg PO DAILY [facility] Last Admin: 06/04/20 09:16 Dose: 50 mg Documented by: Melatonin (Melatonin) 3 mg PO QHS PRN PRN Reason: SLEEP Last Admin: 06/03/20 22:07 Dose: 3 mg Documented by: Montelukast Sodium (Singulair) 10 mg PO QHS COUNT INCLUDES [facility] Last Admin: 06/03/20 22:07 Dose: 10 mg Documented by: Nitroglycerin (Nitrostat) 0.4 mg SUBLINGUAL Q5M PRN PRN Reason: CARDIAC/CHEST PAIN Ondansetron HCl (Zofran) 4 mg IV Q8H PRN PRN PRN Reason: NAUSEA/VOMITING Last Admin: 05/30/20 20:09 Dose: 4 mg Documented by: Pantoprazole Sodium (Protonix) 40 mg PO DAILY [facility] Last Admin: 06/04/20 09:15 Dose: 40 mg Documented by: Polyethylene Glycol (Miralax) 17 gm PO DAILY COUNT [facility]CLUD[facility] Last Admin: 06/04/20 09:14 Dose: Not Given Documented by: Senna/Docusate Sodium (Senokot-S, Tena-Colace) 2 tablet PO BID PRN PRN Reason: Constipation Sodium Chloride () 10 - 40 ml IV UD PRN PRN Reason: SALINE FLUSH Last Admin: 06/04/20 09:16 Dose: 10 ml Documented by: Throat Lozenges (Cepacol Sore Throat Lozenge) 1 lozenge MUCOUS MEM Q2H PRN PRN PRN Reason: SORE THROAT Venlafaxine HCl (Effexor Xr) 150 mg PO DAILY COUNT [facility]CLUDES [facility] Last Admin: 06/04/20 09:16 Dose: 150 mg Documented by: STROKE Vital Signs/Narrative: Vital Signs Temp Pulse Resp BP BP Pulse Ox 06/04/20 09:25 36.4 C L 77 21 H 124/62 H 96 06/04/20 07:40 94 06/04/20 07:00 66 30 H 108/57 L 96 Medical Necessity - Tobacco Use Smoking Status: Never smoker Assessment/Plan All Active Problems (Last Reviewed 10/14/19 @ 09:10 by Carly Kay) Hypoxemia (Acute) Pneumonia due to COVID-19 virus (Acute) Severe sepsis (Acute) Acute respiratory failure with hypoxia (Acute) 1. COVID-19, acute * dexamethasone 6mg through the * remdesivir completed: 05/30- * convalescent plasma on 05/30 * therapeutic enoxaparin on 05/30 * wean oxygen as tolerated * d-dimer normal * ID following 2. Acute hypoxic respiratory failure * 2/2 above plus underlying asthma * improved to nasal canula 3. Severe sepsis * 2/2 COVID * ID following, abx discontinued 4. chronic diseases: overall stable, but complicate overall care * Sjogren's * GERD * gastroparesis * fibromyalgia * vitamin D deficiency * hyperlipidemia: continue statin, azetimibe * HTN: losartan. May need to deescalate if continues to be hypotensive upon standing. 5. VTE prophylaxis: Inpatient E&M: [id number] [facility] L2
[2020-06-04] MEDS: MELATONIN 3 MG TABLET PO (22:15)
[2020-06-04] MEDS: Ibuprofen 600 MG Tablet PO (22:15)
[2020-06-04] MEDS: Montelukast 10 MG Tablet PO (22:15)
[2020-06-05 03:35] VITALS: BP 111/58; PULSE 64; RESP 20; TEMP 36.5; O2SAT 94
[2020-06-05 06:54] VITALS: O2SAT 96
--- NOTE | 2020-06-05 06:55 | CT_ITS ---
STUDY: CT ABDOMEN AND PELVIS WITH CONTRAST REASON FOR EXAM: Female, 64 years old. PT STATED RLQ PAIN BEGINNING THIS MORNING, COVID +, SEPSIS, HX HYSTERECTOMY X 13 YEARS AGO RADIATION DOSAGE (If Supplied By Facility): CTDIvol = ( 14.6 ) mGy, DLP = ( 1025.69 ) mGycm TECHNIQUE: Transaxial images were obtained from the dome of the diaphragm to the symphysis pubis with oral contrast. Oral and amp;amp; IV Gastrografin and amp;amp; 100mL Isovue-300 was administered. Sagittal and coronal images were reconstructed. Individualized dose optimization techniques were used for this CT. COMPARISON: None. FINDINGS: Diffuse groundglass opacities in the lung bases consistent with subsegmental atelectasis or pneumonitis or pulmonary edema. Small bilateral pleural effusions. The visualized portions of the heart are within normal limits. Normal liver. Normal gallbladder and extrahepatic biliary system. Normal spleen. Normal pancreas. Normal bilateral adrenal glands. Normal right kidney. Normal left kidney. Normal visualized stomach. Normal small intestine. There are multiple colonic diverticula consistent with diverticulosis. The appendix is visualized and appears normal. Normal abdominal aorta. Normal inferior vena cava. Normal retroperitoneum. Normal urinary bladder. There is enlargement of the inferior aspect of the right rectus abdominis muscle with adjacent hematoma extending posteriorly collectively measuring 8 x 11 cm per Normal osseous structures. CT/Abdomen/Pelvis WITH Contrast IMPRESSION: 1. Diffuse groundglass opacities in the lung bases with small bilateral pleural effusions consistent with subsegmental atelectasis, pneumonitis, pulmonary edema, or ARDS. 2. 8 x 11 cm hematoma of the right rectus abdominis muscle extending posteriorly into the adjacent fascia. Electronically Signed: Travon Kaiser MD at 10:09 EDT Tel , Service support ,
--- NOTE | 2020-06-05 07:09 | PCM.PN.PUL ---
Patient Problems: Active and Suspected Problems (Last Reviewed 10/14/19 @ 09:10 by Carly Kay) Hypoxemia (Acute) Pneumonia due to COVID-19 virus (Acute) Severe sepsis (Acute) Acute respiratory failure with hypoxia (Acute) Subjective: Patient did okay overnight. Oxygenation has improved. Patient reports that overnight she started to develop right lower quadrant pain. Patient states this is exquisite to the touch and does not of appear to affect other parts of the abdomen. Patient was wondering if this is related to her Lovenox shots, but states that she does still have an appendix. - Physical Exam Vitals/I&O's: Vital Signs Temp Pulse Resp BP Pulse Ox 36.5 C L 64 20 H 111/58 L 94 06/05/20 03:35 06/05/20 03:35 06/05/20 03:35 06/05/20 03:35 06/05/20 03:35 Oxygen Flow Rate (L/min) 2 Oxygen Delivery Method Nasal Cannula Weight: 79.5 kg Body Mass Index (BMI) 29.7 Intake and Output for Last 24 Hours 06/03/20 06/04/20 06/05/20 23:59 23:59 23:59 Intake Total 400 / 500 1070 / 1070 300 / 300 Output Total 1900 / 2200 900 / 900 250 / 250 Balance -1500 / -1700 170 / 170 50 / 50 General: Alert, Oriented x3, Cooperative, - - Mild distress secondary to right lower quadrant discomfort HEENT: Atraumatic, PERRLA, EOMI, Normocephalic, - - No scleral icterus or injection noted Oral: Moist Mucosa, No Gingival or Mucosal Lesions/ Ulcerations Neck: Supple, No JVD, No Nodes, Trachea Midline Lungs: No rhonchi, No wheeze, No rales, Diminished, - - Symmetric expansion. No dullness to percussion. Cardiovascular: Regular rate, Regular Rhythm, Normal S1, Normal S2, No murmurs, No rub noted, No Gallop Abdomen: Bowel Sounds Present, Soft, Tender - Significant tenderness with guarding in the right lower quadrant. Remaining abdomen is soft with no rebound Extremities: No clubbing, No cyanosis, No edema Skin: No rashes, No breakdown Musculoskeletal: No Tenderness to Palpation of Joints or Extremities Lymphatic: No Cervical, Supraclavicular, or Inguinal Adenopathy Neurological: Cranial nerves II-XII grossly intact, Neuro grossly intact, Motor Exam 5/5 strength throughout Psych/Mental Status: Alert and oriented to time, place, person, mood and affect Microbiology Past 72 Hours 05/29/20 20:05 Blood Culture (Wb) - Right Hand Blood Culture - Final No growth in 5 days. 05/29/20 19:00 Blood Culture (Wb) - Anticubital Right Blood Culture - Final No growth in 5 days. Current Medications Acetaminophen (Tylenol) 650 mg PO Q6H PRN PRN PRN Reason: Pain Score 1-10/Temp > 100.7 F Albuterol/Ipratropium (Duoneb) 3 ml INHALATION Q4H.RT PRN PRN Reason: Asthma Last Admin: 05/30/20 10:26 Dose: 3 ml Documented by: Aspirin (Aspirin, Baby) [facility] Last Admin: 06/04/20 09:15 Dose: 81 mg Documented by: Atorvastatin Calcium (Lipitor) 20 mg PO Q3D@2200 [facility] Last Admin: 06/02/20 21:11 Dose: 20 mg Documented by: Calcitriol (Rocaltrol) 0.25 mcg PO DAILY [facility] Last Admin: 06/04/20 09:15 Dose: 0.25 mcg Documented by: Calcium Carbonate (Os-Moe 500) 500 mg PO DAILY [facility] Last Admin: 06/04/20 09:15 Dose: 500 mg Documented by: Dexamethasone Sodium Phosphate (Decadron) 6 mg IV DAILY [facility] Stop: 06/08/20 21:08 Last Admin: 06/04/20 09:16 Dose: 6 mg Documented by: Ezetimibe (Zetia) 10 mg PO DAILY [facility] Last Admin: 06/04/20 09:15 Dose: 10 mg Documented by: Enoxaparin Sodium (Lovenox) 80 mg SC Q12 [facility] Last Admin: 06/04/20 22:14 Dose: 80 mg Documented by: Guaifenesin (Mucinex) 1,200 mg PO BID [facility] Last Admin: 06/04/20 22:15 Dose: 1,200 mg Documented by: Sodium Chloride () 250 mls @ 15 mls/hr IV .[id number] PRN PRN Reason: Saline Flush Last Infusion: 06/04/20 10:10 Dose: Infused Documented by: Sodium Chloride () 250 mls @ 15 mls/hr IV .[id number] PRN PRN Reason: Additional IVPB Infusion Ibuprofen (Motrin) 600 mg PO Q8H PRN PRN PRN Reason: Pain 1-10/10 or Fever Last Admin: 06/04/20 22:15 Dose: 600 mg Documented by: Losartan Potassium (Cozaar) 50 mg PO DAILY [facility] Last Admin: 06/04/20 09:16 Dose: 50 mg Documented by: Melatonin (Melatonin) 3 mg PO QHS PRN PRN Reason: SLEEP Last Admin: 06/04/20 22:15 Dose: 3 mg Documented by: Montelukast Sodium (Singulair) 10 mg PO QHS [facility] Last Admin: 06/04/20 22:15 Dose: 10 mg Documented by: Nitroglycerin (Nitrostat) 0.4 mg SUBLINGUAL Q5M PRN PRN Reason: CARDIAC/CHEST PAIN Ondansetron HCl (Zofran) 4 mg IV Q8H PRN PRN PRN Reason: NAUSEA/VOMITING Last Admin: 05/30/20 20:09 Dose: 4 mg Documented by: Pantoprazole Sodium (Protonix) 40 mg PO DAILY [facility] Last Admin: 06/04/20 09:15 Dose: 40 mg Documented by: Polyethylene Glycol (Miralax) 17 gm PO DAILY [facility] Last Admin: 06/04/20 09:14 Dose: Not Given Documented by: Senna/Docusate Sodium (Senokot-S, Tena-Colace) 2 tablet PO BID PRN PRN Reason: Constipation Sodium Chloride () 10 - 40 ml IV UD PRN PRN Reason: SALINE FLUSH Last Admin: 06/04/20 22:15 Dose: 10 ml Documented by: Throat Lozenges (Cepacol Sore Throat Lozenge) 1 lozenge MUCOUS MEM Q2H PRN PRN PRN Reason: SORE THROAT Venlafaxine HCl (Effexor Xr) 150 mg PO DAILY [facility] Last Admin: 06/04/20 09:16 Dose: 150 mg Documented by: Medical Necessity - Tobacco Use Smoking Status: Never smoker Assessment/Plan All Active Problems (Last Reviewed 10/14/19 @ 09:10 by Carly Kay) Hypoxemia (Acute) Pneumonia due to COVID-19 virus (Acute) Severe sepsis (Acute) Acute respiratory failure with hypoxia (Acute) RECOMMENDATIONS: 1. Obtain CT of the abdomen for appendicitis 2. Continue Lovenox and Decadron. Completed Remdesivir 3. Wean oxygen as tolerated. Walking oximetry prior to discharge 4. Possible discharge if able to tolerate ambulation with [address] abdomen negative 5. Treat for 3 weeks with 10 a inhibitor on discharge 6. Follow-up with pulmonary in 2 weeks IMPRESSIONS: 1. Acute hypoxic respiratory failure secondary to COVID-19 Patient has done well off of antibiotics. Patient does have elevated inflammatory markers and bilateral infiltrates initially. Antibiotics discontinued shortly after admission. Patient will be continued on dexamethasone. Lovenox will be continued at therapeutic dosing. Patient tolerating normal flow nasal cannula. Obtain walking oximetry. Anticipate patient requiring 3 weeks of 10 A inhibitor therapy at discharge. Likely okay to discharge from a pulmonary perspective when patient is able to tolerate 6 L or less with ambulation if abdominal CT is acceptable. Do anticipate significant desaturation given possible concomitant early pulmonary hypertension. 2. Asthma/history of Sjogren's syndrome Increases risk for complications associated to problem #1. Patient is getting Decadron, so Pulmicort is not necessary. Continue with bronchodilator therapy. It is unclear if patient has pulmonary involvement at baseline. Can attempt to obtain old information. Keep saturations greater than 90% to avoid exacerbations of pulmonary hypertension. 3. Hypertension/hyperlipidemia/history of GERD/fibromyalgia/delayed presentation Complicates care, management, recovery and prognosis. Patient will be continued on PPI. Okay to continue with antihypertensive and anti-hyperlipidemia medications at this time. May need to hold losartan if renal dysfunction ensues. Elevated lactate on presentation likely secondary to hypoxia. Would limit fluid intake given respiratory status. Did confirm with the patient that she is a full CODE STATUS. 4. Possible appendicitis No fever noted overnight, but patient has had persistent leukocytosis. Patient is on steroid therapy so this may account for elevated white count. Differential would include hernia, appendicitis or hematoma. Patient is not allowing for attempt to reduce any hernia. Will obtain a CT of the abdomen and pelvis for evaluation. May need surgical evaluation. If no acute issue, patient could still be discharged with outpatient follow-up. Inpatient E&M: [id number] [facility] L3
[2020-06-05 08:07] LABS: Absolute Lymphocyte Count 1.08 X10^3/uL (0.83-4.51); Absolute Neutrophil Count 11.6 X10^3/uL (2.0-7.7); Basophil# 0.03 X10^3/uL; Basophil% 0.2 % (0-1); Eosinophil# 0.21 X10^3/uL; Eosinophils% 1.5 % (0-5); Hematocrit 32.5 % (37-47); Hemoglobin 9.9 g/dL (12.0-15.0); Lymphocyte # 1.08 X10^3/ul (4.0); Lymphocyte % 7.6 % (19-41); Mean Corp Hgb Conc 30.5 g/dL (32-36); Mean Corpuscular Hgb 25.6 pg (27.0-32.0); Mean Platelet Vol. 9.3 fl (6.2-12.0); Monocyte# 0.71 X10^3/uL; NRBC Flagged by Analyzer 0 % (0-5); Neutrophil # 11.57 X10^3/uL (2.7-7.7); Platelet Count 346 K/mm3 (150-450); RBC Distribution Width CV 15.4 % (11.6-14.6); RBC Distribution Width SD 45.4 fl (35.1-43.9); Red Blood Count 3.87 M/mm3 (4.2-5.4); White Blood Count 14.1 K/mm3 (4.4-11.0)
[2020-06-05 08:20] VITALS: BP 100/49; PULSE 71; RESP 20; TEMP 36.6; O2SAT 96
--- NOTE | 2020-06-05 11:17 | PN_ITS ---
Patient Problems: Active and Suspected Problems (Last Reviewed 10/14/19 @ 09:10 by Carly Kay) Hypoxemia (Acute) Pneumonia due to COVID-19 virus (Acute) Severe sepsis (Acute) Acute respiratory failure with hypoxia (Acute) Reason for Visit: COVID Subjective: Developed RLQ abdominal pain this AM. breathing better and actually taken off of oxygen. Vitals/I&O's: Vital Signs Temp Pulse Resp BP Pulse Ox 36.6 C 71 20 H 100/49 L 96 06/05/20 08:20 06/05/20 08:20 06/05/20 08:20 06/05/20 08:20 06/05/20 08:20 Oxygen Flow Rate (L/min) 2 Oxygen Delivery Method Nasal Cannula Weight: 79.5 kg Body Mass Index (BMI) 29.7 Intake and Output for Last 24 Hours 06/03/20 06/04/20 06/05/20 23:59 23:59 23:59 Intake Total 400 / 500 1070 / 1070 300 / 300 Output Total 1900 / 2200 900 / 900 250 / 250 Balance -1500 / -1700 170 / 170 50 / 50 General: Alert, No apparent distress HEENT: Atraumatic, Normocephalic Oral: Moist Mucosa, No Gingival or Mucosal Lesions/ Ulcerations Neck: No Nodes, Thyroid Normal Size and Texture Lungs: Clear to auscultation, Normal air movement, No rhonchi, No wheeze Cardiovascular: Regular rate, Regular Rhythm, Normal S1, Normal S2 Abdomen: Bowel Sounds Present, Soft, - - TTP in RLQ, no ecchymosis. Fullness noted in RLQ Psych/Mental Status: Normal Affect, Appropriate Microbiology Past 72 Hours 05/29/20 20:05 Blood Culture (Wb) - Right Hand Blood Culture - Final No growth in 5 days. 05/29/20 19:00 Blood Culture (Wb) - Anticubital Right Blood Culture - Final No growth in 5 days. Laboratory Results 06/05/20 07:55: WBC 14.1 H, RBC 3.87 L, Hgb 9.9 L, Hct 32.5 L, MCV 84.0, MCH 25.6 L, MCHC 30.5 L, RDW Std Deviation 45.4 H, RDW Coeff of Edwar 15.4 H, Plt Count 346, MPV 9.3, Immature Gran % (Auto) 3.700 H, Neut % (Auto) 82.0 H, Lymph % (Auto) 7.6 L, [place] % (Auto) 5.0, Eos % (Auto) 1.5, Baso % (Auto) 0.2, Absolute Neuts (auto) 11.6 H, Absolute Lymphs (auto) 1.08, Nucleated RBC % 0 Current Medications Acetaminophen (Tylenol) 650 mg PO Q6H PRN PRN PRN Reason: Pain Score 1-10/Temp > 100.7 F Albuterol/Ipratropium (Duoneb) 3 ml INHALATION Q4H.RT PRN PRN Reason: Asthma Last Admin: 05/30/20 10:26 Dose: 3 ml Documented by: Aspirin ([facility]in, Baby) [facility] Last Admin: 06/04/20 09:15 Dose: 81 mg Documented by: Atorvastatin Calcium (Lipitor) 20 mg PO Q3D@2200 [facility] Last Admin: 06/02/20 21:11 Dose: 20 mg Documented by: Calcitriol (Rocaltrol) 0.25 mcg PO DAILY [facility] Last Admin: 06/04/20 09:15 Dose: 0.25 mcg Documented by: Calcium Carbonate (Os-Moe 500) 500 mg PO DAILY [facility] Last Admin: 06/04/20 09:15 Dose: 500 mg Documented by: Dexamethasone Sodium Phosphate (Decadron) 6 mg IV DAILY [facility] Stop: 06/08/20 21:08 Last Admin: 06/04/20 09:16 Dose: 6 mg Documented by: Ezetimibe (Zetia) 10 mg PO DAILY [facility] Last Admin: 06/04/20 09:15 Dose: 10 mg Documented by: Guaifenesin (Mucinex) 1,200 mg PO BID [facility] Last Admin: 06/04/20 22:15 Dose: 1,200 mg Documented by: Sodium Chloride () 250 mls @ 15 mls/hr IV .[id number] PRN PRN Reason: Saline Flush Last Infusion: 06/04/20 10:10 Dose: Infused Documented by: Sodium Chloride () 250 mls @ 15 mls/hr IV .[id number] PRN PRN Reason: Additional IVPB Infusion Ibuprofen (Motrin) 600 mg PO Q8H PRN PRN PRN Reason: Pain 1-10/10 or Fever Last Admin: 06/04/20 22:15 Dose: 600 mg Documented by: Losartan Potassium (Cozaar) 50 mg PO DAILY [facility] Last Admin: 06/05/20 11:15 Dose: Not Given Documented by: Melatonin (Melatonin) 3 mg PO QHS PRN PRN Reason: SLEEP Last Admin: 06/04/20 22:15 Dose: 3 mg Documented by: Montelukast Sodium (Singulair) 10 mg PO QHS [facility] Last Admin: 06/04/20 22:15 Dose: 10 mg Documented by: Nitroglycerin (Nitrostat) 0.4 mg SUBLINGUAL Q5M PRN PRN Reason: CARDIAC/CHEST PAIN Ondansetron HCl (Zofran) 4 mg IV Q8H PRN PRN PRN Reason: NAUSEA/VOMITING Last Admin: 05/30/20 20:09 Dose: 4 mg Documented by: Pantoprazole Sodium (Protonix) 40 mg PO DAILY [facility] Last Admin: 06/04/20 09:15 Dose: 40 mg Documented by: Polyethylene Glycol (Miralax) 17 gm PO DAILY [facility] Last Admin: 06/04/20 09:14 Dose: Not Given Documented by: Senna/Docusate Sodium (Senokot-S, Tena-Colace) 2 tablet PO BID PRN PRN Reason: Constipation Sodium Chloride () 10 - 40 ml IV UD PRN PRN Reason: SALINE FLUSH Last Admin: 06/04/20 22:15 Dose: 10 ml Documented by: Throat Lozenges (Cepacol Sore Throat Lozenge) 1 lozenge MUCOUS MEM Q2H PRN PRN PRN Reason: SORE THROAT Venlafaxine HCl (Effexor Xr) 150 mg PO DAILY [facility] Last Admin: 06/04/20 09:16 Dose: 150 mg Documented by: STROKE Vital Signs/Narrative: Vital Signs Temp Pulse Resp BP Pulse Ox 06/05/20 08:20 36.6 C 71 20 H 100/49 L 96 Medical Necessity - Tobacco Use Smoking Status: Never smoker Assessment/Plan All Active Problems (Last Reviewed 10/14/19 @ 09:10 by Carly Kay) Hypoxemia (Acute) Pneumonia due to COVID-19 virus (Acute) Severe sepsis (Acute) Acute respiratory failure with hypoxia (Acute) 1. COVID-19, acute * dexamethasone 6mg through the 12th * remdesivir completed: 05/30- * convalescent plasma on 05/30 * therapeutic enoxaparin on 05/30, discontinued 06/05 * wean oxygen as tolerated * d-dimer normal * ID following 2. Acute hypoxic respiratory failure * resolved 2/2 above plus underlying asthma * improved to nasal canula 3. Severe sepsis * 2/2 COVID * ID following, abx discontinued 4. right rectus abdominal hematoma * developed 06/05. * patient unsure if she was coughing when it began. * Anticoagulation contributed, and now held. * General surgery reviewed the results and recommended transfer to tertiary facility for embolization. * Reassessed, and patient appears stable. Discussed with patient that she could be transferred to a tertiary facility for possible coil embolization but I told her that she remained stable that would be unlikely. I did tell her that we can certainly transfer her but we could also keep her here in just to [facility] and perhaps check a bedside ultrasound to see the progress of that. Told the patient that most the time is just conservative measures and that she would not require any open surgery to leave this hematoma. 5. chronic diseases: overall stable, but complicate overall care * Sjogren's * GERD * gastroparesis * fibromyalgia * vitamin D deficiency * hyperlipidemia: continue statin, azetimibe * HTN: losartan. May need to deescalate if continues to be hypotensive upon standing. 5. VTE prophylaxis: SCDs Greater than 30 minutes of which greater than 50% of time was discussing the patient about hematoma, treatment options. She is going to discuss with family and provide us information if she would want us to be transferred or not. Inpatient E&M: [id number] [facility] L3
[2020-06-05] MEDS: Pantoprazole Sodium 40 MG Tablet PO (11:32)
[2020-06-05] MEDS: Venlafaxine XR 150 MG Capsule PO (11:32)
[2020-06-05] MEDS: Calcium (Elemental) 500 MG Tablet PO (11:32)
[2020-06-05] MEDS: Ezetimibe 10 MG Tablet PO (11:32)
[2020-06-05] MEDS: Calcitriol 0.25 MCG Capsule PO (11:32)
[2020-06-05] MEDS: 0.9% Saline Lock 10 ML Syringe IV ×2 (11:33→20:59)
[2020-06-05] MEDS: dexAMETHasone 4 MG/ML Vial 6 MG IV (11:33)
[2020-06-05] MEDS: guaiFENesin 1,200 MG Tablet 1200 MG PO ×2 (11:33→20:59)
[2020-06-05 12:19] LABS: Hemoglobin 10.4 g/dL (12.0-15.0); Mean Corp Hgb Conc 30.6 g/dL (32-36); Mean Corpuscular Hgb 25.7 pg (27.0-32.0); Mean Corpuscular Volume 84.2 fL (81-99); Mean Platelet Vol. 9.5 fl (6.2-12.0); Platelet Count 355 K/mm3 (150-450); RBC Distribution Width CV 15.3 % (11.6-14.6); Red Blood Count 4.04 M/mm3 (4.2-5.4); White Blood Count 14.1 K/mm3 (4.4-11.0)
[2020-06-05 13:54] VITALS: BP 134/56; PULSE 81; RESP 20; TEMP 36.4; O2SAT 92
[2020-06-05] MEDS: Acetaminophen 325 MG Tablet 650 MG PO (18:12)
[2020-06-05 18:13] VITALS: BP 102/53; PULSE 96; RESP 20; TEMP 36.6; O2SAT 94
[2020-06-05] MEDS: Atorvastatin Calcium 20 MG Tablet PO (20:58)
[2020-06-05] MEDS: MELATONIN 3 MG TABLET PO (20:59)
[2020-06-05] MEDS: Montelukast 10 MG Tablet PO (20:59)
[2020-06-05 21:07] VITALS: BP 110/71; PULSE 87; RESP 18; TEMP 36.4; O2SAT 95
[2020-06-06 02:50] VITALS: BP 123/74; PULSE 83; RESP 22; TEMP 36.8; O2SAT 98
[2020-06-06 03:11] LABS: Hematocrit 31.3 % (37-47); Hemoglobin 9.7 g/dL (12.0-15.0); Mean Corpuscular Hgb 25.8 pg (27.0-32.0); Mean Corpuscular Volume 83.2 fL (81-99); Mean Platelet Vol. 9.6 fl (6.2-12.0); Platelet Count 350 K/mm3 (150-450); RBC Distribution Width CV 15.7 % (11.6-14.6); RBC Distribution Width SD 44.7 fl (35.1-43.9); Red Blood Count 3.76 M/mm3 (4.2-5.4)
[2020-06-06 03:26] LABS: Anion Gap 9 (5-15); BUN 12 mg/dL (7-18); Calcium,Total 7.8 mg/dL (8.5-10.1); Chloride 111 mmol/L (98-107); Creatinine, Serum 0.67 mg/dL (0.55-1.02); EST Glomerular Filtration Rate 94 mL/min (>60); Est Glom Filt Rate - Afr Amer 113 mL/min (>60); Estimated Creatinine Clearance 47.79 ml/min; Glucose 96 mg/dL (74-106); Potassium 4.1 mmol/L (3.5-5.1); Sodium Level 146 mmol/L (136-145)
[2020-06-06 06:25] VITALS: O2SAT 95
--- NOTE | 2020-06-06 06:47 | PN_ITS ---
Subjective: The patient was seen and examined at the bedside this morning. Events from the last 24 hours have been reviewed. The patient is currently afebrile, hemodynamically stable and maintaining appropriate oxygen saturations on 2 L/min via nasal cannula. No overnight issues were identified by the nursing staff. CT abdomen completed yesterday revealed basilar groundglass opacities bilaterally along with a hematoma present in the right rectus abdominis muscle. The patient otherwise feels well this morning and is anxious to be discharged home. Objective: The patient's most recent lab work, culture data and imaging studies have all been personally reviewed. General: Alert, Cooperative, No apparent distress HEENT: Atraumatic, Normocephalic Oral: Moist Mucosa, No Gingival or Mucosal Lesions/ Ulcerations Neck: Supple, No Nodes, Trachea Midline Lungs: No rhonchi, No wheeze, No rales, Diminished Cardiovascular: Regular rate, Regular Rhythm Abdomen: Bowel Sounds Present, Soft, Tender - Right lower quadrant Extremities: No clubbing, No cyanosis, No edema Skin: No breakdown Musculoskeletal: No Tenderness to Palpation of Joints or Extremities Lymphatic: No Cervical, Supraclavicular, or Inguinal Adenopathy Neurological: Cranial nerves II-XII grossly intact, Neuro grossly intact Psych/Mental Status: Normal Affect, Appropriate Vital Signs Temp Pulse Resp BP Pulse Ox 98.2 F 83 22 H 123/74 H 98 06/06/20 02:50 06/06/20 02:50 06/06/20 02:50 06/06/20 02:50 06/06/20 02:50 Oxygen Flow Rate (L/min) 2 Oxygen Delivery Method Nasal Cannula Weight: 173 lb 15.115 oz Body Mass Index (BMI) 29.7 Intake and Output for Last 24 Hours 06/04/20 06/05/20 06/06/20 23:59 23:59 23:59 Intake Total 1070 / 1070 1740 / 1940 440 / 440 Output Total 900 / 900 250 / 550 800 / 800 Balance 170 / 170 1490 / 1390 -360 / -360 Labs (Last 48 Hours) 06/05/20 06/05/20 06/06/20 07:55 12:10 02:55 WBC 14.1 H 14.1 H 14.0 H RBC 3.87 L 4.04 L 3.76 L Hgb 9.9 L 10.4 L 9.7 L Hct 32.5 L 34.0 L 31.3 L MCV 84.0 84.2 83.2 MCH 25.6 L 25.7 L 25.8 L MCHC 30.5 L 30.6 L 31.0 L RDW Std Deviation 45.4 H 45.0 H 44.7 H RDW Coeff of Edwar 15.4 H 15.3 H 15.7 H Plt Count 346 355 350 MPV 9.3 9.5 9.6 Immature Gran % (Auto) 3.700 H Neut % (Auto) 82.0 H Lymph % (Auto) 7.6 L [place] % (Auto) 5.0 Eos % (Auto) 1.5 Baso % (Auto) 0.2 Absolute Neuts (auto) 11.6 H Absolute Lymphs (auto) 1.08 Nucleated RBC % 0 Sodium Potassium Chloride Carbon Dioxide Anion Gap BUN Creatinine Estim Creat Clear Calc Est GFR (MDRD) Af Amer Est GFR (MDRD) Non-Af BUN/Creatinine Ratio Glucose Calcium 06/06/20 02:55 WBC RBC Hgb Hct MCV MCH MCHC RDW Std Deviation RDW Coeff of Edwar Plt Count MPV Immature Gran % (Auto) Neut % (Auto) Lymph % (Auto) [place] % (Auto) Eos % (Auto) Baso % (Auto) Absolute Neuts (auto) Absolute Lymphs (auto) Nucleated RBC % Sodium 146 H Potassium 4.1 Chloride 111 H Carbon Dioxide 26.0 Anion Gap 9 BUN 12 Creatinine 0.67 Estim Creat Clear Calc 47.79 Est GFR (MDRD) Af Amer 113 Est GFR (MDRD) Non-Af 94 BUN/Creatinine Ratio 18.0 Glucose 96 Calcium 7.8 L Microbiology 05/29/20 20:05 Blood Culture (Wb) - Right Hand Blood Culture - Final No growth in 5 days. 05/29/20 19:00 Blood Culture (Wb) - Anticubital Right Blood Culture - Final No growth in 5 days. Clinical Impression(s) from Imaging Studies Chest X-Ray 05/29/20 19:20 IMPRESSION: 1. Bilateral hazy opacities consistent with pneumonia. Consider typical and atypical etiologies, including viral pneumonia. Electronically Signed: Teena Pereyra MD at 19:38 EDT Tel , Service support , Abdomen/Pelvis CT 06/05/20 06:55 IMPRESSION: 1. Diffuse groundglass opacities in the lung bases with small bilateral pleural effusions consistent with subsegmental atelectasis, pneumonitis, pulmonary edema, or ARDS. 2. 8 x 11 cm hematoma of the right rectus abdominis muscle extending posteriorly into the adjacent fascia. Electronically Signed: Travon Kaiser MD at 10:09 EDT Tel , Service support , Medical Necessity - Tobacco Use Smoking Status: Never smoker Assessment/Plan All Active Problems (Last Reviewed 10/14/19 @ 09:10 by Carly Kay) Hypoxemia (Acute) Pneumonia due to COVID-19 virus (Acute) Severe sepsis (Acute) Acute respiratory failure with hypoxia (Acute) RECOMMENDATIONS: 1. Continue current supportive measures including Decadron to complete 10 days of treatment. 2. Encourage incentive spirometer use and mobilize patient as tolerated. 3. Perform walking oximetry study prior to consideration for discharge home. IMPRESSIONS: 1. Acute hypoxic respiratory failure secondary to COVID-19 The patient is currently maintaining appropriate oxygen saturations on room air. She has improved symptomatically with Decadron and systemic anticoagulation. The patient did previously receive convalescent plasma and completed a treatment course of Remdesevir. Recommend checking a walking oximetry study prior to consideration for discharge home. 2. Asthma/history of Sjogren's syndrome Increases risk for complications associated to problem #1. Patient is getting Decadron, so Pulmicort is not necessary. Continue with bronchodilator therapy. It is unclear if patient has pulmonary involvement at baseline. 3. Hypertension/hyperlipidemia/history of GERD/fibromyalgia/delayed presentation/rectus sheath hematoma Complicates care, management, recovery and prognosis. Patient will be continued on PPI. Okay to continue with antihypertensive and anti-hyperlipidemia medications at this time. Rectus sheath hematoma is stable without any form of intervention required. This note was generated with edupristineation software. It may contain incorrect words, spelling, and punctuation that were not noted in checking the note before signing. Inpatient E&M: 90647 Subs Hosp L2
[2020-06-06 08:50] VITALS: BP 124/65; PULSE 84; RESP 18; TEMP 36.6; O2SAT 97
[2020-06-06] MEDS: dexAMETHasone 4 MG/ML Vial 6 MG IV (08:59)
[2020-06-06] MEDS: guaiFENesin 1,200 MG Tablet 1200 MG PO (09:00)
[2020-06-06] MEDS: Ezetimibe 10 MG Tablet PO (09:00)
[2020-06-06] MEDS: Losartan Potassium 50 MG Tablet PO (09:00)
[2020-06-06] MEDS: Venlafaxine XR 150 MG Capsule PO (09:00)
[2020-06-06] MEDS: Calcitriol 0.25 MCG Capsule PO (09:00)
[2020-06-06] MEDS: Pantoprazole Sodium 40 MG Tablet PO (09:00)
[2020-06-06] MEDS: Calcium (Elemental) 500 MG Tablet PO (09:01)
--- NOTE | 2020-06-06 09:07 | PCM.DC ---
- Discharge Diagnoses Current Active Problems: Current Active and Chronic Problems (Last Reviewed 10/14/19 @ 09:10 by Carly Kay) Hypoxemia (Acute) Pneumonia due to COVID-19 virus (Acute) Severe sepsis (Acute) Acute respiratory failure with hypoxia (Acute) You will use the following diet at home:: Cardiac Your food should be the consistency of: Regular Discharge Activity: May Not Drive, - - Avoid exertional work including climbing stairs or running or any exertion which strain abdominal muscle for 1 week. Right rectus Sheath hematoma Call your doctor if you observe: Fever of 101 or Higher, Change in Color, Inability to urinate, Inability to have a bowel movement, Shortness of breath, Dizziness, Fainting spells, Swelling in the ankles, Chest pain, Prolonged hiccoughing, Increased palpitations (irregular heartbeat), Calf discomfort, Uncontrolled pain, - - Call ED or PCP if the size of rectus sheath hematoma increases or feeling dizziness or pass out Allergies/Adverse Reactions: Allergies JEANNE Inhibitors Allergy (Severe, Verified 05/29/20 18:54) Unknown benzocaine [From TriOxin] Allergy (Severe, Verified 05/29/20 18:54) Unknown chloroxylenol [From TriOxin] Allergy (Severe, Verified 05/29/20 18:54) Unknown enalapril Allergy (Severe, Verified 05/29/20 18:54) Unknown hydrocortisone [From TriOxin] Allergy (Severe, Verified 05/29/20 18:54) Unknown ibandronate sodium Allergy (Severe, Verified 05/29/20 18:54) Unknown risedronate sodium Allergy (Severe, Verified 05/29/20 18:54) Unknown amoxicillin [From Augmentin] Allergy (Mild, Verified 05/29/20 18:54) nauseated clavulanic acid [From Augmentin] Allergy (Mild, Verified 05/29/20 18:54) nauseated levofloxacin [From Levaquin] Allergy (Mild, Verified 05/29/20 18:54) nauseated rofecoxib [From Vioxx] Allergy (Mild, Verified 05/29/20 18:54) rash Sulfa (Sulfonamide Antibiotics) Allergy (Mild, Verified 05/29/20 18:54) throat swelling Medications to take at Discharge cholecalciferol (vitamin D3) 125 mcg (5,000 unit) capsule 5,000 unit PO ONCE 01/28/18 denosumab 60 mg/mL subcutaneous syringe 60 mg SC [id number] 01/28/18 fluticasone propionate 110 mcg/actuation HFA aerosol inhaler 2 puff INHALATION BID 01/28/18 montelukast 10 mg tablet 10 mg PO QHS 01/28/18 pantoprazole 40 mg tablet,delayed release 40 mg PO QDAY 01/28/18 fluocinonide 0.05 % topical gel 1 applic TOPICAL TID g 02/13/18 polyethylene glycol 3350 17 gram/dose oral powder 1 dose PO DAILY PRN 02/13/18 ezetimibe 10 mg tablet 10 mg PO QDAY #90 tab 04/28/18 calcitriol 0.25 mcg capsule 0.25 mcg PO DAILY #90 cap 06/29/18 losartan 50 mg tablet 50 mg PO QDAY #90 tab 07/15/18 calcium phosphate-vitamin D3 250 mg calcium-500 unit chewable tablet 1 tab PO TID tab 09/22/18 rosuvastatin 10 mg tablet 10 mg PO .COMPLEX #30 tab 11/03/18 calcium carbonate 600 mg calcium (1,500 mg) tablet 600 mg PO DAILY 10/14/19 venlafaxine 75 mg capsule,extended release 24 hr 150 mg PO QDAY #180 cap 10/14/19 Aspirin 81 mg PO DAILY #0 06/06/20 Dexamethasone 6 mg PO DAILY #2 tab 06/06/20 Guaifenesin [Mucinex] 1,200 mg PO BID #10 tab 06/06/20 The following prescriptions were given: Dexamethasone 6 mg PO DAILY #2 tab Transmission Status: Pending to [facility]/pharmacy #[id number] Guaifenesin [Mucinex] 1,200 mg PO BID #10 tab Transmission Status: Sent to [facility]/pharmacy #[id number] Primary Care Physician: Randy Bustos MD [Primary Care Provider] - Please follow up with your Primary Care Physician in: In 1 to 2 weeks Test Results: Test results from this visit will be discussed in further detail at your follow-up appointment, if applicable. Please Follow Up With: Roly Cordero MD When: As needed for COVID-19 symptoms, fever, cough
--- NOTE | 2020-06-06 09:10 | PCM.DC.SUM ---
Discharge Date and Diagnosis Date of Admission: 05/29/20 Date of Discharge: 06/06/20 - Primary Discharge Diagnosis Acute Problems: Active Problems (Last Reviewed 10/14/19 @ 09:10 by Carly Kay) Hypoxemia (Acute) Pneumonia due to COVID-19 virus (Acute) Severe sepsis (Acute) Acute respiratory failure with hypoxia (Acute) Rectus sheath hematoma secondary to anticoagulation, Lovenox - Secondary Discharge Diagnosis Chronic Problems: Chronic Problems (Last Reviewed 10/14/19 @ 09:10 by Carly Kay) GERD (gastroesophageal reflux disease) (Chronic) Osteoporosis (Chronic) Feels good and is exercising daily. Continues with Dr. Martinez for prolia. Sjogrens syndrome (Chronic) Gastroparesis (Chronic) Fibromyalgia (Chronic) Asthma (Chronic) Hot flashes (Chronic) Vitamin D deficiency (Chronic) Hyperlipidemia (Chronic) On statin Chol 156 ldl 74 Hypertension (Chronic) BP sl elevated 139/82. Monitor diet, calcium, and exercise Hospital Course and Treatment Summary of Care Provided: The patient is a 64 year old F with history of asthma was admitted on 05/29/2020 with shortness of breath and cough. She did not had fever. Blood pressure was 180/87 in ER. She was further admitted on the COVID floor with a diagnosis of severe sepsis due to COVID-19 pneumonia and acute hypoxic respiratory failure secondary COVID-19 pneumonia 1. Bilateral lower lobe pneumonia due to to COVID-19: Patient completed remdesivir completed, 05/30-, convulsing Plasman[place]/3. Patient initially was on therapeutic enoxaparin but was discontinued on 06/05. D-dimer normal. Patient was seen by ID. Bryant, last date on 06/08. Patient is weaned off oxygen 2. Acute hypoxic respiratory failure secondary to COVID-19 pneumonia and asthma exacerbation 3. Severe sepsis secondary to COVID-19 on antibiotics discontinued. Patient was initially treated with ceftriaxone and azithromycin 4. right rectus abdominal hematoma, developed on 06/05 mostly secondary to anticoagulation. CT with abdomen was individually reviewed and shows presence of right rectus sheath hematoma about 8 x 11 cm. It was reviewed with general surgery and had previous hospitalist. As patient was hemodynamically stable along with stable H&H, last one , no symptoms of dizziness or syncope, improvement in the size and pain of swelling, patient chose to stay here rather than transfer to tertiary care facility. There was no indication for transfer to tertiary care facility. 5. chronic diseases: overall stable, but complicate overall care: Patient has history of Sjogren's disease other comorbidities include GERD, gastroparesis, fibromyalgia, vitamin D deficiency, hypertension and dyslipidemia. Patient was advised to hold aspirin for about 10 days 6. VTE prophylaxis: SCDs Discharge medication reconciliation done. Discharge follow-up instructions completed. Discharge process discussed with the patient and all questions were answered to patient's satisfaction. Total time spent, exact 35 minutes on discharge meds reconciliation, examination, coordination of care with nurses and ancillary staff, review of imaging and blood test and discussion with the patient on follow-up instructions Objective: Seen and examined. Patient had onset of symptoms on 05/21 with cough and mild shortness of breath. Had already 16 days of quarantine. Cough and shortness of breath better. Patient pulse ox 95% on room air. Has history of asthma but symptoms including SOB, cough and wheezing are controlled. No fever. Patient developed right lower extremity hematoma on Lovenox. Lovenox and baby aspirin have been discontinued. CT abdomen imaging reviewed. Pain over right lower abdomen much improved, 2?3/10 intensity. swelling also decreased in size as per the patient. Patient has history of Sjogren disease Physical exam General: Alert, Oriented x3, Cooperative HEENT: Atraumatic, PERRLA, EOMI, Normocephalic Oral: No Gingival or Mucosal Lesions/ Ulcerations Neck: Supple, No JVD, Negative Carotid Bruits Lungs: Air entry diminished in bilateral lung bases. No crepitation/rhonchi/wheezing. No hypoxia or tachypnea Cardiovascular: Regular rate, Regular Rhythm, Normal S1, Normal S2, No murmurs Abdomen: Bowel Sounds Present, Soft, mild tenderness over right lower rectus sheath with ill-defined swelling as compared to left, Non-Distended : No renal angle tenderness. No suprapubic tenderness. Extremities: No edema, Capillary Refill Less than 3 Seconds Skin: No rashes, No breakdown Musculoskeletal: No Tenderness to Palpation of Joints or Extremities Neurological: Cranial nerves II-XII grossly intact, Deep Tendon Reflexes 2+/4 and Symmetrical, Neuro grossly intact Psych/Mental Status: Normal Affect, Appropriate. - Physical Exam Vitals/I&O's: Vital Signs Temp Pulse Resp BP Pulse Ox 98.2 F 83 22 H 123/74 H 95 06/06/20 02:50 06/06/20 02:50 06/06/20 02:50 06/06/20 02:50 06/06/20 06:25 Oxygen Flow Rate (L/min) 2 Oxygen Delivery Method Nasal Cannula Weight: 173 lb 15.115 oz Body Mass Index (BMI) 29.7 Intake and Output for Last 24 Hours 06/04/20 06/05/20 06/06/20 23:59 23:59 23:59 Intake Total 1070 / 1070 1740 / 1940 440 / 440 Output Total 900 / 900 250 / 550 800 / 800 Balance 170 / 170 1490 / 1390 -360 / -360 Microbiology Past 72 Hours 05/29/20 20:05 Blood Culture (Wb) - Right Hand Blood Culture - Final No growth in 5 days. 05/29/20 19:00 Blood Culture (Wb) - Anticubital Right Blood Culture - Final No growth in 5 days. Laboratory Results 06/05/20 12:10: WBC 14.1 H, RBC 4.04 L, Hgb 10.4 L, Hct 34.0 L, MCV 84.2, MCH 25.7 L, MCHC 30.6 L, RDW Std Deviation 45.0 H, RDW Coeff of Edwar 15.3 H, Plt Count 355, MPV 9.5 06/06/20 02:55: WBC 14.0 H, RBC 3.76 L, Hgb 9.7 L, Hct 31.3 L, MCV 83.2, MCH 25.8 L, MCHC 31.0 L, RDW Std Deviation 44.7 H, RDW Coeff of Edwar 15.7 H, Plt Count 350, MPV 9.6 06/06/20 02:55: Sodium 146 H, Potassium 4.1, Chloride 111 H, Carbon Dioxide 26.0, Anion Gap 9, BUN 12, Creatinine 0.67, Estim Creat Clear Calc 47.79, Est GFR (MDRD) Af Amer 113, Est GFR (MDRD) Non-Af 94, BUN/Creatinine Ratio 18.0, Glucose 96, Calcium 7.8 L Current Medications Acetaminophen (Tylenol) 650 mg PO Q6H PRN PRN PRN Reason: Pain Score 1-10/Temp > 100.7 F Last Admin: 06/05/20 18:12 Dose: 650 mg Documented by: Albuterol/Ipratropium (Duoneb) 3 ml INHALATION Q4H.RT PRN PRN Reason: Asthma Last Admin: 05/30/20 10:26 Dose: 3 ml Documented by: Atorvastatin Calcium (Lipitor) 20 mg PO Q3D@2200 [facility] [place] Last Admin: 06/05/20 20:58 Dose: 20 mg Documented by: Calcitriol (Rocaltrol) 0.25 mcg PO DAILY [facility] [place] Last Admin: 06/06/20 09:00 Dose: 0.25 mcg Documented by: Calcium Carbonate (Os-Moe 500) 500 mg PO DAILY [facility] [place] Last Admin: 06/06/20 09:01 Dose: 500 mg Documented by: Dexamethasone Sodium Phosphate (Decadron) 6 mg IV DAILY [facility] Stop: 06/08/20 21:08 Last Admin: 06/06/20 08:59 Dose: 6 mg Documented by: Ezetimibe (Zetia) 10 mg PO DAILY [facility] [place] Last Admin: 06/06/20 09:00 Dose: 10 mg Documented by: Guaifenesin (Mucinex) 1,200 mg PO BID [facility] [place] Last Admin: 06/06/20 09:00 Dose: 1,200 mg Documented by: Sodium Chloride () 250 mls @ 15 mls/hr IV .[id number] PRN PRN Reason: Saline Flush Last Infusion: 06/04/20 10:10 Dose: Infused Documented by: Sodium Chloride () 250 mls @ 15 mls/hr IV .[id number] PRN PRN Reason: Additional IVPB Infusion Ibuprofen (Motrin) 600 mg PO Q8H PRN PRN PRN Reason: Pain 1-10/10 or Fever Last Admin: 06/04/20 22:15 Dose: 600 mg Documented by: Losartan Potassium (Cozaar) 50 mg PO DAILY [facility] [place] Last Admin: 06/06/20 09:00 Dose: 50 mg Documented by: Melatonin (Melatonin) 3 mg PO QHS PRN PRN Reason: SLEEP Last Admin: 06/05/20 20:59 Dose: 3 mg Documented by: Montelukast Sodium (Singulair) 10 mg PO QHS [facility] [place] Last Admin: 06/05/20 20:59 Dose: 10 mg Documented by: Nitroglycerin (Nitrostat) 0.4 mg SUBLINGUAL Q5M PRN PRN Reason: CARDIAC/CHEST PAIN Ondansetron HCl (Zofran) 4 mg IV Q8H PRN PRN PRN Reason: NAUSEA/VOMITING Last Admin: 05/30/20 20:09 Dose: 4 mg Documented by: Pantoprazole Sodium (Protonix) 40 mg PO DAILY [facility] Last Admin: 06/06/20 09:00 Dose: 40 mg Documented by: Polyethylene Glycol (Miralax) 17 gm PO DAILY [facility] Last Admin: 06/06/20 09:03 Dose: Not Given Documented by: Senna/Docusate Sodium (Senokot-S, Tena-Colace) 2 tablet PO BID PRN PRN Reason: Constipation Sodium Chloride () 10 - 40 ml IV UD PRN PRN Reason: SALINE FLUSH Last Admin: 06/05/20 20:59 Dose: 10 ml Documented by: Throat Lozenges (Cepacol Sore Throat Lozenge) 1 lozenge MUCOUS MEM Q2H PRN PRN PRN Reason: SORE THROAT Venlafaxine HCl (Effexor Xr) 150 mg PO DAILY [facility] Last Admin: 06/06/20 09:00 Dose: 150 mg Documented by: Discharge Activity: May Not Drive, - - Avoid exertional work including climbing stairs or running or any exertion which strain abdominal muscle for 1 week. Right rectus Sheath hematoma Call your doctor if you observe: Fever of 101 or Higher, Change in Color, Inability to urinate, Inability to have a bowel movement, Shortness of breath, Dizziness, Fainting spells, Swelling in the ankles, Chest pain, Prolonged hiccoughing, Increased palpitations (irregular heartbeat), Calf discomfort, Uncontrolled pain, - - Call ED or PCP if the size of rectus sheath hematoma increases or feeling dizziness or pass out Home Medications: Medications to take at Discharge cholecalciferol (vitamin D3) 125 mcg (5,000 unit) capsule 5,000 unit PO ONCE 01/28/18 denosumab 60 mg/mL subcutaneous syringe 60 mg SC [id number] 01/28/18 fluticasone propionate 110 mcg/actuation HFA aerosol inhaler 2 puff INHALATION BID 01/28/18 montelukast 10 mg tablet 10 mg PO QHS 01/28/18 pantoprazole 40 mg tablet,delayed release 40 mg PO QDAY 04/03/18 fluocinonide 0.05 % topical gel 1 applic TOPICAL TID g 02/13/18 polyethylene glycol 3350 17 gram/dose oral powder 1 dose PO DAILY PRN 02/13/18 ezetimibe 10 mg tablet 10 mg PO QDAY #90 tab 04/28/18 calcitriol 0.25 mcg capsule 0.25 mcg PO DAILY #90 cap 06/29/18 losartan 50 mg tablet 50 mg PO QDAY #90 tab 07/15/18 calcium phosphate-vitamin D3 250 mg calcium-500 unit chewable tablet 1 tab PO TID tab 09/22/18 rosuvastatin 10 mg tablet 10 mg PO .COMPLEX #30 tab 11/03/18 calcium carbonate 600 mg calcium (1,500 mg) tablet 600 mg PO DAILY 10/14/19 venlafaxine 75 mg capsule,extended release 24 hr 150 mg PO QDAY #180 cap 10/14/19 Aspirin 81 mg PO DAILY #0 06/06/20 Dexamethasone 6 mg PO DAILY #2 tab 06/06/20 Guaifenesin [Mucinex] 1,200 mg PO BID #10 tab 06/06/20 Following Prescriptions Were Given to Patient: Dexamethasone 6 mg PO DAILY #2 tab Transmission Status: Received by [facility]/pharmacy #[id number] Guaifenesin [Mucinex] 1,200 mg PO BID #10 tab Transmission Status: Received by [facility]/pharmacy #[id number] Primary Care Physician: Randy Bustos MD [Primary Care Provider] - Please follow up with your Primary Care Physician in: In 1 to 2 weeks Please Follow Up With: Roly Cordero MD When: As needed for COVID-19 symptoms, fever, cough Medical Necessity - Tobacco Use Smoking Status: Never smoker Meaningful Use Info Meaningful Use Diagnoses (Choose all that apply): None applicable Inpatient E&M: 44580 Disch Hosp
--- NOTE | 2020-06-07 13:04 | CASEMGMT ---
RUSS AGUIRRE DC PHONE CALL DC DATE: 06/07/2020 DC DISPOSITION: Home DC DIAGNOSIS: Pneumonia due to COVID-19 LACE/STRATA: 08/30 F/U APPTS MADE PRIOR TO DC: no PRESCRIPTIONS ACQUIRED BY PT: yes Intro role of CM to patient via phone. Patient states she is feeling better, but still very weak and tired. She and her are isolating at home and no concerns at this time. They have family/friends to bring anything they need. Patient also stated how much she appreciated her care @ [facility]. No further questions and no concerns. Eric CALDERONN RN ACM
--- NOTE | 2020-06-07 13:18 | CASEMGMT ---
RUSS AGUIRRE DC PHONE CALL DC DATE: 06/06/2020 DC DISPOSITION: Home DC DIAGNOSIS: Pneumonia due to COVID-19 LACE/STRATA: 08/30 F/U APPTS MADE PRIOR TO DC: no PRESCRIPTIONS ACQUIRED BY PT: yes Intro role of CM to patient via phone. Patient states she is feeling better, but still very weak and tired. She and her are isolating at home and no concerns at this time. They have family/friends to bring anything they need. Patient also stated how much she appreciated her care @ [facility]. No further questions and no concerns. Eric CALDERONN RN
== END 2020-06-06 13:40 | disposition home or self-care (01) | DRG 871 ==
LOC: ED 20:06 → ICU 23:44
PROVIDERS: Internal Medicine Critical Care Medicine; Internal Medicine Infectious Disease; Admitting Provider Student in an Organized Health Care Education/Training Program; Emergency Provider Emergency Medicine; PCP Family Medicine; Visit Provider Internal Medicine
DX: A41.89 Other specified sepsis (principal); U07.1 COVID-19; J12.89 Other viral pneumonia; J96.01 Acute respiratory failure with hypoxia; E87.2 Acidosis; J45.41 Moderate persistent asthma with (acute) exacerbation; M79.7 Fibromyalgia; E78.5 Hyperlipidemia, unspecified; K21.9 Gastro-esophageal reflux disease without esophagitis; I10 Essential (primary) hypertension; M81.0 Age-related osteoporosis without current pathological fracture; E55.9 Vitamin D deficiency, unspecified; M35.00 Sjogren syndrome, unspecified; R65.20 Severe sepsis without septic shock; Z66 Do not resuscitate; K31.84 Gastroparesis; S30.1XXA Contusion of abdominal wall, initial encounter; Z79.82 Long term (current) use of aspirin; Z79.899 Other long term (current) drug therapy; N95.1 Menopausal and female climacteric states; E87.6 Hypokalemia; E66.9 Obesity, unspecified; Z68.30 Body mass index [BMI] 30.0-30.9, adult
CPT/HCPCS: 71045; 74177; 80048; 80053; 82550; 82962; 83605; 83615; 83735; 84145; 84484; 85025; 85027; 85379; 85384; 86140; 86850; 86900; 86901; 87040; 93005; 94640; 94660; 94762; 97110; 97116; 97162; 97166; 97530; 97802; 99284; J7030; J7050; Q9967; A4216; J1940; J2405

== ENCOUNTER → 2020-10-07 08:27 | Outpatient (CLI) | payer MEDICARE, OTHER, SELFPAY ==
[2019-10-14 09:23] VITALS: BMI 31.9
[2020-05-29 21:08] VITALS: BMI 29.7
--- NOTE | 2020-10-07 08:30 | BI_ITS ---
MAMMOGRAPHY - BILATERAL SCREENING REASON FOR EXAM: Female, 65 years old. Routine annual screening examination. PERTINENT HISTORY: Non-contributory. Prior right stereotactic breast biopsy. TECHNIQUE: Digital bilateral breast prem (3D mammographic acquisition) in the CC and MLO projections. 2-D mediolateral oblique (MLO) and craniocaudad (CC) views of both breasts were obtained. CAD: Full Field Digital Mammography with Computer Added Detection was performed. COMPARISON: Comparison is made with prior study dated 10/06/2019 and 09/09/2018. FINDINGS: Breast Composition: The breasts are heterogeneously dense, which may obscure small masses. There are no dominant masses or suspicious calcifications. Once again, there are 2 tissue markers seen in the right breast in keeping with prior biopsies. Stable benign-appearing bilateral axillary lymph nodes. No other significant abnormalities are identified. There has been no significant change since the prior study. BI/SCREEN MAMM (CAD) W/PREM BILAT IMPRESSION: Stable bilateral screening mammogram. Yearly follow-up mammogram recommended. (A) ASSESSMENT CATEGORY: BIRADS Category 2: Benign. A letter regarding these results will be sent to the patient by the facility within 30 days. Approximately 10% of breast cancers are not detected by mammography. A normal mammogram should not delay biopsy of a clinically suspicious abnormality. [id number] Electronically Signed: Adarsh Mao, at 10:43 EST , Service support ,
== END ==
PROVIDERS: PCP Family Medicine; Referring Provider Nurse Practitioner Women's Health; Visit Provider Nurse Practitioner Women's Health
DX: Z12.31 Encounter for screening mammogram for malignant neoplasm of breast (principal)
CPT/HCPCS: 77063; 77067

== ENCOUNTER → 2020-10-20 08:52 | Outpatient (CLI) | payer MEDICARE, OTHER, SELFPAY ==
[2020-10-18 08:38] VITALS: BMI 29.5
--- NOTE | 2020-10-20 08:55 | BD_ITS ---
STUDY: DUAL ENERGY X-RAY ABSORPTIOMETRY / DXA REASON FOR EXAM: Female, 65 years old. Hx of surgical laurie age 51. Pat is 172.0# and 63.5 and quot; a loss of 2 and quot; per pat. Past hx of using an HRT. Takes an inhaler prn. Takes 1800 mg of calcium. Has been getting Prolia inj for about 4-5 yrs. Exercises a little. Mother and sisters have osteo. TECHNIQUE: Bone Mineral Density (BMD) measurements of lumbar spine and bilateral hips were obtained. COMPARISON: None. FINDINGS: Lumbar Spine (L1-L4): g/cm2 (1.092) / T-score (-0.6) / Z-score (1.0) Findings are suggestive of normal bone density with a low fracture risk. Left Femur Total: g/cm2 (0.873) / T-score (-1.1) / Z-score (0.2) Left Femoral Neck: g/cm2 (0.804) / T-score (-1.7) / Z-score (0.1) Right Femur Total: g/cm2 (0.957) / T-score (-0.4) / Z-score (0.9) Right Femoral Neck: g/cm2 (0.891) / T-score (-1.1) / Z-score (0.5) BD/Dexa Bone Density Study IMPRESSION: The patient is considered osteopenic as outlined below according to World Tomer Organization (WHO) criteria with a moderate fracture risk. Reference Information: The T-score is the number of standard deviations above or below the standard which is normal for young adults at their peak bone mineral density. The World Health Organization (WHO) interprets the T-scores as follows: Above -1 Normal bone density Between -1 and -2.5 Osteopenia Equal to / or below -2.5 Osteoporosis As a practical clinical guideline, osteopenia may be graded as follows: Mild -1 through -1.5 Moderate -1.6 through -2.0 Severe -2.1 through -2.4 The Z-score is the number of standard deviations above or below age-matched controls. A Z-score of less than -1.5 would be considered abnormal. References: 1. NIH Osteoporosis and Related Bone Diseases www osteo.org 2. International Society for Clinical Densitometry www iscd.org 3. National Osteoporosis Foundation www nof.org Electronically Signed: Adarsh Mao, at 12:08 EST , Service support ,
== END ==
PROVIDERS: PCP Family Medicine; Referring Provider Nurse Practitioner Women's Health; Visit Provider Nurse Practitioner Women's Health
DX: M81.0 Age-related osteoporosis without current pathological fracture (principal)
CPT/HCPCS: 77080

== ENCOUNTER → 2021-10-09 09:54 | Outpatient (CLI) | payer MEDICARE, OTHER, SELFPAY ==
[2020-10-18 08:38] VITALS: BMI 29.5
--- NOTE | 2021-10-09 09:57 | BI_ITS ---
MAMMOGRAPHY - BILATERAL SCREENING REASON FOR EXAM: Female, 66 years old. Routine annual screening examination. PERTINENT HISTORY: Non-contributory. Prior right stereotactic breast biopsy. TECHNIQUE: Digital bilateral breast prem (3D mammographic acquisition) in the CC and MLO projections. 2-D mediolateral oblique (MLO) and craniocaudad (CC) views of both breasts were obtained. CAD: Full Field Digital Mammography with Computer Added Detection was performed. COMPARISON: Comparison is made with prior study dated 10/07/2020 and 10/06/2019. FINDINGS: Breast Composition: The breasts are heterogeneously dense, which may obscure small masses. There are no dominant masses or suspicious calcifications. Once again, 2 tissue markers are seen in the upper lateral aspect of the right breast. Stable small benign-appearing bilateral axillary lymph nodes. No other significant abnormalities are identified. There has been no significant change since the prior study. BI/SCRN MAMM (CAD)W/PREM BILAT IMPRESSION: Stable bilateral screening mammogram. Yearly follow-up mammogram recommended. (A) ASSESSMENT CATEGORY: BIRADS Category 2: Benign. A letter regarding these results will be sent to the patient by the facility within 30 days. Approximately 10% of breast cancers are not detected by mammography. A normal mammogram should not delay biopsy of a clinically suspicious abnormality. [id number] Electronically Signed: Adarsh Mao MD at 10:48 EST , Service support ,
== END ==
PROVIDERS: PCP Family Medicine; Referring Provider Nurse Practitioner Women's Health; Visit Provider Nurse Practitioner Women's Health
DX: Z12.31 Encounter for screening mammogram for malignant neoplasm of breast (principal)
CPT/HCPCS: 77063; 77067

== ENCOUNTER → 2022-10-10 | Outpatient (CLI) | payer MEDICARE, OTHER, SELFPAY ==
--- NOTE | 2022-10-10 09:15 | BI_ITS ---
MAMMOGRAPHY - BILATERAL SCREENING REASON FOR EXAM: Female, 67 years old. Routine annual screening examination. PERTINENT HISTORY: Non-contributory. TECHNIQUE: Digital bilateral breast prem (3D mammographic acquisition) in the CC and MLO projections. 2-D mediolateral oblique (MLO) and craniocaudad (CC) views of both breasts were obtained. CAD: Full Field Digital Mammography with Computer Added Detection was performed. COMPARISON: Comparison is made with prior study dated 10/09/2021 and 10/07/2020. FINDINGS: Breast Composition: The breasts are heterogeneously dense, which may obscure small masses. There are no dominant masses or suspicious calcifications. Once again, 2 tissue markers are seen in the upper lateral aspect of the right breast. Stable benign-appearing small bilateral axillary lymph nodes. No other significant abnormalities are identified. There has been no significant change since the prior study. BI/SCRN MAMM (CAD)W/PREM BILAT IMPRESSION: Stable bilateral screening mammogram. Yearly follow-up mammogram recommended. (A) ASSESSMENT CATEGORY: BIRADS Category 2: Benign. A letter regarding these results will be sent to the patient by the facility within 30 days. Approximately 10% of breast cancers are not detected by mammography. A normal mammogram should not delay biopsy of a clinically suspicious abnormality. [id number] Electronically Signed: Adarsh Mao MD at 10:55 EST ,
== END | disposition home or self-care (01) ==
LOC: OPBI 09:14
PROVIDERS: PCP Family Medicine; Visit Provider Nurse Practitioner Women's Health
DX: Z12.31 Encounter for screening mammogram for malignant neoplasm of breast (principal)
CPT/HCPCS: 77063; 77067

== ENCOUNTER 2023-05-27 13:29 | Outpatient (CLI) | payer MEDICARE, OTHER, SELFPAY ==
[2023-05-27 15:12] LABS: Absolute Lymphocyte Count 2.14 X10^3/uL (0.83-4.51); Absolute Neutrophil Count 9.5 X10^3/uL (2.0-7.7); Basophil# 0.06 X10^3/uL; Basophil% 0.5 % (0-1); Eosinophil# 0.09 X10^3/uL; Eosinophils% 0.7 % (0-5); Hematocrit 43.1 % (37-47); Hemoglobin 13.8 g/dL (12.0-15.0); Lymphocyte # 2.14 X10^3/ul (0.83-4.51); Lymphocyte % 17.4 % (19-41); Mean Corpuscular Hgb 30.5 pg (27.0-32.0); Mean Corpuscular Volume 95.4 fL (81-99); Mean Platelet Vol. 10.1 fl (6.2-12.0); Monocyte# 0.44 X10^3/uL; Monocyte% 3.6 % (0-10); NRBC Flagged by Analyzer 0 % (0-5); Neutrophil # 9.48 X10^3/uL (2.7-7.7); Neutrophil % 77.3 % (47-70); Platelet Count 262 K/mm3 (150-450); RBC Distribution Width CV 13.2 % (11.6-14.6); RBC Distribution Width SD 45.9 fl (35.1-43.9); Red Blood Count 4.52 M/mm3 (4.2-5.4); White Blood Count 12.3 K/mm3 (4.4-11.0)
[2023-05-27 15:42] LABS: Anion Gap 6 (5-15); BUN 13 mg/dL (7-18); BUN/Creat Ratio 13.1 RATIO (10-20); Calcium,Total 8.8 mg/dL (8.5-10.1); Chloride 105 mmol/L (98-107); Creatinine, Serum 0.99 mg/dL (0.55-1.02); EST Glomerular Filtration Rate 59 mL/min (>60); Est Glom Filt Rate - Afr Amer 71 mL/min (>60); Glucose 120 mg/dL (74-106); Potassium 3.6 mmol/L (3.5-5.1); Sodium Level 138 mmol/L (136-145)
== END 2023-05-27 23:59 | disposition home or self-care (01) ==
LOC: LAB 13:32
PROVIDERS: PCP Family Medicine; Referring Provider Specialist; Visit Provider Specialist
DX: M65.4 Radial styloid tenosynovitis [de Quervain] (principal); I10 Essential (primary) hypertension
CPT/HCPCS: 36415; 80048; 85025

== ENCOUNTER → 2023-05-31 | Outpatient (CLI) | payer MEDICARE, OTHER, SELFPAY ==
--- NOTE | 2023-05-31 10:45 | CYST_PTH ---
PATIENT: ALEC MEREDITH LOC: [facility] U#:[id number] AGE/SX: 67/F ROOM: RE05/31/[address]: Dr. Danial Jenkins MD : 1955 BED: DIS: 05/31/2023 SPEC #: [id number] RECD: 05/31/23 15:52 STATUS: AYSHA GREENBERG #: [id number] RONA: 05/31/23 10:[address]: Danial Jenkins DEPT: SURGICAL PATHOLOGY RECD BY: Gayle Hernandez ENTERED: 06/03/23 08:41 SP TYPE: Cyst OTHR DR: Dr. Randy Bustos MD [facility] Tissues: CYST Procedures: Surgery Specimen Level III HEADER OPERATION: Left DeQuervain's release, cyst removal left wrist PRE-OP DIAGNOSIS: Left radial styloid tenosynovitis, left wrist cyst TISSUE SUBMITTED: Left wrist cyst MICROSCOPIC DIAGNOSIS Cyst of left wrist, biopsy: Consistent with ganglion cyst. AM:tee 06/04/2023 MICROSCOPIC DESCRIPTION Slides are reviewed. GROSS DESCRIPTION Received is one container labeled with the patient's name and not further designated. The specimen consists of a piece of guy soft tissue measuring 0.8 x 0.5 x 0.2 cm. The specimen is bisected and submitted entirely in one cassette. / SJ:tee 06/03/2023 TC:5 CPT: 31136
== END | disposition home or self-care (01) ==
LOC: LABSPEC 15:43
PROVIDERS: PCP Family Medicine; Referring Provider Specialist; Visit Provider Specialist
DX: M65.4 Radial styloid tenosynovitis [de Quervain] (principal); M25.832 Other specified joint disorders, left wrist
CPT/HCPCS: 88304

== ENCOUNTER → 2023-10-11 | Outpatient (CLI) | payer MEDICARE, OTHER, SELFPAY ==
--- NOTE | 2023-10-11 09:41 | BI_ITS ---
MAMMOGRAPHY - BILATERAL SCREENING REASON FOR EXAM: Female, 68 years old. Routine annual screening examination. PERTINENT HISTORY: Non-contributory. Prior right stereotactic breast biopsy. TECHNIQUE: Digital bilateral breast prem (3D mammographic acquisition) in the CC and MLO projections. 2-D mediolateral oblique (MLO) and craniocaudad (CC) views of both breasts were obtained. CAD: Full Field Digital Mammography with Computer Added Detection was performed. COMPARISON: Comparison is made with prior study dated October 10, 2022 and October 09, 2021. FINDINGS: Breast Composition: The breasts are heterogeneously dense, which may obscure small masses. There are no dominant masses or suspicious calcifications. Once again, 2 adjacent tissue markers are seen in the upper lateral aspect of the right breast. Stable small benign-appearing bilateral axillary lymph nodes. No other significant abnormalities are identified. There has been no significant change since the prior study. BI/SCRN MAMM (CAD)W/PREM BILAT IMPRESSION: Stable bilateral screening mammogram. Yearly follow-up mammogram recommended. (A) ASSESSMENT CATEGORY: BIRADS Category 2: Benign. A letter regarding these results will be sent to the patient by the facility within 30 days. Approximately 10% of breast cancers are not detected by mammography. A normal mammogram should not delay biopsy of a clinically suspicious abnormality. [id number] Electronically Signed: Adarsh Mao MD at 10:37 EST ,
== END | disposition home or self-care (01) ==
LOC: OPBI 09:40
PROVIDERS: PCP Family Medicine; Referring Provider Nurse Practitioner Women's Health; Visit Provider Nurse Practitioner Women's Health
DX: Z12.31 Encounter for screening mammogram for malignant neoplasm of breast (principal)
CPT/HCPCS: 77063; 77067

== ENCOUNTER → 2024-10-12 | Outpatient (CLI) | payer MEDICARE, OTHER, SELFPAY ==
--- NOTE | 2024-10-12 08:27 | BI_ITS ---
MAMMOGRAPHY - BILATERAL SCREENING REASON FOR EXAM: Female, 69 years old. Routine annual screening examination. PERTINENT HISTORY: Non-contributory. TECHNIQUE: Digital bilateral breast prem (3D mammographic acquisition) in the CC and MLO projections. 2-D mediolateral oblique (MLO) and craniocaudad (CC) views of both breasts were obtained. CAD: Full Field Digital Mammography with Computer Added Detection was performed. COMPARISON: Comparison is made with prior study dated October 11, 2023. History of prior right stereotactic breast biopsies. FINDINGS: Breast Composition: The breasts are heterogeneously dense, which may obscure small masses. There are no dominant masses or suspicious calcifications. There are 2 adjacent tissue clip markers are seen in the upper lateral aspect of the right breast. Stable fat-containing bilateral axillary lymph nodes. No other significant abnormalities are identified. There has been no significant change since the prior study. BI/SCRN MAMM (CAD)W/PREM BILAT IMPRESSION: Stable bilateral screening mammogram. Yearly follow-up mammogram recommended. (A) ASSESSMENT CATEGORY: BIRADS Category 2: Benign. A letter regarding these results will be sent to the patient by the facility within 30 days. Approximately 10% of breast cancers are not detected by mammography. A normal mammogram should not delay biopsy of a clinically suspicious abnormality. [id number] Electronically Signed: Adarsh Mao MD at 9:03 EST ,
== END | disposition home or self-care (01) ==
PROVIDERS: PCP Family Medicine; Visit Provider Nurse Practitioner Women's Health
DX: Z12.31 Encounter for screening mammogram for malignant neoplasm of breast (principal)
CPT/HCPCS: 77063; 77067

== ENCOUNTER → 2025-10-14 | Outpatient (CLI) | payer MEDICARE, OTHER, SELFPAY ==
--- NOTE | 2025-10-14 10:00 | BI_ITS ---
EXAM: SCRN MAMM (CAD)W/PREM BILAT DATE: 10/14/2025 CLINICAL HISTORY: F, Age 70 y/o , SCREEN FOR BREAST CANCER No family history. History of prior right stereotactic breast biopsies. TECHNIQUE: Procedure Code: [id number] Modality: MG Procedure: SCRN MAMM (CAD)W/PREM BILAT COMPARISON: Prior exam(s) dated October 12, 2024.. FINDINGS: TISSUE DENSITY: The breasts are heterogeneously dense, which may obscure small masses. Bilateral Breast Mammographic Findings: No significant masses, calcifications or other abnormalities are identified. Once again, 2 tissue clip markers are seen in the upper-outer quadrant of the right breast. No suspicious masses, areas of developing architectural distortion, or suspicious calcifications. There has been no significant interval change. BI/SCRN MAMM (CAD)W/PREM BILAT IMPRESSION: Stable bilateral screening mammogram. OVERALL FINAL ASSESSMENT BI-RADS 2: BENIGN RECOMMENDATION: Routine annual follow-up in 1 Year Additional Recommendation none A letter with findings and recommendations will be mailed to the patient. Reading Location: [id number]
== END | disposition home or self-care (01) ==
LOC: OPBI 09:59
PROVIDERS: PCP Family Medicine; Referring Provider Nurse Practitioner Women's Health; Visit Provider Nurse Practitioner Women's Health
DX: Z12.31 Encounter for screening mammogram for malignant neoplasm of breast (principal)
CPT/HCPCS: 77063; 77067